=== PATIENT | female | born 1955 | race Caucasian/White ===

== ENCOUNTER 2016-09-07 09:23 | Inpatient (IN) | payer BC ==
[2016-09-07] MEDS ORDERED: SODIUM CHLORIDE 0.9% 1,000 ML IV STA (09:53)
[2016-09-07] MEDS ORDERED: NITROGLYCERIN SL TABS 0.4 MG TAB SUBLINGUAL STA (09:53)
--- NOTE | 2016-09-07 09:57 | ED ---
Chest Pain HPI - General Chief Complaint: Chest Pain Stated Complaint: CHEST PAIN, SHAKY Time Seen by Provider: 09/07/16 09:42 Source: patient, RN notes reviewed Mode of arrival: ambulatory Limitations: no limitations - History of Present Illness Initial Comments: This is a 61-year-old female with a history of ASD repair 1996 also borderline asthma who is a nonsmoker who states she's not feeling well she states she had the onset 4 days ago some chest tightness that was 10/10 in severity radiated to her left arm. She States She's Feeling Shaky. Can't Think Straight. She States She Also Has a Headache. She States for Now Her Chest Tightness Is 1-2/ 10 in Severity She Did Take 2 Full Strength Aspirin Last Night at Work without Much Resolution. She States She Just Recently Started Doctor Was Noted Have a Markedly Elevated Blood Pressure Today. She Denies Any Fevers Chills Sweats or Other Symptoms. She Has No Prior History of Heart or Lung Disease Other Than the ASD Repair. MD Complaint: chest pain, other - Related Data Home Medications Medication Instructions Recorded Confirmed Albuterol Inhaler [Ventolin 2 puff INHALATION RT-Q4H PRN 02/27/14 09/07/16 Inhaler] Mometasone/Formoterol [Dulera 100 1 puff INHALATION RT-DAILY PRN 02/27/14 Mcg/5 Mcg Inhaler] Omeprazole [PriLOSEC] 40 mg PO DAILY@22902/27/14 09/07/16 Venlafaxine HCl ER [Effexor Xr] 150 mg PO DAILY@22902/27/14 09/07/16 clonazePAM [KlonoPIN] 1 mg PO DAILY@22902/27/14 09/07/16 Fluticasone Propionate [Flonase 1 spray EA NOSTRIL DAILY@22910/19/14 09/07/16 Allergy Relief] Ergocalciferol (Vitamin D2) 50,000 unit PO SA 09/07/16 09/07/16 [Vitamin D2] Levothyroxine Sodium [Synthroid] 50 mcg PO DAILY@22909/07/16 09/07/16 Naproxen Sodium [Aleve] 440 mg PO DAILY PRN 09/07/16 09/07/16 Robeline-3 Acid Ethyl Esters [Lovaza] 2 gm PO BID 09/07/16 09/07/16 metFORMIN HCL ER [Glucophage Xr] 1,000 mg PO BID 09/07/16 09/07/16 sitaGLIPtin [Januvia] 100 mg PO DAILY@0230 09/07/16 09/07/16 Allergies Allergy/AdvReac Type Severity Reaction Status Date / Time Sulfa (Sulfonamide Allergy Itching Verified 09/07/16 10:48 Antibiotics) Review of Systems ROS Statement: Those systems with pertinent positive or pertinent negative responses have been documented in the HPI. ROS Other: All systems not noted in ROS Statement are negative. EKG Findings - EKG Results: EKG: interpreted by ERMD, sinus rhythm (Sinus rhythm rate of 90 VA interval 150 to QRS duration 80 QT/QTC of 396/[address]-T wave configuration. Prolonged QT.) Past Medical History Past Medical History: Asthma, COPD, GERD/Reflux, Osteoarthritis (OA) History of Any Multi-Drug Resistant Organisms: None Reported Past Surgical History: Hysterectomy, Orthopedic Surgery, Tubal Ligation Additional Past Surgical History / Comment(s): ASD repair, foot surg., rotator cuff surg, trigeminal neuralgia Additional Past Anesthesia/Blood Transfusion Reaction / Comment(s): had a problem w/nerve block w/rotator cuff surg. Past Psychological History: Depression, Panic Disorder Smoking Status: Former smoker Past Alcohol Use History: None Reported Past Drug Use History: None Reported General Exam - General Exam Comments Initial Comments: This is a well-developed well-nourished awake alert oriented 3 female Limitations: no limitations General appearance: alert, in no apparent distress Head exam: Present: atraumatic, normocephalic, normal inspection Eye exam: Present: normal appearance, PERRL, EOMI. Absent: scleral icterus, conjunctival injection, periorbital swelling ENT exam: Present: normal exam, mucous membranes moist Neck exam: Present: normal inspection. Absent: tenderness, meningismus, lymphadenopathy Respiratory exam: Present: normal lung sounds bilaterally. Absent: respiratory distress, wheezes, rales, rhonchi, stridor Cardiovascular Exam: Present: regular rate, normal rhythm, normal heart sounds. Absent: systolic murmur, diastolic murmur, rubs, gallop, clicks GI/Abdominal exam: Present: soft, normal bowel sounds, other (Obese abdomen). Absent: distended, tenderness, guarding, rebound, rigid Extremities exam: Present: normal inspection, full ROM, normal capillary refill. Absent: tenderness, pedal edema, joint swelling, calf tenderness Back exam: Present: normal inspection Neurological exam: Present: alert, oriented X3, CN II-XII intact Psychiatric exam: Present: normal affect, normal mood Skin exam: Present: warm, dry, intact, normal color. Absent: rash Course Vital Signs 09/07/16 09/07/16 09/07/16 09:28 09:54 10:13 Temperature 97.9 F Pulse Rate 96 96 Pulse Rate [ 90 Metal Riveter ] Respiratory 20 Rate Blood Pressure 206/112 174/97 O2 Sat by Pulse 97 97 Oximetry 09/07/16 10:39 Temperature Pulse Rate 98 Pulse Rate [ Metal Riveter ] Respiratory 20 Rate Blood Pressure 152/91 O2 Sat by Pulse 98 Oximetry - Reevaluation(s) Reevaluation #1: 09/07/16 11:33 Patient did get some improvement in her symptoms with the treatment that was rendered. Chest Pain MDM - MDM I did review the medical imaging and report no acute findings. Patient did get relief from her chest discomfort. I did a long discussion with her regarding the findings patient does have an elevated troponin. Patient will be admitted with evaluation for her chest pain. Cardiology will be consulted. I did discuss the case with Dr. Babcock Critical Care Time Critical Care Time: Yes Critical Care Time: 31 minutes of critical care time which includes initial presentation with history physical and initial lab and x-ray orders evaluation the above. Evaluation of patient response to therapy. Discussion with the admitting physician. Admission orders and documentation of the above. Disposition Clinical Impression: Unstable angina pectoris, Chest pain Disposition: ADMITTED IP TO THIS HOSP Condition: Stable
[2016-09-07 10:11] LABS: Basophils # (A) 0.1 k/uL (0-0.2); Basophils % (A) 1 %; CH 28.9; Eosinophils # (A) 0.3 k/uL (0-0.7); Eosinophils % (A) 4 %; HCT 43.6 % (34.0-46.0); HDW 2.64; HGB 14.2 gm/dL (11.4-16.0); Luc # (Auto) 0.26; Luc % (Auto) 3; Lymphocytes # (A) 1.8 k/uL (1.0-4.8); Lymphocytes % (A) 23 %; MCH 28.6 pg (25.0-35.0); MCHC 32.6 g/dL (31.0-37.0); MCV 87.9 fL (80.0-100.0); Mean Platelet Volume 7.3; Monocytes # (A) 0.4 k/uL (0-1.0); Monocytes % (A) 6 %; Neutrophils # (A) 4.9 k/uL (1.3-7.7); Neutrophils % (A) 63 %; RBC 4.97 m/uL (3.80-5.40); RDW 14.6 % (11.5-15.5); WBC 7.8 k/uL (3.8-10.6); WBC (Perox) 7.99
[2016-09-07 10:16] LABS: ALT 62 U/L (9-52); AST 35 U/L (14-36); Alkaline Phosphatase 108 U/L (38-126); Amylase 38 U/L (30-110); Anion Gap 13 mmol/L; Blood Urea Nitrogen 12 mg/dL (7-17); Calcium 10.4 mg/dL (8.4-10.2); Carbon Dioxide 24 mmol/L (22-30); Chloride 106 mmol/L (98-107); Glucose 168 mg/dL (74-99); Magnesium 1.8 mg/dL (1.6-2.3); Non-African American GFR(MDRD) >60 (>60 ml/min/1.73 sqM); Potassium 4.7 mmol/L (3.5-5.1); Sodium 143 mmol/L (137-145); Total Bilirubin 0.6 mg/dL (0.2-1.3); Total Protein 7.3 g/dL (6.3-8.2)
--- NOTE | 2016-09-07 10:30 | XR ---
EXAMINATION TYPE: XR chest 2V DATE OF EXAM: 09/07/2016 10:24 AM COMPARISON: Prior chest x-ray February 2015 HISTORY: Chest pain TECHNIQUE: Frontal and lateral views of the chest are obtained. FINDINGS: There are overlying cardiac leads, patient is post median sternotomy. Cardiomediastinal si lhouette, pulmonary vascularity and belgica are stable. No pneumonia, pneumothorax, or pleural effusion is evident. Prominent lung volume compatible with underlying COPD. IMPRESSION: No acute cardiopulmonary process. Stable exam.
[2016-09-07] MEDS ORDERED: NITROGLYCERIN OINT 1 INCH/GM PACKET TOPICAL STA (10:32)
[2016-09-07 10:47] LABS: Creatine Kinase MB 1.7 ng/mL (0.0-2.4)
[2016-09-07 10:51] LABS: Troponin I 0.041 ng/mL (0.000-0.034)
[2016-09-07 11:17] LABS: INR 1.1 (<1.1); Partial Thromboplastin Time 22.1 sec (22.0-30.0); Prothrombin Time 10.6 sec (9.0-12.0)
[2016-09-07] MEDS ORDERED: NITROGLYCERIN SL TABS 0.4 MG TAB SUBLINGUAL PRN (11:35)
[2016-09-07] MEDS ORDERED: HEPARIN SODIUM,PORCINE 5,000 UNIT/ML 1 ML VIAL IV ONE (11:35)
[2016-09-07] MEDS ORDERED: ALBUTEROL NEBULIZED 2.5 MG/3 ML INHALATION PRN (11:38)
[2016-09-07] MEDS ORDERED: HEPARIN SODIUM,PORCINE/D5W PMX 25,000 UNIT in DEXTROSE/WATER 1 500ML.BAG IV SCH (11:45)
[2016-09-07 13:46] LABS: Glucose,Whole Blood 137 mg/dL (75-99)
[2016-09-07] MEDS: INSULIN LISPRO (humaLOG) 300 UNIT/3 ML VIAL SQ SCH ×3 (13:48→21:20)
[2016-09-07] MEDS: NITROGLYCERIN OINT 1 INCH/GM PACKET TOPICAL SCH ×2 (13:52→18:25)
[2016-09-07] MEDS: SODIUM CHLORIDE 0.9% 1,000 ML IV SCH (13:52)
[2016-09-07] MEDS ORDERED: amLODIPine 5 MG TAB PO SCH (15:30)
[2016-09-07] MEDS: ACETAMINOPHEN TAB 325 MG TAB PO PRN (15:53)
[2016-09-07] MEDS ORDERED: amLODIPine 10 MG TAB PO STA (16:00)
[2016-09-07 16:50] LABS: Glucose,Whole Blood 111 mg/dL (75-99)
[2016-09-07] MEDS: metFORMIN 500 MG TAB PO SCH (17:00)
[2016-09-07 17:01] LABS: Creatine Kinase MB 1.4 ng/mL (0.0-2.4); Troponin I 0.023 ng/mL (0.000-0.034)
[2016-09-07] MEDS ORDERED: RX INFO: IV CONTRAST WAS GIVEN 1 EACH MISC MISCELLANE PRN (18:06)
--- NOTE | 2016-09-07 19:44 | CONS ---
DATE OF CONSULTATION: REASON FOR CONSULTATION: History of ( ) with no chest pain and elevated blood pressure. Becky Mcleod is a known patient with history of asthma, non-smoker, and history of ASD repair done in 1995. Patient claims her blood pressure was normal in Dr. Jones's office yesterday. Patient has been having chest pains on the left side with radiation to the back; on a scale of 1 to 10, 10/10 yesterday; lasted for 20 to 30 minutes. Patient is also complaining of some tightness now in the chest, very minimal at the present time. Still complains of some headache. Patient's blood pressure in the emergency room noted to be 206/112. It has come down. It is now about 159/95. Patient is not on any blood pressure medication. Patient is a nonsmoker, but patient has morbid obesity. Patient reports to be under a lot of stress. Medications prior to admission include: 1. Albuterol inhaler. 2. Advair Diskus. 3. Omeprazole 40 mg p.o. daily. 4. Effexor 150 mg p.o. daily. 5. Klonopin 1 mg p.o. daily. 6. Fluticasone propionate 1 spray in each nostril. 7. Vitamin D2 50,000 units weekly. 8. Levothyroxine 50 mcg p.o. daily. 9. Naprosyn 440 mg daily. 10. Euclid-3 Ethyl Esters (Lovaza) 2 grams p.o. b.i.d. 11. Metformin 1000 mg p.o. b.i.d. 12. Januvia 100 mg p.o. daily. ALLERGIES: SULFA DRUGS. Patient's review of systems is essentially unremarkable other than what is stated in the presenting illness; headache and history of ASD repair, recent hypertension and chest pains. EKGs do not show any acute ischemic changes. PAST HISTORY: 1. Asthma. 2. COPD. 3. Gastroesophageal reflux. 4. Osteoarthritis. 5. ASD repair. SURGICAL HISTORY: 1. Hysterectomy. 2. Orthopedic surgery. 3. Tubal ligation. 4. ASD repair. Patient is a former smoker. Physical examination revealed a well-developed, well-nourished, moderately obese female not in acute distress at the time of examination with a pulse rate of 96 beats per minute and regular, blood pressure of 159/85 mmHg, respirations of 20. Head normocephalic. HEENT unremarkable. Neck is supple. No JVD. CARDIAC EXAMINATION: Regular rate and rhythm. S1 and S2. Lungs are clinically to auscultation and percussion other than scattered rhonchi. ABDOMEN: Soft, obese. No organomegaly. Active bowel sounds. EXTREMITIES: Peripheral pulses. No pedal edema. ICE SKATER examination is grossly within normal limits. ASSESSMENT: 1. Chest pain suggestive of atypical angina with troponin x1 negative. EKG suggests normal sinus rhythm. Two more troponins to be collected. Patient is on heparin drip. 2. Hypertension, uncontrolled. 3. Headache, possibly related to her elevated blood pressure on admission. Patient's headache has subsided now. RECOMMENDATIONS: Will get a 2-D echocardiogram to assess LV function, Lexiscan Cardiolite study to assess inducible ischemia if the blood pressures are well controlled. I will discontinue the heparin if 2 more troponins are normal. Patient will be started on amlodipine 10 mg p.o. daily along with propranolol LA 120 mg p.o. daily. If necessary, will increase it. Will add other medications as needed.
[2016-09-07] MEDS: SYMBICORT 80-4.5 MCG INHALER INHALATION PRN (20:17)
[2016-09-07 20:55] LABS: Glucose,Whole Blood 116 mg/dL (75-99)
--- NOTE | 2016-09-07 20:59 | CT ---
EXAMINATION TYPE: CT angio chest DATE OF EXAM: 09/07/2016 8:46 PM COMPARISON: NONE HISTORY: Chest pain radiating to back and left shoulder. CT DLP: 1200.20 mGycm Automated exposure control for dose reduction was used. CONTRAST: CTA scan of the thorax is performed with IV Contrast, patient injected with 100 mL of Omnipaque 350, pulmonary embolism protocol. . FINDINGS: There are 3-D post processed images. There is mild subsegmental atelectasis at the lung bases. There is no pleural effusion. There is no e vidence of a pulmonary mass. Heart is enlarged. There is no pericardial effusion. There is fatty infiltration of liver. There is no evidence of thoracic aortic aneurysm or dissection. I see no filling defects in the pulmo nary arteries. There are no hilar masses. Bony thorax appears intact. There is spurring in the thorac ic spine. IMPRESSION: MILD ATELECTASIS AT THE POSTERIOR LUNG BASES. NO EVIDENCE OF PULMONARY EMBOLISM. FATTY INFILTRATION O F THE LIVER.
[2016-09-07] MEDS ORDERED: NON-FORMULARY DRUG (Omega-3 Acid Ethyl Esters [Lovaza] 2 GM) PO SCH (21:00)
[2016-09-07 22:20] LABS: Creatine Kinase MB 1.2 ng/mL (0.0-2.4); Troponin I 0.016 ng/mL (0.000-0.034)
[2016-09-08] MEDS: PANTOPRAZOLE 40 MG TABLET PO SCH ×2 (00:09→20:23)
[2016-09-08] MEDS: LINAGLIPTIN 5 MG TABLET PO SCH ×2 (00:09→20:23)
[2016-09-08] MEDS: LEVOTHYROXINE 50 MCG TAB PO SCH ×2 (00:09→20:23)
[2016-09-08] MEDS: FLUTICASONE 50MCG/SPRAY NASAL 16GM EA NOSTRIL SCH ×2 (00:10→20:24)
[2016-09-08] MEDS: VENLAFAXINE HCL ER 150 MG CAP PO SCH ×2 (00:11→20:23)
[2016-09-08] MEDS: NITROGLYCERIN OINT 1 INCH/GM PACKET TOPICAL SCH ×2 (00:18→05:49)
[2016-09-08] MEDS: clonazePAM 1 MG TAB PO SCH ×2 (00:27→20:22)
[2016-09-08] MEDS ORDERED: clonazePAM 1 MG TAB PO SCH (02:30)
[2016-09-08 04:43] LABS: Cholesterol 245 mg/dL (<200); HDL Cholesterol 44 mg/dL (40-60)
[2016-09-08 04:53] LABS: Triglycerides 575 mg/dL (<150)
[2016-09-08] MEDS ORDERED: REGADENOSON 0.4 MG/5 ML SYRINGE IV ONE (05:00)
[2016-09-08 06:00] LABS: Glucose,Whole Blood 150 mg/dL (75-99)
[2016-09-08] MEDS: INSULIN LISPRO (humaLOG) 300 UNIT/3 ML VIAL SQ SCH ×4 (06:40→21:13)
--- NOTE | 2016-09-08 07:47 | HP ---
DATE OF ADMISSION: 09/07/2016 PRESENTING COMPLAINT: Chest pain. HISTORY OF PRESENTING COMPLAINT: This is a very pleasant 61-year-old patient of Dr. Jones. Chronic stable medical conditions include asthma, diabetes, GERD, osteoarthritis, diverticulosis, hiatal hernia. The patient has a history of ASD repair in the remote past. The patient 4 days ago started with chest pain in the middle of the chest, lasted for 20. It was severe, going to the back. Patient had a headache since then and has not been feeling well; feels a bit shaky sometimes. Some shortness of breath. Denies any fever went to work. Just not feeling right and had to come in. The pain did radiate to the back of the shoulder. No dizziness. No swelling of the legs. REVIEW OF SYSTEMS: CONSTITUTIONAL: Tired. HEENT: None. RESPIRATORY: As above. CARDIOVASCULAR: As above. GASTROINTESTINAL: Feels abdominal bloating. GENITOURINARY: None. MUSCULOSKELETAL: Pain in the joints. DERMATOLOGICAL: None. HEMATOLOGIC: None. LYMPHATICS: None. PSYCHIATRY: None. NEUROLOGICAL: None. Past history of asthma, diabetes mellitus type 2, GERD, osteoarthritis, ASD repair, trigeminal neuralgia now corrected, hiatal hernia, diverticulosis, depression. PAST SURGICAL HISTORY: Cardiac catheterization, hysterectomy, orthopedic surgery, tubal ligation, ASD repair in 96 at [facility], left and right foot surgical spurs, right grade II joint replacement, rotator cuff surgery, fatty tumors removed x3 from leg. Psych history of depression, panic disorder. 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 Does not smoke. No alcohol rarely. . FAMILY HISTORY: Father had throat and lung cancer. HOME MEDICATIONS: 1. Januvia 100 mg p.o. daily. 2. Glucophage XR 1000 mg p.o. b.i.d. 3. Klonopin 1 mg p.o. daily. 4. Effexor-XR 150 mg p.o. daily. 5. Prilosec 40 mg p.o. daily. 6. Lovaza 2 gram p.o. b.i.d. 7. Aleve 440 mg p.o. daily p.r.n. 8. Dulera 1 puff daily p.r.n. 9. Synthroid 50 mcg p.o. daily. 10. Flonase one spray each nostril daily. 11. Vitamin D2 50,000 units on Sunday. 12. Ventolin 2 puffs q.4 p.r.n. ALLERGIES TO SULFA. On examination, temperature 98, pulse 91, respiratory rate 16, blood pressure 165/96, pulse ox 95% on 2-L. GENERAL APPEARANCE: Obese; BMI 38.2, lying in bed, tired -appearing. EYES: Pupils equal. Conjunctivae normal. HEENT: Oral cavity normal. NECK: JVD not raised. Mass not palpable. RESPIRATORY: Effort normal. Lungs are clear. CARDIOVASCULAR: First and second normal edema. ABDOMEN: Soft, nontender. Liver and spleen not palpable. LYMPHATIC: No lymph node palpable in neck or axillae. PSYCHIATRY: Alert and oriented x3. Mood is normal. NEUROLOGICAL: Pupils equal. Cranial nerves grossly intact. Power and sensation grossly intact. MUSCULOSKELETAL: Osteoarthritis. INVESTIGATIONS: White count 7.8, hemoglobin 10.2. Potassium 4.7. BUN and creatinine are normal. Troponin 0.041, 0.023. EKG nonspecific changes including T wave changes. Chest x-ray shows straightening of the left top but some prominence of the right pulmonary artery. Nil acute. ASSESSMENT: 1. Anterior chest pain with radiation to the left shoulder and the back present for 4 days. The patient is still feeling unwell. Troponin leak with a prior history of ASD repair. Will rule out a pulmonary embolism. Cardiac ischemia still in the differential. 2. Moderate persistent asthma. 3. Diabetes mellitus, type 2, on oral hypoglycemic. 4. Gastroesophageal reflux disease. 5. Primary osteoarthritis of multiple joints. 6. Obesity, body mass index of 38.3. 7. History of ASD repair. 8. Colonic diverticulosis. 9. Hiatal hernia. 10. Depression, not otherwise specified. 11. Hypothyroidism. PLAN: Cardiology was consulted. Serial cardiac enzymes in place. Will order CT angio for chest. Care was discussed with the patient. Home medications are resumed.
[2016-09-08] MEDS ORDERED: AMINOPHYLLINE 500 MG/20 ML VIAL IV PRN (09:00)
[2016-09-08] MEDS: PROPRANOLOL LA 60 MG CAP.SA.24H PO SCH (11:56)
[2016-09-08] MEDS: amLODIPine 10 MG TAB PO SCH (11:57)
[2016-09-08] MEDS: ASPIRIN 325 MG TAB PO SCH (11:57)
[2016-09-08] MEDS: SODIUM CHLORIDE 0.9% 1,000 ML IV SCH (11:58)
[2016-09-08 12:03] LABS: Glucose,Whole Blood 143 mg/dL (75-99)
--- NOTE | 2016-09-08 12:06 | P.PN ---
Subjective Principal diagnosis: Chest pain This is a 61-year-old female with history of asthma, hypothyroidism, prior ASD repair, obesity, who presented to the hospital with symptoms of chest tightness and associated headache. Her initial blood pressure on arrival here was noted to be 206/112. She was seen in consultation yesterday by Dr. Pelletier, was advised to undergo a Lexiscan stress test today. A CT of the chest was performed which was negative for pulmonary embolism. Hemoglobin A1c 7.0, cholesterol 245 with a triglyceride level of 575 and HDL of 44. Blood pressure this morning 136/86 with a heart rate in the 80s to 90s We will start the patient on a statin today. Await results of Lexiscan. Objective - Vital Signs Vital signs: Vital Signs Temp 97.3 F L 09/08/16 08:00 Pulse 96 09/08/16 08:00 Resp 18 09/08/16 08:00 BP 137/86 09/08/16 08:00 Pulse Ox 95 09/08/16 08:00 Intake & Output 09/07/16 09/08/16 09/08/16 18:59 06:59 18:59 Intake Total 180 1066.310 Balance 180 1066.310 Weight 104.4 kg Intake: IV 208 Heparin Sodium,Porcine/ 208 D5w Pmx 25,000 unit In Dextrose/Water 1 500ml. bag @ 9.586 UNITS/KG/HR 20 mls/hr IV .Q24H ANN Rx #:[id number] Intake, IV Titration 858.310 Amount Heparin Sodium,Porcine/ 475.310 D5w Pmx 25,000 unit In Dextrose/Water 1 500ml. bag @ 9.586 UNITS/KG/HR 20 mls/hr IV .Q24H ANN Rx #:[id number] Sodium Chloride 0.9% 1, 383 000 ml @ 20 mls/hr IV . Q24H ANN Rx#:[id number] Oral 180 Other: # Voids 1 0 - Exam PHYSICAL EXAMINATION: HEENT: Head is atraumatic, normocephalic. Pupils equal, round. Neck is supple. There is no elevated jugular venous pressure. HEART EXAMINATION: Heart S1, S2 normal. No murmur or gallop heard. CHEST EXAMINATION: Lungs are clear to auscultation and precussion. No chest wall tenderness is noted on palpation or with deep breathing. ABDOMEN: Soft, obese, nontender. Bowel sounds are heard. No organomegaly noted. EXTREMITIES: 2+ peripheral pulses with no evidence of peripheral edema and no calf tenderness noted. NEUROLOGIC patient is awake, alert and oriented -3. . - Labs CBC & Chem 7: 09/07/16 09:45 09/07/16 09:45 Labs: Abnormal Lab Results - Last 24 Hours (Table) 09/07/16 09/07/16 09/07/16 Range/Units 13:44 15:45 16:38 POC Glucose (mg/dL) 137 H 111 H (75-99) mg/dL Hemoglobin A1c 7.0 H (4.2-6.1) % Triglycerides (<150) mg/dL Cholesterol (<200) mg/dL 09/07/16 09/08/16 09/08/16 Range/Units 20:54 03:31 05:59 POC Glucose (mg/dL) 116 H 150 H (75-99) mg/dL Hemoglobin A1c (4.2-6.1) % Triglycerides 575 H (<150) mg/dL Cholesterol 245 H (<200) mg/dL Assessment and Plan (1) Chest pain Status: Acute (2) Hypertension, uncontrolled Status: Acute (3) Asthma Status: Acute (4) Hyperlipemia Status: Acute (5) Hypothyroid Status: Acute (6) Obese Status: Acute Plan: From cardiology's perspective, we will add a statin to her medication regime. Await results of Lexiscan. If the Melissa scan is negative she may be able to be discharged from cardiology's perspective to follow-up in the office post discharge. DNP note has been reviewed, I agree with a documented findings and plan of care. Patient was seen and examined.
--- NOTE | 2016-09-08 12:16 | NM ---
EXAMINATION TYPE: NM stress lexiscan cardiolite DATE OF EXAM: 09/08/2016 11:44 AM COMPARISON: NONE HISTORY: Chest pain TECHNIQUE: After the intravenous administration of 10.71 mCi Tc 99m Sestamibi - Cardiolite resting S PECT images acquired 75 minutes post injection. The patient received 0.4mg Lexiscan, 25.5 mCi Tc 99m Sestamibi - Stress images obtained [address] injection FINDINGS: Review of stress and rest SPECT images demonstrates no distinct perfusion abnormality. Gated analysi s shows normal wall motion with an estimated left ventricular ejection fraction of 23 % stress images , 51% on rest images. IMPRESSION: No scintigraphic evidence for reversible ischemia. Consider echocardiography correlation for ejection fraction
--- NOTE | 2016-09-08 13:09 | EST ---
DATE OF SERVICE: 09/08/2016 AGE: 61Y SEX: F HT: 65" WT: 230 lbs. Protocol Sundeep: Other: Stage: Dur. of Exercise: *Heart Rate Blood Pressure *Rest: 88 Rest: 123/88 * *Max. Achieved: 99 Maximum BP: 133/83 85% PMHR: 136 100% PMHR: 160 *METS: INDICATIONS: Chest pain. MEDICATIONS: 1. Ventolin. 2. Klonopin. 3. Effexor. 4. Prilosec. 5. Dulera. 6. Flonase, 7. Januvia. 8. Lovaza. 9. Aleve. 10. Glucophage. 11. Synthroid. 12. Vitamin D2. Baseline rhythm is sinus mechanism, rate of 88, normal axis and intervals, minor nonspecific ST-T wave changes. Baseline blood pressure 123/88 mmHg. Patient received an injection of Lexiscan. Electrocardiograph monitoring revealed occasional PVCs. There was no evidence of diagnostic ischemic ST deviation. Cardiolite was injected per protocol. CONCLUSION: 1. Nondiagnostic electrocardiograph stress testing. 2. Nuclear images will be reported separately.
[2016-09-08] MEDS: ACETAMINOPHEN TAB 325 MG TAB PO PRN (14:08)
[2016-09-08 17:49] LABS: Glucose,Whole Blood 142 mg/dL (75-99)
[2016-09-08] MEDS: LISINOPRIL 2.5 MG TAB PO SCH (20:22)
[2016-09-08] MEDS: ATORVASTATIN 40 MG TAB PO SCH (20:22)
[2016-09-08 20:48] LABS: Glucose,Whole Blood 150 mg/dL (75-99)
--- NOTE | 2016-09-08 22:16 | PN ---
DATE OF SERVICE: 09/08/2016 PRESENTING COMPLAINT: Chest pain. INTERVAL HISTORY: This is a patient with prior history of ASD repair who presented with 4 days of chest pain and a troponin leak. Patient did have a stress test done today that came back showing no reversibility, but the EF was reported on Lexiscan as 23%. Patient's is at the bedside. They are really concerned about the surety of this not being cardiac disease, especially in view of the troponin leak and rather low ejection fraction. Review of systems done for constitutional, cardiovascular, GI, pulmonary; relevant findings as above. Current medications are reviewed. On examination, temperature 96.8, pulse 95, respiration 16, blood pressure 138/85, pulse ox 93% on room air. GENERAL APPEARANCE: Lying in bed, tired-appearing. EYES: Pupils equal. Conjunctivae normal. NECK: JVD not raised. Mass not palpable. RESPIRATORY: Effort normal. Lungs are clear. CARDIOVASCULAR: First and second sounds normal. No edema. ABDOMEN: Soft, nontender. Liver and spleen not palpable. PSYCHIATRY: Alert and oriented x3. Mood and affect normal. INVESTIGATIONS: Triglycerides of 575. ASSESSMENT: 1. Anterior chest wall pain in a patient with prior history of ASD repair with Lexiscan nuclear stress test that has come back negative but showing ejection fraction of 23%. 2. Low ejection fraction on Lexiscan. Needs to be further worked up. 3. Moderate persistent asthma. 4. Diabetes mellitus, type 2, on oral hypoglycemic. 5. Gastroesophageal reflux disease. 6. Primary osteoarthritis in multiple joints. 7. Obesity; body mass index of 38.3. 8. History of ASD repair. 9. Colonic diverticulosis. 10. Hiatal hernia. 11. Depression not otherwise specified. 12. Hypothyroidism. PLAN: Extensive discussion was held with the patient and her . I did tell them that the Lexiscan oftentimes could be false-negative, and the only way to make sure, of course, would be cardiac catheterization if they are really concerned about the same. Now the low ejection fraction of 23% will need to be further clarified on a 2-D echocardiogram. They did want to talk to the front end architect again about the same; hence will go ahead and order a 2-D echocardiogram. I did talk to Adilene from Cardiology to have the rounding front end architect talk to the patient and her , as they have several questions about the same. In the meantime, will change the patient's Inderal LA to Lopressor and will also add an CHANTALE inhibitor and a small dose of Aldactone, given the low EF. Two-D echocardiogram has been ordered.
[2016-09-09] MEDS: INSULIN LISPRO (humaLOG) 300 UNIT/3 ML VIAL SQ SCH ×4 (06:24→21:42)
[2016-09-09 06:25] LABS: Glucose,Whole Blood 130 mg/dL (75-99)
--- NOTE | 2016-09-09 08:04 | ECHOF ---
Referral Reason:lv function MEASUREMENTS -------- HEIGHT: 165.1 cm WEIGHT: 104.3 kg BP: 165/96 RVIDd: 3.2 cm (< 3.3) IVSd: 1.3 cm (0.6 - 1.1) LVIDd: 4.3 cm (3.9 - 5.3) LVPWd: 1.3 cm (0.6 - 1.1) IVSs: 1.9 cm LVIDs: 2.9 cm LVPWs: 1.5 cm LA Diam: 2.9 cm (2.7 - 3.8) LAESV Index (A-L): 23.45 ml/m Ao Diam: 3.5 cm (2.0 - 3.7) AV Cusp: 2.3 cm (1.5 - 2.6) MV EXCURSION: 17.701 mm (> 18.000) MV EF SLOPE: 89 mm/s (70 - 150) EPSS: 0.5 cm MV E Caesar: 0.53 m/s MV DecT: 295 ms MV A Caesar: 0.99 m/s MV E/A Ratio: 0.53 RAP: 5.00 mmHg RVSP: 30.25 mmHg FINDINGS -------- Sinus rhythm. This was a technically good study. The left ventricular size is normal. There is mild concentric left ventricular hypertrophy. Overall left ventricular systolic function is normal with, an EF between 55 - 60 %. The right ventricle is normal in size. Normal LA size by volume 22+/-6 ml/m2. The right atrium is normal in size. The aortic valve is trileaflet and appears structurally normal. The mitral valve leaflets are mildly thickened. Mild mitral regurgitation is present. Trace tricuspid regurgitation present. Right ventricular systolic pressure is normal at < 35 mmHg. Trace/mild (physiologic) pulmonic regurgitation. The aortic root size is normal. IVC Not well visulized. There is no pericardial effusion. CONCLUSIONS -------- 1. Sinus rhythm. 2. Trace/mild (physiologic) pulmonic regurgitation. 3. The aortic root size is normal. 4. IVC Not well visulized. 5. There is no pericardial effusion. 6. This was a technically good study. 7. There is mild concentric left ventricular hypertrophy. 8. Overall left ventricular systolic function is normal with, an EF between 55 - 60 %. 9. Normal LA size by volume 22+/-6 ml/m2. 10. The aortic valve is trileaflet and appears structurally normal. 11. Mild mitral regurgitation is present. 12. Trace tricuspid regurgitation present. 13. Right ventricular systolic pressure is normal at < 35 mmHg. WARRANT SERVER: Kenyatta Norton RDCS
[2016-09-09] MEDS: amLODIPine 10 MG TAB PO SCH (08:35)
[2016-09-09] MEDS: PROPRANOLOL LA 60 MG CAP.SA.24H PO SCH (08:35)
[2016-09-09] MEDS: ASPIRIN 325 MG TAB PO SCH (08:36)
[2016-09-09] MEDS ORDERED: ERGOCALCIFEROL 50,000 UNIT CAP PO SCH (09:00)
[2016-09-09 11:36] LABS: Glucose,Whole Blood 145 mg/dL (75-99)
[2016-09-09] MEDS: SODIUM CHLORIDE 0.9% 1,000 ML IV SCH (12:09)
[2016-09-09 16:31] LABS: Glucose,Whole Blood 124 mg/dL (75-99)
--- NOTE | 2016-09-09 16:47 | PN ---
This patient was admitted with chest pain, had a borderline elevation in the troponin and underwent a Lexiscan Cardiolite study which did not show any evidence of stress-induced ischemia, however, the ejection fraction was reported too low during the stress. Patient continues to have intermittent chest pain and clinically appears to be atypical. Discussed with the patient and the family members. They would like to proceed with definite diagnosis with cardiac catheterization. The procedure and risks were fully explained to the patient. We will do the catheterization on Sunday. Blood pressure is 103/55 mmHg. HEART: S1 and S2 normal, second heart sound is split. Lungs are clear to auscultation and percussion.
[2016-09-09] MEDS: metFORMIN 500 MG TAB PO SCH (17:47)
[2016-09-09 20:56] LABS: Glucose,Whole Blood 166 mg/dL (75-99)
[2016-09-09] MEDS: MELATONIN 3 MG TABLET PO SCH (21:40)
[2016-09-09] MEDS: ATORVASTATIN 40 MG TAB PO SCH (21:40)
[2016-09-09] MEDS: LISINOPRIL 2.5 MG TAB PO SCH (21:41)
[2016-09-09] MEDS: LEVOTHYROXINE 50 MCG TAB PO SCH (21:41)
[2016-09-09] MEDS: FLUTICASONE 50MCG/SPRAY NASAL 16GM EA NOSTRIL SCH (21:41)
[2016-09-09] MEDS: VENLAFAXINE HCL ER 150 MG CAP PO SCH (21:42)
[2016-09-09] MEDS: PANTOPRAZOLE 40 MG TABLET PO SCH (21:42)
[2016-09-09] MEDS: LINAGLIPTIN 5 MG TABLET PO SCH (21:42)
[2016-09-09] MEDS: clonazePAM 1 MG TAB PO SCH (21:45)
--- NOTE | 2016-09-09 22:10 | PN ---
DATE OF SERVICE: 09/09/2016 PRESENTING COMPLAINT: Chest pain. INTERVAL HISTORY: This is a patient with history of ASD repair previously. Did have a negative stress test, ( ) kind of presentation. Patient and her family concerned to rule out cardiac cause for sure. The patient did have a Troponin leak. 2-D echocardiogram showed a preserved LV function. The patient did have some more recurrence of pain. Review of systems done for constitutional, cardiovascular, GI, pulmonary; relevant findings as above. Current medications are reviewed. On examination, temperature 97.3, pulse 96, respirations 18, blood pressure 137/86, pulse ox 95% on room air. GENERAL APPEARANCE: Lying in bed, tired. EYES: Pupils equal. Conjunctivae normal. NECK: JVD not raised. Mass not palpable. RESPIRATORY: Effort normal. Lungs are clear. CARDIOVASCULAR: First and second sounds normal. No edema. ABDOMEN: Soft, nontender. Liver and spleen not palpable. PSYCHIATRY: Alert and oriented x3. Mood and affect normal. INVESTIGATIONS: Accu-Cheks are noted. Triglycerides 575. ASSESSMENT: 1. Anterior chest wall pain in a patient with ASD repair. Nuclear stress being negative. After discussion with Dr. Kvng Ruiz, patient is going to have a cardiac catheterization to rule out coronary artery disease. 2. Ejection fraction normal per 2-D echocardiogram. 3. Moderate persistent asthma. 4. Diabetes mellitus, type II, on oral hypoglycemic. 5. Gastroesophageal reflux disease. 6. Primary osteoarthritis of multiple joints. 7. Obesity, body mass index 38.3. 8. History of ASD repair. 9. Colonic diverticulosis. 10. Hiatal hernia. 11. Depression not otherwise specified. 12. Hypothyroidism. PLAN: Continue current medication and treatment plan. Cardiac catheterization being scheduled. Family at the bedside. Given the history of diabetes, if cardiac cath is negative we will switch patient to Norvasc and increase the dose of CHANTALE inhibitor in view of patient being a diabetic and good preserved ejection fraction hold off on patient Aldactone too.
[2016-09-10] MEDS: INSULIN LISPRO (humaLOG) 300 UNIT/3 ML VIAL SQ SCH ×4 (06:20→21:31)
[2016-09-10 06:23] LABS: Glucose,Whole Blood 118 mg/dL (75-99)
[2016-09-10] MEDS: metFORMIN 500 MG TAB PO SCH ×2 (06:37→19:00)
[2016-09-10] MEDS: ASPIRIN 325 MG TAB PO SCH (08:38)
[2016-09-10] MEDS: amLODIPine 10 MG TAB PO SCH (08:38)
[2016-09-10] MEDS: PROPRANOLOL LA 60 MG CAP.SA.24H PO SCH (08:40)
[2016-09-10] MEDS: SYMBICORT 80-4.5 MCG INHALER INHALATION PRN (09:31)
[2016-09-10 11:43] LABS: Glucose,Whole Blood 127 mg/dL (75-99)
[2016-09-10] MEDS ORDERED: ASPIRIN 325 MG TAB PO STA (13:35)
[2016-09-10] MEDS ORDERED: ALPRAZolam 0.5 MG TAB PO PRN (13:35)
[2016-09-10] MEDS ORDERED: ATORVASTATIN 80 MG TAB PO STA (13:35)
[2016-09-10] MEDS ORDERED: NITROGLYCERIN SL TABS 0.4 MG TAB SUBLINGUAL PRN (13:35)
[2016-09-10] MEDS ORDERED: SODIUM CHLORIDE 0.9% 1,000 ML in EMPTY BAG 1 BAG IV ONE (13:35)
[2016-09-10] MEDS ORDERED: ALPRAZolam 0.25 MG TAB PO PRN (13:35)
--- NOTE | 2016-09-10 15:23 | PN ---
This patient is admitted with intermittent chest pain. Patient's EKGs and cardiac enzymes are normal. Patient continues to have a mild chest discomfort. Her vital signs are stable. First and second heart sounds are normal. Lungs are clear to auscultation and percussion. Patient is scheduled for cardiac catheterization tomorrow to be done by Dr. Johann Pelletier.
[2016-09-10 16:32] LABS: Glucose,Whole Blood 123 mg/dL (75-99)
[2016-09-10] MEDS: SODIUM CHLORIDE 0.9% 1,000 ML IV SCH (16:34)
[2016-09-10 21:05] LABS: Glucose,Whole Blood 128 mg/dL (75-99)
[2016-09-10 21:34] VITALS: RESP 16
[2016-09-10] MEDS: LISINOPRIL 2.5 MG TAB PO SCH (22:17)
[2016-09-10] MEDS: ATORVASTATIN 40 MG TAB PO SCH (22:17)
[2016-09-10] MEDS: MELATONIN 3 MG TABLET PO SCH (22:18)
[2016-09-10] MEDS: ACETAMINOPHEN TAB 325 MG TAB PO PRN (22:24)
[2016-09-10] MEDS: clonazePAM 1 MG TAB PO SCH (22:25)
[2016-09-11] MEDS: FLUTICASONE 50MCG/SPRAY NASAL 16GM EA NOSTRIL SCH (05:06)
[2016-09-11] MEDS: LINAGLIPTIN 5 MG TABLET PO SCH (06:26)
[2016-09-11] MEDS: metFORMIN 500 MG TAB PO SCH (06:26)
[2016-09-11] MEDS: LEVOTHYROXINE 50 MCG TAB PO SCH (06:27)
[2016-09-11] MEDS: PROPRANOLOL LA 60 MG CAP.SA.24H PO SCH (06:27)
[2016-09-11] MEDS: amLODIPine 10 MG TAB PO SCH (06:27)
[2016-09-11] MEDS: PANTOPRAZOLE 40 MG TABLET PO SCH (06:28)
[2016-09-11] MEDS: VENLAFAXINE HCL ER 150 MG CAP PO SCH (06:28)
[2016-09-11] MEDS: ASPIRIN 325 MG TAB PO SCH (06:28)
[2016-09-11 06:53] LABS: Glucose,Whole Blood 135 mg/dL (75-99)
[2016-09-11] MEDS: INSULIN LISPRO (humaLOG) 300 UNIT/3 ML VIAL SQ SCH ×2 (07:04→12:20)
[2016-09-11 07:15] LABS: Anion Gap 13 mmol/L; Blood Urea Nitrogen 18 mg/dL (7-17); Calcium 9.8 mg/dL (8.4-10.2); Carbon Dioxide 21 mmol/L (22-30); Chloride 109 mmol/L (98-107); Glucose 138 mg/dL (74-99); Non-African American GFR(MDRD) >60 (>60 ml/min/1.73 sqM); Potassium 4.8 mmol/L (3.5-5.1); Sodium 143 mmol/L (137-145)
--- NOTE | 2016-09-11 08:50 | PN ---
DATE OF SERVICE: 09/10/2016 PRESENTING COMPLAINT: Chest pain. INTERVAL HISTORY: Patient with history of ASD repair who had a negative stress test, still having some more chest pain, hence scheduled for cardiac catheterization tomorrow. Lying in bed. Review of systems done for cardiovascular, GI, pulmonary; relevant findings as above. Current medications are reviewed. On examination, temperature 97.1, pulse 56, respiration 18, blood pressure 108/57, pulse ox 98% on room air. GENERAL APPEARANCE: Lying in bed tired-appearing. EYES: Pupils equal. Conjunctivae normal. NECK: JVD not raised. Mass not palpable. RESPIRATORY: Effort normal. Lungs are clear. CARDIOVASCULAR: First and second sounds normal. No edema. ABDOMEN: Soft, nontender. Liver and spleen not palpable. PSYCHIATRY: Alert and oriented x3. Mood and affect is normal. INVESTIGATIONS: LABS: No labs were from today. ASSESSMENT: 1. Anterior chest wall pain in a patient with ASD repair. Nuclear stress test was negative. Awaiting cardiac cath. 2. Moderate persistent asthma. 3. Diabetes mellitus, type II, on oral hypoglycemic. 4. Gastroesophageal reflux disease. 5. Primary osteoarthritis of multiple joints. 6. Obesity, body mass index of 38.3. 7. History of ASD repair. 8. Chronic diverticulosis. 9. Hiatal hernia. 10. Depression, not otherwise specified. 11. Hypothyroidism. PLAN: Continue current medication and treatment plan. Will follow.
[2016-09-11] MEDS: SYMBICORT 80-4.5 MCG INHALER INHALATION PRN (09:13)
[2016-09-11] MEDS ORDERED: LIDOCAINE 2% INJ 20 MG/ML (20 ML MDV) ONE (09:28)
[2016-09-11 09:38] VITALS: PULSE 52; TEMP 97
[2016-09-11] MEDS ORDERED: IV FLUID CONTINUATION 1,000 ML IV ONE (09:40)
[2016-09-11] MEDS ORDERED: fentaNYL (PF) 50 MCG/ML 2 ML AMP ONE (09:51)
[2016-09-11] MEDS ORDERED: diphenhydrAMINE 50 MG/ML 1 ML VIAL ONE (09:51)
[2016-09-11] MEDS ORDERED: diphenhydrAMINE 50 MG/ML 1 ML VIAL IVP ONE (09:58)
[2016-09-11] MEDS ORDERED: fentaNYL (PF) 50 MCG/ML 2 ML AMP IV ONE (09:59)
[2016-09-11] MEDS ORDERED: LIDOCAINE 2% INJ 20 MG/ML SQ ONE (10:05)
[2016-09-11] MEDS ORDERED: IOHEXOL 350 MG/ML 100 ML BOTTLE INJ ONE (10:21)
[2016-09-11] MEDS ORDERED: RX INFO: IV CONTRAST WAS GIVEN 1 EACH MISC MISCELLANE PRN (10:33)
[2016-09-11 12:20] LABS: Glucose,Whole Blood 129 mg/dL (75-99)
[2016-09-11 13:16] VITALS: BP 101/52
--- NOTE | 2016-09-11 22:07 | CC ---
DATE OF SERVICE: Patient was seen in consultation with atypical chest pain, status post ASD repair, diabetic hypertensive, hypercholesterolemic, morbid exogenous obesity. Patient was seen and followed by my associate ( ) in spite of having a negative Cardiolite scan, my associate suspected possibility of triple-vessel disease, advised cardiac catheterization for definitive diagnosis because of her continued symptoms. Patient was admitted to the hospital with atypical symptoms and uncontrolled hypertension. PROCEDURE: Left heart catheterization with selective coronary arteriography, left ventriculography done by Julia technique. Right femoral artery was cannulated under local anesthesia. With aseptic precautions a 6 [place] sheath was placed into right femoral artery. Proceeded with right and left coronary angiograms followed by left ventriculogram, aortogram with aortic followup. Patient tolerated the procedure very well. Patient had an Angio-Seal applied following the procedure. Patient was under conscious sedation about 30 minutes. HEMODYNAMIC DATA: Aortic pressure noted to be 111/73 with a mean pressure of 86. Left ventricular end-diastolic pressure prior to angiography was 18; post angiography it remained the same. There was no gradient across the aortic valve. LEFT VENTRICULOGRAPHY: Left ventriculography done in 30-degree OCONNOR projection revealed normal cardiac silhouette with well-preserved left ventricular systolic function with ( ) 65%. Ascending and descending aorta appeared normal. SELECTIVE CORONARY ARTERIOGRAM: Left main coronary artery is of normal caliber, free of any atherosclerotic occlusive disease. Left anterior descending is a good-caliber blood vessel, wraps around the apex, free of any atherosclerotic occlusive disease throughout its course. Left circumflex is a non-dominant, moderate-caliber blood vessel, free of any atherosclerotic occlusive disease throughout its course. Right coronary artery is a dominant, good-caliber blood vessel, free of any atherosclerotic occlusive disease throughout its course. ASSESSMENT: Normal coronaries, normal left ventricular function with mildly elevated end-diastolic pressure in ascending and descending aortogram. RECOMMENDATIONS: Continued medical therapy and risk factor modifications are recommended.
--- NOTE | 2016-09-13 07:10 | DS ---
DATE OF ADMISSION: 09/11/2016 DATE OF DISCHARGE: 09/11/2016 FINAL DIAGNOSES: 1. Left anterior chest wall pain, possibly musculoskeletal. 2. Moderate persistent asthma. 3. Diabetes mellitus type 2 on oral hyperglycemics. 4. Gastroesophageal reflux disease. 5. Primary osteoarthritis in multiple joints. 6. Obesity, body mass index of 38.3. 7. History of ASD repair. 8. Chronic diverticulosis. 9. Hiatal hernia. 10. Depression, not otherwise specified. 11. Hypothyroidism. CONSULTATION: 1. Dr. Kvng Ruiz from Cardiology. 2. Dr. Johann Pelletier. HOSPITAL COURSE: This patient with history of ASD repair many years ago, presented with chest pain. Nuclear stress test was negative. There is a small troponin leak. Because of more chest pain, had a cardiac catheterization by Dr. Johann Pelletier that showed normal coronaries. On examination, lungs are clear. CARDIOVASCULAR: First and second sounds normal. A 2-D echo showed preserved LV function. DISCHARGE MEDICATIONS: 1. Ventolin HFA 2 puffs q.4 p.r.n. 2. Dulera 100/5 one puff daily. 3. Prevacid 40 mg p.o. daily. 4. Effexor XR 150 mg p.o. daily. 5. Klonopin 1 mg p.o. daily. 6. Flonase 1 spray each nostril daily. 7. Vitamin D2 fifty thousand units p.o., Sunday. 8. Synthroid 50 mcg p.o. daily. 9. Aleve 440 mg p.o. daily p.r.n. 10. Lovaza 2 gm p.o. b.i.d. 11. Glucophage XR 1000 mg p.o. b.i.d. 12. Januvia 100 mg p.o. daily. 13. Aspirin 81 mg p.o. daily. 14. Lipitor 40 mg p.o. q.h.s. 15. Zestoretic 03/29.5 one tablet p.o. b.i.d. 16. Inderal LA 120 mg p.o. daily. Follow with Dr. Jones 09/13/2016. Return to work after 5 days.
== END 2016-09-11 17:20 | disposition home or self-care (01) | DRG 287 ==
LOC: EC 09:23 → 6SEL 11:39 → OBSVTOIN 09-11 09:06
PROVIDERS: ADMIT Hospitalist; ATTEND Hospitalist
PROC: B2111ZZ Fluoroscopy of Multiple Coronary Arteries using Low Osmolar Contrast (ICD-10-PCS; principal; 2016-09-11 09:40)
PROC: 4A023N7 Measurement of Cardiac Sampling and Pressure, Left Heart, Percutaneous Approach (ICD-10-PCS; principal; 2016-09-11 09:40)
PROC: B2151ZZ Fluoroscopy of Left Heart using Low Osmolar Contrast (ICD-10-PCS; principal; 2016-09-11 09:40)
DX: R07.89 Other chest pain (principal); E66.01 Morbid (severe) obesity due to excess calories; I10 Essential (primary) hypertension; E03.9 Hypothyroidism, unspecified; E11.9 Type 2 diabetes mellitus without complications; E78.5 Hyperlipidemia, unspecified; F32.9 Major depressive disorder, single episode, unspecified; F41.0 Panic disorder [episodic paroxysmal anxiety]; J44.9 Chronic obstructive pulmonary disease, unspecified; J45.40 Moderate persistent asthma, uncomplicated; K21.9 Gastro-esophageal reflux disease without esophagitis; K44.9 Diaphragmatic hernia without obstruction or gangrene; K57.30 Diverticulosis of large intestine without perforation or abscess without bleeding; M15.9 Polyosteoarthritis, unspecified; Z68.38 Body mass index [BMI] 38.0-38.9, adult; Z79.84 Long term (current) use of oral hypoglycemic drugs; Z87.891 Personal history of nicotine dependence; Z88.2 Allergy status to sulfonamides; Z79.899 Other long term (current) drug therapy
CPT/HCPCS: 36415; 71020; 71275; 78452; 80048; 80053; 80061; 82150; 82550; 82553; 83036; 83690; 83735; 84484; 85025; 85379; 85610; 85730; 87502; 93005; 93017; 93306; 93458; 93567; 94640; 96361; 96365; 96366; 96376; 99285

== ENCOUNTER → 2016-09-27 | Outpatient (CLI) | payer BC ==
--- NOTE | 2016-09-27 14:54 | NM ---
EXAMINATION TYPE: NM hepatobiliary w EF DATE OF EXAM: 09/27/2016 2:47 PM COMPARISON: Ultrasound 09/21/2016 HISTORY: Right upper quadrant TECHNIQUE: After the intravenous administration of 5.5 mCi Tc 99m Mebrofenin hepatobiliary scintigrap hy is performed. Immediate images post injection. FINDINGS: There is satisfactory initial accumulation of tracer by the liver. The gallbladder is visualized wit hin 15 minutes. The small bowel activity is noted within 20 minutes. At one hour 8 ounces of oral e nsure plus is given to mimic CCK and gallbladder ejection fraction is calculated at 92 %, in the norm al range. Therefore there is no scintigraphic evidence of cystic or common bile duct obstruction to suggest acute cholecystitis or gallbladder dyskinesia. IMPRESSION: 1. Ejection fraction of 92% can occasionally be seen with hyperdynamic gallbladder. Correlate clinica lly.
== END | disposition home or self-care (01) ==
LOC: RADNMMAIN 12:29
PROVIDERS: ATTEND Internal Medicine
DX: R10.9 Unspecified abdominal pain (principal)
CPT/HCPCS: 78226; A9537

== ENCOUNTER 2016-09-29 08:13 | Day surgery (SDC) | payer BC ==
[2016-09-26 14:20] VITALS: BMI 38.2
[~2016-09-29 08:13] MED LIST: LACTATED RINGERS 1,000 ML IV SCH
[2016-09-29 08:36] VITALS: TEMP 98.4
[2016-09-29] MEDS ORDERED: LIDOCAINE 1% 20 ML VIAL (10MG/ML) FOR IV START INTRADERMA ONE (08:47)
[2016-09-29 08:52] LABS: Glucose,Whole Blood 166 mg/dL (75-99)
[2016-09-29] MEDS ORDERED: PROPOFOL 10 MG/ML 20 ML VIAL IV ONE (09:03)
[2016-09-29] MEDS ORDERED: OXYBUTYNIN XL 5 MG TAB.ER.24 PO ONE (09:03)
[2016-09-29] MEDS ORDERED: GLYCOPYRROLATE 0.2 MG/ML 2 ML VIAL ONE (09:03)
[2016-09-29] MEDS ORDERED: LIDOCAINE 1% INJ 10MG/ML (20 ML MDV) ONE (09:03)
--- NOTE | 2016-09-29 09:15 | P.PCN ---
Date of Procedure: 09/29/16 Procedure(s) Performed: BRIEF HISTORY: Patient is a 61-year-old, pleasant, white female, scheduled for an upper endoscopy as a part of evaluation of atypical chest pain for the last several months duration. She does have history of gastroesophageal reflux symptoms and has been on omeprazole 20 mg daily for several years. Recently her medication was changed to Protonix 40 mg twice daily with some improvement in his symptoms. PROCEDURE PERFORMED: Esophagogastroduodenoscopy with biopsy PREOPERATIVE DIAGNOSIS: GERD/atypical chest pain. IV sedation per anesthesia. PROCEDURE: After informed consent was obtained, the patient was brought into the endoscopy unit. IV sedation was administered by Anesthesia under continuous monitoring. Initially the Olympus GIF-140 video endoscope was inserted into the mouth. Esophagus intubated without any difficulty. It was gradually advanced into the stomach and duodenum and carefully examined. The bulb and the second part of the duodenum appeared normal. The scope at this time was withdrawn to the stomach, adequately insufflated with air, and upon careful examination, mucosa of the antrum had mild gastritis and biopsies were done from this area. The body, cardia and the fundus appeared normal. The scope was then withdrawn into the esophagus. The GE junction was located at 41 cm from the incisors. it appeared irregular but no evidence of esophagitis seen. The rest of theesophagus appeared normal. There were no erosions or ulcerations seen and the patient tolerated the procedure well. IMPRESSION: 1. Mild antral gastritis. 2. Small hiatal hernia and slightly irregular GE junction but no evidence of esophagitis. RECOMMENDATIONS: The findings of this examination were discussed with the patient as well as her family. She was advised to follow with the biopsy results. Since she is doing well on Protonix 40 mg twice daily she was advised to continue the same and follow antireflux measures.
[2016-09-29 09:56] VITALS: BP 144/78; PULSE 88; RESP 16
== END 2016-09-29 09:58 | disposition home or self-care (01) ==
LOC: ORWHC2ENDO 08:13
PROVIDERS: ATTEND Internal Medicine Gastroenterology
DX: K21.0 Gastro-esophageal reflux disease with esophagitis (principal); K29.50 Unspecified chronic gastritis without bleeding; E78.5 Hyperlipidemia, unspecified; R07.89 Other chest pain; J44.9 Chronic obstructive pulmonary disease, unspecified; E11.9 Type 2 diabetes mellitus without complications; E07.9 Disorder of thyroid, unspecified; Z79.899 Other long term (current) drug therapy; Z79.84 Long term (current) use of oral hypoglycemic drugs; Z79.1 Long term (current) use of non-steroidal anti-inflammatories (NSAID); Z79.51 Long term (current) use of inhaled steroids; Z88.2 Allergy status to sulfonamides
CPT/HCPCS: 88305; 88342; 43239; J2001; J2704

== ENCOUNTER 2016-10-18 10:08 | Day surgery (SDC) | payer BC ==
[2016-10-16 14:23] VITALS: BMI 38.2
[~2016-10-18 10:08] MED LIST changes: +DEXAMETHASONE SOD PHOSPHATE 10 MG/ML 1 ML VIAL IV ONE; +FAMOTIDINE 20 MG/2 ML VIAL IV PRN; +HEPARIN SODIUM,PORCINE 5,000 UNIT/ML 1 ML VIAL SQ ONE; +LIDOCAINE 1% 20 ML VIAL (10MG/ML) FOR IV START INTRADERMA PRN; +MIDAZOLAM 2 MG/2 ML VIAL IV PRN; +SCOPOLAMINE 1.5MG/72HR PATCH TRANSDERM ONE; +ceFAZolin 2 GM in SODIUM CHLORIDE 0.9% 100 ML IVPB ONE
[2016-10-18 12:38] VITALS: TEMP 97.6
[2016-10-18] MEDS ORDERED: ONDANSETRON 4 MG/2 ML VIAL IVP ONE (13:06)
[2016-10-18 13:08] LABS: Glucose,Whole Blood 126 mg/dL (75-99)
--- NOTE | 2016-10-18 13:13 | P.GSHP ---
History of Present Illness H&P Date: 10/18/16 Chief Complaint: Symptomatic cholelithiasis 61 years old female with morbid obesity presented with right upper quadrant pain. Workup included ultrasound which showed sludge and small gallstones. CCK HIDA scan showed hypercontractility of gallbladder with ejection fraction more than 90%. - Review of Systems Comment: All negative except stated in history of present illness Past Medical History Past Medical History: COPD, Diabetes Mellitus, Eye Disorder, GERD/Reflux, Hyperlipidemia, Hypertension, Osteoarthritis (OA), Pneumonia Additional Past Medical History / Comment(s): ASD with repair, T wave inversion since ASD repair, bilateral glaucoma with sx, trigeminal neuralgia-corrected with surgery, diverticulitis, hiatal hernia, chronic low back pain, anemia when young, bilateral varicosities, sinus problems. History of Any Multi-Drug Resistant Organisms: None Reported Past Surgical History: Heart Catheterization, Hysterectomy, Orthopedic Surgery, Tubal Ligation Additional Past Surgical History / Comment(s): 1995 ASD repair at [facility], L/R foot surg-spurs and R great toe joint replaced, R rotator cuff surg, trigeminal neuralgia surgery at [facility] in [place], back injections, fatty tumors removed x3 from legs, bilateral laser sx twice for glaucoma Additional Past Anesthesia/Blood Transfusion Reaction / Comment(s): Had BANG w/ nerve block w/rotator cuff surg. Pt received blood with ASD repair without reaction. Past Psychological History: Depression, Panic Disorder Additional Psychological History / Comment(s): . Smoking Status: Former smoker Past Alcohol Use History: Rare Additional Past Alcohol Use History / Comment(s): Pt smoked from [id number]. Past Drug Use History: None Reported - Past Family History Father Family Medical History: Cancer Additional Family Medical History / Comment(s): Father of throat/lung cancer. Mother Family Medical History: Diabetes Mellitus Additional Family Medical History / Comment(s): Mother had heart problems. She at age 73yrs Brother(s) Family Medical History: Cancer Medications and Allergies Home Medications Medication Instructions Recorded Confirmed Type Mometasone/Formoterol [Dulera 100 1 puff INHALATION RT-DAILY PRN 02/27/14 History Mcg/5 Mcg Inhaler] Venlafaxine HCl ER [Effexor XR] 150 mg PO DAILY@0230 02/27/14 10/16/16 History clonazePAM [KlonoPIN] 1 mg PO DAILY@02302/27/14 10/16/16 History Fluticasone Propionate [Flonase 1 spray EA NOSTRIL DAILY@22910/19/14 10/16/16 History Allergy Relief] Ergocalciferol (Vitamin D2) 50,000 unit PO SA 09/07/16 10/16/16 History [Vitamin D2] Levothyroxine Sodium [Synthroid] 50 mcg PO DAILY@22909/07/16 10/16/16 History Naproxen Sodium [Aleve] 440 mg PO DAILY PRN 09/07/16 10/16/16 History [place]-3 Acid Ethyl Esters [Lovaza] 2 gm PO BID 09/07/16 10/16/16 History sitaGLIPtin [Januvia] 100 mg PO DAILY@22909/07/16 10/16/16 History Pantoprazole [Protonix] 40 mg PO DAILY 09/26/16 10/16/16 History Allergies Allergy/AdvReac Type Severity Reaction Status Date / Time Sulfa (Sulfonamide Allergy Itching Verified 10/18/16 12:29 Antibiotics) Surgical - Exam Vital Signs Temp Pulse Resp BP Pulse Ox 97.6 F 79 16 155/90 97 10/18/16 12:36 10/18/16 12:36 10/18/16 12:36 10/18/16 12:36 10/18/16 12:36 General: Patient is alert and oriented to time, place and person and cooperative with exam. HEENT: No pallor, no icteru Chest: Bilateral equal breath sounds present. Cardiovascular: Regular rate and rhythm. Abdomen: Soft, nontender, nondistended. Integumentary:No active ulcers or discharge. Neurologic: Cranial nerves II-XII intact. Strength upper and lower extremities 5/5. No focal neurologic deficits. Gait is normal. Psychiatric: No anxiety or psychosis. No suicidal thoughts. Results - Labs Abnormal Lab Results - Last 24 Hours (Table) 10/18/16 Range/Units 12:53 POC Glucose (mg/dL) 126 H (75-99) mg/dL Assessment and Plan (1) Hypertension Status: Acute (2) Obesity, Class II, BMI 35-39.9 Status: Acute (3) Gallstone Status: Acute Plan: 1. Symptomatic cholelithiasis 2. Informed consent obtained from the patient after explaining the risks, benefits and potential complications including bleeding, infection, inadvertent bile duct injury and possibility of converting into open. Patient elected to undergo lap cholecystectomy possible open
[2016-10-18] MEDS ORDERED: SUCCINYLCHOLINE CHLORIDE 100 MG/5 ML SYR IV ONE (13:22)
[2016-10-18] MEDS ORDERED: ROCURONIUM BROMIDE 10 MG/ML 10 ML VIAL IV ONE (13:22)
[2016-10-18] MEDS ORDERED: LIDOCAINE 1% INJ 10MG/ML (20 ML MDV) ONE ×2 (13:22)
[2016-10-18] MEDS ORDERED: PROPOFOL 10 MG/ML 20 ML VIAL IV ONE (13:22)
[2016-10-18] MEDS ORDERED: fentaNYL (PF) 50 MCG/ML 2 ML AMP ONE (13:22)
[2016-10-18] MEDS ORDERED: NEOSTIGMINE 1 MG/ML 10 ML VIAL ONE (13:22)
[2016-10-18] MEDS ORDERED: PHENYLEPHRINE-0.9% NACL SYG 1 MG/10 ML SYRINGE ONE (13:22)
[2016-10-18] MEDS ORDERED: GLYCOPYRROLATE 0.2 MG/ML 2 ML VIAL ONE (13:22)
[2016-10-18] MEDS ORDERED: BUPIVACAIN-EPI 0.25%-1:200,000 30 ML VIAL SQ ONE (13:48)
--- NOTE | 2016-10-18 14:18 | P.OP ---
Date of Procedure: 10/18/16 Preoperative Diagnosis: Morbid obesity BMI 38.3 Symptomatic cholelithiasis Postoperative Diagnosis: Acute cholecystitis Fatty liver disease and hepatomegaly Less than 1 cm umbilical hernia Procedure(s) Performed: Laparoscopic cholecystectomy Anesthesia: ILAN Surgeon: Bridgette Carlin Estimated Blood Loss (ml): 5 Pathology: none sent Condition: other (ASA 3) Disposition: PACU Indications for Procedure: 61 years old female presented with right upper quadrant pain. Ultrasound showed gallstones. Informed consent obtained the patient elected to undergo laparoscopic cholecystectomy possible open. The risks, benefits and potential complications explained and patient elected to undergo the procedure Operative Findings: The patient was brought to the operating room and placed in supine position with both arms out. General anesthesia with endotracheal intubation was performed as per anesthesia team. Chlorhexidine was used to prep the abdomen followed by application of sterile drapes. A timeout was performed to verify correct patient and correct procedure. Patient was confirmed to receive perioperative IV antibiotics , heparin 5000 units subcutaneous injection and bilateral SCDs were placed. A 5 mm skin incision was made below the left costal margin at the anterior axillary line. A Veress needle was inserted and pneumoperitoneum was established to a pressure of 15 mmHg. A 5 mm Optiview trocar was loaded on a 5 mm 30 laparoscope and the peritoneal cavity was entered under direct vision using the Optiview technique. Additional 5 mm trocar was placed in the supraumbilical location and two 5 mm trocars along the right subcostal margin. The left 5 mm trocar was upsized to 10mm. The patient was placed in reverse Trendelenburg with right side up. The fundus of the gallbladder was grasped with an atraumatic grasper and was retracted over the dome of the liver. The infundibulum was grasped with an atraumatic grasper and retracted towards the pelvis to expose the Calot's triangle. Lateral and medial peritoneal attachment of the gallbladder bladder was dissected. Circumferential dissection was carried out around the cystic artery and the cystic duct to obtain adequate length for clip application. All the surrounding fibrofatty tissue were removed. Critical view was obtained with cystic duct and cystic artery as the only two structures entering the gallbladder. Two clips were applied on the patient's side and one on the specimen side on the cystic duct first followed by the cystic artery. Endoshears were used to divide the cystic duct and the cystic artery. The gallbladder was taken off the liver bed using a L-hook. It was placed in an endocatch specimen bag and removed through the 10mm port. The gallbladder was passed off as a specimen. The abdominal cavity was inspected. The clips on the cystic duct and cystic artery stump were intact and no bleeding noted from the liver bed. All the trocar sites were examined and no evidence of bleeding. The 10mm port site was closed with two transfascial sutures of 0 Vicryl using a Jordan Michelle device. The pneumoperitoneum was evacuated and all the trocars were removed. Local anesthetic was infiltrated along the trocar sites and incisions were closed using 4-0 Monocryl followed by application of Dermabond skin glue. The sponge, instrument and needle count were correct x2. Patient was extubated and taken to post anesthesia care unit in stable condition.
[2016-10-18 14:36] LABS: Glucose,Whole Blood 167 mg/dL (75-99)
[2016-10-18] MEDS: HYDROmorphone 1 MG/ML 1 ML SYRINGE IVP PRN ×2 (14:42→14:50)
[2016-10-18] MEDS ORDERED: LACTATED RINGERS 1,000 ML IV ONE (15:15)
[2016-10-18 15:40] VITALS: RESP 16
[2016-10-18] MEDS ORDERED: HYDROcodone/APAP 5-325MG 1 EACH TAB PO ONE (16:03)
[2016-10-18 16:42] VITALS: BP 130/71; PULSE 78
== END 2016-10-18 17:28 | disposition home or self-care (01) ==
LOC: OR 10:08
PROVIDERS: ATTEND Surgery
DX: K80.12 Calculus of gallbladder with acute and chronic cholecystitis without obstruction (principal); K76.0 Fatty (change of) liver, not elsewhere classified; R16.0 Hepatomegaly, not elsewhere classified; K42.9 Umbilical hernia without obstruction or gangrene; I10 Essential (primary) hypertension; E66.01 Morbid (severe) obesity due to excess calories; Z68.38 Body mass index [BMI] 38.0-38.9, adult; J44.9 Chronic obstructive pulmonary disease, unspecified; E11.9 Type 2 diabetes mellitus without complications; K21.9 Gastro-esophageal reflux disease without esophagitis; E78.5 Hyperlipidemia, unspecified; M54.5 Low back pain; G89.29 Other chronic pain; F32.9 Major depressive disorder, single episode, unspecified; F41.0 Panic disorder [episodic paroxysmal anxiety]; E07.9 Disorder of thyroid, unspecified; F41.9 Anxiety disorder, unspecified; Z79.1 Long term (current) use of non-steroidal anti-inflammatories (NSAID); Z79.51 Long term (current) use of inhaled steroids; Z79.899 Other long term (current) drug therapy; Z79.84 Long term (current) use of oral hypoglycemic drugs; Z88.2 Allergy status to sulfonamides; Z87.891 Personal history of nicotine dependence
CPT/HCPCS: 88304; 47562; J2250; J1644; J1100; J2710; J0690; J2405; J3010; J1170; J2370; J0330; J2704

== ENCOUNTER 2016-11-06 21:48 | Observation (INO) | payer BC ==
[2016-11-06] MEDS ORDERED: ASPIRIN 81 MG CHEW PO STA (22:01)
[2016-11-06] MEDS ORDERED: NITROGLYCERIN SL TABS 0.4 MG TAB SUBLINGUAL STA ×3 (22:01)
--- NOTE | 2016-11-06 22:05 | ED ---
General Adult HPI - General Chief complaint: Chest Pain Stated complaint: chest pain Time Seen by Provider: 11/06/16 21:55 Source: patient, RN notes reviewed Mode of arrival: ambulatory Limitations: no limitations - History of Present Illness Initial comments: Patient is a pleasant 61-year-old female presenting to the emergency department complaining of chest discomfort. Onset was just around 15 minutes ago. Discomfort remained severe. Discomfort feels like tightness. No radiation. No shortness of breath or nausea. Patient does feel sweaty. No history of similar symptoms previously. - Related Data Home Medications Medication Instructions Recorded Confirmed Mometasone/Formoterol [Dulera 100 1 puff INHALATION RT-DAILY PRN 02/27/14 Mcg/5 Mcg Inhaler] Venlafaxine HCl ER [Effexor XR] 150 mg PO DAILY@22902/27/14 11/06/16 clonazePAM [KlonoPIN] 1 mg PO DAILY@22902/27/14 11/06/16 Fluticasone Propionate [Flonase 1 spray EA NOSTRIL DAILY@22910/19/14 11/06/16 Allergy Relief] Ergocalciferol (Vitamin D2) 50,000 unit PO SA 09/07/16 11/06/16 [Vitamin D2] Levothyroxine Sodium [Synthroid] 50 mcg PO DAILY@22909/07/16 11/06/16 Naproxen Sodium [Aleve] 440 mg PO DAILY PRN 09/07/16 11/06/16 [place]-3 Acid Ethyl Esters [Lovaza] 2 gm PO BID 09/07/16 11/06/16 sitaGLIPtin [Januvia] 100 mg PO DAILY@22909/07/16 11/06/16 Pantoprazole [Protonix] 40 mg PO DAILY 09/26/16 11/06/16 Hydrocodone/Acetaminophen [[place] 1 tab PO Q6HR PRN 11/06/16 11/06/16 5-325] Previous Rx's Medication Instructions Recorded Aspirin 81 mg PO DAILY #1 chewable 09/11/16 Atorvastatin [Lipitor] 40 mg PO HS #30 tab 09/11/16 Lisinopril-Hctz 10-12.5 mg 1 tab PO BID #60 tab 09/11/16 [Zestoretic 10-12.5] Docusate [Colace] 100 mg PO BID #30 capsule 10/18/16 Allergies Allergy/AdvReac Type Severity Reaction Status Date / Time Sulfa (Sulfonamide Allergy Itching Verified 11/06/16 22:16 Antibiotics) Review of Systems ROS Statement: Those systems with pertinent positive or pertinent negative responses have been documented in the HPI. ROS Other: All systems not noted in ROS Statement are negative. Constitutional: Denies: fever Eyes: Denies: eye pain ENT: Denies: ear pain Respiratory: Denies: cough, dyspnea Cardiovascular: Reports: chest pain Endocrine: Denies: fatigue Gastrointestinal: Denies: abdominal pain Genitourinary: Denies: dysuria Musculoskeletal: Denies: back pain Skin: Denies: rash Neurological: Denies: weakness Past Medical History Past Medical History: COPD, Diabetes Mellitus, Eye Disorder, GERD/Reflux, Hyperlipidemia, Hypertension, Osteoarthritis (OA), Pneumonia Additional Past Medical History / Comment(s): ASD with repair, T wave inversion since ASD repair, bilateral glaucoma with sx, trigeminal neuralgia-corrected with surgery, diverticulitis, hiatal hernia, chronic low back pain, anemia when young, bilateral varicosities, sinus problems. History of Any Multi-Drug Resistant Organisms: None Reported Past Surgical History: Heart Catheterization, Hysterectomy, Orthopedic Surgery, Tubal Ligation Additional Past Surgical History / Comment(s): 1995 ASD repair at of , L/R foot surg-spurs and R great toe joint replaced, R rotator cuff surg, trigeminal neuralgia surgery at [facility] in [place], back injections, fatty tumors removed x3 from legs, bilateral laser sx twice for glaucoma Additional Past Anesthesia/Blood Transfusion Reaction / Comment(s): Had BANG w/ nerve block w/rotator cuff surg. Pt received blood with ASD repair without reaction. Past Psychological History: Depression, Panic Disorder Additional Psychological History / Comment(s): . Smoking Status: Former smoker Past Alcohol Use History: Rare Additional Past Alcohol Use History / Comment(s): Pt smoked from [id number]. Past Drug Use History: None Reported - Past Family History Father Family Medical History: Cancer Additional Family Medical History / Comment(s): Father of throat/lung cancer. Mother Family Medical History: Diabetes Mellitus Additional Family Medical History / Comment(s): Mother had heart problems. She at age 73yrs Brother(s) Family Medical History: Cancer General Exam Limitations: no limitations General appearance: alert, other (Appears uncomfortable) Head exam: Present: atraumatic, normocephalic Eye exam: Present: normal appearance, PERRL ENT exam: Present: normal oropharynx Neck exam: Present: normal inspection Respiratory exam: Present: normal lung sounds bilaterally. Absent: chest wall tenderness Cardiovascular Exam: Present: regular rate, normal rhythm Expanded Peripheral pulses: 2+: Radial (R), Radial (L), Posterior Tibialis (R), Posterior Tibialis (L) GI/Abdominal exam: Present: soft. Absent: distended, tenderness Extremities exam: Present: normal inspection. Absent: pedal edema, calf tenderness Neurological exam: Present: alert Psychiatric exam: Present: normal affect, normal mood Skin exam: Present: normal color Course Vital Signs 11/06/16 11/06/16 11/06/16 21:50 21:56 22:05 Temperature 98.2 F Pulse Rate 83 86 Pulse Rate [ 86 Communication Lecturer ] Respiratory 20 18 Rate Blood Pressure 153/66 127/59 O2 Sat by Pulse 99 95 Oximetry 11/06/16 22:13 Temperature Pulse Rate 88 Pulse Rate [ Communication Lecturer ] Respiratory 20 Rate Blood Pressure 121/59 O2 Sat by Pulse 95 Oximetry EKG Findings - EKG Comments: EKG Findings:: Normal sinus rhythm 84. RI 1:30. QRS 78. QT 378. QTC 446. Normal axis. Normal QRS. Nonspecific ST-T. Medical Decision Making - Medical Decision Making Patient reevaluated and significantly improved patient resting comfortably in bed. Discomfort has improved to 1/10. Patient and family updated on results and plan. Case discussed with Dr. lujan, who will admit for Dr. Wen. Admission orders written. IV heparin will be started. Cardiology will be consulted. - Lab Data Result diagrams: 11/06/16 22:00 11/06/16 22:00 Lab Results 11/06/16 11/06/16 11/06/16 Range/Units 22:00 22:00 22:00 WBC 10.3 (3.8-10.6) k/uL RBC 4.43 (3.80-5.40) m/uL Hgb 12.5 (11.4-16.0) gm/dL Hct 38.5 (34.0-46.0) % MCV 86.8 (80.0-100.0) fL MCH 28.3 (25.0-35.0) pg MCHC 32.6 (31.0-37.0) g/dL RDW 13.6 (11.5-15.5) % Plt Count 423 (150-450) k/uL Neutrophils % 62 % Lymphocytes % 28 % Monocytes % 4 % Eosinophils % 3 % Basophils % 1 % Neutrophils # 6.4 (1.3-7.7) k/uL Lymphocytes # 2.9 (1.0-4.8) k/uL Monocytes # 0.5 (0-1.0) k/uL Eosinophils # 0.3 (0-0.7) k/uL Basophils # 0.1 (0-0.2) k/uL PT (9.0-12.0) sec INR (<1.1) APTT (22.0-30.0) sec D-Dimer (<0.60) mg/L FEU Sodium 140 (137-145) mmol/L Potassium 4.6 (3.5-5.1) mmol/L Chloride 100 (98-107) mmol/L Carbon Dioxide 26 (22-30) mmol/L Anion Gap 14 mmol/L BUN 23 H (7-17) mg/dL Creatinine 0.84 (0.52-1.04) mg/dL Est GFR (MDRD) Af Amer >60 (>60 ml/min/1.73 sqM) Est GFR (MDRD) Non-Af >60 (>60 ml/min/1.73 sqM) Glucose 151 H (74-99) mg/dL Calcium 10.1 (8.4-10.2) mg/dL Magnesium 1.9 (1.6-2.3) mg/dL Total Bilirubin 0.7 (0.2-1.3) mg/dL AST 75 H (14-36) U/L ALT 69 H (9-52) U/L Alkaline Phosphatase 106 (38-126) U/L Total Creatine Kinase 62 (30-135) U/L CK-MB (CK-2) 0.4 (0.0-2.4) ng/mL CK-MB (CK-2) Rel Index 0.6 Troponin I <0.012 (0.000-0.034) ng/mL Total Protein 7.4 (6.3-8.2) g/dL Albumin 4.3 (3.5-5.0) g/dL 11/06/16 Range/Units 22:00 WBC (3.8-10.6) k/uL RBC (3.80-5.40) m/uL Hgb (11.4-16.0) gm/dL Hct (34.0-46.0) % MCV (80.0-100.0) fL MCH (25.0-35.0) pg MCHC (31.0-37.0) g/dL RDW (11.5-15.5) % Plt Count (150-450) k/uL Neutrophils % % Lymphocytes % % Monocytes % % Eosinophils % % Basophils % % Neutrophils # (1.3-7.7) k/uL Lymphocytes # (1.0-4.8) k/uL Monocytes # (0-1.0) k/uL Eosinophils # (0-0.7) k/uL Basophils # (0-0.2) k/uL PT 10.5 (9.0-12.0) sec INR 1.0 (<1.1) APTT 22.0 (22.0-30.0) sec D-Dimer 0.86 H (<0.60) mg/L FEU Sodium (137-145) mmol/L Potassium (3.5-5.1) mmol/L Chloride (98-107) mmol/L Carbon Dioxide (22-30) mmol/L Anion Gap mmol/L BUN (7-17) mg/dL Creatinine (0.52-1.04) mg/dL Est GFR (MDRD) Af Amer (>60 ml/min/1.73 sqM) Est GFR (MDRD) Non-Af (>60 ml/min/1.73 sqM) Glucose (74-99) mg/dL Calcium (8.4-10.2) mg/dL Magnesium (1.6-2.3) mg/dL Total Bilirubin (0.2-1.3) mg/dL AST (14-36) U/L ALT (9-52) U/L Alkaline Phosphatase (38-126) U/L Total Creatine Kinase (30-135) U/L CK-MB (CK-2) (0.0-2.4) ng/mL CK-MB (CK-2) Rel Index Troponin I (0.000-0.034) ng/mL Total Protein (6.3-8.2) g/dL Albumin (3.5-5.0) g/dL - Radiology Data Radiology results: report reviewed (Computed tomography scan of the chest shows no acute findings, no pulmonary embolism), image reviewed (Chest x-ray shows no acute process) Critical Care Time Critical Care Time: Yes Total Critical Care Time: 31 Disposition Clinical Impression: Unstable angina pectoris Disposition: ADMITTED IP TO THIS HOSP Referrals: Benoit Jones MD [Primary Care Provider] - 1-2 days Decision Time: 23:49
[2016-11-06] MEDS ORDERED: NITROGLYCERIN OINT 1 INCH/GM PACKET TOPICAL STA (22:12)
[2016-11-06 22:21] LABS: Basophils # (A) 0.1 k/uL (0-0.2); Basophils % (A) 1 %; CH 28.6; Eosinophils # (A) 0.3 k/uL (0-0.7); Eosinophils % (A) 3 %; HCT 38.5 % (34.0-46.0); HDW 2.78; HGB 12.5 gm/dL (11.4-16.0); Luc # (Auto) 0.21; Luc % (Auto) 2; Lymphocytes # (A) 2.9 k/uL (1.0-4.8); Lymphocytes % (A) 28 %; MCH 28.3 pg (25.0-35.0); MCHC 32.6 g/dL (31.0-37.0); MCV 86.8 fL (80.0-100.0); Mean Platelet Volume 6.8; Monocytes # (A) 0.5 k/uL (0-1.0); Monocytes % (A) 4 %; Neutrophils # (A) 6.4 k/uL (1.3-7.7); Neutrophils % (A) 62 %; RBC 4.43 m/uL (3.80-5.40); RDW 13.6 % (11.5-15.5); WBC 10.3 k/uL (3.8-10.6); WBC (Perox) 10.33
[2016-11-06 22:38] LABS: Prothrombin Time 10.5 sec (9.0-12.0)
[2016-11-06 22:40] LABS: ALT 69 U/L (9-52); AST 75 U/L (14-36); Alkaline Phosphatase 106 U/L (38-126); Anion Gap 14 mmol/L; Blood Urea Nitrogen 23 mg/dL (7-17); Calcium 10.1 mg/dL (8.4-10.2); Carbon Dioxide 26 mmol/L (22-30); Chloride 100 mmol/L (98-107); Glucose 151 mg/dL (74-99); Magnesium 1.9 mg/dL (1.6-2.3); Non-African American GFR(MDRD) >60 (>60 ml/min/1.73 sqM); Potassium 4.6 mmol/L (3.5-5.1); Sodium 140 mmol/L (137-145); Total Bilirubin 0.7 mg/dL (0.2-1.3); Total Protein 7.4 g/dL (6.3-8.2)
[2016-11-06 22:44] LABS: Creatine Kinase 62 U/L (30-135)
--- NOTE | 2016-11-06 22:45 | XR ---
EXAM: XR Chest, 1 View. CLINICAL HISTORY: Reason: chest pain TECHNIQUE: Frontal view of the chest. COMPARISON: 09/07/16 FINDINGS: Lungs: Unremarkable. No consolidation. Pleural spaces: Unremarkable. No pneumothorax. Heart: Unremarkable. No cardiomegaly. Mediastinum: Unremarkable. Bones: Previous median sternotomy. No acute fracture. IMPRESSION: No acute findings.
[2016-11-06] MEDS ORDERED: RX INFO: IV CONTRAST WAS GIVEN 1 EACH MISC MISCELLANE PRN (22:46)
[2016-11-06 22:57] LABS: Creatine Kinase MB 0.4 ng/mL (0.0-2.4); Troponin I <0.012 ng/mL (0.000-0.034)
--- NOTE | 2016-11-06 23:41 | CT ---
EXAM: CT Chest With Intravenous Contrast. CLINICAL HISTORY: Reason: pe protocol TECHNIQUE: Axial computed tomography images of the chest with intravenous contrast during the arterial phase of enhancement. CTDI is 115.1 mGy and DLP is 23 mGy-cm. This CT exam was performed using one or more of the following dose reduction techniques: automated exposure control, adjustment of the mA and/or kV according to patient size, and/or use of iterative reconstruction technique. COMPARISON: 09/07/16 FINDINGS: Pulmonary arteries: Unremarkable. No pulmonary embolism. Aorta: No acute findings. No thoracic aortic aneurysm. Lungs: The lungs demonstrates mild dependent atelectasis, but are otherwise clear. No mass. Pleural spaces: Unremarkable. No significant effusion. No pneumothorax. Heart: Unremarkable. No cardiomegaly. No significant pericardial effusion. No evidence of RV dysfunction. Bones: Postsurgical changes of previous median sternotomy. No acute fracture. Lymph nodes: Unremarkable. No enlarged lymph nodes. Upper abdomen: Diffuse fatty infiltration of the liver is noted. IMPRESSION: No acute findings in the chest. Specifically, no evidence of pulmonary embolus.
[2016-11-06] MEDS ORDERED: NITROGLYCERIN SL TABS 0.4 MG TAB SUBLINGUAL PRN (23:49)
[2016-11-07] MEDS ORDERED: HEPARIN SODIUM,PORCINE 5,000 UNIT/ML 1 ML VIAL IV ONE (00:08)
[2016-11-07] MEDS ORDERED: HEPARIN SODIUM,PORCINE 5,000 UNIT/ML 1 ML VIAL IV PRN (00:08)
[2016-11-07] MEDS ORDERED: HEPARIN SODIUM,PORCINE/D5W PMX 25,000 UNIT in DEXTROSE/WATER 1 500ML.BAG IV SCH (00:15)
[2016-11-07] MEDS: NITROGLYCERIN OINT 1 INCH/GM PACKET TOPICAL SCH ×3 (01:28→12:42)
[2016-11-07 06:58] LABS: Glucose,Whole Blood 168 mg/dL (75-99)
[2016-11-07 07:08] LABS: Cholesterol 131 mg/dL (<200); HDL Cholesterol 35 mg/dL (40-60); Triglycerides 381 mg/dL (<150)
[2016-11-07 07:11] LABS: Creatine Kinase 39 U/L (30-135)
[2016-11-07 07:26] LABS: Creatine Kinase MB 0.3 ng/mL (0.0-2.4); Troponin I <0.012 ng/mL (0.000-0.034)
[2016-11-07] MEDS ORDERED: FLUTICASONE 50MCG/SPRAY NASAL 16GM EA NOSTRIL PRN (08:41)
[2016-11-07] MEDS ORDERED: ASPIRIN 325 MG TAB PO SCH (09:00)
[2016-11-07] MEDS ORDERED: DOCUSATE 100 MG CAP PO SCH (09:00)
[2016-11-07] MEDS ORDERED: PANTOPRAZOLE 40 MG TABLET PO SCH (09:00)
[2016-11-07] MEDS ORDERED: LISINOPRIL-HCTZ 10-12.5 MG 1 EACH TAB PO SCH (09:00)
[2016-11-07 11:39] LABS: Creatine Kinase 38 U/L (30-135)
[2016-11-07 11:45] VITALS: BP 122/68; PULSE 81; RESP 14; TEMP 98
[2016-11-07 11:50] LABS: Creatine Kinase MB 0.4 ng/mL (0.0-2.4); Troponin I <0.012 ng/mL (0.000-0.034)
--- NOTE | 2016-11-07 11:54 | CONS ---
DATE OF CONSULTATION: Becky presented with chest discomfort lasting for over an hour. Her first EKG in the hospital shows sinus rhythm without definite ST segment abnormality. She underwent a CT of the chest, did not show evidence for pulmonary embolism. This pain is not radiating, it is in the lower mid chest and lasted for over an hour. Several nitroglycerin and aspirins did not relieve it completely. She has had 2 cardiac enzymes that are normal. LDL 20, triglycerides 381. Past history of diabetes. Past history of ASD repair. REVIEW OF SYSTEMS: No fever, chills, or rigors. No cough or expectoration. No nausea, vomiting or diarrhea. No hematuria or dysuria. No strokes or seizure. No skin lesions or musculoskeletal complaints. On examination, her vitals are stable. Her blood pressure is 110/62 mmHg, heart rate is in the 80s. Head and neck examination is normal. Heart sounds are normal. Lungs are clear to auscultation. Extremities are warm. No edema. Afebrile. IMPRESSION: 1. Atypical chest discomfort lasting for over an hour, normal cardiac enzymes and normal ST segments and a 2-D echo that showed preserved left ventricular systolic function within the last 1 to 2 months. Normal Lexiscan stress test, normal coronary arteries by cardiac catheterization. 2. Diabetes, not controlled. 3. Hypertriglyceridemia, not controlled. SUGGEST: Medical management of diabetes and look for a noncoronary causes of chest discomfort. This patient has had a normal coronary artery, normal stress test within the last 8 weeks. Thank you very much for the consultation.
[2016-11-07] MEDS ORDERED: CHOLECALCIFEROL 1,000 UNIT TAB PO SCH (12:00)
[2016-11-07 12:12] LABS: Glucose,Whole Blood 195 mg/dL (75-99)
--- NOTE | 2016-11-07 15:18 | HP ---
DATE OF ADMISSION: 11/06/2016 PRESENTING COMPLAINT: Epigastric pain. HISTORY OF PRESENTING COMPLAINT: This is a very pleasant 61-year-old patient with extensive medical history. She follows with Dr. Jones, chronic stable medical conditions include asthma, diabetes, GERD, osteoarthritis, diverticulosis, hiatal hernia, history of AST repair in the remote past. Patient was here in August this year, presented with severe chest pain. By the time she did have her cardiac catheterization that turned out to be negative. PE also was ruled out. Patient again presents with pain in the epigastric area, significant. She did feel better with nitro. She does get quite a bit of GERD, epigastric and lower chest pain. Does not radiate. No short of breath. No dizziness and no fever. REVIEW OF SYSTEMS: CONSTITUTIONAL: Tired. HEENT: None. RESPIRATORY: As above. CARDIOVASCULAR: No precordial pain. GASTROINTESTINAL: As above. GENITOURINARY: None. MUSCULOSKELETAL: Pain in the joints. DERMATOLOGICAL: None. HEMATOLOGIC: None. LYMPHATIC: None. PSYCHIATRY: None. NEUROLOGICAL: None. Past history of asthma, diabetes mellitus type 2, GERD, osteoarthritis. AST repair, transient neuralgia, hiatal hernia, diverticulosis, depression. PAST SURGICAL HISTORY: Negative cardiac catheterization, hysterectomy, orthopedic surgery, tubal ligation, ASD repair in 1995 at [facility], left and right foot surgical spurs, right great toe joint replacement, rotator cuff surgery, fatty tumor removed from the legs. PSYCH: History of depression, panic disorder. 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 Does not smoke. No alcohol rarely. . FAMILY HISTORY: Father had throat and lung cancer. HOME MEDICATIONS: 1. Januvia 100 mg p.o. daily. 2. Klonopin 1 mg p.o. daily. 3. Effexor XR 150 mg p.o. daily. 4. Protonix 40 mg p.o. daily. 5. Lovaza 2 gm p.o. b.i.d. 6. Aleve 440 mg p.o. daily p.r.n. 7. Dulera 1 puff daily p.r.n. 8. Zestoretic 03/29.5 one tablet p.o. b.i.d. 9. Synthroid 50 mcg p.o. daily. 10. Flonase 1 spray each nostril daily p.r.n. 11. Colace 100 mg p.o. b.i.d. 12. Vitamin D3 two thousand units p.o. daily. 13. Lipitor 40 mg p.o. q.h.s. 14. Aspirin 81 mg p.o. daily. Allergies to SULFA. On examination, temperature 98.2, pulse 86, respiration 16, blood pressure 109/62, pulse ox 100% on room air. GENERAL APPEARANCE: Well built, BMI 37.9, sitting up, not in distress. EYES: Pupils equal. Conjunctivae normal. HEENT: Oral cavity normal. NECK: JVD not raised. Mass not palpable. RESPIRATORY: Effort normal. LUNGS: Fair air entry. CARDIOVASCULAR: First and second sounds normal. No edema. ABDOMEN: Soft, nontender, mild epigastric tenderness, liver and spleen not palpable. LYMPHATIC: No lymph node palpable in neck or axillae. PSYCHIATRY: Alert and oriented x3. Mood and affect normal. NEUROLOGICAL: Pupils equal, cranial nerves grossly intact. Power and sensation grossly intact. INVESTIGATIONS: White count 10.3, hemoglobin 12.5, potassium 4.6. BUN 23, creatinine 0.84. Troponin x3 negative. Also patient did have an EGD by Dr. Donna Hamilton on 09/29/2016 that showed bilateral gastritis and small hiatal hernia, slightly irregular GE junction. No major esophagitis and she would put on Protonix at that time and antireflux measures. ASSESSMENT: 1. Acute epigastric pain in a patient who has a hiatal hernia, probably likely this is an esophageal spasm given that the patient responds to nitrates and had a recent cardiac catheter that was negative. 2. Moderate persistent asthma. 3. Diabetes mellitus type 2 on oral hypoglycemic. 4. Gastroesophageal reflux disease. 5. Primary osteoarthritis of multiple joints. 6. Obesity, body mass index of 38.3. 7. History of ASD repair. 8. Chronic diverticulosis. 9. Hiatal hernia. 10. Depression, not otherwise specified. 11. Hypothyroidism. PLAN: Care was discussed with the patient. Home medications are resumed. Patient ( ) at this point is not cardiac though Cardiology was consulted. Patient may benefit from Imdur if esophageal spasm is helping and not for a cardiac reason. Care will be discussed with the patient.
[2016-11-07] MEDS ORDERED: ATORVASTATIN 40 MG TAB PO SCH (21:00)
[2016-11-08] MEDS ORDERED: VENLAFAXINE HCL ER 150 MG CAP PO SCH (02:30)
[2016-11-08] MEDS ORDERED: clonazePAM 1 MG TAB PO SCH (02:30)
[2016-11-08] MEDS ORDERED: LEVOTHYROXINE 50 MCG TAB PO SCH (02:30)
--- NOTE | 2016-11-08 08:52 | DS ---
DATE OF ADMISSION: 11/06/2016 DATE OF DISCHARGE: 11/07/2016 FINAL DIAGNOSES: 1. Acute epigastric pain, likely from esophageal spasm. 2. Moderate persistent asthma. 3. Type 2 diabetes mellitus on oral hyperglycemics. 4. Gastroesophageal reflux disease. 5. Primary osteoarthritis of multiple joints. 6. Obesity; BMI 38.3. 7. History of ( ). 8. Chronic diverticulosis. 9. Hiatal hernia. 10. Depression, not otherwise specified. 11. Hypothyroidism. 12. Chronic esophagitis per biopsy. HOSPITAL COURSE: This patient presented with epigastric pain and some nausea. The patient recently had a cardiac catheterization that was negative. Patient also recently on 09/29/[address] Donna Hamilton that was essentially unremarkable, gastritis. Patient's H-pylori was negative. Esophageal biopsy did show some chronic esophagitis. Also patient on 10/18/2016 did undergo laparoscopic cholecystectomy. ( ) the patient was felt to be noncardiac. The patient did have some response to nitro and hence she was given a nitro pills and could be esophageal spasm given chronic esophagitis. On exam, lungs are clear. CARDIOVASCULAR: First and second sounds normal. CONSULTATION: Dr. Blandon from cardiology. DISCHARGE MEDICATIONS: 1. Dulera 100/5 1 puffs daily p.r.n. 2. Effexor XR 150 mg p.o. daily. 3. Klonopin 1 mg p.o. daily. 4. Flonase one spray each nostril daily. 5. Synthroid 50 mcg p.o. daily. 6. Lovaza 2 grams p.o. b.i.d. 7. Januvia 100 mg p.o. daily. 8. Aspirin 81 mg p.o. daily. 9. Lipitor 40 mg q.h.s. 10. Zestoretic 03/29.5 1 tablet p.o. b.i.d. 11. Protonix 40 mg p.o. daily. 12. Vitamin D3, 2000 p.o. daily. 13. Nitrostat 0.4 sublingual q.5 p.r.n. 14. Naproxen discontinued. Follow up with Dr. Benoit Jones in one week.
== END 2016-11-07 14:35 | disposition home or self-care (01) ==
LOC: EC 21:48 → 3OBS 23:49
PROVIDERS: ADMIT Hospitalist; ATTEND Hospitalist
DX: R07.89 Other chest pain (principal); J44.9 Chronic obstructive pulmonary disease, unspecified; E11.9 Type 2 diabetes mellitus without complications; E78.5 Hyperlipidemia, unspecified; I10 Essential (primary) hypertension; H40.9 Unspecified glaucoma; K44.9 Diaphragmatic hernia without obstruction or gangrene; G89.29 Other chronic pain; M54.5 Low back pain; F32.9 Major depressive disorder, single episode, unspecified; F41.0 Panic disorder [episodic paroxysmal anxiety]; E78.1 Pure hyperglyceridemia; M15.8 Other polyosteoarthritis; E66.9 Obesity, unspecified; E03.9 Hypothyroidism, unspecified; K57.90 Diverticulosis of intestine, part unspecified, without perforation or abscess without bleeding; J45.40 Moderate persistent asthma, uncomplicated; K21.0 Gastro-esophageal reflux disease with esophagitis; Z79.899 Other long term (current) drug therapy; Z79.82 Long term (current) use of aspirin; Z88.2 Allergy status to sulfonamides; Z82.49 Family history of ischemic heart disease and other diseases of the circulatory system; Z87.891 Personal history of nicotine dependence; Z79.51 Long term (current) use of inhaled steroids; Z79.84 Long term (current) use of oral hypoglycemic drugs; Z68.38 Body mass index [BMI] 38.0-38.9, adult
CPT/HCPCS: 96365; 96366; 96376 ×2; 99285; 36415; 93005; 85379; 80061; 80053; 82550 ×2; 82553 ×2; 83735; 84484 ×2; 85025; 85610; 85730 ×2; 71010; 71275; G0378 ×2; J1644 ×2; Q9967

== ENCOUNTER → 2017-08-10 | Outpatient (CLI) | payer BC ==
--- NOTE | 2017-08-10 11:21 | MR ---
EXAMINATION TYPE: MR lumbar spine wo con DATE OF EXAM: 08/10/2017 COMPARISON: NONE HISTORY: Low back pain TECHNIQUE: T1 and T2 axial and sagittal images of the lumbar spine are submitted. FINDINGS: There is no abnormal signal seen within the visualized spinal cord or paraspinal soft tissu es. Simple right-sided renal cysts noted. At T12-L1 there is right paracentral disc bulging and mild effacement of thecal sac. There is facet a rthropathy. No foraminal encroachment. At L1-2 there is facet arthropathy. Vertebral body hemangioma of L1. No Canal stenosis. No foraminal encroachment. At L2-3 there is severe degenerative disc disease and facet arthropathy. Diffuse disc bulging noted w ith mild bilateral foraminal encroachment greater on the right. No Canal stenosis. At L3-4 there is degenerative disc disease with diffuse disc bulging and marked facet arthropathy wit h ligamentum flavum hypertrophy. There is mild to moderate bilateral foraminal encroachment. There is mild to moderate canal stenosis. At L4-5 there is diffuse disc bulging with severe facet arthropathy and ligamentum flavum hypertrophy resulting in severe canal stenosis and moderate to severe bilateral foraminal encroachment greater o n the left. At L5-S1 there is severe degenerative disc disease with vacuum disc. Severe facet arthropathy. There is a grade 1 anterolisthesis resulting in mild bilateral foraminal encroachment greater on the left. Central disc bulging noted with no canal stenosis. IMPRESSION: 1. Multilevel degenerative disc disease with most marked findings at L5-S1. Grade 1 anterolisthesis L 5 on S1 appears degenerative related to severe facet arthropathy. 2. Significant canal stenosis L3-4 and particularly at L4-5 with bilateral foraminal encroachment. Fi nding secondary to diffuse disc bulging with hypertrophic changes as discussed above.
== END ==
LOC: RADMRIMAIN 10:24
PROVIDERS: ATTEND Physical Medicine & Rehabilitation
DX: M48.061 Spinal stenosis, lumbar region without neurogenic claudication (principal); M51.27 Other intervertebral disc displacement, lumbosacral region; M43.17 Spondylolisthesis, lumbosacral region; M51.37 Other intervertebral disc degeneration, lumbosacral region; D18.09 Hemangioma of other sites; M46.87 Other specified inflammatory spondylopathies, lumbosacral region
CPT/HCPCS: 72148

== ENCOUNTER 2018-08-29 15:14 | Inpatient (IN) | payer BC ==
[2018-08-29 17:04] VITALS: BMI 36.6
[2018-08-29] MEDS ORDERED: NITROGLYCERIN SL TABS 0.4 MG TAB SUBLINGUAL PRN (17:29)
[2018-08-29 17:47] LABS: Glucose,Whole Blood 112 mg/dL (75-99)
[2018-08-29 20:39] LABS: Glucose,Whole Blood 137 mg/dL (75-99)
[2018-08-29] MEDS ORDERED: LINAGLIPTIN 5 MG TABLET PO SCH (21:00)
[2018-08-29] MEDS ORDERED: ASPIRIN 81 MG PO SCH (21:00)
[2018-08-29] MEDS ORDERED: ATORVASTATIN 40 MG TAB PO SCH (21:00)
[2018-08-29] MEDS ORDERED: CHOLECALCIFEROL 1,000 UNIT TAB PO SCH (21:00)
[2018-08-29] MEDS ORDERED: SERTRALINE 50 MG TAB PO SCH (21:00)
[2018-08-29] MEDS ORDERED: LEVOTHYROXINE 50 MCG TAB PO SCH (21:00)
[2018-08-29] MEDS ORDERED: PANTOPRAZOLE 40 MG TABLET PO SCH (21:00)
[2018-08-29] MEDS: INSULIN ASPART (NovoLOG) 100 UNIT/ML VIAL SQ SCH (21:25)
[2018-08-29] MEDS: clonazePAM 1 MG TAB PO SCH (21:27)
[2018-08-29] MEDS: LISINOPRIL-HCTZ 10-12.5 MG 1 EACH TAB PO SCH (21:27)
[2018-08-30] MEDS ORDERED: FLUTICASONE 50MCG/SPRAY NASAL 16GM EA NOSTRIL SCH (02:30)
[2018-08-30 07:04] LABS: Glucose,Whole Blood 125 mg/dL (75-99)
[2018-08-30] MEDS: INSULIN ASPART (NovoLOG) 100 UNIT/ML VIAL SQ SCH ×2 (07:48→12:25)
[2018-08-30] MEDS ORDERED: SYMBICORT 80-4.5 MCG INHALER INHALATION SCH (08:00)
[2018-08-30 08:07] VITALS: RESP 16
--- NOTE | 2018-08-30 09:15 | P.CNPUL ---
History of Present Illness Consult date: 08/30/18 Reason for consult: dyspnea, cough, chest pain, obstructive sleep apnea Chief complaint: Foreign body inhalation History of present illness: 63-year-old female who was seen eval reexamined on fourth floor, this patient h as been transfer from [facility] after bronchoscopy, this patient was at home eating still can call on and choked on the fluid and felt that inhales something into the lungs patient was brought into emergency department and from there patient was evaluated subsequently admitted, initial chest x-ray was within normal limit however patient continued to have symptoms of cough congestion and feeling of the rattling in the chest, patient underwent computed tomography scan of the chest which revealed airway inflammation and developing atelectasis in the right lower lobe subsegmental area patient underwent bronchoscopy during which: Seat was noted to be impacted in the right lower lobe posterior basal segment which was removed successfully out of the airway and lungs out of the vocal cords but did large into posterior nasopharyngeal area, I have discussed with Dr. Jordan as well as the ENT Dr. Vega and has no ENT services were available at [facility] patient was transferred over here so that posterior rhinoscopy can be performed and foreign body if there can be removed however patient today feels much better and does not feel any sensation of foreign body impacted patient in the posterior nasopharyngeal area also does not feel similar rattling as she was feeling before in the lungs able to breathe but been much better she is bringing up brownish yellowish phlegm though respiratory status has significantly improved compared to prior exam I have ordered a chest x-ray for today, patient is currently being kept nothing by mouth, I've discussed different possibilities for the: Seat, most likely have swallowed into the stomach less likely to be impacted into posterior nasopharynx and very very remote likelihood of inhaled again into the lungs, a waiting ENT evaluation to do the posterior rhinoscopy and benefits seen remove it if it's not seen will monitor observe on oral antibiotics and follow-up in outpatient setting given that clinically patient feels much better word cancel repeat bronchoscopy and observe an outpatient setting, patient can be discharged from pulmonary standpoint once cleared by ENT services, chest x-ray has been obtained Review of Systems All systems: negative (Unremarkable and noncontributory except as dictated above) Past Medical History Past Medical History: COPD, Diabetes Mellitus, Eye Disorder, GERD/Reflux, Hyperlipidemia, Hypertension, Osteoarthritis (OA), Pneumonia Additional Past Medical History / Comment(s): ASD with repair, T wave inversion since ASD repair, bilateral glaucoma with sx, trigeminal neuralgia-corrected with surgery, diverticulitis, hiatal hernia, chronic low back pain, anemia when young, bilateral varicosities, sinus problems. History of Any Multi-Drug Resistant Organisms: None Reported Past Surgical History: Heart Catheterization, Hysterectomy, Orthopedic Surgery, Tubal Ligation Additional Past Surgical History / Comment(s): 1995 ASD repair at [facility], L/R foot surg-spurs and R great toe joint replaced, R rotator cuff surg, trigeminal neuralgia surgery at [facility] in [place], back injections, fatty tumors removed x3 from legs, bilateral laser sx twice for glaucoma Additional Past Anesthesia/Blood Transfusion Reaction / Comment(s): Had BANG w/nerve block w/rotator cuff surg. Pt received blood with ASD repair without reaction. Past Psychological History: Depression, Panic Disorder Additional Psychological History / Comment(s): . Smoking Status: Former smoker Past Alcohol Use History: Rare Additional Past Alcohol Use History / Comment(s): Pt smoked from 1304-7576. Past Drug Use History: None Reported - Past Family History Father Family Medical History: Cancer Additional Family Medical History / Comment(s): Father of throat/lung cancer. Mother Family Medical History: Diabetes Mellitus Additional Family Medical History / Comment(s): Mother had heart problems. She at age 73yrs Brother(s) Family Medical History: Cancer Medications and Allergies Home Medications Medication Instructions Recorded Confirmed Type Mometasone/Formoterol [Dulera 100 1 puff INHALATION RT-DAILY PRN 02/27/14 08/29/18 History Mcg/5 Mcg Inhaler] clonazePAM [KlonoPIN] 1 mg PO HS 02/27/14 08/29/18 History Fluticasone Propionate [Flonase 2 spray EA NOSTRIL BID 10/19/14 08/29/18 History Allergy Relief] sitaGLIPtin [Januvia] 100 mg PO HS 09/07/16 08/29/18 History Atorvastatin [Lipitor] 40 mg PO HS #30 tab 09/11/16 08/29/18 Rx Cholecalciferol (Vitamin D3) 2,000 unit PO HS 11/07/16 08/29/18 History [Vitamin D3] Nitroglycerin Sl Tabs [Nitrostat] 0.4 mg SUBLINGUAL Q5M PRN #25 tab 11/07/16 08/29/18 Rx Albuterol Inhaler [Ventolin Hfa 1 - 2 puff INHALATION RT-Q6H PRN 08/29/18 08/29/18 History Inhaler] Aspirin EC [Ecotrin Low Dose] 81 mg PO HS 08/29/18 08/29/18 History Levothyroxine Sodium [Synthroid] 75 mcg PO DAILY 08/29/18 08/29/18 History Lisinopril [Zestril] 10 mg PO HS 08/29/18 08/29/18 History Omeprazole 40 mg PO HS 08/29/18 08/29/18 History Sertraline [Zoloft] 50 mg PO HS 08/29/18 08/29/18 History clonazePAM [KlonoPIN] 1 mg PO DAILY PRN 08/29/18 08/29/18 History metFORMIN HCL [Glucophage] 1,000 mg PO HS 08/29/18 08/29/18 History Allergies Allergy/AdvReac Type Severity Reaction Status Date / Time nortriptyline [From Pamelor] AdvReac LIGHT Verified 08/29/18 18:40 HEADED Sulfa (Sulfonamide AdvReac Itching Verified 08/29/18 18:40 Antibiotics) Physical Exam Vitals: Vital Signs Temp Pulse Resp BP Pulse Ox 08/30/18 08:00 72 16 08/30/18 07:00 97.9 F 72 16 106/67 95 08/30/18 00:45 98.8 F 86 20 99/62 94 L 08/29/18 20:24 98.5 F 86 18 151/82 94 L 08/29/18 18:19 85 16 08/29/18 16:58 98.1 F 85 16 127/80 94 L Intake and Output 08/29/18 08/30/18 08/30/18 22:59 06:59 14:59 Intake Total 100 Balance 100 Intake: Oral 100 Other: Voiding Method Toilet Toilet # Voids 1 Weight 99.79 kg - Constitutional General appearance: cooperative, disheveled, morbidly obese - EENT Eyes: EOMI, PERRLA, poor dentition, normal appearance Ears: bilateral: normal - Neck Neck: normal ROM Carotids: bilateral: upstroke normal Thyroid: bilateral: normal size - Respiratory Respiratory: bilateral: CTA - Cardiovascular Rhythm: regular Heart sounds: normal: S1, S2 - Gastrointestinal General gastrointestinal: distended, soft - Integumentary Integumentary: normal turgor - Neurologic Neurologic: CNII-XII intact - Musculoskeletal Musculoskeletal: gait normal, generalized weakness, strength equal bilaterally - Psychiatric Psychiatric: A&O x's 3, appropriate affect, intact judgment & insight Results - Laboratory Findings Abnormal lab findings: Abnormal Labs 08/29/18 08/29/18 08/30/18 17:36 20:37 07:03 POC Glucose (mg/dL) 112 H 137 H 125 H Assessment and Plan Assessment: Inhalation of foreign body, and seed into the right lower lobe posterior basal segment status post removal with a bronchoscopy Right lower lobe pneumonia postobstructive Foreign body may be large into posterior nasopharyngeal area Morbid obesity Likely sleep disorder breathing and sleep apnea Plan: Continue antibiotics Pulmonary toilet Awaiting ENT evaluation Deep breathing exercises incentive spirometry Further recommendations pending plan of care as per clinical response of the patient Time with Patient: Greater than 30
[2018-08-30] MEDS: clonazePAM 1 MG TAB PO SCH (09:34)
[2018-08-30] MEDS ORDERED: clonazePAM 1 MG TAB PO PRN (09:36)
--- NOTE | 2018-08-30 10:36 | XR ---
EXAMINATION TYPE: XR chest 2V DATE OF EXAM: 08/30/2018 COMPARISON: 5.270 TECHNIQUE: PA and lateral views submitted. HISTORY: Aspiration FINDINGS: The lungs are clear and there is no pneumothorax, pleural effusion, or focal pneumonia. Subsegmental changes at the left lung base. Surgical changes. Mild cardiomegaly. Hypertrophic and degenerative ch trae of the vertebral column. IMPRESSION: 1. Subsegmental changes adjacent cardiac border most likely the basis of atelectasis rather than infi ltrate. Correlate clinically.
[2018-08-30 12:01] LABS: Glucose,Whole Blood 146 mg/dL (75-99)
[2018-08-30] MEDS: LISINOPRIL-HCTZ 10-12.5 MG 1 EACH TAB PO SCH (12:26)
[2018-08-30] MEDS ORDERED: clonazePAM 0.5 MG TAB PO STA (13:28)
--- NOTE | 2018-08-30 13:28 | P.HPIM ---
History of Present Illness This is a pleasant 63 years old female with past medical history of COPD, diabetes mellitus, GERD, hyperlipidemia, hypertension . Patient originally presented to [facility] with respiratory symptoms of coughing and chest regurgitation mainly on the right side. She underwent CAT scan of the chest which shows atelectasis followed by bronchoscopy where a seat foreign body was found impacted in the right lower lobe posterior basal segment. The foreign body was taking successfully output through the bronchoscope however got impacted in the posterior nasopharyngeal area. So patient was transferred to the current hospital to be evaluated by ENT and possible posterior rhinoscopy. Currently patient have no chest pain or dyspnea. She has some cough with yellow phlegm now and then. But does not feel nasal congestion or sneezing. On exam it looks patent airways. No cervical lymphadenopathy is felt. No abdominal pain or nausea vomiting. Review of Systems CONSTITUTIONAL: No fever, no malaise, no fatigue. HEENT: No recent visual problems or hearing problems. Denied any sore throat. CARDIOVASCULAR: No orthopnea, PND, no palpitations, no syncope. PULMONARY: No shortness of breath, no cough, no hemoptysis. GASTROINTESTINAL: No diarrhea, no nausea, no vomiting, no abdominal pain. Normoactive bowel sounds. NEUROLOGICAL: No headaches, no weakness, no numbness. HEMATOLOGICAL: Denies any bleeding or petechiae. GENITOURINARY: Denies any burning micturition, frequency, or urgency. MUSCULOSKELETAL/RHEUMATOLOGICAL: Denies any joint pain, swelling, or any muscle pain. ENDOCRINE: Denies any polyuria or polydipsia. Past Medical History Past Medical History: COPD, Diabetes Mellitus, Eye Disorder, GERD/Reflux, Hyperlipidemia, Hypertension, Osteoarthritis (OA), Pneumonia Additional Past Medical History / Comment(s): ASD with repair, T wave inversion since ASD repair, bilateral glaucoma with sx, trigeminal neuralgia-corrected with surgery, diverticulitis, hiatal hernia, chronic low back pain, anemia when young, bilateral varicosities, sinus problems. History of Any Multi-Drug Resistant Organisms: None Reported Past Surgical History: Heart Catheterization, Hysterectomy, Orthopedic Surgery, Tubal Ligation Additional Past Surgical History / Comment(s): 1995 ASD repair at [facility], L/R foot surg-spurs and R great toe joint replaced, R rotator cuff surg, trigeminal neuralgia surgery at [facility] in [place], back injections, fatty tumors removed x3 from legs, bilateral laser sx twice for glaucoma Additional Past Anesthesia/Blood Transfusion Reaction / Comment(s): Had BANG w/nerve block w/rotator cuff surg. Pt received blood with ASD repair without reaction. Past Psychological History: Depression, Panic Disorder Additional Psychological History / Comment(s): . Smoking Status: Former smoker Past Alcohol Use History: Rare Additional Past Alcohol Use History / Comment(s): Pt smoked from 5061-2279. Past Drug Use History: None Reported - Past Family History Father Family Medical History: Cancer Additional Family Medical History / Comment(s): Father of throat/lung cancer. Mother Family Medical History: Diabetes Mellitus Additional Family Medical History / Comment(s): Mother had heart problems. She at age 73yrs Brother(s) Family Medical History: Cancer Medications and Allergies Home Medications Medication Instructions Recorded Confirmed Type Mometasone/Formoterol [Dulera 100 1 puff INHALATION RT-DAILY PRN 02/27/14 08/29/18 History Mcg/5 Mcg Inhaler] clonazePAM [KlonoPIN] 1 mg PO HS 02/27/14 08/29/18 History Fluticasone Propionate [Flonase 2 spray EA NOSTRIL BID 10/19/14 08/29/18 History Allergy Relief] sitaGLIPtin [Januvia] 100 mg PO HS 09/07/16 08/29/18 History Atorvastatin [Lipitor] 40 mg PO HS #30 tab 09/11/16 08/29/18 Rx Cholecalciferol (Vitamin D3) 2,000 unit PO HS 11/07/16 08/29/18 History [Vitamin D3] Nitroglycerin Sl Tabs [Nitrostat] 0.4 mg SUBLINGUAL Q5M PRN #25 tab 11/07/16 08/29/18 Rx Albuterol Inhaler [Ventolin Hfa 1 - 2 puff INHALATION RT-Q6H PRN 08/29/18 08/29/18 History Inhaler] Aspirin EC [Ecotrin Low Dose] 81 mg PO HS 08/29/18 08/29/18 History Levothyroxine Sodium [Synthroid] 75 mcg PO DAILY 08/29/18 08/29/18 History Lisinopril [Zestril] 10 mg PO HS 08/29/18 08/29/18 History Omeprazole 40 mg PO HS 08/29/18 08/29/18 History Sertraline [Zoloft] 50 mg PO HS 08/29/18 08/29/18 History clonazePAM [KlonoPIN] 1 mg PO DAILY PRN 08/29/18 08/29/18 History metFORMIN HCL [Glucophage] 1,000 mg PO HS 08/29/18 08/29/18 History Allergies Allergy/AdvReac Type Severity Reaction Status Date / Time nortriptyline [From Pamelor] AdvReac LIGHT Verified 08/29/18 18:40 HEADED Sulfa (Sulfonamide AdvReac Itching Verified 08/29/18 18:40 Antibiotics) Physical Exam Vitals: Vital Signs Temp Pulse Resp BP Pulse Ox 08/30/18 08:00 72 16 08/30/18 07:00 97.9 F 72 16 106/67 95 08/30/18 00:45 98.8 F 86 20 99/62 94 L 08/29/18 20:24 98.5 F 86 18 151/82 94 L 08/29/18 18:19 85 16 08/29/18 16:58 98.1 F 85 16 127/80 94 L Intake and Output 08/29/18 08/30/18 08/30/18 22:59 06:59 14:59 Intake Total 100 Balance 100 Intake: Oral 100 Other: Voiding Method Toilet Toilet # Voids 1 Weight 99.79 kg GENERAL: The patient is alert and oriented x3, not in any acute distress. Well developed, well nourished. HEENT: Pupils are round and equally reacting to light. EOMI. No scleral icterus. No conjunctival pallor. Normocephalic, atraumatic. No pharyngeal erythema. No thyromegaly. CARDIOVASCULAR: S1 and S2 present. No murmurs, rubs, or gallops. PULMONARY: Chest is clear to auscultation, no wheezing or crackles. ABDOMEN: Soft, nontender, nondistended, normoactive bowel sounds. No palpable organomegaly. MUSCULOSKELETAL: No joint swelling or deformity. EXTREMITIES: No cyanosis, clubbing, or pedal edema. NEUROLOGICAL: Gross neurological examination did not reveal any focal deficits. SKIN: No rashes. Results Labs: Abnormal Lab Results - Last 24 Hours (Table) 08/29/18 08/29/18 08/30/18 Range/Units 17:36 20:37 07:03 POC Glucose (mg/dL) 112 H 137 H 125 H (75-99) mg/dL 08/30/18 Range/Units 11:49 POC Glucose (mg/dL) 146 H (75-99) mg/dL Thrombosis Risk Factor Assmnt - Choose All That Apply Any of the Below Risk Factors Present?: Yes Each Factor Represents 1 point: Obesity (BMI >25) Each Risk Factor Represents 2 Points: Age 61-74 years Thrombosis Risk Factor Assessment Total Risk Factor Score: 3 Thrombosis Risk Factor Assessment Level: Moderate Risk Assessment and Plan Assessment: Foreign body ingestion, seeds or corn, impacted and posterior nasopharynx. History of COPD History of diabetes mellitus History of GERD Hyperlipidemia Essential hypertension Plan: This is a pleasant 63 years old female who was transferred for ENT evaluation for her foreign body Impacted in the posterior nasopharynx. We'll keep patient nothing by mouth with IV fluids. Continue with ceftriaxone daily. Appreciate pulmonary evaluation. Patient is mobile and she is loaded risk for DVT. Continue with DVT and GI prophylaxis. No need for anticoagulation for DVT prophylaxis. Further recommendations based on the clinical course of the patient.
[2018-08-30] MEDS ORDERED: clonazePAM 0.5 MG TAB PO PRN (14:26)
[2018-08-30 14:42] VITALS: BP 132/74; PULSE 74; TEMP 98
[2018-08-30] MEDS ORDERED: HYDROcodone/APAP 5-325MG 1 EACH TAB PO PRN (14:53)
[2018-08-30] MEDS ORDERED: OXYMETAZOLINE 0.05% NASL SPRAY 1 SPRAY BOTTLE EA NOSTRIL SCH (15:00)
--- NOTE | 2018-08-30 15:27 | P.OP ---
Date of Procedure: 08/30/18 Preoperative Diagnosis: Foreign body nose Postoperative Diagnosis: Nasal foreign body no longer present Procedure(s) Performed: Nasal endoscopy Anesthesia: none Surgeon: Jordan Iyer Pathology: none sent Condition: stable Disposition: no change Indications for Procedure: Patient underwent a bronchoscopy with removal of core and from the lungs which became stuck in the nose after extraction as he was unable to be pulled through the nose. I've been asked to consult regarding this potential foreign body in the nose. Operative Findings: Patient had no foreign body in either nares after thorough examination and there was some intranasal crusting noted on the right. Description of Procedure: On the NF type GP nasopharyngoscope was inserted into the patient's nose and the nose was evaluated bilaterally. We did 3 passes examination along the inferior turbinate middle turbinate and superior turbinate there was some intranasal crusting on the right side noted. No foreign body was noted. Mild rhinitis was seen. The foreign body must of passed in the evening.
--- NOTE | 2018-08-30 15:31 | P.GSCN ---
History of Present Illness Consult date: 08/30/18 Reason for Consult: Foreign body nose Requesting physician: Hi Leon History of present illness: This patient presented to the [facility], with a foreign body in her lung. This was removed by Dr. Leon successfully but his the foreign body was extracted through the nose and became lodged in the nose. I've been asked to consult regarding this foreign body in the nose. She has no symptoms of this foreign body she has no nasal obstruction she has no epistaxis. She is anxious to have this removed. Review of Systems - Constitutional Denies chronic headaches - EENT Ears, nose, mouth and throat: Denies ant. neck pain - Cardiovascular Denies claudication - Respiratory Denies congestion - Gastrointestinal Denies belching - Genitourinary Genitourinary: Denies nocturia - Musculoskeletal Denies atrophy - Integumentary Denies boils - Neurological Denies ataxia - Psychiatric Denies anxiety - Endocrine Denies deepening of the voice - Hematologic/Lymphatic Denies easy bleeding - Allergic/Immunologic Denies allergic rhinitis Past Medical History Past Medical History: COPD, Diabetes Mellitus, Eye Disorder, GERD/Reflux, Hyperlipidemia, Hypertension, Osteoarthritis (OA), Pneumonia Additional Past Medical History / Comment(s): ASD with repair, T wave inversion since ASD repair, bilateral glaucoma with sx, trigeminal neuralgia-corrected with surgery, diverticulitis, hiatal hernia, chronic low back pain, anemia when young, bilateral varicosities, sinus problems. History of Any Multi-Drug Resistant Organisms: None Reported Past Surgical History: Heart Catheterization, Hysterectomy, Orthopedic Surgery, Tubal Ligation Additional Past Surgical History / Comment(s): 1995 ASD repair at of , L/R foot surg-spurs and R great toe joint replaced, R rotator cuff surg, trigeminal neuralgia surgery at [facility] in [place], back injections, fatty tumors removed x3 from legs, bilateral laser sx twice for glaucoma Additional Past Anesthesia/Blood Transfusion Reaction / Comm: Had BANG w/nerve block w/rotator cuff surg. Pt received blood with ASD repair without reaction. Past Psychological History: Depression, Panic Disorder Additional Psychological History / Comment(s): . Smoking Status: Former smoker Past Alcohol Use History: Rare Additional Past Alcohol Use History / Comment(s): Pt smoked from 8464-1855. Past Drug Use History: None Reported - Past Family History Father Family Medical History: Cancer Additional Family Medical History / Comment(s): Father of throat/lung cancer. Mother Family Medical History: Diabetes Mellitus Additional Family Medical History / Comment(s): Mother had heart problems. She at age 73yrs Brother(s) Family Medical History: Cancer Medications and Allergies Home Medications Medication Instructions Recorded Confirmed Type Mometasone/Formoterol [Dulera 100 1 puff INHALATION RT-DAILY PRN 02/27/14 08/29/18 History Mcg/5 Mcg Inhaler] clonazePAM [KlonoPIN] 1 mg PO HS 02/27/14 08/29/18 History Fluticasone Propionate [Flonase 2 spray EA NOSTRIL BID 10/19/14 08/29/18 History Allergy Relief] sitaGLIPtin [Januvia] 100 mg PO HS 09/07/16 08/29/18 History Atorvastatin [Lipitor] 40 mg PO HS #30 tab 09/11/16 08/29/18 Rx Cholecalciferol (Vitamin D3) 2,000 unit PO HS 11/07/16 08/29/18 History [Vitamin D3] Nitroglycerin Sl Tabs [Nitrostat] 0.4 mg SUBLINGUAL Q5M PRN #25 tab 11/07/16 08/29/18 Rx Albuterol Inhaler [Ventolin Hfa 1 - 2 puff INHALATION RT-Q6H PRN 08/29/18 08/29/18 History Inhaler] Aspirin EC [Ecotrin Low Dose] 81 mg PO HS 08/29/18 08/29/18 History Levothyroxine Sodium [Synthroid] 75 mcg PO DAILY 08/29/18 08/29/18 History Lisinopril [Zestril] 10 mg PO HS 08/29/18 08/29/18 History Omeprazole 40 mg PO HS 08/29/18 08/29/18 History Sertraline [Zoloft] 50 mg PO HS 08/29/18 08/29/18 History clonazePAM [KlonoPIN] 1 mg PO DAILY PRN 08/29/18 08/29/18 History metFORMIN HCL [Glucophage] 1,000 mg PO HS 08/29/18 08/29/18 History Allergies Allergy/AdvReac Type Severity Reaction Status Date / Time nortriptyline [From Pamelor] AdvReac LIGHT Verified 08/29/18 18:40 HEADED Sulfa (Sulfonamide AdvReac Itching Verified 08/29/18 18:40 Antibiotics) Surgical - Exam Osteopathic Statement: *. No significant issues noted on an osteopathic structural exam other than those noted in the History and Physical/Consult. Vital Signs Temp Pulse Resp BP Pulse Ox 98.1 F 85 16 127/80 94 L 08/29/18 16:58 08/29/18 16:58 08/29/18 16:58 08/29/18 16:58 08/29/18 16:58 - General well developed, well nourished, no distress - Eyes PERRL, normal ocular movement - ENT normal pinna, normal nares, normal mucosa, no hearing loss, no congestion - Neck no masses, no bruits, trachea midline, no lymphadectomy, no venous distension - Respiratory normal expansion, normal respiratory effort - Integumentary no rash, no growths - Neurologic normal coordination, normal sensation - Musculoskeletal normal gait - Psychiatric oriented to time, oriented to person, oriented to place, speech is normal, memory intact Results - Labs Abnormal Lab Results - Last 24 Hours (Table) 08/29/18 08/29/18 08/30/18 Range/Units 17:36 20:37 07:03 POC Glucose (mg/dL) 112 H 137 H 125 H (75-99) mg/dL 08/30/18 Range/Units 11:49 POC Glucose (mg/dL) 146 H (75-99) mg/dL Assessment and Plan (1) Foreign body in nose Current Visit: Yes Status: Acute Code(s): T17.1XXA - FOREIGN BODY IN NOSTRIL, INITIAL ENCOUNTER SNOMED Code(s): 47280216 Plan: A thorough nasal examination did not reveal any foreign body in either nasal cavity. This foreign body most of passed spontaneously. Since there is no foreign body noted, this patient is able to be discharged from an otolaryngologic perspective. She is to follow up with me as needed. Again, there is no foreign body in the nasal cavity. Time with Patient: Greater than 30
== END 2018-08-30 18:07 | disposition home or self-care (01) | DRG 154 ==
LOC: 4SSUR 16:53
PROVIDERS: ADMIT Hospitalist; ATTEND Hospitalist
PROC: 09JK8ZZ Inspection of Nasal Mucosa and Soft Tissue, Via Natural or Artificial Opening Endoscopic (ICD-10-PCS; principal; 2018-08-30)
DX: T17.1XXA Foreign body in nostril, initial encounter (principal); J18.9 Pneumonia, unspecified organism; J44.0 Chronic obstructive pulmonary disease with (acute) lower respiratory infection; E66.01 Morbid (severe) obesity due to excess calories; Z68.36 Body mass index [BMI] 36.0-36.9, adult; E11.9 Type 2 diabetes mellitus without complications; E78.5 Hyperlipidemia, unspecified; F32.9 Major depressive disorder, single episode, unspecified; F41.0 Panic disorder [episodic paroxysmal anxiety]; G47.33 Obstructive sleep apnea (adult) (pediatric); I10 Essential (primary) hypertension; J31.0 Chronic rhinitis; K21.9 Gastro-esophageal reflux disease without esophagitis; M54.5 Low back pain; G89.29 Other chronic pain; K44.9 Diaphragmatic hernia without obstruction or gangrene; Z96.698 Presence of other orthopedic joint implants; Z79.51 Long term (current) use of inhaled steroids; Z79.84 Long term (current) use of oral hypoglycemic drugs; Z79.890 Hormone replacement therapy; Z79.82 Long term (current) use of aspirin; Z79.899 Other long term (current) drug therapy; Z87.891 Personal history of nicotine dependence; Z90.710 Acquired absence of both cervix and uterus; Z98.51 Tubal ligation status; Z88.2 Allergy status to sulfonamides; Z91.018 Allergy to other foods; Z98.890 Other specified postprocedural states; Z80.1 Family history of malignant neoplasm of trachea, bronchus and lung; Z83.3 Family history of diabetes mellitus
CPT/HCPCS: 71046; 94640

== ENCOUNTER → 2019-03-18 | Outpatient (CLI) | payer BC ==
--- NOTE | 2019-03-18 14:58 | MR ---
EXAMINATION TYPE: MR lumbar spine wo con DATE OF EXAM: 03/18/2019 COMPARISON: Prior MRI lumbar spine August 10, 2017. HISTORY: Intervertebral disc degeneration per order. Pain for years into bilateral buttocks and back of thigh probation. TECHNIQUE: Multiplanar, multisequence imaging of the lumbar spine is performed without IV contrast. FINDINGS: There is persistent levoconvex scoliosis centered in the upper lumbar spine. There is persi stent grade 1 anterolisthesis L5 on S1. Sagittal images of the lumbar spine show vertebral body heigh ts to remain satisfactory. Multilevel disc desiccation is redemonstrated with mild multilevel disc sp carmelo narrowing and more moderate disc space narrowing and vacuum disc phenomenon at lumbosacral juncti on. Prominent hemangioma posterior L1 vertebra is again seen. The conus medullaris is normal in posi tion and signal ending inferior L1 levels. Mild to moderate multilevel anterior spurring is redemonst rated. Axial images at T12-L1 level shows mild to moderate broad disc bulge with right paracentral disc prot rusion component effacing the anterior thecal sac. Bilateral neural foramina are patent. No significa nt change from prior. Axial images at L1-L2 level remain within normal limits. Axial images at L2-L3 level demonstrate [id number] broad disc bulge with right lateral disc pro trusion component effacing the anterior thecal sac. Bilateral neural foramina are patent. Mild facet degenerative changes bilaterally are redemonstrated. Axial images at L3-L4 level demonstrate moderate facet degenerative changes and ligamentum flavum hyp ertrophy with moderate broad disc bulge effacing the anterior thecal sac. There is [id number] b ilateral neural foraminal narrowing. No significant change from prior. Axial images at L4-L5 level show moderate to advanced facet degenerative changes and ligamenta flava hypertrophy effacing posterior lateral thecal sac. There is moderate to severe broad-based posterior disc protrusion effacing the anterior thecal sac. There is moderate to severe left-sided neural betito inal narrowing most prominent sagittal image 6, there is mild right-sided neural foraminal narrowing. Encroachment left L4 nerve but present. No significant change from prior. Axial images at the L5-S1 level show advanced facet degenerative changes bilaterally. There is spondy lolisthesis and broad disc bulge with left paracentral disc protrusion minimally effacing anterolater al thecal sac, there is mild to moderate left-sided inferior neural foraminal narrowing. Right-sided neural foramina is patent. There is simple appearing thin-walled cyst measuring 3.5 cm AP diameter axial image 21 lower pole of the right kidney partially imaged similar in appearance to prior study. Additional smaller T2 hyperin tense round lesions throughout the right kidney are present. IMPRESSION: Multilevel degenerative changes lumbar spine most prominent lower lumbar levels as detail ed above. No significant change or progression from prior MRI.
== END | disposition home or self-care (01) ==
LOC: RADMRIMAIN 07:03
PROVIDERS: ATTEND Internal Medicine
DX: M48.061 Spinal stenosis, lumbar region without neurogenic claudication (principal); M51.25 Other intervertebral disc displacement, thoracolumbar region; M51.87 Other intervertebral disc disorders, lumbosacral region; M43.17 Spondylolisthesis, lumbosacral region; M43.06 Spondylolysis, lumbar region; M43.07 Spondylolysis, lumbosacral region
CPT/HCPCS: 72148

== ENCOUNTER → 2019-11-27 | Outpatient (CLI) | payer BC ==
--- NOTE | 2019-11-27 09:27 | CT ---
EXAMINATION TYPE: CT sinus wo con DATE OF EXAM: 11/27/2019 COMPARISON: None HISTORY: 64-year-old female chronic sinusitis, Facial pain and congestion CT DLP: 577.3 mGycm Automated exposure control for dose reduction was used. TECHNIQUE: Noncontrast axial views of the paranasal sinuses were obtained. Coronal reconstructions pe rformed. FINDINGS: PARANASAL SINUSES: There is trace mucosal thickening inferior right maxillary sinus. Left maxillary sinus, sphenoid sinuses, ethmoid sinuses, and frontal sinuses well pneumatized. There is no air-fluid level. Reactive caprice- osteogenesis is not seen. There is no destruction of the osseous rhodes of the paranasal sinuses. THE NASAL CAVITY: The osteomeatal complexes are patent. Undulating nasal septum. The imaged brain, sella, skull base and orbits are normal in appearance. Mastoid air cells and middle ear cavities are well pneumatized. Reformatted images confirm above findings. IMPRESSION: Only trace mucosal thickening within the right maxillary sinus. Undulating nasal septum.
== END | disposition home or self-care (01) ==
LOC: RADCTMAIN 08:19
PROVIDERS: ATTEND Otolaryngology
DX: J34.89 Other specified disorders of nose and nasal sinuses (principal)
CPT/HCPCS: 70486

== ENCOUNTER 2020-01-29 07:39 | Day surgery (SDC) | payer BC ==
[2020-01-22 14:09] VITALS: BMI 36.8
[~2020-01-29 07:39] MED LIST changes: -DEXAMETHASONE SOD PHOSPHATE 10 MG/ML 1 ML VIAL IV ONE; +DEXAMETHASONE SOD PHOSPHATE 4 MG/ML 1 ML VIAL IV ONE; +FAMOTIDINE 20 MG/2 ML VIAL IV ONE; -FAMOTIDINE 20 MG/2 ML VIAL IV PRN; -HEPARIN SODIUM,PORCINE 5,000 UNIT/ML 1 ML VIAL SQ ONE; -LACTATED RINGERS 1,000 ML IV SCH; -LIDOCAINE 1% 20 ML VIAL (10MG/ML) FOR IV START INTRADERMA PRN; +MELOXICAM 7.5 MG TAB PO ONE; -MIDAZOLAM 2 MG/2 ML VIAL IV PRN; +ONDANSETRON 4 MG/2 ML VIAL IVP ONE; +ONDANSETRON 4 MG/2 ML VIAL IVP PRN; -SCOPOLAMINE 1.5MG/72HR PATCH TRANSDERM ONE; -ceFAZolin 2 GM in SODIUM CHLORIDE 0.9% 100 ML IVPB ONE
[2020-01-29] MEDS ORDERED: OXYMETAZOLINE 0.05% NASL SPRAY 1 SPRAY BOTTLE ONE (07:50)
[2020-01-29] MEDS: OXYMETAZOLINE 0.05% NASL SPRAY 1 SPRAY BOTTLE NASAL ONE ×5 (07:58→08:19)
[2020-01-29] MEDS: LACTATED RINGERS 1,000 ML IV SCH ×2 (08:11→13:40)
[2020-01-29] MEDS ORDERED: LIDOCAINE 1% (10MG/ML) FOR IV START INTRADERMA ONE (08:11)
[2020-01-29] MEDS ORDERED: ONDANSETRON 4 MG/2 ML VIAL ONE (08:12)
[2020-01-29] MEDS ORDERED: DEXAMETHASONE SOD PHOSPHATE 10 MG/ML 1 ML VIAL IV ONE (08:17)
[2020-01-29 08:20] LABS: Glucose,Whole Blood 157 mg/dL (75-99)
[2020-01-29] MEDS ORDERED: PHENYLEPHRINE-0.9% NACL SYG 1 MG/10 ML SYRINGE ONE (09:02)
[2020-01-29] MEDS ORDERED: MIDAZOLAM 2 MG/2 ML VIAL ONE (09:02)
[2020-01-29] MEDS ORDERED: fentaNYL (PF) 50 MCG/ML 2 ML AMP ONE (09:02)
[2020-01-29] MEDS ORDERED: PROPOFOL 10 MG/ML 20 ML VIAL IV ONE (09:02)
[2020-01-29] MEDS ORDERED: SUCCINYLCHOLINE CHLORIDE VIAL 200 MG/10 ML VIAL IV ONE (09:02)
[2020-01-29] MEDS ORDERED: DEXAMETHASONE SOD PHOSPHATE 10 MG/ML 1 ML VIAL ONE (09:02)
[2020-01-29] MEDS ORDERED: LIDOCAINE 1% INJ 10MG/ML (20 ML MDV) ONE (09:02)
[2020-01-29] MEDS ORDERED: LIDOCAINE 1%-EPI 1:100,000 20 ML VIAL SQ ONE (09:43)
[2020-01-29 10:39] VITALS: TEMP 98.7
--- NOTE | 2020-01-29 10:43 | P.OP ---
Date of Procedure: 01/29/20 Preoperative Diagnosis: Deviated nasal septum, nasal septal perforation, Chronic Maxillary sinusitis, hypertrophy of inferior nasal turbinates Postoperative Diagnosis: same Procedure(s) Performed: Surgical closure of nasal septal perforation Septoplasty Functional endoscopic sinus surgery maxillary sinus Bilateral submucosal resection of the inferior nasal turbinates with outfracture compression. Anesthesia: GETA Surgeon: Jordan Iyer Estimated Blood Loss (ml): 5 Pathology: other (sinonasal) Condition: stable Disposition: PACU Indications for Procedure: This patient presented with persistent nasal obstruction chronic maxillary sinusitis and a large septal perforation. She has nasal obstruction she gets intranasal crusting and scabbing chronic infection and has failed medical therapy. The patient's been on antibiotics, antibiotic nasal ointments, etc. etc. with no improvement. Since she's failed medical therapy and surgical intervention and correction was recommended. Operative Findings: Large septal perforation and evidence of chronic maxillary sinusitis, large obstructive inferior turbinates. Deviated nasal septum was also noted. Description of Procedure: This patient was taken to the operative room and placed in the supine position. A general inhalation anesthetic was administered the patient by mask and subsequently intubated with a cuffed endotracheal tube by the department of anesthesia with a functioning IV line in place. The patient was monitored throughout the entire case by the department of anesthesia. The septum lateral nasal wall inferior turbinates was injected with lidocaine 1% with epinephrine 1 100,010 minutes were allowed wait for full vasoconstrictive effects to take place. A caudal incision was made over the caudal portion of the left septum down to the mucoperichondrium a mucoperichondrial flap was developed to the margin of the septal perforation we then elevated the mucoperichondrial level off the septum to the extent of visualization and a crossover incision was made with for the mucoperichondrial flap development to the extent of visualization on the contralateral side. We harvested posterior septal cartilage and removed it forward. We then developed superior and inferiorly based mucosal flaps. We straighten the septum with crosshatching incisions and this corrected the septal deviation. We then rotated these mucosal flaps into position and close the perforation. We then sutured the flaps for closure with a 4 rapid Vicryl in a quilting stitch was used to reapproximate the septal flaps. After the perforation was closed and the septum was straightened we closed the incision with a 4 rapid Vicryl. We continued our surgery with use of a 0 endoscope and we then took down the uncinate process bilaterally with the microdebrider we then opened up the maxillary sinuses we then entered the maxillary sinuses and we remove diseased tissue from the maxillary sinuses bilaterally patient tolerated this well week. Xerogel underneath the middle turbinates and she was taken to postanesthesia recovery in excellent condition. Leos splints were placed.
[2020-01-29 10:44] LABS: Glucose,Whole Blood 256 mg/dL (75-99)
[2020-01-29] MEDS: HYDROmorphone 0.5 MG/0.5 ML SYRINGE IVP PRN ×2 (10:47→11:00)
[2020-01-29] MEDS: METOPROLOL TARTRATE 5 MG/5 ML VIAL IVP ONE ×2 (12:26→12:33)
[2020-01-29] MEDS ORDERED: INSULIN ASPART (NovoLOG) 100 UNIT/ML VIAL SQ ONE ×2 (12:27→13:21)
[2020-01-29 12:35] VITALS: RESP 18
[2020-01-29 13:14] LABS: Glucose,Whole Blood 280 mg/dL (75-99)
[2020-01-29] MEDS ORDERED: HYDROcodone/APAP 5-325MG 1 EACH TAB ONE (13:35)
[2020-01-29] MEDS ORDERED: HYDROcodone/APAP 5-325MG 1 EACH TAB PO ONE (13:38)
[2020-01-29 13:59] VITALS: BP 148/84; PULSE 83
--- NOTE | 2020-04-23 17:43 | OP ---
OPERATIVE REPORT OPERATIVE NOTE ADDENDUM: DATE OF SERVICE: 01/29/2020 This patient underwent a submucosal resection of the inferior nasal turbinates with outfracture and compression. We entered the inferior nasal turbinates anteriorly with a microdebrider utilizing a 2 mm microdebrider. We removed bone and submucosal elements with the use of a microdebrider bilaterally, and after bone and submucosal elements were removed from the inferior turbinates anteriorly with the microdebrider utilizing a 2 mm blade, we then utilized a Boies nasal elevator to do an outfracture and compression of both inferior nasal turbinates. The patient tolerated this procedure well with minimal bleeding. MMODL / IJN: [id number] /
== END 2020-01-29 14:06 | disposition home or self-care (01) ==
LOC: OR 07:39
PROVIDERS: ATTEND Otolaryngology
DX: J32.0 Chronic maxillary sinusitis (principal); J34.2 Deviated nasal septum; J34.89 Other specified disorders of nose and nasal sinuses; J34.3 Hypertrophy of nasal turbinates; E78.5 Hyperlipidemia, unspecified; G47.33 Obstructive sleep apnea (adult) (pediatric); E11.9 Type 2 diabetes mellitus without complications; E07.9 Disorder of thyroid, unspecified; K21.9 Gastro-esophageal reflux disease without esophagitis; F32.9 Major depressive disorder, single episode, unspecified; G43.909 Migraine, unspecified, not intractable, without status migrainosus; G50.0 Trigeminal neuralgia; H40.9 Unspecified glaucoma; E66.01 Morbid (severe) obesity due to excess calories; Z88.2 Allergy status to sulfonamides; Z79.84 Long term (current) use of oral hypoglycemic drugs; Z79.890 Hormone replacement therapy; Z79.899 Other long term (current) drug therapy; Z98.890 Other specified postprocedural states; Z88.6 Allergy status to analgesic agent; Z88.8 Allergy status to other drugs, medicaments and biological substances; Z90.710 Acquired absence of both cervix and uterus; Z95.5 Presence of coronary angioplasty implant and graft; Z98.49 Cataract extraction status, unspecified eye; Z90.49 Acquired absence of other specified parts of digestive tract; Z87.891 Personal history of nicotine dependence; Z82.5 Family history of asthma and other chronic lower respiratory diseases; Z82.61 Family history of arthritis; Z80.1 Family history of malignant neoplasm of trachea, bronchus and lung; Z80.0 Family history of malignant neoplasm of digestive organs; Z83.79 Family history of other diseases of the digestive system; Z81.1 Family history of alcohol abuse and dependence; Z82.0 Family history of epilepsy and other diseases of the nervous system; Z68.36 Body mass index [BMI] 36.0-36.9, adult
CPT/HCPCS: 30520; 31267; 30630; 88305; J2250; J0330; J1100; J2405; J0690; J2001; J3010; J2370; J2704; J1170

== ENCOUNTER 2021-03-17 06:40 | Day surgery (SDC) | payer MEDICARE, OTHER ==
[2021-03-14 15:27] VITALS: BMI 38.2
[~2021-03-17 06:40] MED LIST changes: -DEXAMETHASONE SOD PHOSPHATE 4 MG/ML 1 ML VIAL IV ONE; -FAMOTIDINE 20 MG/2 ML VIAL IV ONE; +LACTATED RINGERS 1,000 ML IV SCH; +LIDOCAINE 1% (10MG/ML) FOR IV START INTRADERMA PRN; -MELOXICAM 7.5 MG TAB PO ONE; -ONDANSETRON 4 MG/2 ML VIAL IVP ONE; -ONDANSETRON 4 MG/2 ML VIAL IVP PRN
[2021-03-17] MEDS ORDERED: LACTATED RINGERS 1,000 ML IV ONE (06:54)
[2021-03-17 07:06] LABS: Glucose,Whole Blood 150 mg/dL (75-99)
[2021-03-17 07:10] VITALS: TEMP 97.8
[2021-03-17] MEDS ORDERED: PROPOFOL 10 MG/ML 20 ML VIAL IV ONE (07:37)
[2021-03-17 08:18] VITALS: BP 124/75; PULSE 72; RESP 20
--- NOTE | 2021-03-17 08:29 | P.PCN ---
Date of Procedure: 03/17/21 Description of Procedure: PREOPERATIVE DIAGNOSIS: Hematochezia Change in bowel habits POSTOPERATIVE DIAGNOSIS: Diverticulosis, scattered. OPERATION: Colonoscopy to the cecum, ileocecal valve and appendiceal orifice. SURGEON: Dasia Sen MD. ANESTHESIA: MAC. INDICATIONS: The patient is a 66-year-old female who presents with change in bowel habits and rectal bleeding. Benefits and risks were described and informed consent was obtained. DESCRIPTION OF PROCEDURE: The patient had undergone Sutab prep. The patient had been brought into the operating room and laid in the left lateral decubitus position. After adequate intravenous sedation, the rectum was examined with 2% lidocaine jelly. External hemorrhoids were encountered. The rectal tone was within normal limits. No lesions were palpated in the rectal vault. An Olympus colonoscope was advanced until the cecum, ileocecal valve and appendiceal orifice were clearly viewed. The prep was excellent. Severe sigmoid diverticulosis was encountered. Abdominal wall pressure was required to advance the scope. No colonic polyps were found. No evidence of focal colitis was found. Retroflexion of the scope demonstrated grade 2 internal hemorrhoids without active bleeding or inflammation. The colon was desufflated. The patient had tolerated the procedure well. Withdrawal time was over 6 minutes. FINDINGS: Aronchick preparation quality scale 1 (1-5) Internal hemorrhoids, grade 2 External prolapsed hemorrhoids, grade 2 No arteriovenous malformations. Moderate to severe diverticulosis sigmoid colon No adenomatous polyps. No focal colitis. RECOMMENDATIONS: Lower endoscopy in 5 years 2025 Plan - Discharge Summary Discharge Rx Participant: No New Discharge Prescriptions: Continue clonazePAM [KlonoPIN] 1 mg PO HS Atorvastatin [Lipitor] 40 mg PO HS #30 tab Cholecalciferol (Vitamin D3) [Vitamin D3] 2,000 unit PO HS Sertraline [Zoloft] 50 mg PO HS Omeprazole 40 mg PO HS Lisinopril [Zestril] 10 mg PO HS Albuterol Inhaler (Mhu) [Ventolin Hfa Inhaler (Mhu)] 1 - 2 puff INHALATION RT-Q6H PRN PRN Reason: Shortness Of Breath metFORMIN HCL [Glucophage] 1,000 mg PO HS clonazePAM [KlonoPIN] 1 mg PO DAILY PRN PRN Reason: Anxiety Levothyroxine Sodium [Synthroid] 75 mcg PO DAILY Aspirin EC [Ecotrin Low Dose] 81 mg PO HS Multivit-Min/Iron/Folic/Lutein [Centrum Silver Women Tablet] 1 each PO DAILY Triamcinolone Acetonide [Nasacort] 1 spray EA NOSTRIL BID Montelukast [Singulair] 10 mg PO HS Pioglitazone [Actos] 30 mg PO DAILY Discharge Medication List clonazePAM [KlonoPIN] 1 mg PO HS 02/27/14 [History] Atorvastatin [Lipitor] 40 mg PO HS #30 tab 09/11/16 [Rx] Cholecalciferol (Vitamin D3) [Vitamin D3] 2,000 unit PO HS 11/07/16 [History] Albuterol Inhaler (Mhu) [Ventolin Hfa Inhaler (Mhu)] 1 - 2 puff INHALATION RT- Q6H PRN 08/29/18 [History] Aspirin EC [Ecotrin Low Dose] 81 mg PO HS 08/29/18 [History] Levothyroxine Sodium [Synthroid] 75 mcg PO DAILY 08/29/18 [History] Lisinopril [Zestril] 10 mg PO HS 08/29/18 [History] Omeprazole 40 mg PO HS 08/29/18 [History] Sertraline [Zoloft] 50 mg PO HS 08/29/18 [History] clonazePAM [KlonoPIN] 1 mg PO DAILY PRN 08/29/18 [History] metFORMIN HCL [Glucophage] 1,000 mg PO HS 08/29/18 [History] Montelukast [Singulair] 10 mg PO HS 01/22/20 [History] Multivit-Min/Iron/Folic/Lutein [Centrum Silver Women Tablet] 1 each PO DAILY 01/22/20 [History] Triamcinolone Acetonide [Nasacort] 1 spray EA NOSTRIL BID 01/22/20 [History] Pioglitazone [Actos] 30 mg PO DAILY 03/14/21 [History] Follow up Appointment(s)/Referral(s): Dasia Sen MD [STAFF PHYSICIAN] - 03/29/21 10:15 am Patient Instructions/Handouts: *Surgery [facility] - (Anesthesia) Endoscopy Discharge Instructions, Diverticulosis (DC), Diverticulitis Diet (GEN), Diverticulosis Diet (GEN), Colonoscopy (DC) Activity/Diet/Wound Care/Special Instructions: Repeat colonoscopy in 5 years, 2025 Discharge Disposition: HOME SELF-CARE
--- NOTE | 2021-03-17 08:30 | P.GSHP ---
History of Present Illness H&P Date: 03/17/21 CHIEF COMPLAINT: Colon screen HISTORY OF PRESENT ILLNESS: The patient is a 66-year-old female who presents with change in bowel habits and rectal bleeding. Lower endoscopy was offered for further evaluation and management. PAST MEDICAL HISTORY: Please see list. PAST SURGICAL HISTORY: Please see list. MEDICATIONS: Please see list. ALLERGIES: Please see list. SOCIAL HISTORY: No illicit drug use FAMILY HISTORY: No reports of Crohn disease or ulcerative colitis. REVIEW OF ORGAN SYSTEMS: CONSTITUTIONAL: No reports of fevers or chills. PHYSICAL EXAM: VITAL SIGNS: Stable GENERAL: Well-developed pleasant in no acute distress. HEENT: No scleral icterus. Extraocular movements grossly intact. Moist buccal mucosa. NECK: Supple without lymphadenopathy. CHEST: Unlabored respirations. Equal bilateral excursions. CARDIOVASCULAR: Regular rate and rhythm. Distal 2+ pulses. ABDOMEN: Soft, nontender, nondistended. MUSCULOSKELETAL: No clubbing, cyanosis, or edema. ASSESSMENT: 1. Change in bowel habits 2. Rectal bleeding. PLAN: 1. Recommend proceeding with a lower endoscopy Past Medical History Past Medical History: COPD, Diabetes Mellitus, Eye Disorder, GERD/Reflux, Hyperlipidemia, Hypertension, Osteoarthritis (OA), Pneumonia Additional Past Medical History / Comment(s): ASD with repair, T wave inversion since ASD repair, bilateral glaucoma with sx, trigeminal neuralgia-corrected with surgery, diverticulitis, hiatal hernia, chronic low back pain, anemia when young, bilateral varicosities, sinus problems. History of Any Multi-Drug Resistant Organisms: None Reported Past Surgical History: Heart Catheterization, Hysterectomy, Orthopedic Surgery, Tubal Ligation Additional Past Surgical History / Comment(s): 1995 ASD repair at [facility], L/R foot surg-spurs and R great toe joint replaced, R rotator cuff surg, trigeminal neuralgia surgery at [facility] in [place], back injections, fatty tumors removed x3 from legs, bilateral laser sx twice for glaucoma, SINUS SX, COLONOSCOPY Additional Past Anesthesia/Blood Transfusion Reaction / Comment(s): Had BANG w/nerve block w/rotator cuff surg. Pt received blood with ASD repair without reaction. Smoking Status: Former smoker - Past Family History Father Family Medical History: Cancer Additional Family Medical History / Comment(s): Father of throat/lung cancer. Mother Family Medical History: Diabetes Mellitus Additional Family Medical History / Comment(s): Mother had heart problems. She at age 73yrs Brother(s) Family Medical History: Cancer Medications and Allergies Home Medications Medication Instructions Recorded Confirmed Type clonazePAM [KlonoPIN] 1 mg PO HS 02/27/14 03/14/21 History Atorvastatin [Lipitor] 40 mg PO HS #30 tab 09/11/16 03/14/21 Rx Cholecalciferol (Vitamin D3) 2,000 unit PO HS 11/07/16 03/14/21 History [Vitamin D3] Albuterol Inhaler (Mhu) [Ventolin 1 - 2 puff INHALATION RT-Q6H PRN 08/29/18 03/14/21 History Hfa Inhaler (Mhu)] Aspirin EC [Ecotrin Low Dose] 81 mg PO HS 08/29/18 03/14/21 History Levothyroxine Sodium [Synthroid] 75 mcg PO DAILY 08/29/18 03/14/21 History Lisinopril [Zestril] 10 mg PO HS 08/29/18 03/14/21 History Omeprazole 40 mg PO HS 08/29/18 03/14/21 History Sertraline [Zoloft] 50 mg PO HS 08/29/18 03/14/21 History clonazePAM [KlonoPIN] 1 mg PO DAILY PRN 08/29/18 03/14/21 History metFORMIN HCL [Glucophage] 1,000 mg PO HS 08/29/18 03/14/21 History Montelukast [Singulair] 10 mg PO HS 01/22/20 03/14/21 History Multivit-Min/Iron/Folic/Lutein 1 each PO DAILY 01/22/20 03/14/21 History [Centrum Silver Women Tablet] Triamcinolone Acetonide [Nasacort] 1 spray EA NOSTRIL BID 01/22/20 03/14/21 History Pioglitazone [Actos] 30 mg PO DAILY 03/14/21 03/14/21 History Allergies Allergy/AdvReac Type Severity Reaction Status Date / Time Sulfa (Sulfonamide Allergy Itching Verified 03/14/21 15:16 Antibiotics) nortriptyline [From Pamelor] AdvReac LIGHT Verified 03/14/21 15:16 HEADED Surgical - Exam Vital Signs Temp Pulse Resp BP Pulse Ox 97.8 F 88 18 187/77 98 03/17/21 07:08 03/17/21 07:08 03/17/21 07:08 03/17/21 07:08 03/17/21 07:08 Results - Labs Abnormal Lab Results - Last 24 Hours (Table) 03/17/21 Range/Units 07:05 POC Glucose (mg/dL) 150 H (75-99) mg/dL
== END 2021-03-17 08:37 | disposition home or self-care (01) ==
LOC: ORWHC2ENDO 06:40
PROVIDERS: ATTEND Surgery Plastic and Reconstructive Surgery
DX: K57.30 Diverticulosis of large intestine without perforation or abscess without bleeding (principal); K64.4 Residual hemorrhoidal skin tags; J44.9 Chronic obstructive pulmonary disease, unspecified; E11.9 Type 2 diabetes mellitus without complications; K21.9 Gastro-esophageal reflux disease without esophagitis; E78.5 Hyperlipidemia, unspecified; I10 Essential (primary) hypertension; M19.90 Unspecified osteoarthritis, unspecified site; Z87.01 Personal history of pneumonia (recurrent); Z98.890 Other specified postprocedural states; G89.29 Other chronic pain; M54.5 Low back pain; I83.90 Asymptomatic varicose veins of unspecified lower extremity; Z90.710 Acquired absence of both cervix and uterus; Z98.51 Tubal ligation status; Z87.891 Personal history of nicotine dependence; Z87.19 Personal history of other diseases of the digestive system; Z80.1 Family history of malignant neoplasm of trachea, bronchus and lung; Z80.0 Family history of malignant neoplasm of digestive organs; Z83.3 Family history of diabetes mellitus; Z82.49 Family history of ischemic heart disease and other diseases of the circulatory system; Z80.9 Family history of malignant neoplasm, unspecified; Z79.84 Long term (current) use of oral hypoglycemic drugs; Z79.82 Long term (current) use of aspirin; Z79.890 Hormone replacement therapy; Z79.899 Other long term (current) drug therapy; Z88.2 Allergy status to sulfonamides; Z88.8 Allergy status to other drugs, medicaments and biological substances
CPT/HCPCS: 45378; J2704

== ENCOUNTER → 2021-07-19 | Outpatient (CLI) | payer MEDICARE, OTHER ==
--- NOTE | 2021-07-19 11:57 | MR ---
EXAMINATION TYPE: MR lumbar spine wo con DATE OF EXAM: 07/19/2021 COMPARISON: MRI lumbar spine 03/18/2019 HISTORY: Low back pain that radiates down right leg for 4 years. TECHNIQUE: Multiplanar, multisequence images of the lumbar spine were acquired without IV contrast. L1-L2: Normal disc appearance without desiccation. No herniation, protrusion or disc bulging. No ca nal stenosis is present. Foramina are patent bilaterally. There is facet arthropathy. L2-L3: Posterior disc bulge causes minimal anterior mass effect thecal sac. There is facet arthropath y change causing posterior lateral mass effect on the thecal sac greater on the right. Circumferentia l extension endplate disc complex is present causing some mild encroachment on the inferior aspect of the foramen greater on the right. No significant spinal stenosis. L3-L4: Posterior broad-based disc bulge causes mild anterior mass effect thecal sac. There is facet a rthropathy with hypertrophy ligamentum flavum causing some posterior lateral mass effect on the theca l sac, some encroachment on the left lateral recess. There is some encroachment on the left neural fo ramen due to circumferential extension endplate disc complex greater than right, no significant spina l stenosis. L4-L5: Posterior disc bulge causes anterior mass effect on the thecal sac. Facet arthropathy with hyp ertrophy ligamentum flavum causes posterior lateral mass effect on the thecal sac and results in a tr efoil appearance, there is some encroachment on the lateral recess on the left, circumferential exten karuna endplate disc complex encroaches upon the foramina left greater than right. Mild spinal stenosis is present. L5-S1: Hypertrophic changes are present at the facets similar to prior, there is some posterior later al mass effect thecal sac. No significant spinal stenosis. Circumferential extension of endplate disc complex combined with the listhesis contributes to cause some mild foraminal encroachment on the lef t. No evident disc herniation. Lumbar segments are intact. No paraspinal masses are identified. Conus medullaris has a normal appe arance. Levoscoliosis is again seen. Lumbar vertebral bodies show anterolisthesis grade 1 L5-S1 simil ar to prior exam and also at L4-5. There is multilevel spondylosis with endplate discogenic marrow si gnal change. Loss of disc height signal is present intervertebral levels, vacuum disc phenomenon is p resent at the intervertebral levels the exception of L1 to. Large hemangioma is present within the L1 vertebral body as on prior, L3 and L4 also show hemangiomas prior. Cystic foci present within the right kidney partially visualized and were seen on prior exam. IMPRESSION: Degenerative disc disease, facet arthropathy, multilevel foraminal encroachment, spinal stenosis as d escribed L4-5, findings similar to prior exam. Scoliosis. Additional findings above.
== END | disposition home or self-care (01) ==
LOC: RADMRIMAIN 09:41
PROVIDERS: ATTEND Orthopaedic Surgery
DX: M47.896 Other spondylosis, lumbar region (principal); M51.36 Other intervertebral disc degeneration, lumbar region; M48.061 Spinal stenosis, lumbar region without neurogenic claudication
CPT/HCPCS: 72148

== ENCOUNTER 2021-10-18 06:03 | Day surgery (SDC) | payer MEDICARE, OTHER ==
[2021-10-17 10:50] VITALS: BMI 37.4
[2021-10-18 06:39] VITALS: TEMP 97.1
[2021-10-18] MEDS ORDERED: LACTATED RINGERS 1,000 ML IV ONE (06:50)
[2021-10-18 06:54] LABS: Glucose,Whole Blood 127 mg/dL (75-99)
[2021-10-18] MEDS ORDERED: LACTATED RINGERS 1,000 ML IV SCH (07:00)
[2021-10-18] MEDS ORDERED: MIDAZOLAM 2 MG/2 ML VIAL ONE (07:19)
[2021-10-18] MEDS ORDERED: IOPAMIDOL M200 10 ML VIAL ONE (07:19)
[2021-10-18] MEDS ORDERED: fentaNYL (PF) 50 MCG/ML 2 ML AMP ONE (07:19)
[2021-10-18] MEDS ORDERED: methylPREDNISolone ACETATE 40 MG/ML 1 ML VIAL ONE (07:19)
--- NOTE | 2021-10-18 07:33 | P.PCN ---
Date of Procedure: 10/18/21 Description of Procedure: Procedure: 1. L4-L5 Epidural steroid injection under fluoroscopic guidance # 1 , 2. Lumbar epidurogram PREOPERATIVE DIAGNOSIS: Lumbar degenerative disc disease, and Lumbar radiculopathy. POSTOPERATIVE DIAGNOSIS: Lumbar degenerative disc disease, and Lumbar radiculopathy. SURGEON: Kiley Archuleta ANESTHESIA: Local with 1% lidocaine, and IV sedation as per anesthesia record EBL: None. Specimen removed: None Fluoroscopic image: saved to electronic medical records PROCEDURE INDICATION: The patient had history of Lumbar degenerative disc disease and Lumbar radiculopathy. Failed to conservative therapy. Presented for epidural steroid injection. PROCEDURE DESCRIPTION: The patient was seen and identified in the preoperative area. Risks, benefits, complications, and alternatives were discussed with the patient. The patient agreed to proceed with the procedure and signed the consent. IV was started, and vital signs were stable. Patient was taken to the procedure area, and time out was completed. The patient was placed in the prone position on procedure table and a pillow was placed under the abdomen to reduce lumbar lordosis. The lumbosacral area was prepped and draped in the usual sterile fashion. Critical pause was taken. Vital signs were closely monitored during the procedure. Using anterior-posterior fluoroscopy, the L4-L5 interlaminar space was identified, and skin and deeper tissues were localized with 1% lidocaine. Using anterior-posterior fluoroscopy, lateral fluoroscopy, and [id number] technique, a 18 gauge 3.5 Tuohy epidural needle entered the epidural space. After negative aspiration of CSF and blood with no paresthesias, 1 ml of [id number] contrast dye was injected and an excellent epidurogram was seen. Again after negative aspiration of CSF and blood with no paresthesias, 8 mL of block solution was injected into the epidural space. Block solution contained 40 mg of Depo-Medrol, and 7 mL of preservative-free normal saline. Needle was withdrawn intact, skin was cleansed, and bandages were applied. COMPLICATIONS: None. DISPOSITION / PLANS: The patient was placed in a supine position and transferred to the recovery area in a stable condition for observation. Patient was discharged from the recovery room after meeting discharge criteria. Home discharge instructions given to the patient by the staff. The patient was reexamined prior to discharge. The patient will schedule a follow up in the clinic in 4 weeks.
[2021-10-18] MEDS ORDERED: IV FLUID CONTINUATION 1,000 ML IV ONE (07:37)
[2021-10-18 07:39] VITALS: PULSE 83; RESP 16
[2021-10-18 07:53] VITALS: BP 129/77
--- NOTE | 2021-10-18 08:19 | FL ---
Fluoroscopy HISTORY: Pain 5 seconds fluoroscopy time supplied to the referring clinician. 2 intraoperative C-arm images docume nt the procedure. See dictated report from anesthesia.
== END 2021-10-18 08:05 | disposition home or self-care (01) ==
LOC: ORPAIN 06:03
DX: M51.16 Intervertebral disc disorders with radiculopathy, lumbar region (principal)
CPT/HCPCS: 62323; J2250; J1030; J3010; Q9966; 99152

== ENCOUNTER → 2021-12-28 | Outpatient (CLI) | payer MEDICARE, OTHER ==
[2021-12-28 14:14] VITALS: BP 116/75; PULSE 81; TEMP 97.6
--- NOTE | 2021-12-28 14:36 | P.HPBAR ---
Bariatric H&P - History & Physicial H&P Date: 12/28/21 History & Physicial: Visit/CC: new patient Patient initial contact: Initial weight: Initial weight in pounds: Height: 5 ft 3.5 in Initial BMI: Last weight: Current weight: 112.582 kg Current weight in pounds: 248.20 Current BMI: 43.2 [place] body weight (based on NIH guidelines): 53.297 kg Excess body weight loss: The patient is a 66 year-old F who presents for Bariatric Assessment. She comes in looking into 20 pounds weight loss prior to back surgery. She has gained 20 pounds since surgery. She has moderate to sever back pain. She is looking into 20 pound weight. She denies family history of weight loss. Her mother was overweight. No stomach or esophageal cancer in the family. Her father had lung cancer. Brother had prostate cancer. Brother with multiple myeloma due to agent orange. She has dysphagia with food into the lung. She has sleep apnea. She is on medications for sleep. She has heartburn and take medication. No blood clots in her. No crohns or ulcerative colitis. Has hip pain, knee pain and both leg pain more on the right. No gallbaldder. Highest weight is at present. She has trigeminal neurology. Past Medical History Past Medical History: COPD, Diabetes Mellitus, Eye Disorder, GERD/Reflux, Hyperlipidemia, Hypertension, Musculoskeletal Disorder, Osteoarthritis (OA), Pneumonia, Sleep Apnea/CPAP/BIPAP Additional Past Medical History / Comment(s): ASD with repair, T wave inversion since ASD repair, bilat glaucoma w/ sx, trigeminal neuralgia-corrected, diverticulitis, hiatal hernia, chronic low back pain, hx anemia when young, bi lateral varicosities, sinus problems, sl sleep apnea - no tx History of Any Multi-Drug Resistant Organisms: None Reported Past Surgical History: Heart Catheterization, Hysterectomy, Orthopedic Surgery, Tubal Ligation Additional Past Surgical History / Comment(s): 1995 ASD repair at [facility], L/R foot surg-spurs and R great toe joint replaced, R rotator cuff surg, trigeminal neuralgia surgery HFH, back injections, fatty tumors removed x3 from legs, bilateral laser sx twice for glaucoma, Sinus/deviated septum surg, bilat ca taracts, Colonoscopy Past Anesthesia/Blood Transfusion Reactions: Previous Problems w/ Anesthesia Additional Past Anesthesia/Blood Transfusion Reaction / Comm: Had BANG w/nerve block w/rotator cuff surg. Pt received blood with ASD repair without reaction. Past Psychological History: Depression, Panic Disorder Additional Psychological History / Comment(s): . Smoking Status: Former smoker Past Alcohol Use History: Rare Additional Past Alcohol Use History / Comment(s): Pt smoked from [id number]. Past Drug Use History: None Reported Additional Drug Use History / Comment(s): CBD gummies for back pain - Past Family History Father Family Medical History: Cancer Additional Family Medical History / Comment(s): Father of throat/lung cancer. Mother Family Medical History: Diabetes Mellitus Additional Family Medical History / Comment(s): Mother had heart problems. She at age 73yrs Brother(s) Family Medical History: Cancer Surgical - Exam Vital Signs Temp Pulse BP 97.6 F 81 116/75 12/28/21 14:02 12/28/21 14:02 12/28/21 14:02 Bariatric Checklist Checklist: Plan: Checklist: EGD: 1. Hiatal hernia: 2. H. Pylori: HgbA1c: Vitamin D: Smoking: Former smoker Primary care physician referral: [place] [facility] Psychiatry clearance: Cardiology clearance: Sleep study: Diet journal: VTE risk score: VTE risk level: Rehab needs at discharge:
[2021-12-28 15:33] VITALS: BMI 43.9
[2021-12-28 17:29] LABS: Partial Thromboplastin Time 23.4 sec (22.0-30.0); Prothrombin Time 10.5 sec (9.0-12.0)
[2021-12-28 22:41] LABS: HCT 36.6 % (37.2-46.3); HGB 11.1 g/dL (12.0-15.0); MCH 26.6 pg (27.0-32.0); MCHC 30.3 g/dL (32.0-37.0); MCV 87.8 fL (80.0-97.0); Mean Platelet Volume 9.7 fL (9.5-12.2); NRBC Per 100 WBC 0 /100 WBCS (0.0-0.0); Platelet Count 305 X 10*3/uL (140-440); RBC 4.17 X 10*6/uL (4.10-5.20); RDW 15.1 % (11.5-14.5); WBC 6.19 X 10*3/uL (4.50-10.00)
[2021-12-28 23:35] LABS: Chol/HDL Ratio 7.36 Ratio; Prealbumin 19.1 mg/dL (18.0-42.0)
[2021-12-29 02:07] LABS: % Iron Saturation 8.99 (12.00-45.00); ALT 29 U/L (8-44); AST 17 U/L (13-35); African American GFR (CKD) 65.3 (60.0-200.0); Albumin 4.1 g/dL (3.8-4.9); Albumin/Globulin Ratio 1.84 (1.60-3.17); Alkaline Phosphatase 86 U/L (41-126); BUN/Creat Ratio 20.48 Ratio (12.00-20.00); Blood Urea Nitrogen 21.3 mg/dL (9.0-27.0); Calcium 9.9 mg/dL (8.7-10.3); Carbon Dioxide 25.7 mmol/L (20.0-27.5); Chloride 103 mmol/L (96-109); Ferritin 32.9 ng/mL (10.0-291.0); Globulin 2.2 g/dL (1.6-3.3); Glucose 152 mg/dL (70-110); Iron 40 ug/dL (50-170); Magnesium 1.9 mg/dL (1.5-2.4); Non-African American GFR(CKD) 56.3 (60.0-200.0); Phosphorus 3.7 mg/dL (2.4-5.1); Potassium 4.6 mmol/L (3.5-5.5); Sodium 141 mmol/L (135-145); Total Bilirubin <0.15 mg/dL (0.30-1.20); Total Iron Binding Capacity 444 ug/dL (228-460); Total Protein 6.3 g/dL (6.2-8.2)
[2021-12-29 12:10] LABS: Zinc, Serum 67 ug/dL (60-130)
[2021-12-30 09:16] LABS: Vit B1(Thiamine) 54 ug/L (38-122)
[2021-12-30 09:56] LABS: Vitamin A 62 ug/dL (38-106)
[2021-12-31 10:22] LABS: Anabasine Urine <2.0 ng/mL (<2.0)
[2022-01-02 17:41] LABS: Selenium 124 mcg/L (63-160)
== END | disposition home or self-care (01) ==
LOC: BARWHC3 13:51
PROVIDERS: ATTEND Surgery Plastic and Reconstructive Surgery
DX: E66.01 Morbid (severe) obesity due to excess calories (principal); D50.8 Other iron deficiency anemias; D50.9 Iron deficiency anemia, unspecified; K91.2 Postsurgical malabsorption, not elsewhere classified; E44.0 Moderate protein-calorie malnutrition; E44.1 Mild protein-calorie malnutrition; E54 Ascorbic acid deficiency; E55.9 Vitamin D deficiency, unspecified; K74.1 Hepatic sclerosis; N19 Unspecified kidney failure
CPT/HCPCS: 84255; 84134; 84425; 80061; 80053; 82607; 82728; 82525; 82746; 83540; 83550; 83735; 84100; 84443; 84590; 84630; 85027; 85610; 85730; 82306; 83970; 83036; 80307; 93005; G0480; G0463; 80323; 99212

== ENCOUNTER 2021-12-29 11:11 | Observation (INO) | payer MEDICARE, OTHER ==
--- NOTE | 2021-12-29 12:19 | XR ---
EXAMINATION TYPE: XR chest 2V DATE OF EXAM: 12/29/2021 COMPARISON: 08/30/2018 TECHNIQUE: PA and lateral views submitted. HISTORY: Shortness of breath FINDINGS: Persistent subsegmental basilar changes with more pronounced interstitial pattern in today's exam. He art enlarged and there is postsurgical changes. Biapical pleural thickening with no pneumothorax. Cur vature of spine with hypertrophic and degenerative changes. IMPRESSION: 1. Stable bibasilar atelectasis versus infiltrate. However, interstitium is somewhat more coarsened o n today's exam correlate for interstitial pneumonitis or less likely venous congestion.
--- NOTE | 2021-12-29 13:02 | ED ---
General Adult HPI - General Chief complaint: Chest Pain Stated complaint: Abnormal EKG 12/28 Time Seen by Provider: 12/29/21 12:44 Source: patient, RN notes reviewed Mode of arrival: wheelchair Limitations: no limitations - History of Present Illness Initial comments: Patient is a pleasant 66-year-old female presenting to the emergency department with concern with EKG from yesterday. Patient seen in the waiting room secondary to no beds available. Patient states she has chronic discomfort in her chest secondary to reflux. Patient states he might be slightly worse over the past week. Patient does admit she's had some mild discomfort of her left arm over the past week. No dyspnea, nausea, or diaphoresis. No leg pain or leg swelling. Patient did have an EKG done yesterday. Patient was called today with concerns regarding this EKG and she was advised to come to emergency department - Related Data Home Medications Medication Instructions Recorded Confirmed clonazePAM [KlonoPIN] 1 mg PO HS 02/27/14 12/28/21 Albuterol Inhaler [Ventolin Hfa 1 - 2 puff INHALATION RT-Q6H PRN 08/29/18 12/28/21 Inhaler] Levothyroxine Sodium [Synthroid] 75 mcg PO HS 08/29/18 12/28/21 Omeprazole 40 mg PO HS 08/29/18 12/28/21 Sertraline [Zoloft] 50 mg PO HS 08/29/18 12/28/21 clonazePAM [KlonoPIN] 1 mg PO DAILY PRN 08/29/18 12/28/21 lisinopriL [Zestril] 10 mg PO HS 08/29/18 12/28/21 metFORMIN HCL [Glucophage] 500 mg PO HS 08/29/18 12/28/21 Montelukast [Singulair] 10 mg PO HS 01/22/20 12/28/21 Triamcinolone Acetonide [Nasacort] 1 spray EA NOSTRIL BID 01/22/20 12/28/21 Pioglitazone [Actos] 30 mg PO HS 03/14/21 12/28/21 Gabapentin [Neurontin] 300 mg PO TID 10/17/21 12/28/21 Naproxen Sodium [Aleve] 660 mg PO BID PRN 10/17/21 12/28/21 tiZANidine [Zanaflex] 2 mg PO TID PRN 10/17/21 12/28/21 Inulin/Chromium Picolinate [Fiber 2 tab PO HS 12/28/21 12/28/21 Gummies Chew] Multivitamins, Thera [Multivitamin 1 tab PO DAILY 12/28/21 12/28/21 (formulary)] Previous Rx's Medication Instructions Recorded Atorvastatin [Lipitor] 40 mg PO HS #30 tab 09/11/16 Allergies Allergy/AdvReac Type Severity Reaction Status Date / Time Sulfa (Sulfonamide Allergy Itching Verified 12/29/21 11:22 Antibiotics) nortriptyline [From Pamelor] AdvReac LIGHT Verified 12/29/21 11:22 HEADED Review of Systems ROS Statement: Those systems with pertinent positive or pertinent negative responses have been documented in the HPI. ROS Other: All systems not noted in ROS Statement are negative. Constitutional: Denies: fever Eyes: Denies: as per HPI ENT: Denies: ear pain Respiratory: Denies: cough Cardiovascular: Reports: as per HPI Endocrine: Denies: fatigue Gastrointestinal: Denies: abdominal pain, nausea, vomiting Genitourinary: Denies: urgency Musculoskeletal: Denies: back pain Skin: Denies: rash Neurological: Denies: weakness Past Medical History Past Medical History: COPD, Diabetes Mellitus, Eye Disorder, GERD/Reflux, Hyperlipidemia, Hypertension, Musculoskeletal Disorder, Osteoarthritis (OA), Pneumonia, Sleep Apnea/CPAP/BIPAP Additional Past Medical History / Comment(s): ASD with repair, T wave inversion since ASD repair, bilat glaucoma w/ sx, trigeminal neuralgia-corrected, diverticulitis, hiatal hernia, chronic low back pain, hx anemia when young, bilateral varicosities, sinus problems, sl sleep apnea - no tx History of Any Multi-Drug Resistant Organisms: None Reported Past Surgical History: Heart Catheterization, Hysterectomy, Orthopedic Surgery, Tubal Ligation Additional Past Surgical History / Comment(s): 1995 ASD repair at [facility], L/R foot surg-spurs and R great toe joint replaced, R rotator cuff surg, trigeminal neuralgia surgery HFH, back injections, fatty tumors removed x3 from legs, bilateral laser sx twice for glaucoma, Sinus/deviated septum surg, bilat cataracts, Colonoscopy Past Anesthesia/Blood Transfusion Reactions: Previous Problems w/ Anesthesia Additional Past Anesthesia/Blood Transfusion Reaction / Comment(s): Had BANG w/nerve block w/rotator cuff surg. Pt received blood with ASD repair without reaction. Past Psychological History: Depression, Panic Disorder Smoking Status: Former smoker Past Alcohol Use History: Rare Past Drug Use History: None Reported - Past Family History Father Family Medical History: Cancer Additional Family Medical History / Comment(s): Father of throat/lung cancer. Mother Family Medical History: Diabetes Mellitus Additional Family Medical History / Comment(s): Mother had heart problems. She at age 73yrs Brother(s) Family Medical History: Cancer General Exam Limitations: no limitations General appearance: alert, in no apparent distress Head exam: Present: normocephalic Eye exam: Present: normal appearance Neck exam: Present: normal inspection Respiratory exam: Present: normal lung sounds bilaterally. Absent: chest wall tenderness Cardiovascular Exam: Present: regular rate, normal rhythm Expanded Peripheral pulses: 2+: Radial (R), Radial (L), Posterior Tibialis (R), Posterior Tibialis (L) GI/Abdominal exam: Present: soft. Absent: tenderness Extremities exam: Present: normal inspection. Absent: pedal edema, calf tenderness Neurological exam: Present: alert Psychiatric exam: Present: normal affect, normal mood Skin exam: Present: normal color Course Vital Signs 12/29/21 11:19 Temperature 98 F Pulse Rate 73 Respiratory 16 Rate Blood Pressure 164/86 O2 Sat by Pulse 98 Oximetry - Reevaluation(s) Reevaluation #1: 12/29/21 13:02 EKG from yesterday reviewed. EKG Findings - EKG Comments: EKG Findings:: Sinus rhythm rate 72. DC 180. QRS 92. QT 397. QTC 421. Normal axis. T-wave inversion V1 through V5. No acute ST change. Medical Decision Making - Medical Decision Making Patient reevaluated and updated. Case discussed with Dr. shields who will admit covering hospital observation call. - Lab Data Result diagrams: 12/29/21 13:11 12/29/21 13:11 Lab Results 12/29/21 12/29/21 12/29/21 Range/Units 13:11 13:11 13:11 WBC 6.0 (3.8-10.6) k/uL RBC 4.40 (3.80-5.40) m/uL Hgb 11.9 (11.4-16.0) gm/dL Hct 38.5 (34.0-46.0) % MCV 87.4 (80.0-100.0) fL MCH 27.0 (25.0-35.0) pg MCHC 30.9 L (31.0-37.0) g/dL RDW 14.7 (11.5-15.5) % Plt Count 314 (150-450) k/uL MPV 6.9 Neutrophils % 56 % Lymphocytes % 30 % Monocytes % 6 % Eosinophils % 6 % Basophils % 0 % Neutrophils # 3.4 (1.3-7.7) k/uL Lymphocytes # 1.8 (1.0-4.8) k/uL Monocytes # 0.4 (0-1.0) k/uL Eosinophils # 0.3 (0-0.7) k/uL Basophils # 0.0 (0-0.2) k/uL Hypochromasia Slight PT 10.4 (9.0-12.0) sec INR 0.9 (<1.2) APTT 23.8 (22.0-30.0) sec Sodium 141 (137-145) mmol/L Potassium 4.7 (3.5-5.1) mmol/L Chloride 107 (98-107) mmol/L Carbon Dioxide 27 (22-30) mmol/L Anion Gap 7 mmol/L BUN 19 H (7-17) mg/dL Creatinine 0.89 (0.52-1.04) mg/dL Est GFR (CKD-EPI)AfAm 79 (>60 ml/min/1.73 sqM) Est GFR (CKD-EPI)NonAf 68 (>60 ml/min/1.73 sqM) Glucose 141 H (74-99) mg/dL Calcium 9.5 (8.4-10.2) mg/dL Magnesium 1.9 (1.6-2.3) mg/dL Total Bilirubin 0.2 (0.2-1.3) mg/dL AST 22 (14-36) U/L ALT 29 (4-34) U/L Alkaline Phosphatase 102 (38-126) U/L Troponin I (0.000-0.034) ng/mL NT-Pro-B Natriuret Pep pg/mL Total Protein 7.0 (6.3-8.2) g/dL Albumin 4.2 (3.5-5.0) g/dL Coronavirus (PCR) (Not Detectd) 12/29/21 12/29/21 12/29/21 Range/Units 13:11 13:11 13:11 WBC (3.8-10.6) k/uL RBC (3.80-5.40) m/uL Hgb (11.4-16.0) gm/dL Hct (34.0-46.0) % MCV (80.0-100.0) fL MCH (25.0-35.0) pg MCHC (31.0-37.0) g/dL RDW (11.5-15.5) % Plt Count (150-450) k/uL MPV Neutrophils % % Lymphocytes % % Monocytes % % Eosinophils % % Basophils % % Neutrophils # (1.3-7.7) k/uL Lymphocytes # (1.0-4.8) k/uL Monocytes # (0-1.0) k/uL Eosinophils # (0-0.7) k/uL Basophils # (0-0.2) k/uL Hypochromasia PT (9.0-12.0) sec INR (<1.2) APTT (22.0-30.0) sec Sodium (137-145) mmol/L Potassium (3.5-5.1) mmol/L Chloride (98-107) mmol/L Carbon Dioxide (22-30) mmol/L Anion Gap mmol/L BUN (7-17) mg/dL Creatinine (0.52-1.04) mg/dL Est GFR (CKD-EPI)AfAm (>60 ml/min/1.73 sqM) Est GFR (CKD-EPI)NonAf (>60 ml/min/1.73 sqM) Glucose (74-99) mg/dL Calcium (8.4-10.2) mg/dL Magnesium (1.6-2.3) mg/dL Total Bilirubin (0.2-1.3) mg/dL AST (14-36) U/L ALT (4-34) U/L Alkaline Phosphatase (38-126) U/L Troponin I <0.012 (0.000-0.034) ng/mL NT-Pro-B Natriuret Pep 145 pg/mL Total Protein (6.3-8.2) g/dL Albumin (3.5-5.0) g/dL Coronavirus (PCR) Not Detected (Not Detectd) - Radiology Data Radiology results: image reviewed (Chest x-ray reveals basilar atelectasis versus infiltrate. Interstitium is prominent) Disposition Clinical Impression: Chest pain Disposition: ADMITTED IP TO THIS HOSP Is patient prescribed a controlled substance at d/c from ED?: No Referrals: None,Stated [Primary Care Provider] - 1-2 days Time of Disposition: 15:15
[2021-12-29 13:37] LABS: Basophils % (A) 0 %; Eosinophils # (A) 0.3 k/uL (0-0.7); Eosinophils % (A) 6 %; HCT 38.5 % (34.0-46.0); HGB 11.9 gm/dL (11.4-16.0); Hypochromasia Slight; Lymphocytes # (A) 1.8 k/uL (1.0-4.8); Lymphocytes % (A) 30 %; MCHC 30.9 g/dL (31.0-37.0); MCV 87.4 fL (80.0-100.0); Mean Platelet Volume 6.9; Monocytes # (A) 0.4 k/uL (0-1.0); Monocytes % (A) 6 %; Neutrophils # (A) 3.4 k/uL (1.3-7.7); Neutrophils % (A) 56 %; Platelet Count 314 k/uL (150-450); RDW 14.7 % (11.5-15.5)
[2021-12-29 13:41] LABS: Albumin 4.2 g/dL (3.5-5.0); Calcium 9.5 mg/dL (8.4-10.2); Magnesium 1.9 mg/dL (1.6-2.3); Potassium 4.7 mmol/L (3.5-5.1); Total Bilirubin 0.2 mg/dL (0.2-1.3)
[2021-12-29 13:45] LABS: INR 0.9 (<1.2); Partial Thromboplastin Time 23.8 sec (22.0-30.0); Prothrombin Time 10.4 sec (9.0-12.0)
[2021-12-29] MEDS ORDERED: NITROGLYCERIN SL TABS 0.4 MG TAB SUBLINGUAL PRN (15:15)
[2021-12-29] MEDS ORDERED: ASPIRIN 81 MG PO STA (15:15)
[2021-12-29] MEDS ORDERED: tiZANidine 4 MG TAB PO PRN (18:31)
[2021-12-29] MEDS ORDERED: clonazePAM 1 MG TAB PO PRN (18:31)
--- NOTE | 2021-12-29 19:03 | P.HPIM ---
History of Present Illness H&P Date: 12/29/21 Chief Complaint: abnormal EKG Patient is a 66-year-old female with PMH of COPD, diabetes mellitus, severe GERD, dyslipidemia, hypertension, sleep apnea presents the ED for abnormal EKG. Patient reports going to her bariatric appointment under Dr. Sen and undergoing EKG and routine blood work. Her EKG was abnormal and she was called his morning to come to the ED. Patient reports burning like chest pain which she relates to her GERD. She denies any other symptoms. She denies any headache, lower extremity edema, nausea or vomiting, fever or chills, cough, shortness of breath, palpitations, changes in urination or bowel habits pain no changes in appetite or weight. She denies dizziness, numbness/weakness/tingling of the 70s. In the ED, her vital signs are stable. CBC was unremarkable. D- dimer is elevated at 0.96. CMP showed BUN of 19 and glucose 141. Coagulation panel was negative. Troponin was less than 0.[address] deviation, moderate T-wave abnormality. Patient is admitted for abnormal EKG with cardiology on consult. Review of systems was performed and is negative except above. General: [non toxic], [no distress], [appears at stated age] Derm: [warm], [dry] Head: [atraumatic], [normocephalic], [symmetric] Eyes: [EOMI], [no lid lag], [anicteric sclera] Mouth: [no lip lesion], [mucus membranes moist] Cardiovascular: [S1S2 reg], [no murmur], [positive posterior tibial pulse bilateral], Lungs: [CTA bilateral], [no rhonchi, no rales] , [no accessory muscle use] Abdominal: [soft], [ nontender to palpation], [no guarding], [no appreciable organomegaly] Ext: [no gross muscle atrophy], [no edema], [no contractures] Neuro: [ CN II-XI grossly intact], [no focal neuro deficits] Psych: [Alert], [oriented], [appropriate affect] Assessment and plan Abnormal EKG Elevated d-dimer Diabetes mellitus with hyperglycemia History of COPD GERD Dyslipidemia Hypertension Sleep apnea EKG showing ST deviation with moderate T-wave abnormalities. Troponin has been negative 2 and ACS has been ruled out. Echocardiogram has been ordered. Cardiology be consulted for further management of this patient. Patient reports abnormal EKG and T-wave inversions in the past. CTA chest be ordered to rule out PE with regard to her elevated d-dimer. Low-dose insulin sliding scale along with Accu-Cheks 4 times a day and hypoglycemic precautions will be ordered. Her COPD appears stable. Restart omeprazole for history of GERD. Restart Lipitor for history of dyslipidemia. Restart Synthroid for history of hypothyroidism. Restart lisinopril for history of hypertension. Monitor vitals, adjust medication if necessary. Patient is encouraged to bring in her CPAP for history of sleep apnea. DVT prophylaxis: [Heparin] Discussed with: [Patient] Anticipated discharge: [1-2 days] Anticipated discharge place: [Home] A total of [35] minutes was spent on the care of this complex patient more than 50% of the time was spent in counseling and care coordination. Patient names her decision maker if she can't make decisions for herself. Patient would like to be full code. Past Medical History Past Medical History: COPD, Diabetes Mellitus, Eye Disorder, GERD/Reflux, Hyperlipidemia, Hypertension, Musculoskeletal Disorder, Osteoarthritis (OA), Pneumonia, Sleep Apnea/CPAP/BIPAP Additional Past Medical History / Comment(s): ASD with repair, T wave inversion since ASD repair, bilat glaucoma w/ sx, trigeminal neuralgia-corrected, diverticulitis, hiatal hernia, chronic low back pain, hx anemia when young, bilateral varicosities, sinus problems, sl sleep apnea - no tx History of Any Multi-Drug Resistant Organisms: None Reported Past Surgical History: Heart Catheterization, Hysterectomy, Orthopedic Surgery, Tubal Ligation Additional Past Surgical History / Comment(s): 1995 ASD repair at [facility], L/R foot surg-spurs and R great toe joint replaced, R rotator cuff surg, trigeminal neuralgia surgery HFH, back injections, fatty tumors removed x3 from legs, bilateral laser sx twice for glaucoma, Sinus/deviated septum surg, bilat cataracts, Colonoscopy Past Anesthesia/Blood Transfusion Reactions: Previous Problems w/ Anesthesia Additional Past Anesthesia/Blood Transfusion Reaction / Comment(s): Had BANG w/nerve block w/rotator cuff surg. Pt received blood with ASD repair without reaction. Past Psychological History: Depression, Panic Disorder Smoking Status: Former smoker Past Alcohol Use History: Rare Past Drug Use History: None Reported - Past Family History Father Family Medical History: Cancer Additional Family Medical History / Comment(s): Father of throat/lung cancer. Mother Family Medical History: Diabetes Mellitus Additional Family Medical History / Comment(s): Mother had heart problems. She at age 73yrs Brother(s) Family Medical History: Cancer Medications and Allergies Home Medications Medication Instructions Recorded Confirmed Type clonazePAM [KlonoPIN] 1 mg PO HS 02/27/14 12/29/21 History Atorvastatin [Lipitor] 40 mg PO HS #30 tab 09/11/16 12/29/21 Rx Albuterol Inhaler [Ventolin Hfa 1 - 2 puff INHALATION RT-Q6H PRN 08/29/18 12/29/21 History Inhaler] Levothyroxine Sodium [Synthroid] 75 mcg PO HS 08/29/18 12/29/21 History Omeprazole 40 mg PO HS 08/29/18 12/29/21 History clonazePAM [KlonoPIN] 1 mg PO DAILY PRN 08/29/18 12/29/21 History lisinopriL [Zestril] 10 mg PO HS 08/29/18 12/29/21 History Montelukast [Singulair] 10 mg PO HS 01/22/20 12/29/21 History Gabapentin [Neurontin] 300 mg PO HS 10/17/21 12/29/21 History tiZANidine [Zanaflex] 2 mg PO TID PRN 10/17/21 12/29/21 History Inulin/Chromium Picolinate [Fiber 2 tab PO HS 12/28/21 12/29/21 History Gummies Chew] Multivitamins, Thera [Multivitamin 1 tab PO HS 12/28/21 12/29/21 History (formulary)] Fluticasone Nasal [place] [Flonase 1 spr EA NOSTRIL DAILY 12/29/21 12/29/21 History Nasal [place]] Gabapentin [Neurontin] 300 mg PO BID@0900,1400 PRN 12/29/21 12/29/21 History Meloxicam [Mobic] 15 mg PO HS 12/29/21 12/29/21 History Naproxen Sod/Diphenhydramine 2 tab PO HS 12/29/21 12/29/21 History [Aleve Pm Caplet] Pioglitazone [Actos] 45 mg PO HS 12/29/21 12/29/21 History Sertraline [Zoloft] 100 mg PO HS 12/29/21 12/29/21 History metFORMIN HCL ER [Glucophage XR] 1,000 mg PO BID 12/29/21 12/29/21 History Allergies Allergy/AdvReac Type Severity Reaction Status Date / Time Sulfa (Sulfonamide Allergy Itching Verified 12/29/21 16:19 Antibiotics) nortriptyline [From Pamelor] AdvReac LIGHT Verified 12/29/21 16:19 HEADED Physical Exam Vitals: Vital Signs Temp Pulse Resp BP Pulse Ox 12/29/21 11:19 98 F 73 16 164/86 98 Intake and Output 12/29/21 12/29/21 12/29/21 06:59 14:59 22:59 Other: Weight 112.491 kg Results CBC & Chem 7: 12/29/21 13:11 12/29/21 13:11 Labs: Abnormal Lab Results - Last 24 Hours (Table) 12/29/21 12/29/21 12/29/21 Range/Units 13:11 13:11 15:39 MCHC 30.9 L (31.0-37.0) g/dL D-Dimer 0.96 H (<0.60) mg/L FEU BUN 19 H (7-17) mg/dL Glucose 141 H (74-99) mg/dL
[2021-12-29] MEDS ORDERED: ATORVASTATIN 40 MG TAB PO SCH (21:00)
[2021-12-29] MEDS ORDERED: GABAPENTIN 300 MG CAP PO SCH (21:00)
[2021-12-29] MEDS ORDERED: MONTELUKAST 10 MG TAB PO SCH (21:00)
[2021-12-29] MEDS ORDERED: clonazePAM 1 MG TAB PO SCH (21:00)
[2021-12-29] MEDS ORDERED: SERTRALINE 100 MG TAB PO SCH (21:00)
[2021-12-29] MEDS ORDERED: lisinopriL 10 MG TAB PO SCH (21:00)
[2021-12-29] MEDS ORDERED: LEVOTHYROXINE 75 MCG TAB PO SCH (21:00)
[2021-12-29] MEDS ORDERED: PANTOPRAZOLE 40 MG TABLET PO SCH (21:00)
[2021-12-29 21:05] LABS: Glucose,Whole Blood 118 mg/dL (70-110)
[2021-12-29] MEDS: NITROGLYCERIN OINT 1 INCH/GM PACKET TOPICAL SCH (21:35)
--- NOTE | 2021-12-29 21:53 | CT ---
EXAMINATION TYPE: CT chest angio for PE CT DLP: 948.9 mGycm, Automated exposure control for dose reduction was used. DATE OF EXAM: 12/29/2021 7:03 PM COMPARISON: CT angiogram 09/06/2016 CLINICAL INDICATION:Female, 66 years old with history of chest pain, elevated ddimer; CHEST PAIN AND ELEVATED D-DIMER TECHNIQUE/CONTRAST: CTA scan of the thorax is performed with IV Contrast, patient injected with 100 mL of Isovue 370, pul monary embolism protocol. MIP images are created and reviewed. FINDINGS: Pulmonary Artery: There is no evidence for a filling defect within the pulmonary vasculature to sugge st acute pulmonary embolism. The pulmonary artery is enlarged for size measuring 3.7 cm. Lungs/Pleura: No evidence of focal consolidation, pleural effusion or pneumothorax. Streaky atelectas is changes within the lung bases most pronounced on the left. Mild intralobular septal thickening. Airway: Large airways are patent. Heart: The heart is enlarged for size. Vasculature: No evidence of aortic aneurysm. Mediastinum: No gross evidence of adenopathy. Musculoskeletal: No acute osseous abnormalities Soft Tissues: Unremarkable. Lower neck: No significant findings. Upper Abdomen: Diffuse low-attenuation to the liver parenchyma. The gallbladder surgically absent. IMPRESSION: 1. No evidence of pulmonary embolism. 2. Findings suggestive of pulmonary hypertension. 3. Cardiomegaly with mild pulmonary vascular congestion, correlate with serum BNP. 4. Hepatic steatosis.
[2021-12-29] MEDS: HEPARIN SODIUM,PORCINE/PF 5,000 UNIT/0.5 ML SYRINGE SQ SCH (22:06)
[2021-12-30] MEDS: NITROGLYCERIN OINT 1 INCH/GM PACKET TOPICAL SCH ×2 (01:03→05:38)
[2021-12-30] MEDS ORDERED: INSULIN ASPART (NovoLOG) 100 UNIT/ML VIAL SQ SCH (07:30)
[2021-12-30 07:34] LABS: Glucose,Whole Blood 141 mg/dL (70-110)
[2021-12-30 07:50] VITALS: BP 126/78; PULSE 72; RESP 18; TEMP 97.8
[2021-12-30] MEDS: HEPARIN SODIUM,PORCINE/PF 5,000 UNIT/0.5 ML SYRINGE SQ SCH (08:24)
[2021-12-30] MEDS ORDERED: ASPIRIN 325 MG TAB PO SCH (09:00)
[2021-12-30] MEDS ORDERED: GABAPENTIN 300 MG CAP PO PRN (09:00)
[2021-12-30] MEDS ORDERED: ASPIRIN 81 MG PO SCH (09:00)
[2021-12-30 09:05] LABS: African American GFR (CKD) 72 (>60 ml/min/1.73 sqM); Anion Gap 7 mmol/L; Blood Urea Nitrogen 17 mg/dL (7-17); Calcium 9.7 mg/dL (8.4-10.2); Carbon Dioxide 25 mmol/L (22-30); Chloride 107 mmol/L (98-107); Glucose 145 mg/dL (74-99); Non-African American GFR(CKD) 62 (>60 ml/min/1.73 sqM); Potassium 4.2 mmol/L (3.5-5.1); Sodium 139 mmol/L (137-145)
[2021-12-30 09:07] LABS: Chol/HDL Ratio 7.31 Ratio; LDL Cholesterol,Calculated 205.7 mg/dL (0.0-131.0)
--- NOTE | 2021-12-30 09:56 | P.DS ---
Providers Date of admission: 12/29/21 15:17 Expected date of discharge: 12/30/21 Attending physician: Carolyn Bennett MD Consults: 12/29/21 15:17 Consult Physician Urgent Consulting Provider: Jenni Michaud Consult Reason/Comments: chest pain Do you want consulting provider notified?: Yes Primary care physician: Stated None Hospital Course: Patient is a 66-year-old female with PMH of COPD, diabetes mellitus, severe GERD, dyslipidemia, hypertension, sleep apnea presents the ED for abnormal EKG. Patient reports going to her bariatric appointment under Dr. Sen and undergoing EKG and routine blood work. Her EKG was abnormal and she was called his morning to come to the ED. Patient reports burning like chest pain which she relates to her GERD. She denies any other symptoms. She denies any headache, lower extremity edema, nausea or vomiting, fever or chills, cough, shortness of breath, palpitations, changes in urination or bowel habits pain no changes in appetite or weight. She denies dizziness, numbness/weakness/tingling of the 70s. In the ED, her vital signs are stable. CBC was unremarkable. D- dimer is elevated at 0.96. CMP showed BUN of 19 and glucose 141. Coagulation panel was negative. Troponin was less than 0.[address] deviation, moderate T-wave abnormality. Patient is admitted for abnormal EKG with cardiology on consult. Troponins were trended and ACS was ruled out. CTA chest was obtained due to her elevated d-dimer which was negative for PE. Pulmonary hypertension was noted on CTA chest and patient was advised to follow-up with her PCP for formal sleep apnea study. Cardiology was consulted and recommended echocardiogram. Echocardiogram was pending at the time of this note. Patient was seen and examined on 12/30/2021. Patient reported no chest pain, shortness of breath, palpitations or lightheadedness. The case was discussed with nursing staff who reported by cardiology cleared the patient for discharge. General: [non toxic], [no distress], [appears at stated age] Derm: [warm], [dry] Head: [atraumatic], [normocephalic], [symmetric] Eyes: [EOMI], [no lid lag], [anicteric sclera] Mouth: [no lip lesion], [mucus membranes moist] Cardiovascular: [S1S2 reg], [no murmur], [positive posterior tibial pulse bilateral], Lungs: [CTA bilateral], [no rhonchi, no rales] , [no accessory muscle use] Abdominal: [soft], [ nontender to palpation], [no guarding], [no appreciable organomegaly] Ext: [no gross muscle atrophy], [no edema], [no contractures] Neuro: [no focal neuro deficits] Psych: [Alert], [oriented], [appropriate affect] Assessment and plan Abnormal EKG Elevated d-dimer Diabetes mellitus with hyperglycemia History of COPD GERD Dyslipidemia Hypertension Sleep apnea This complex discharge took about 35 minutes to complete. Pertinent Studies: Chest x-ray, EKG, CTA chest Patient Condition at Discharge: Stable Plan - Discharge Summary Discharge Rx Participant: No New Discharge Prescriptions: No Action clonazePAM [KlonoPIN] 1 mg PO HS Atorvastatin [Lipitor] 40 mg PO HS #30 tab Omeprazole 40 mg PO HS lisinopriL [Zestril] 10 mg PO HS Albuterol Inhaler [Ventolin Hfa Inhaler] 1 - 2 puff INHALATION RT-Q6H PRN PRN Reason: Shortness Of Breath clonazePAM [KlonoPIN] 1 mg PO DAILY PRN PRN Reason: Anxiety Levothyroxine Sodium [Synthroid] 75 mcg PO HS Montelukast [Singulair] 10 mg PO HS tiZANidine [Zanaflex] 2 mg PO TID PRN PRN Reason: Pain Pioglitazone [Actos] 45 mg PO HS Meloxicam [Mobic] 15 mg PO HS Naproxen Sod/Diphenhydramine [Aleve Pm Caplet] 2 tab PO HS Gabapentin [Neurontin] 300 mg PO BID@0900,1400 PRN PRN Reason: Pain Gabapentin [Neurontin] 300 mg PO HS Multivitamins, Thera [Multivitamin (formulary)] 1 tab PO HS Inulin/Chromium Picolinate [Fiber Gummies Chew] 2 tab PO HS Fluticasone Nasal [place] [Flonase Nasal [place]] 1 spr EA NOSTRIL DAILY Sertraline [Zoloft] 100 mg PO HS metFORMIN HCL ER [Glucophage XR] 1,000 mg PO BID Discharge Medication List clonazePAM [KlonoPIN] 1 mg PO HS 02/27/14 [History] Atorvastatin [Lipitor] 40 mg PO HS #30 tab 09/11/16 [Rx] Albuterol Inhaler [Ventolin Hfa Inhaler] 1 - 2 puff INHALATION RT-Q6H PRN 08/29/18 [History] Levothyroxine Sodium [Synthroid] 75 mcg PO HS 08/29/18 [History] Omeprazole 40 mg PO HS 08/29/18 [History] clonazePAM [KlonoPIN] 1 mg PO DAILY PRN 08/29/18 [History] lisinopriL [Zestril] 10 mg PO HS 08/29/18 [History] Montelukast [Singulair] 10 mg PO HS 01/22/20 [History] Gabapentin [Neurontin] 300 mg PO HS 10/17/21 [History] tiZANidine [Zanaflex] 2 mg PO TID PRN 10/17/21 [History] Inulin/Chromium Picolinate [Fiber Gummies Chew] 2 tab PO HS 12/28/21 [History] Multivitamins, Thera [Multivitamin (formulary)] 1 tab PO HS 12/28/21 [History] Fluticasone Nasal [place] [Flonase Nasal [place]] 1 spr EA NOSTRIL DAILY 12/29/21 [History] Gabapentin [Neurontin] 300 mg PO BID@0900,1400 PRN 12/29/21 [History] Meloxicam [Mobic] 15 mg PO HS 12/29/21 [History] Naproxen Sod/Diphenhydramine [Aleve Pm Caplet] 2 tab PO HS 12/29/21 [History] Pioglitazone [Actos] 45 mg PO HS 12/29/21 [History] Sertraline [Zoloft] 100 mg PO HS 12/29/21 [History] metFORMIN HCL ER [Glucophage XR] 1,000 mg PO BID 12/29/21 [History] Follow up Appointment(s)/Referral(s): None,Stated [Primary Care Provider] - 1-2 days
--- NOTE | 2021-12-30 10:13 | P.CRDCN ---
History of Present Illness History of present illness: HISTORY OF PRESENTING ILLNESS This is a pleasant 66-year-old female past medical history significant for GERD, ASD repair in 1995, COPD, type 2 diabetes, hyperlipidemia, hypertension, obstruc tive sleep apnea, former nicotine dependence. She currently does not follow with a supervisor looping. We have been asked to see in consultation for chest pain. Patient presents to the ER after being told her EKG was abnormal and was told to present to the ER. Patient states that she is currently being evaluated for bariatric gastric bypass surgery. She states she was at the office yesterday and underwent an EKG. She was then called at home and was told to go to the emergency department due to the abnormality. EKG yesterday and today and prior EKGs reviewed, patient does not have any EKG changes to suggest acute ischemia. Prior EKGs similar. She denies any shortness of breath, lightheadedness, dizziness, palpitations, symptoms of orthopnea or PND, abdominal pain, nausea, vomiting. Denies fever, cough, chills. She does endorse occasional burning upper chest discomfort with certain foods related to her GERD. No worsening or new symptoms. She denies any chest pain currently. DIAGNOSTICS EKG reveals sinus rhythm, heart rate 72, STT wave abnormalities in anteior leads that are nonspecific and similar from prior EKGs. Cardiac catheterization in 2017 performed due to an abnormal Lexiscan stress test which revealed normal coronary arteries Echocardiogram in 2017 revealed an EF 5560 % mild concentric LVH, mild mitral regurgitation, mild tricuspid regurgitation Telemetry tracings indicate sinus mechanism Chest xray no acute cardiopulmonary process CT chest revealed no evidence of pulmonary embolism, pulmonary hypertension reported. Hepatic steatosis. Cardiomegaly with mild pulmonary vascular congestion Laboratory reviewed, troponin negative 3, sodium 139, potassium 4.2, BUN 17, serum creatinine 0.9, CBC unremarkable Current home medications include lisinopril 10 mg nightly, aspirin 81 mg daily, atorvastatin 40 mg nightly REVIEW OF SYSTEMS At the time of my exam: CONSTITUTIONAL: Denies fever or chills. CARDIOVASCULAR: Denies chest pain, shortness of breath, orthopnea, PND or palpitations. RESPIRATORY: Denies cough. GASTROINTESTINAL: Denies abdominal pain, diarrhea, constipation, nausea or vomiting. MUSCULOSKELETAL: Denies myalgias. NEUROLOGIC: Denies numbness, tingling, headache or weakness. ENDOCRINE: Denies fatigue, weight change, polydipsia or polyurina. GENITOURINARY: Denies burning, hematuria or urgency with micturation. HEMATOLOGIC: Denies history of anemia or bleeding. PHYSICAL EXAMINATION Blood pressure 126/78, heart rate 72, afebrile, saturations 97% room air CONSTITUTIONAL: No apparent distress. HEENT: Head is normocephalic. Pupils are equal, round. Sclerae anicteric. Mucous membranes of the mouth are moist. No JVD. No carotid bruit. CHEST EXAMINATION: Lungs are clear to auscultation. No chest wall tenderness is noted on palpation or with deep breathing. HEART EXAMINATION: Regular rate and rhythm. S1, S2 heard. Splitting of S2 not ed. Systolic murmur noted. ABDOMEN: Soft, nontender. Positive bowel sounds. EXTREMITIES: 2+ peripheral pulses, no lower extremity edema and no calf tenderness. SKIN: Warm, dry NEUROLOGIC EXAMINATION: Patient is awake, alert and oriented x3. ASSESSMENT GERD ASD repair in 1995 COPD Type 2 diabetes Hyperlipidemia Hypertension Obstructive sleep apnea Former nicotine dependence PLAN An acute coronary event has been ruled out with no EKG evidence of ischemia and negative cardiac enzymes. Patient denies chest pain. EKG yesterday and today and prior EKGs reviewed, patient does not have any EKG changes to suggest acute ischemia. Prior EKGs similar. No further workup inpatient from cardiology pe rspective. Recommend follow up outpatient. Echocardiogram was ordered, we will review. Thank you kindly for this consultation. Nurse practitioner note has been reviewed by physician. Signing provider agrees with the documented findings, assessment, and plan of care. Past Medical History Past Medical History: COPD, Diabetes Mellitus, Eye Disorder, GERD/Reflux, Hyperlipidemia, Hypertension, Musculoskeletal Disorder, Osteoarthritis (OA), Pneumonia, Sleep Apnea/CPAP/BIPAP Additional Past Medical History / Comment(s): ASD with repair, T wave inversion since ASD repair, bilat glaucoma w/ sx, trigeminal neuralgia-corrected, dive rticulitis, hiatal hernia, chronic low back pain, hx anemia when young, bilateral varicosities, sinus problems, sl sleep apnea - no tx History of Any Multi-Drug Resistant Organisms: None Reported Past Surgical History: Heart Catheterization, Hysterectomy, Orthopedic Surgery, Tubal Ligation Additional Past Surgical History / Comment(s): 1995 ASD repair at [facility], L/R foot surg-spurs and R great toe joint replaced, R rotator cuff surg, trigeminal neuralgia surgery HFH, back injections, fatty tumors removed x3 from legs, b ilateral laser sx twice for glaucoma, Sinus/deviated septum surg, bilat cataracts, Colonoscopy Past Anesthesia/Blood Transfusion Reactions: Previous Problems w/ Anesthesia Additional Past Anesthesia/Blood Transfusion Reaction / Comment(s): Had BANG w/ nerve block w/rotator cuff surg. Pt received blood with ASD repair without reaction. Past Psychological History: Depression, Panic Disorder Smoking Status: Former smoker Past Alcohol Use History: Rare Past Drug Use History: None Reported - Past Family History Father Family Medical History: Cancer Additional Family Medical History / Comment(s): Father of throat/lung cancer. Mother Family Medical History: Diabetes Mellitus Additional Family Medical History / Comment(s): Mother had heart problems. She at age 73yrs Brother(s) Family Medical History: Cancer Medications and Allergies Home Medications Medication Instructions Recorded Confirmed Type clonazePAM [KlonoPIN] 1 mg PO HS 02/27/14 12/29/21 History Atorvastatin [Lipitor] 40 mg PO HS #30 tab 09/11/16 12/29/21 Rx Albuterol Inhaler [Ventolin Hfa 1 - 2 puff INHALATION RT-Q6H PRN 08/29/18 12/29/21 History Inhaler] Levothyroxine Sodium [Synthroid] 75 mcg PO HS 08/29/18 12/29/21 History Omeprazole 40 mg PO HS 08/29/18 12/29/21 History clonazePAM [KlonoPIN] 1 mg PO DAILY PRN 08/29/18 12/29/21 History lisinopriL [Zestril] 10 mg PO HS 08/29/18 12/29/21 History Montelukast [Singulair] 10 mg PO HS 01/22/20 12/29/21 History Gabapentin [Neurontin] 300 mg PO HS 10/17/21 12/29/21 History tiZANidine [Zanaflex] 2 mg PO TID PRN 10/17/21 12/29/21 History Inulin/Chromium Picolinate [Fiber 2 tab PO HS 12/28/21 12/29/21 History Gummies Chew] Multivitamins, Thera [Multivitamin 1 tab PO HS 12/28/21 12/29/21 History (formulary)] Fluticasone Nasal [place] [Flonase 1 spr EA NOSTRIL DAILY 12/29/21 12/29/21 History Nasal [place]] Gabapentin [Neurontin] 300 mg PO BID@0900,1400 PRN 12/29/21 12/29/21 History Meloxicam [Mobic] 15 mg PO HS 12/29/21 12/29/21 History Naproxen Sod/Diphenhydramine 2 tab PO HS 12/29/21 12/29/21 History [Aleve Pm Caplet] Pioglitazone [Actos] 45 mg PO HS 12/29/21 12/29/21 History Sertraline [Zoloft] 100 mg PO HS 12/29/21 12/29/21 History metFORMIN HCL ER [Glucophage XR] 1,000 mg PO BID 12/29/21 12/29/21 History Aspirin 81 mg PO DAILY #30 tab 12/30/21 Rx Allergies Allergy/AdvReac Type Severity Reaction Status Date / Time Sulfa (Sulfonamide Allergy Itching Verified 12/29/21 16:19 Antibiotics) nortriptyline [From Pamelor] AdvReac LIGHT Verified 12/29/21 16:19 HEADED Physical Exam Vitals: Vital Signs Temp Pulse Pulse Resp BP BP Pulse Ox 12/30/21 02:00 98.1 F 51 L 17 102/58 94 L 12/29/21 20:40 98.6 F 80 17 160/82 95 12/29/21 11:19 98 F 73 16 164/86 98 Intake and Output 12/29/21 12/30/21 12/30/21 22:59 06:59 14:59 Other: # Voids 1 1 Weight 112.491 kg Results 12/29/21 13:11 12/30/21 08:27 Cardiac Enzymes 12/29/21 12/29/21 12/29/21 Range/Units 13:11 13:11 16:01 AST 22 (14-36) U/L Troponin I <0.012 <0.012 (0.000-0.034) ng/mL 12/29/21 Range/Units 19:00 AST (14-36) U/L Troponin I <0.012 (0.000-0.034) ng/mL Coagulation 12/29/21 Range/Units 13:11 PT 10.4 (9.0-12.0) sec APTT 23.8 (22.0-30.0) sec CBC 12/29/21 Range/Units 13:11 WBC 6.0 (3.8-10.6) k/uL RBC 4.40 (3.80-5.40) m/uL Hgb 11.9 (11.4-16.0) gm/dL Hct 38.5 (34.0-46.0) % Plt Count 314 (150-450) k/uL Comprehensive Metabolic Panel 12/29/21 Range/Units 13:11 Sodium 141 (137-145) mmol/L Potassium 4.7 (3.5-5.1) mmol/L Chloride 107 (98-107) mmol/L Carbon Dioxide 27 (22-30) mmol/L BUN 19 H (7-17) mg/dL Creatinine 0.89 (0.52-1.04) mg/dL Glucose 141 H (74-99) mg/dL Calcium 9.5 (8.4-10.2) mg/dL AST 22 (14-36) U/L ALT 29 (4-34) U/L Alkaline Phosphatase 102 (38-126) U/L Total Protein 7.0 (6.3-8.2) g/dL Albumin 4.2 (3.5-5.0) g/dL Current Medications Generic Name Dose Route Start Last Admin Trade Name Freq PRN Reason Stop Dose Admin Aspirin 325 mg 12/30/21 09:00 Aspirin 325 Mg Tab PO DAILY ANN Atorvastatin Calcium 40 mg 12/29/21 21:00 12/29/21 21:36 Atorvastatin 40 Mg Tab PO 40 mg HS ANN Administration Clonazepam 1 mg 12/29/21 18:31 Clonazepam 1 Mg Tab PO DAILY PRN Anxiety Clonazepam 1 mg 12/29/21 21:00 12/29/21 21:37 Clonazepam 1 Mg Tab PO 1 mg HS ANN Administration Gabapentin 300 mg 12/30/21 09:00 Gabapentin 300 Mg Cap PO BID@0900,1400 PRN Pain Gabapentin 300 mg 12/29/21 21:00 12/29/21 21:37 Gabapentin 300 Mg Cap PO 300 mg HS ANN Administration Heparin Sodium (Porcine) 5,000 unit 12/30/21 00:00 12/29/21 22:06 Heparin Sodium,Porcine/Pf 5,000 Unit/0.5 Ml Syringe SQ 5,000 unit Q8HR ANN Administration Insulin Aspart 0 unit 12/30/21 07:30 Insulin Aspart (Novolog) 100 Unit/Ml Vial SQ AC-TID [facility] Protocol Levothyroxine Sodium 75 mcg 12/29/21 21:00 12/29/21 21:37 Levothyroxine 75 Mcg Tab PO 75 mcg HS ANN Administration Lisinopril 10 mg 12/29/21 21:00 12/29/21 21:37 Lisinopril 10 Mg Tab PO 10 mg HS ANN Administration Montelukast Sodium 10 mg 12/29/21 21:00 12/29/21 21:37 Montelukast 10 Mg Tab PO 10 mg HS ANN Administration Nitroglycerin 0.4 mg 12/29/21 15:15 Nitroglycerin Sl Tabs 0.4 Mg Tab SUBLINGUAL Q5M PRN Chest Pain Nitroglycerin 1 inch 12/29/21 18:00 12/30/21 05:38 Nitroglycerin Oint 1 Inch/Gm Packet TOPICAL Not Given Q6HR [facility] Pantoprazole Sodium 40 mg 12/29/21 21:00 12/29/21 21:36 Pantoprazole 40 Mg Tablet PO 40 mg HS ANN Administration Sertraline HCl 100 mg 12/29/21 21:00 12/29/21 22:06 Sertraline 100 Mg Tab PO 100 mg HS ANN Administration Tizanidine HCl 2 mg 12/29/21 18:31 12/29/21 22:06 Tizanidine 4 Mg Tab PO 2 mg TID PRN Administration Pain Intake and Output 12/29/21 12/30/21 12/30/21 22:59 06:59 14:59 Other: # Voids 1 1 Weight 112.491 kg 12/29/21 13:11 12/29/21 13:11
--- NOTE | 2021-12-30 12:28 | CA ---
Transthoracic Echo Report Name: Becky Mcleod Age: 66 Gender: F : 1955 Exam Date: 12/30/2021 07:49 Exam Location: [place] [facility] Ht (in): 63 Wt (lb): 248 Ordering Physician: Rodriguez Zaays MD Attending/Referring Phys: [employer] Consultant Kenyatta Norton RDCS Procedure CPT: Indications: Chest Pain Cardiac Hx: Technical Quality: Good Contrast 1: Total Dose (mL): Contrast 2: Total Dose (mL): MEASUREMENTS (Male / Female) Normal Values 2D ECHO LV Diastolic Diameter PLAX 4.4 cm 4.2 - 5.9 / 3.9 - 5.3 cm LV Systolic Diameter PLAX 2.7 cm IVS Diastolic Thickness 1.6 cm 0.6 - 1.0 / 0.6 - 0.9 cm LVPW Diastolic Thickness 1.3 cm 0.6 - 1.0 / 0.6 - 0.9 cm LV Relative Wall Thickness 0.7 RV Internal Dim ED PLAX 4.4 cm LA Systolic Diameter LX 4.1 cm 3.0 - 4.0 / 2.7 - 3.8 cm LA Volume 68.1 cm??? 18 - 58 / 22 - 52 cm??? M-MODE Aortic Root Diameter MM 3.5 cm MV E Point Septal Separation 0.6 cm AV Cusp Separation MM 2.6 cm DOPPLER AV Peak Velocity 136.2 cm/s AV Peak Gradient 7.4 mmHg MV Area PHT 2.7 cm??? Mitral E Point Velocity 73.9 cm/s Mitral A Point Velocity 92.8 cm/s Mitral E to A Ratio 0.8 MV Deceleration Time 284.4 ms MV E' Velocity 4.7 cm/s Mitral E to MV E' Ratio 15.8 TR Peak Velocity 286.1 cm/s TR Peak Gradient 32.7 mmHg Right Ventricular Systolic Press 37.1 mmHg FINDINGS Left Ventricle Left ventricular ejection fraction is estimated at 55-60 %. Normal left ventricular wall motion. Moderately left ventricle hypertrophy. Right Ventricle Severe right ventricular dilatation. Mild pulmonary hypertension. Right Atrium Normal right atrial size. Left Atrium Mildly increased left atrial diameter. Moderately increased left atrial volume. Mildly increased left atrial area. No evidence for an atrial septal defect. Mitral Valve Structurally normal mitral valve. No mitral stenosis, or prolapse. Mild mitral regurgitation Aortic Valve Trileaflet aortic valve. No aortic valve stenosis or regurgitation. Tricuspid Valve Mild tricuspid regurgitation.structurally normal tricuspid valve. Pulmonic Valve Trace pulmonic regurgitation. Pericardium Normal pericardium. No pericardial effusion. Aorta Normal size aortic root and proximal ascending aorta. CONCLUSIONS 1. Normal size and systolic function 2. Dilated right ventricle 3. Mild mitral and tricuspid regurgitation Previewed by: Dr. Jenni Michaud MD (Electronically Signed) Final Date: 30 December 2021 12:28
== END 2021-12-30 11:04 | disposition home or self-care (01) ==
LOC: EC 11:11 → 6NMEDSUR 15:17
PROVIDERS: ADMIT Internal Medicine; ATTEND Internal Medicine
DX: R94.31 Abnormal electrocardiogram [ECG] [EKG] (principal); R79.89 Other specified abnormal findings of blood chemistry; E11.65 Type 2 diabetes mellitus with hyperglycemia; K21.9 Gastro-esophageal reflux disease without esophagitis; I11.9 Hypertensive heart disease without heart failure; I27.20 Pulmonary hypertension, unspecified; I08.1 Rheumatic disorders of both mitral and tricuspid valves; G47.33 Obstructive sleep apnea (adult) (pediatric); J44.9 Chronic obstructive pulmonary disease, unspecified; E78.5 Hyperlipidemia, unspecified; M19.90 Unspecified osteoarthritis, unspecified site; E03.9 Hypothyroidism, unspecified; D64.9 Anemia, unspecified; K76.0 Fatty (change of) liver, not elsewhere classified; H40.9 Unspecified glaucoma; K44.9 Diaphragmatic hernia without obstruction or gangrene; G89.29 Other chronic pain; M54.50 Low back pain, unspecified; K57.90 Diverticulosis of intestine, part unspecified, without perforation or abscess without bleeding; I83.93 Asymptomatic varicose veins of bilateral lower extremities; F32.A Depression, unspecified; F41.0 Panic disorder [episodic paroxysmal anxiety]; Z20.822 Contact with and (suspected) exposure to COVID-19; Z79.890 Hormone replacement therapy; Z79.84 Long term (current) use of oral hypoglycemic drugs; Z79.899 Other long term (current) drug therapy; Z88.2 Allergy status to sulfonamides; Z88.8 Allergy status to other drugs, medicaments and biological substances; Z87.01 Personal history of pneumonia (recurrent); Z87.74 Personal history of (corrected) congenital malformations of heart and circulatory system; Z90.710 Acquired absence of both cervix and uterus; Z96.698 Presence of other orthopedic joint implants; Z98.42 Cataract extraction status, left eye; Z98.41 Cataract extraction status, right eye; Z87.891 Personal history of nicotine dependence; Z98.890 Other specified postprocedural states; Z80.1 Family history of malignant neoplasm of trachea, bronchus and lung; Z83.3 Family history of diabetes mellitus; Z80.0 Family history of malignant neoplasm of digestive organs; Z82.49 Family history of ischemic heart disease and other diseases of the circulatory system
CPT/HCPCS: 96372; 99285; 36415; 93005; 93306; 85379; 83880; 80061; 80053; 80048; 83735; 84484; 85025; 85610; 85730; 87635; 71046; 71275; G0378 ×2; Q9967; J1644

== ENCOUNTER → 2022-03-01 | Outpatient (CLI) | payer MEDICARE, OTHER ==
[2022-03-01 14:23] LABS: African American GFR (CKD) >90 (>60 ml/min/1.73 sqM); Blood Urea Nitrogen 14 mg/dL (7-17); Non-African American GFR(CKD) 83 (>60 ml/min/1.73 sqM)
--- NOTE | 2022-03-01 16:05 | CT ---
EXAMINATION TYPE: CT angio thor/abd pel aorta DATE OF EXAM: 03/01/2022 INDICATION: THORACIC AORTIC ANEURYSM, WITHOUT RUPTURE COMPARISON: 12/29/[address] DLP: 1079.3 mGycm CONTRAST: Performed without Oral Contrast and with IV Contrast, patient injected with 100ML mL of Isovue 370. TECHNIQUE: Axial images at 5 mm thick sections. Reconstructed images in the coronal plane. Delayed images through the kidneys. 3-D reconstructed images performed on a separate computer by the technol ogist rotated on the computer for review. FINDINGS: Aorta: There is a three-vessel arch. Aorta at the aortic root is 2.7 cm. Aorta at the aort ic bifurcation is 3.0 cm. The main pulmonary artery of the bifurcation is 3.0 cm. Transverse dimens ion of the aortic arch is 2.4 cm. Descending thoracic aorta at the level of the diaphragm is 2.4 cm. The celiac axis and superior mesenteric artery are normal. Renal arteries appear normal. Aortic bifur cation is unremarkable. No aneurysmal dilatation or dissection is evident. Common iliac arteries are patent. Internal and external iliac arteries are patent. Common femoral arteries are unremarkable. Pr oximal superior femoral arteries and profunda femoris vessels are normal. CT CHEST: Portion of the thyroid visualized is normal. No suspicious lung nodules or focal infiltrates are present. There is a 1.0 cm lymph node in the pretracheal space. A few scattered small mediastinal lymph nodes are present. No suspicious hilar adenopathy is evident. CT ABDOMEN: Liver: Normal Spleen: Normal Pancreas: Normal Adrenal glands: The adrenal glands are normal. Gallbladder: Normal Kidneys: No masses are evident. No hydronephrosis is present. There is a 4.4 cm cyst on the posteri or lateral upper pole right kidney. Delayed images were obtained through the kidneys, which remain u nremarkable. Aorta: Vascular calcification is within the aorta. See also above. Inferior vena cava: Normal. CT PELVIS: Loops of bowel within the abdomen and pelvis are normal. Studies without oral contrast limiting b owel evaluation. A few diverticular changes to the sigmoid colon. Appendix: Normal as visualized. Urinary bladder: Normal. Genitourinary structures: Uterus and ovaries are not identified. Osseous structures: There may be a lytic area within the region of L4 on the right vertebral body. Th is could be a hemangioma. Some lucency may be within the L3 left vertebral level. Consider MRI lumbar spine for additional evaluation. There are changes suggestive for hemangioma within the mid thoracic spine. Degenerative disc changes and facet changes are within the lower lumbar spine IMPRESSIONS: 1. No aortic aneurysmal dilatation or aortic dissection evident. 2. There may be some lucency within the mid and lower lumbar spine which is nonspecific. Metastasis i s not entirely excluded. Consider MRI with contrast for additional evaluation.
== END | disposition home or self-care (01) ==
LOC: RADCTMAIN 13:18
PROVIDERS: ATTEND Family Medicine
DX: I71.2 Thoracic aortic aneurysm, without rupture (principal)
CPT/HCPCS: 82565; 84520; 71275; 36415; 74174; Q9967

== ENCOUNTER → 2022-03-22 | Outpatient (CLI) | payer MEDICARE, OTHER ==
--- NOTE | 2022-03-23 10:00 | MM ---
Reason for Exam: Screening (asymptomatic). Last mammogram was performed 8 year(s) and 2 month(s) ago. Patient History: Menarche at age 12. First Full-Term at age 16. Left ovary removed at age 51. Right ovary removed at age 51. Hysterectomy at age 51. Postmenopausal. Maternal aunt had breast cancer. Risk Values: Paula 5 year model risk: 1.3%. NCI Lifetime model risk: 4.8%. Prior Study Comparison: 09/03/2009 Bilateral Screening Mammogram, [facility]. 02/03/2014 Bilateral Diagnostic Mammogram, [facility]. Tissue Density: There are scattered fibroglandular densities. Findings: Analyzed By CAD. There is no suspicious group of microcalcifications or new suspicious mass in either breast. Benign-appearing calcifications within both breasts. Overall Assessment: Benign, BI-RAD 2 Management: Screening Mammogram of both breasts in 1 year. A clinical breast exam by your physician is recommended on an annual basis and results should be correlated with mammographic findings. Electronically signed and approved by: Billy Vaz D.O.
== END | disposition home or self-care (01) ==
LOC: RADMAMWWP 13:29
PROVIDERS: ATTEND Family Medicine
DX: Z12.31 Encounter for screening mammogram for malignant neoplasm of breast (principal)
CPT/HCPCS: 77063; 77067

== ENCOUNTER → 2022-03-31 | Outpatient (CLI) | payer MEDICARE, OTHER ==
--- NOTE | 2022-03-31 19:04 | CA ---
Transthoracic Echo Report Name: Becky Mcleod Age: 67 Gender: F : 1955 Exam Date: 03/31/2022 13:22 Exam Location: [facility] Ht (in): 63 Wt (lb): 245 Ordering Physician: Tex Clement MD Attending/Referring Phys: Halie Parra PAC Composing Room Supervisor Kenyatta Norton RDCS Procedure CPT: Indications: I51.7 Cardiomegaly Cardiac Hx: Technical Quality: Good Contrast 1: Total Dose (mL): Contrast 2: Total Dose (mL): MEASUREMENTS (Male / Female) Normal Values 2D ECHO LV Diastolic Diameter PLAX 4.0 cm 4.2 - 5.9 / 3.9 - 5.3 cm LV Systolic Diameter PLAX 2.8 cm IVS Diastolic Thickness 1.3 cm 0.6 - 1.0 / 0.6 - 0.9 cm LVPW Diastolic Thickness 1.3 cm 0.6 - 1.0 / 0.6 - 0.9 cm LV Relative Wall Thickness 0.6 RV Internal Dim ED PLAX 3.7 cm LA Systolic Diameter LX 3.9 cm 3.0 - 4.0 / 2.7 - 3.8 cm LA Volume 50.4 cm??? 18 - 58 / 22 - 52 cm??? M-MODE Aortic Root Diameter MM 3.1 cm MV E Point Septal Separation 0.6 cm AV Cusp Separation MM 2.2 cm DOPPLER AV Peak Velocity 157.7 cm/s AV Peak Gradient 10.0 mmHg MV Area PHT 2.6 cm??? Mitral E Point Velocity 57.8 cm/s Mitral A Point Velocity 84.7 cm/s Mitral E to A Ratio 0.7 MV Deceleration Time 293.9 ms MV E' Velocity 6.7 cm/s Mitral E to MV E' Ratio 8.6 TR Peak Velocity 299.7 cm/s TR Peak Gradient 35.9 mmHg Right Ventricular Systolic Press 40.3 mmHg FINDINGS Left Ventricle Left ventricular ejection fraction is estimated at 60-65 %. Left ventricular cavity size normal. Mild concentric left ventricular hypertrophy. Right Ventricle Mild right ventricular dilatation. Mild pulmonary hypertension. Right Atrium Normal right atrial size. Left Atrium Normal left atrial size. No evidence for an atrial septal defect. Mitral Valve Structurally normal mitral valve. Mitral annular calcification. Aortic Valve Trileaflet aortic valve. No aortic valve stenosis or regurgitation. Tricuspid Valve Mild tricuspid regurgitation. Pulmonic Valve Mild pulmonic regurgitation. Pericardium Normal pericardium. No pericardial effusion. Aorta Normal size aortic root and proximal ascending aorta. CONCLUSIONS Left ventricular ejection fraction 60-65% Mild concentric LVH RVSP 40 Mild mitral annular calcification Mild tricuspid regurgitation No pericardial effusion Previewed by: Dr. Alexander Cooper DO (Electronically Signed) Final Date: 31 March 2022 19:03
== END | disposition home or self-care (01) ==
LOC: RADECHMAIN 13:14
PROVIDERS: ATTEND Family Medicine
DX: I51.7 Cardiomegaly (principal)
CPT/HCPCS: 93306

== ENCOUNTER → 2022-04-13 | Outpatient (CLI) | payer MEDICARE, OTHER ==
--- NOTE | 2022-04-13 11:46 | CT ---
EXAMINATION TYPE: CT lumbar spine wo con CT DLP: 853 mGycm, Automated exposure control for dose reduction was used. DATE OF EXAM: 04/13/2022 11:06 AM COMPARISON: 03/01/2022. CLINICAL INDICATION:Female, 67 years old with history of M43.16 lumbar spondylolisthesis; TECHNIQUE: Multiple axial images were obtained from the midportion of T11 through the sacroiliac ta nts. Soft tissue and bone windows in coronal and sagittal planes were obtained and reviewed. 3-D ref ormats of the bones were created on a separate workstation and submitted for review. FINDINGS: Alignment: There are 5 lumbar type vertebral bodies. There is grade 1 anterolisthesis of L4 and L5 an d L5-S1. No evidence of spondylolysis. Mild levoscoliosis apex L1. Bone: Multilevel disc degeneration changes are seen throughout the spine with facet joint arthropathy , thickness phenomenon, endplate spurring and disc space narrowing. There is transitional S1 vertebra e with rudimentary disc between S1 and S2. Diffuse mottled appearance consistent with demineralizatio n throughout the spine. Discs: T12-L1: No spinal canal or neural foraminal stenosis is identified. L1-L2: No spinal canal or neural foraminal stenosis is identified. L2-L3: Disc bulge with facet joint arthropathy with moderate spinal canal stenosis and moderate bilat eral neural foraminal stenosis. L3-L4: Disc bulge with facet joint arthropathy with moderate to severe spinal canal stenosis and mode rate bilateral neural foraminal stenosis. L4-L5: Disc uncovering with disc bulging and facet joint arthropathy with moderate to severe spinal canal stenosis. Mild bilateral neural foraminal stenosis. L5-S1: Disc uncovering with mild disc bulging and facet joint arthropathy with mild spinal canal sten osis. There is mild bilateral neural foraminal stenosis. Other: Right renal cyst. Mild scattered atherosclerosis. Mild fatty atrophy changes of the erector sp inae muscles bilaterally. IMPRESSION: 1. No evidence of fracture of the lumbar spine. 2. Grade 1 anterolisthesis of L4 and L5 with moderate to severe spinal canal stenosis and L5 on S1 wi th no spinal canal stenosis. No spondylolysis. 3. L3-L4 moderate to severe spinal canal stenosis. 4. Facet joint arthropathy with moderate neural foraminal stenosis bilaterally at L2-L3 and L3-L4. 5. Osseous demineralization.
== END | disposition home or self-care (01) ==
LOC: RADCTMAIN 10:43
PROVIDERS: ATTEND Orthopaedic Surgery
DX: M43.16 Spondylolisthesis, lumbar region (principal)
CPT/HCPCS: 72131

== ENCOUNTER → 2022-04-13 | Outpatient (CLI) | payer MEDICARE, OTHER | END | disposition home or self-care (01) | LOC: LABPAT 11:02 | PROVIDERS: ATTEND Orthopaedic Surgery | DX: Z01.812 Encounter for preprocedural laboratory examination (principal); Z22.322 Carrier or suspected carrier of Methicillin resistant Staphylococcus aureus; M47.816 Spondylosis without myelopathy or radiculopathy, lumbar region | CPT/HCPCS: 87070 ==

== ENCOUNTER 2022-04-18 05:36 | Observation (INO) | payer MEDICARE, OTHER ==
[2022-04-13 12:23] VITALS: BMI 41.6
[~2022-04-18 05:36] MED LIST changes: +ACETAMINOPHEN TAB 500 MG TAB PO PRN; +GABAPENTIN 300 MG CAP PO PRN; -LACTATED RINGERS 1,000 ML IV SCH; -LIDOCAINE 1% (10MG/ML) FOR IV START INTRADERMA PRN; +ONDANSETRON 4 MG/2 ML VIAL IVP PRN; +TRANEXAMIC ACID IN NACL,ISO-OS 1,000 MG in SALINE 1 100ML.BAG IVPB PRN
[2022-04-18] MEDS ORDERED: DEXAMETHASONE SOD PHOSPHATE 4 MG/ML 1 ML VIAL IV ONE (06:02)
[2022-04-18] MEDS ORDERED: ONDANSETRON 4 MG/2 ML VIAL IVP ONE (06:02)
[2022-04-18] MEDS: LACTATED RINGERS 1,000 ML IV SCH (06:25)
--- NOTE | 2022-04-18 06:30 | P.HPOR ---
History of Present Illness H&P Date: 04/14/22 .D:Date: 04/12/22 : 09:51am .T:Title: [facility] Date of :[birth year] R14Age: 66 year Height: 5'5" Weight: 225 lbs BMI: 37.44 kg/m2 Occupation: Retired VAS: 6 CHIEF COMPLAINT: Lumbar pain HISTORY: Xrays No new xrays taken in office Trauma or injury No Work-Related No Pain description aching, sharp. Location diffuse Activity Modification yes , unable to stand or weightbear for extended periods of time. Hand Dominance right DOI: Chronic DOS: None. TREATMENTS COMPLETED: 6 weeks of PT completed? Date of last completed: 08/2021 Yes How many visits: 12 Did it help? No Physician directed home exercise completed? Yes, daily with no improvements. Medications yes List: [place], Aleve, Tizanidine, ASA 81mg all with no relief. Motrin 800mg, Flexeril 10mg without relief. Mobic 15mg without relief. Gabapentin 300mg with mild improvements. Alternative interventions Chiropractic: yes . with no relief. Massage therapy: No Brace: No Injections Yes (lumbar KONRAD's through Dr. Singleton, last in 2019) Did they help? yes , mild/temporary relief of symptoms. Saw that the eff ectiveness waned over time. RFA: No SUBJECTIVE: Ms. Mcleod returns to the office for a pre-operative recheck of their planned L4-S1 minimally invasive lumbar decompression and fusion. Since the time of the last appointment the patient reports no improvements to her symptoms, noting increased lumbar pain and radicular symptoms. Overall the patient has seen a progressive increase in symptoms since their onset. Ms. Mcleod symptoms are exacerbated with prolonged standing and ambulation, due to this they notes that it is increasingly difficult for Ms. Mcleod to complete many of their daily tasks. Patient is having severe sleep disturbances as well due to their ongoing pain and associated symptoms. Regarding treatments, the patient has previously trialed all abovementioned treatment modalities without relief of her symptoms. Patient denies trialing any other modalities at this time. Otherwise the patient denies any f/c/sob/cp, no incision concerns, no bladder or bowel retention/incontinence, no perineal numbness/tingling, and ambulates independently. HPI: Patient last returned to the office on 11/16/2021 for a recheck of her low back. Since the time of her last appointment the patient reports that she did complete one injection in the form of a L4-L5 KONRAD through the [facility]R clinic, with which she found no relief of her symptoms. Aside from this she notes that she has found no improvements with all other conservative modalities trialed thus far. Patient continues to complain of pain radiating across the low back and into the bilateral lower extremities, right worse than left. With this she does continue to complain of numbness and tingling extending into the bilateral feet as well. These symptoms are exacerbated with most any activity which is making the completion of her daily tasks challenging. Otherwise she continues to deny any f/c/sob/cp, no bladder or bowel retention/incontinence, no perineal numbness/tingling, and ambulates independently. Patient last presented to the office on 09/19/2021 for a recheck of her lumbar spine. Since the time of the last appointment the patient reports that her symptoms have continued to persist. She reports that her symptoms are continuing to give her significant issues and she reports that she is unable to complete most of her daily functions due to the severity of her symptoms. She has trialed the Mobic 15mg previously prescribed and notes that this has not helped her symptoms in any fashion. She does report some mild improvements to her r adiculopathic symptoms with the Gabapentin 300mg. Otherwise she reports no significant improvements with all other conservative modalities trialed thus far. She continues to deny any bladder or bowel retention/incontinence, no perineal numbness/tingling, and ambulates independently. Patient last presented to the office on 08/08/2021 for a recheck of her lumbar spine and to review the results of her MRI obtained after the time of the last appointment. Since the time of the last appointment the patient reports that her symptoms have not improved. She has been trialing the physician directed home exercise plan as well as taking the Motrin 800mg, Flexeril 10mg, and Gabapentin 300mg as directed. She has seen some mild improvements to her radiculopathic pain with the use of the Gabapentin but no relief with any other modality trialed. Overall she denies any significant improvements to her symptoms with the conservative modalities trialed thus far. She reports continued disability and cannot complete most of her functions due to pain. Otherwise she continues to deny any bladder or bowel retention/incontinence, no perineal numbness/tingling, and ambulates independently. Ms. Mcleod last presented to the office on 07/04/2021 for an evaluation of her lumbar spine. She reports lumbar pain ongoing for several years with no known injury or trauma to indicate an exact onset of her symptoms. Additionally she does report that her symptoms have worsened over time as well, again with no injury or trauma. Regarding her symptoms she reports diffuse lumbar pain that radiates into the right lower extremity. With this right lower extremity radiculopathic pain she does also note numbness and tingling about the L4-L5 dermatomal distribution. She notes that her symptoms are quite severe and impacting her daily functionality moderately. Her symptoms are exacerbated with any standing, ambulation, and sitting. Due to this she reports having frequent sleep disturbances as well. As for treatments, she reports that she has trialed PT, chiropractics, [place], Aleve, Tizanidine, and ASA 81mg with no improvements. Additionally she has had lumbar KONRAD's through Dr. Singleton which did provide m ild, temporary relief of her symptoms. Otherwise she denies any bladder or bowel issues, no perineal numbness/tinging, and ambulates without the use of any aides. The patients' past social, medical, family, surgical history, as well as review of systems, have been reviewed. Please refer to the Neurosurgery History and Physical form that has been scanned in to our electronic medical record system. 14 points review of systems completed and as stated in HPI, all other systems reviewed are negative. Social History: Reviewed, see appropriate section of the chart for details. M1Gwdxdma: none P3 Alcohol: none P3 Family History: Reviewed, see appropriate section of the chart for details. P2 Past Medical History: Reviewed, see appropriate section of the chart for details. Current Medications: P1Rx: albuterol sulfate Ref: 0 Rx: atorvastatin 40 mg tablet Ref: 0 Rx: clonazePAM 1 mg disintegrating tablet Ref: 0 Rx: HYDROcodone 5 mg-acetaminophen 325 mg tablet Ref: 0 Rx: levothyroxine Ref: 0 Rx: lisinopriL 10 mg tablet Ref: 0 Rx: metFORMIN 500 mg tablet Ref: 0 Rx: montelukast 10 mg tablet Ref: 0 Rx: omeprazole 40 mg capsule,delayed release Ref: 0 Rx: pioglitazone 45 mg tablet Ref: 0 Rx: sertraline 100 mg tablet Ref: 0 Rx: tiZANidine 2 mg capsule Ref: 0 Rx: cyclobenzaprine 10 mg tablet Ref: 0 Rx: gabapentin 300 mg capsule Ref: 0 Rx: IBU 800 mg tablet Ref: 0 PHYSICAL EXAMINATION: General: Awake, alert, appropriate for age, in no acute distress. HEENT: No unusual neck masses around region of lateral neck triangle, thyroid, supraclavicular groove Heart: Regular rate and rhythm, normal S1, S2 and no murmur/gallop. Lungs: Clear to auscultation bilaterally with no use of accessory muscles. Extremities: Skin warm and dry without acute lesions, coloration, temperature, skin intact, no tenderness or erythema Integument: Hairy patches: Absent Dorsal skin dimples: Absent Cafe au lait spots: Absent Surgical incisions: No Palpation: Please see Pain drawing on Intake sheet for further detail. Midline spinal tenderness: No E6 Paralumbar tenderness: No E6 Parathoracic tenderness: No E6 Buttocks tenderness: No E6 Special findings: Stepoff between L2-L3 POSTURAL and MUSCULO-SKELETAL EVALUATION: Coronal Balance: NEUTRAL Recumbent testing: Patient is able to lay flat on back Sagittal Balance: NEUTRAL Shoulder Profile: LEVEL Pelvic Girdle: LEVEL Neck ROM: UNRESTRICTED Lumbar ROM: RESTRICTED WITH PAIN Shoulder ROM: Symmetrical Hip ROM: Symmetrical Knee ROM: Symmetrical Hands: Normal appearance, symmetrical Feet: Normal appearance, Symmetrical VASCULAR STATUS : L EFT RIGHT Wrist Pulses INTACT INTACT Pedal Pulses (Dors. pedis & post.tibialis) INTACT INTACT Color NORMAL NORMAL Edema Absent Absent NEUROLOGIC EXAMINATION: Mental Status:Awake and alert, fully oriented, with normal attention, concentration and memory, and fluent, appropriate speech. Cranial Nerves: I: Olfactory not tested. II: Visual acuity normal, no visual field deficit noted with confrontation. III,IV: Normal pupillary reflexes & intact extraocular movements without nystagmus. V,: Intact symmetrical facial sensation. VII: Intact symmetrical facial motor movement VIII: Hearing intact. IX,X: Intact gag, swallow, & normal voice. XI: Sternocleidomastoid, trapezius function intact. XII: Tongue midline with normal movements. L'hermitte's Sign: Negative / absent Spurling'Sign: Absent bilaterally. Cubital percussion test: Absent bilaterally. Parks-Tinel sign - Carpal region: Absent bilaterally. Straight Leg Raising: Absent bilaterally. Crossed straight leg raise: negative O8 MOTOR EXAM (0-5/5, N/T) STRENGTH RIGHT LEFT Shoulder Abd (not part of the DEANGELO score) 5 5 Elbow Flexors 5 5 Elbow Extensor 5 5 Wrist Dorsiflexors 5 5 Finger Abductor 5 5 Car Repairer Helper 5 5 Hip Flexor (Not part of DEANGELO Motor score) 4+ 4+ Knee Flexor 4+ 4+ Knee Extensor 4+ 4+ Ankle dorsiflexor 4+ 4+ Ankle plantarflexion 4 4 Extensor hallucis 5 5 REFLEXES(0-4/2, NT) RIGHT LEFT Upper Extremities 2 2 Lower Extremities 2 2 Pathological Reflexes RIGHT LEFT Parks's Absent Absent Clonus Absent Absent Babinski Absent Absent # Indicates mechanical impairment Muscle appearance: Symmetrical, without signs of atrophy or dystrophy. Sensory system (0-4, N/T) Test type RU LEO RL LL Joint-Position 2 2 2 2 Vibration 2 2 2 2 Pain & LT sense 2 2 2 2 Dermatomal Deficit: None None L4-L5 L4-S1 Gait and Functional Evaluation: Ambulatory aids: Independent Romberg's test: Intact bilaterally Toe heel walk / heel-toe walk intact while maintaining satisfactory balance? No Squatting/straightening w/o assistance to a min of 60 degree knee flexion? No Single leg stance: Not intact bilaterally Trendelenburg sign negative bilaterally Hand and finger dexterity intact bilaterally? yes Disdiadochokinesis examination negative bilaterally? yes RADIOGRAPHIC STUDIES: XRay taken on 07/04/21 of Lumbar Spine: This is reviewed and shows extensive spondylotic changes through the low back. There is Grade I spondylolisthesis of L4-5 noted with motion on F/E films. There is PI LL mismatch with flat LL. There are no fractures. There is facet arthropathy noted as well as disc height loss. AP pelvis shows congruent pelvis w/o fracture. MRI from 07/19/2021 of the lumbar spine demonstrates: this is reviewed and demonstrates a grade 1 degenerative spondylolisthesis at L4 5 and L5-S1. There is motion at these segments and they do reduce on the supine film. There is severe facet overgrowth with bogginess at L4 5 and L5-S1. There is ligamental hypertrophy. There is severe stenosis L4-L5 centrally as well as foraminally bilaterally. There is moderate to severe central stenosis at L5-S1 as well. It is no lesion noted there is disc desiccation and height loss. There is no other fracture or dislocation noted at this time. IMPRESSION AND PLAN: It was my pleasure to have seen and examined Becky. I reviewed the patient's clinical syndrome, physical findings, and imaging studies during the appointment today. It is my impression that the patient has a diagnosis of. 1. L4-L5 spondylolisthesis Grade 1 2. L5-S1 grade 1 spondylolisthesis 3. L4 to S1 Central stenosis 4.Neurogenic claudication 5. Bilateral lower extremity weakness 6. Bilateral lower extremity radiculopathy .DX:Diagnosis: Lumbar spondylolisthesis : ICD10 = M43.16 / SNOMED = 610439328311960 .DX:Diagnosis: Neurogenic claudication : ICD10 = G95.19 / ICD9 = 729.2 / SNOMED = 928073650 .DX:Diagnosis: Muscle weakness of lower extremity : ICD10 = G83.10 / ICD9 = 728.87 / SNOMED = 670623558 I outlined the natural course history without intervention and various interventional options. Based on my findings I suggest the following course of action: 1. I discussed treatment options with the patient, including operative and non-operative options, and they have elected to proceed with the following surgical procedure: L4-S1 minimally invasive lumbar decompression and fusion ([id number], [id number], [id number], [id number]) The indications, risks, benefits, and alternatives to surgery were discussed with the patient at length. Specifically (but not limited to) the risks of infection, stiffness, recurrence of symptoms, need for revision surgery, local numbness, neurovascular injury, and blood clots were discussed. The patient's questions were answered.The patient would like to consider surgical options and would like to proceed with scheduling the procedure. Additionally, we discussed that she will need pre-operative clearance from her PCP and a nursing information systems coordinator due to her hx of heart surgery. 2. Continue with supplements, health maintenance, and home exercise programs. 3. Ordered a CT scan without contrast of the lumbar spine for pre-operative planning. Spine Surgery Risk Review Ms. Mcleod is presenting for evaluation of low back pain. It was my pleasure to have seen and examined Ms. Mcleod. In our visit today we have had a chance to go over subjective complaints, physical examination findings and treatments including the natural course history without intervention and various interventional options. The patients imaging demonstrates: XRay taken on 07/04/21 of Lumbar Spine: This is reviewed and shows extensive spondylotic changes through the low back. There is Grade I spondylolisthesis of L4-5 noted with motion on F/E films. There is PI LL mismatch with flat LL. There are no fractures. There is facet arthropathy noted as well as disc height loss. AP pelvis shows congruent pelvis w/o fracture. MRI from 07/19/2021 of the lumbar spine demonstrates: this is reviewed and demonstrates a grade 1 degenerative spondylolisthesis at L4 5 and L5-S1. There is motion at these segments and they do reduce on the supine film. There is severe facet overgrowth with bogginess at L4 5 and L5-S1. There is ligamental hypertrophy. There is severe stenosis L4-L5 centrally as well as foraminally bilaterally. There is moderate to severe central stenosis at L5-S1 as well. It is no lesion noted there is disc desiccation and height loss. There is no other fracture or dislocation noted at this time. On physical exam, Ms. Mcleod demonstrates palpable stepoff between L2-L3 with severely restricted lumbar ROM. Patient also demonstrates bilateral lower extremity weakness evident of her stenosis and nerve compression along with left lower extremity L4-S1 dermatomal deficit. I have explained to the patient that as their condition progresses it will cause further neurological deficits and eventual paralysis. Based on the patients imaging, physical exam, and the rapid progression and disabling nature of their symptoms, at this time I recommend surgery in the form or a: L4-S1 minimally invasive lumbar decompression and fusion. I discussed the risk and benefits of this procedure at length with Ms. Mcleod. The patient agreed to considered pursuing the procedure abovementioned. Prior to surgery, she should follow up with her PCP (Cardio, ID, IM etc) for clearance. Questions were invited and answered, and the patient wishes to proceed as outlined below. Currently, I am recommendin.L4-S1 minimally invasive lumbar decompression and fusion 2.Follow up with PCP for surgical clearance 3.Review of surgical risks and benefits as well as an educational packet on the proposed surgical procedure. Risks: All surgical procedures come with inherent risks, including those related to positioning, anesthesia, intraoperative findings, and postoperative complications. It is important to understand that surgery does not come with any guarantee of a successful outcome as complications and adverse events are always possible. The patient was given a handout in office today discussing the surgical procedu re and risks associated with the intervention, both of which were discussed with the patient. These risks include but are not limited to the following: * Experiencing same, different or even worse symptoms in back, neck, arms, or legs compared to before surgery. Requiring further surgery or other forms of treatment presently or at some time in the future at same or other levels of the intended spine surgery. On an extreme but fortunately relatively rare basis severe complication such as blindness, stroke, heart attack, temporary and/or permanent nerve injury, paralysis, coma, or may occur, sometimes without known explanation. Surgical complications may include but are not limited to risk of infection, fluid accumulation in the surgical dissection site, including a seroma or hematoma, that requires additional surgery, wound drainage, bleeding, new numbness or weakness, vision changes/loss, spinal fluid leakage, non-healing and/or infected incision, headaches, difficulty or inability to swallow, hoarseness, hemopneumothorax, pneumothorax, impotence, retrograde ejaculation, vaginal dryness; injury to nerves, spinal cord, blood vessels, lymphatics or other vital organs (i.e., bowel injury, injury to the great vessels); heterotopic bone formation; complications related to the hardware such as screws, rods, cages including misplaced hardware, device failure, instrumentation at the wrong spine level, hardware fracture/breakage, or hardware loosening; vertebral failure of the spinal column above or below the newly placed hardware; retained surgical instrumentations or devices and the need for further surgery. * Medical risks of the planned spine surgery include but are not limited to generalized Infections to the whole body or local areas outside of the surgical site (sepsis), heart attack, bleeding, anaphylaxis, meningitis, seizure, epilepsy, hearing loss, burn mahoney, laceration of the head or other areas of the body, bruising, hypersensitivity of the skin, bladder over distension; allergic reaction; shoulder injury related to positioning; fat, blood and air clots to other areas of the body like heart, lungs, brain; failure of internal organs such as lungs, kidneys, liver and excessive bleeding. If blood transfusions are necessary, note that transfusions may cause intolerance reactions such as anaphylaxis or other complex reactions. Despite best efforts, the results of spine surgery might not heal in terms of bone, soft tissues such as skin, fascia, ligaments, and joints. Additionally, in order to achieve best possible results, spine surgery may be carried out beyond the initially planned levels and involve decompression, fusion including insertion of hardware at levels other than the original intended area of surgical interest change some portions of the procedure in order to ensure the best possible outcomes. With spine surgery and spinal fusion, there are different off label uses of instrumentation (devices, implants and hardware) as well as biological substances (bone morphogenic proteins, demineralized bone matrix) as well as using extra bone from allograft sources (i.e. cadaver bone) or autograft (iliac crest bone, ribs, or the spine itself). The patient has been given information about these practices and their inherent risks and benefits. [facility] is an educational center that serves as a training facility for neurosurgical and orthopedic LITHOGR[employer]ESS FEEDER and Nursing students. Physician assistants are medically trained surgical providers who function in the outpatient, inpatient, and operating room setting under the direct supervision of the attending surgeon. [facility] has multiple operating rooms with single and overlapping rooms running daily. They currently function under the required guidelines as produced by the [facility] Finance Committee with regards to the overlapping rooms and will continue to comply with changes to this policy as they occur. The requirements include and are complied with as follows: (1) the critical portions of the overlapping rooms will not occur at the same time, (2) the attending physician will be physically present during the critical portions of the procedure and immediately available during the entire case, and (3) a back-up attending is designated should the primary attending not be immediately available. The patient has had a chance to review all the listed information, has been given print outs detailing this information, and has had all his/her questions answered to their satisfaction. It was my pleasure to have seen and examined Ms. Mcleod. In our visit today we have had a chance to go over my understanding of our patient's current condition, the natural course history without intervention and various interventional options. Questions were invited and answered, and the patient wishes to proceed as outlined above. I have seen and examined the patient for 25 minutes and we have spent more than 50% of the time in repeat and detailed counseling about the patient's condition, its natural course history with out and as much as can be predicted with surgery and re-review of various surgical treatment options. In conclusion, Ms. Mcleod requested we proceed with the above suggested surgery and are willing to accept risks and limitations of the suggested surgery as nature of the disease process and our best attempts at treatment for the condition. Thank you again for allowing us to be part of your patient's care. Please don't hesitate to contact me if you have any further questions. Signed and authenticated by: Follow-up: 2 weeks post-op Patient Education (Informational booklet, instructions, etc) given at today's appointment: Yes .ED:Patient Education: Y Plan at next visit: Review progress Medications Reviewed: yes In our visit today Ms. Mcleod and I have had a chance to go over my understanding of the patient's current condition, the natural course history without intervention and various interventional options. Questions were invited and answered, and the patient wishes to proceed as outlined above. I will be sure to keep you updated afterMs. Mcleod returns here for further follow-up. Thank you again for your referral. Please do not hesitate to contact me if you have any further questions. Signed and authenticated by: Lance Arevalo [facility] [address] [place] [address] This message is confidential, intended only for the named recipient(s) and may contain information that is privileged or exempt from disclosure under applicable law. If you are not the intended recipient(s), you are notified that the dissemination, distribution or copying of this information is strictly prohibited. If you received this message in error, please notify the sender then delete this message. Patient verbalizes understanding of the information discussed. The above note was initiated by Lance Gomes, physician recording health care legal assistant for Dr. Lance Edmond. This note has been reviewed by Dr. Edmond, who has made his personal changes and impressions for this document. CC: Dr. Benson #Orders: CT Scan # SIGNED BY Lance Edmond (GOO)04/13/2022 07:32A Past Medical History Past Medical History: Asthma, COPD, Diabetes Mellitus, Eye Disorder, GERD/Reflux, Hyperlipidemia, Hypertension, Musculoskeletal Disorder, Osteoarthritis (OA), Pneumonia, Sleep Apnea/CPAP/BIPAP Additional Past Medical History / Comment(s): ASD with repair, T wave inversion since ASD repair, glaucoma w/ sx, trigeminal neuralgia., diverticulitis, hiatal hernia, chronic low back pain., varicose veins., sinus problems, sleep apnea - no machine, constipation., Pt states rash on back and legs-states Dr Edmond aware. History of Any Multi-Drug Resistant Organisms: None Reported Past Surgical History: Heart Catheterization, Hysterectomy, Orthopedic Surgery, Tubal Ligation Additional Past Surgical History / Comment(s): 1995 ASD repair at [facility], L/R foot surg-spurs and R great toe joint replaced, R rotator cuff surg, trigeminal neuralgia surgery HFH, back injections, fatty tumors removed x3 from legs, bilateral laser sx twice for glaucoma, Sinus/deviated septum surg, bilat cataracts, Colonoscopy Past Anesthesia/Blood Transfusion Reactions: Previous Problems w/ Anesthesia Additional Past Anesthesia/Blood Transfusion Reaction / Comment(s): Had difficulty breathing w/nerve block w/rotator cuff surg. ., Pt received blood with ASD repair without reaction. Past Psychological History: Depression, Panic Disorder Additional Psychological History / Comment(s): . Smoking Status: Former smoker Past Alcohol Use History: None Reported Additional Past Alcohol Use History / Comment(s): Pt smoked from [id number]., HX of 1 PPD. Past Drug Use History: None Reported Additional Drug Use History / Comment(s): CBD OIL. - Past Family History Father Family Medical History: Cancer Additional Family Medical History / Comment(s): Father of throat/lung cancer. Mother Family Medical History: Diabetes Mellitus Additional Family Medical History / Comment(s): Mother had heart problems. She at age 73yrs Brother(s) Family Medical History: Cancer Additional Family Medical History / Comment(s): 3 BROTHERS OF CANCER Medications and Allergies Home Medications Medication Instructions Recorded Confirmed Type Atorvastatin [Lipitor] 40 mg PO HS #30 tab 09/11/16 04/18/22 Rx Albuterol Inhaler [Ventolin Hfa 1 - 2 puff INHALATION RT-Q6H PRN 08/29/18 04/18/22 History Inhaler] Levothyroxine Sodium [Synthroid] 75 mcg PO HS 08/29/18 04/18/22 History Omeprazole 40 mg PO HS 08/29/18 04/18/22 History clonazePAM [KlonoPIN] 1 mg PO BID 08/29/18 04/18/22 History lisinopriL [Zestril] 10 mg PO HS 08/29/18 04/18/22 History Fluticasone Nasal [place] [Flonase 1 spr EA NOSTRIL DAILY 12/29/21 04/18/22 History Nasal [place]] Gabapentin [Neurontin] 300 mg PO BID 12/29/21 04/18/22 History Pioglitazone [Actos] 45 mg PO HS 12/29/21 04/18/22 History Sertraline [Zoloft] 100 mg PO HS 12/29/21 04/18/22 History metFORMIN HCL ER [Glucophage XR] 1,000 mg PO BID 12/29/21 04/18/22 History Naproxen Sodium [Aleve] 440 mg PO BID PRN 04/13/22 04/18/22 History Semaglutide [Ozempic] 0.5 mg SQ TH 04/13/22 04/18/22 History carBAMazepine [carBAMazepine ER] 100 mg PO BID 04/13/22 04/18/22 History diphenhydrAMINE [Benadryl] 25 mg PO DIRECTED PRN 04/13/22 04/18/22 History Allergies Allergy/AdvReac Type Severity Reaction Status Date / Time Sulfa (Sulfonamide Allergy Itching Verified 04/18/22 06:19 Antibiotics) nortriptyline [From Pamelor] AdvReac LIGHT Verified 04/18/22 06:19 HEADED Physical Examination Osteopathic Statement: *. No significant issues noted on an osteopathic structural exam other than those noted in the History and Physical/Consult.
[2022-04-18 06:55] LABS: Glucose,Whole Blood 103 mg/dL (70-110)
[2022-04-18] MEDS ORDERED: MIDAZOLAM 2 MG/2 ML VIAL IVP ONE (07:35)
[2022-04-18 07:38] LABS: Albumin 4.3 g/dL (3.5-5.0); Calcium 9.7 mg/dL (8.4-10.2); Potassium 4.5 mmol/L (3.5-5.1); Total Bilirubin 0.3 mg/dL (0.2-1.3); Total Protein 6.8 g/dL (6.3-8.2)
[2022-04-18] MEDS ORDERED: BUPIVACAINE (PF) 0.25% 30 ML VIAL SQ ONE (08:38)
[2022-04-18] MEDS ORDERED: THROMBIN (BOVINE) 5,000 UNIT VIAL TOPICAL ONE (08:38)
[2022-04-18] MEDS ORDERED: GELATIN SPONGE,ABSORBABLE 1 GM POWDER TOPICAL ONE (08:38)
[2022-04-18] MEDS ORDERED: LACTATED RINGERS 1,000 ML IV ONE (10:43)
--- NOTE | 2022-04-18 11:04 | P.ANPRN ---
Procedure Note - Anesthesia - Invasive Line Right Arterial Line Time Out Performed: Yes Date of Procedure: 04/18/22 Location of Patient: PreOp Preparation: Sterile Prep, Sterile Dressing Arterial Line Location: Radial Ultrasound Used: No Purpose - Visualization and Identification of Vasculature: No Image Stored and Saved: No Narrative: Central line placement per sterile protocol utilized.
[2022-04-18] MEDS ORDERED: VANCOMYCIN 1,000 MG VIAL MISCELLANE ONE (11:17)
[2022-04-18] MEDS ORDERED: bisacodyL 10 MG SUPP RECTAL PRN (11:42)
[2022-04-18] MEDS ORDERED: MAG HYDROX/AL HYDROX/SIMETH 30 ML CUP PO PRN (11:42)
[2022-04-18] MEDS ORDERED: MAGNESIUM HYDROXIDE 2,400 MG/10 ML CUP PO PRN (11:42)
[2022-04-18] MEDS ORDERED: SENNOSIDES-DOCUSATE SODIUM 1 EACH TAB PO PRN (11:42)
[2022-04-18] MEDS ORDERED: ONDANSETRON 4 MG/2 ML VIAL IVP PRN (11:42)
[2022-04-18] MEDS ORDERED: NA PHOS,M-B/NA PHOS,DI-BA 133 ML ENEMA RECTAL PRN (11:42)
--- NOTE | 2022-04-18 11:44 | FL ---
EXAMINATION TYPE: FL guidance operating room DATE OF EXAM: 04/18/2022 HISTORY: Fluoroscopy time 3 minutes and 18 seconds of fluoroscopy provided. IMPRESSION: 1. Fluoroscopy time.
--- NOTE | 2022-04-18 11:44 | XR ---
EXAM TYPE: LUMBAR SPINE X RAY SERIES COMPARISON: NONE HISTORY: Intraoperative TECHNIQUE: 4 views are submitted. FINDINGS: Multiple resolution intraoperative images are submitted. One anterolisthesis of L4-L5. Surgical instr uments seen in the L4-L5 disc space. Subsequent postsurgical changes. IMPRESSION: 1. Intraoperative.
[2022-04-18] MEDS: HYDROmorphone 0.5 MG/0.5 ML SYRINGE IVP PRN ×4 (12:06→19:04)
[2022-04-18 12:40] LABS: Glucose,Whole Blood 161 mg/dL (70-110)
[2022-04-18] MEDS ORDERED: DEXTROSE 50% SYRINGE 50 ML IVP PRN ×2 (16:09)
[2022-04-18] MEDS ORDERED: ALBUTEROL NEBULIZED 2.5 MG/3 ML INHALATION PRN (16:11)
[2022-04-18] MEDS: HYDROcodone/APAP 7.5-325MG 1 EACH TAB PO PRN ×2 (16:27→21:28)
--- NOTE | 2022-04-18 16:31 | P.CONS ---
History of Present Illness - Reason for Consult Consult date: 04/18/22 Medical Management Requesting physician: Lance Edmond - History of Present Illness History of Presenting Illness: Patient is a very pleasant 67-year-old female with a past medical history of atrial septal defect with repair, hypertension, hyperlipidemia, COPD, hpr-[id number] diabetes mellitus, hypothyroidism, GERD, sleep apnea denies home CPAP/BiPAP use, chronic lower back pain and osteoarthritis. Patient is currently admitted under orthospine surgical team status post elective L4 through S1 lumbar decompression and fusion completed by Dr. Edmond. We have been consulted for medical management throughout patient's hospitalization. Patient seen and fully evaluated at bedside. She is currently doing well with vital signs unremarkable. Patient reports mild postoperative pain/discomfort, states it's more like just not being able to get comfortable. She denies having any new onset numbness/tingling/weakness. Morales catheter is in place with good urinary output. Patient has been tolerating oral intake without any reported difficulties and denies having any postoperative nausea or vomiting. She denies having any history of DVTs or PEs. Review of systems: Pertinent positives and negatives as discussed in HPI, a complete review of systems was performed and all other systems are negative. Physical exam: Vital signs reviewed and stable. General: Nontoxic, no distress and appears stated age. Obese. Derm: Skin warm and dry, normal coloration for ethnicity. Head: Atraumatic, normocephalic and symmetric. Eyes: EOMs intact, no lid lag, and anicteric sclera Mouth: no lip lesions, mucus membranes moist Cardiovascular: regular rate and rhythm with normal S1S2, no murmur, positive posterior tibial pulses bilaterally, and cap refill < 2 seconds. Lungs: Respirations even, regular, and unlabored on room air. Lungs CTA bilaterally, no rhonchi, no rales, no wheezing, and no accessory muscle usage. Abdominal: soft, nontender to palpation, no guarding, no appreciable organomegaly Morales catheter in place. Ext Movement and sensation intact. No gross muscle atrophy, no edema, no contractures. Neuro: Speech clear, face symmetrical and CN II-XII grossly intact with no noted focal neuro deficits Psych: Alert and oriented to person, place, time, and situation. Appropriate and pleasant affect. Assessment and Plan of Care: Status post L4 through S1 lumbar decompression and fusion -Management per primary admitting orthospine surgical team including pain management, wound/drain care, DVT prophylaxis, weightbearing/activity, and PT/O T. -DVT prophylaxis currently SCDs as recommended by orthospine surgery team. -Encourage incentive spirometry use 10-15 times hourly while awake. Diabetes mellitus with hyperglycemia -Hold Glucophage, Actos and Ozmepic and start patient on glycemic protocol with NovoLog sliding scale to maintain tight glycemic control throughout hospitalization. Hypertension -Monitor vital signs and continue daily medication regimen with lisinopril. Hypothyroidism -Continue daily medication regimen with levothyroxine. Hyperlipidemia -Continue daily medication regimen with atorvastatin. -Continue a heart healthy diet. COPD -Not in acute exacerbation. Continue albuterol inhaler every 6 hours as needed for shortness of breath and/or wheezing. -Encourage use of incentive spirometry 10-15 times hourly while awake. Thank you for allowing us to participate in the care of this pleasant patient. Do not hesitate to contact us with questions. Someone can be reached from the [facility] hospitalist group all hours of the day at [phone] or via [employer].. I reviewed the documentation as provided by the RAFFI above, who is the original author of this note. I agree with the documented assessment and plan, with the following changes: none Past Medical History Past Medical History: Asthma, COPD, Diabetes Mellitus, Eye Disorder, GERD/Refl ux, Hyperlipidemia, Hypertension, Musculoskeletal Disorder, Osteoarthritis (OA), Pneumonia, Sleep Apnea/CPAP/BIPAP Additional Past Medical History / Comment(s): ASD with repair, T wave inversion since ASD repair, glaucoma w/ sx, trigeminal neuralgia., diverticulitis, hiatal hernia, chronic low back pain., varicose veins., sinus problems, sleep apnea - no machine, constipation., Pt states rash on back and legs-states Dr Edmond aware. History of Any Multi-Drug Resistant Organisms: None Reported Past Surgical History: Heart Catheterization, Hysterectomy, Orthopedic Surgery, Tubal Ligation Additional Past Surgical History / Comment(s): 1995 ASD repair at [place], L/R foot surg-spurs and R great toe joint replaced, R rotator cuff surg, trigeminal neuralgia surgery HFH, back injections, fatty tumors removed x3 from legs, bilateral laser sx twice for glaucoma, Sinus/deviated septum surg, bilat cataracts, Colonoscopy, lumbar infusion Past Anesthesia/Blood Transfusion Reactions: Previous Problems w/ Anesthesia Additional Past Anesthesia/Blood Transfusion Reaction / Comm: Had difficulty breathing w/nerve block w/rotator cuff surg. ., Pt received blood with ASD repair without reaction. Past Psychological History: Depression, Panic Disorder Additional Psychological History / Comment(s): . Smoking Status: Former smoker Past Alcohol Use History: None Reported Additional Past Alcohol Use History / Comment(s): Pt smoked from [id number]., HX of 1 PPD. Past Drug Use History: None Reported Additional Drug Use History / Comment(s): CBD OIL. - Past Family History Father Family Medical History: Cancer Additional Family Medical History / Comment(s): Father of throat/lung can cer. Mother Family Medical History: Diabetes Mellitus Additional Family Medical History / Comment(s): Mother had heart problems. She at age 73yrs Brother(s) Family Medical History: Cancer Additional Family Medical History / Comment(s): 3 BROTHERS OF CANCER Medications and Allergies Home Medications Medication Instructions Recorded Confirmed Type Atorvastatin [Lipitor] 40 mg PO HS #30 tab 09/11/16 04/18/22 Rx Albuterol Inhaler [Ventolin Hfa 1 - 2 puff INHALATION RT-Q6H PRN 08/29/18 04/18/22 History Inhaler] Levothyroxine Sodium [Synthroid] 75 mcg PO HS 08/29/18 04/18/22 History Omeprazole 40 mg PO HS 08/29/18 04/18/22 History clonazePAM [KlonoPIN] 1 mg PO BID 08/29/18 04/18/22 History lisinopriL [Zestril] 10 mg PO HS 08/29/18 04/18/22 History Fluticasone Nasal [place] [Flonase 1 spr EA NOSTRIL DAILY 12/29/21 04/18/22 History Nasal [place]] Gabapentin [Neurontin] 300 mg PO BID 12/29/21 04/18/22 History Pioglitazone [Actos] 45 mg PO HS 12/29/21 04/18/22 History Sertraline [Zoloft] 100 mg PO HS 12/29/21 04/18/22 History metFORMIN HCL ER [Glucophage XR] 1,000 mg PO BID 12/29/21 04/18/22 History Naproxen Sodium [Aleve] 440 mg PO BID PRN 04/13/22 04/18/22 History Semaglutide [Ozempic] 0.5 mg SQ TH 04/13/22 04/18/22 History carBAMazepine [carBAMazepine ER] 100 mg PO BID 04/13/22 04/18/22 History diphenhydrAMINE [Benadryl] 25 mg PO DIRECTED PRN 04/13/22 04/18/22 History Allergies Allergy/AdvReac Type Severity Reaction Status Date / Time Sulfa (Sulfonamide Allergy Itching Verified 04/18/22 06:19 Antibiotics) nortriptyline [From Pamelor] AdvReac LIGHT Verified 04/18/22 06:19 HEADED Physical Exam Osteopathic Statement: *. No significant issues noted on an osteopathic struc tural exam other than those noted in the History and Physical/Consult. Vitals: Vital Signs Temp Pulse Resp BP Pulse Ox 04/18/22 14:34 91 16 121/63 96 04/18/22 14:00 89 16 118/60 96 04/18/22 13:30 94 16 121/60 100 04/18/22 13:00 92 16 118/60 100 04/18/22 12:45 90 16 120/60 100 04/18/22 12:30 88 16 109/53 100 04/18/22 12:15 92 16 112/50 100 04/18/22 12:00 94 16 133/61 100 04/18/22 11:44 97.5 F L 95 16 133/60 100 04/18/22 06:36 98.0 F 91 18 143/63 95 Intake and Output 04/18/22 04/18/22 04/18/22 06:59 14:59 22:59 Intake Total 100 2550 Output Total 400 Balance 100 2150 Intake: IV 100 2550 Output: Urine 300 Estimated Blood Loss 100 Other: Weight 107 kg 107 kg Results CBC & Chem 7: 04/18/22 06:55 Labs: Abnormal Lab Results - Last 24 Hours (Table) 04/18/22 04/18/22 Range/Units 06:55 12:39 Carbon Dioxide 21 L (22-30) mmol/L Glucose 103 H (74-99) mg/dL POC Glucose (mg/dL) 161 H (70-110) mg/dL
[2022-04-18 16:54] LABS: Glucose,Whole Blood 101 mg/dL (70-110)
[2022-04-18] MEDS: INSULIN ASPART (NovoLOG) 100 UNIT/ML VIAL SQ SCH ×2 (17:25→21:23)
[2022-04-18] MEDS: 0.9% NACL WITH KCL 20 MEQ/L 1,000 ML IV SCH (17:49)
--- NOTE | 2022-04-18 19:18 | CT ---
EXAMINATION TYPE: CT lumbar spine wo con CT DLP: 2122.6 mGycm, Automated exposure control for dose reduction was used. DATE OF EXAM: 04/18/2022 5:31 PM COMPARISON: CT 04/13/2022. CLINICAL INDICATION:Female, 67 years old with history of s/p lumbar fusion; TECHNIQUE: Multiple axial images were obtained from the midportion of T11 through the sacroiliac ta nts. Soft tissue and bone windows in coronal and sagittal planes were obtained and reviewed. Contrast used: none. Oral contrast used: none. FINDINGS: Alignment: There are 5 lumbar type vertebral bodies within normal alignment. Bone: Surgical changes to the spine extending from L4 S1 to. Hardware appears intact. There is discec evon at L4-L5 and L5-S1. Suspected surgical changes to the left L4 and L5 facets. Discs: T12-L1: No spinal canal or neural foraminal stenosis is identified. L1-L2: No spinal canal or neural foraminal stenosis is identified. L2-L3: No spinal canal or neural foraminal stenosis is identified. L3-L4: No spinal canal or neural foraminal stenosis is identified. L4-L5: Postsurgical changes at this level with streak artifact which limits evaluation. No obvious s ignificant spinal canal or neural foraminal stenosis is identified. L5-S1: Postsurgical changes at this level with streak artifact which limits evaluation. No obvious si gnificant spinal canal or neural foraminal stenosis is identified. Other: Right renal cysts. Atherosclerosis of the arterial vasculature. The gallbladder surgically abs ent. IMPRESSION: Postsurgical changes L4-S1. Hardware appears intact. Spinal canal appears patent. No evidence of sign ificant spinal canal or neural foraminal stenosis given CT examination streak artifact.
[2022-04-18 20:44] LABS: Glucose,Whole Blood 117 mg/dL (70-110)
[2022-04-18] MEDS: ATORVASTATIN 40 MG TAB PO SCH (21:22)
[2022-04-18] MEDS: PANTOPRAZOLE 40 MG TABLET PO SCH (21:22)
[2022-04-18] MEDS: clonazePAM 1 MG TAB PO SCH (21:22)
[2022-04-18] MEDS: SERTRALINE 100 MG TAB PO SCH (21:23)
[2022-04-18] MEDS: LEVOTHYROXINE 75 MCG TAB PO SCH (21:23)
[2022-04-18] MEDS: CYCLOBENZAPRINE 5 MG TAB PO PRN (21:23)
[2022-04-18] MEDS: GABAPENTIN 300 MG CAP PO SCH (21:23)
[2022-04-18] MEDS: lisinopriL 10 MG TAB PO SCH (21:23)
[2022-04-18] MEDS: carBAMazepine 100 MG TAB.ER.12H PO SCH (21:23)
[2022-04-19] MEDS: HYDROmorphone 1 MG/ML 1 ML SYRINGE IVP PRN ×2 (00:48→05:56)
[2022-04-19] MEDS: HYDROcodone/APAP 7.5-325MG 1 EACH TAB PO PRN ×2 (03:56→11:11)
[2022-04-19] MEDS: CYCLOBENZAPRINE 5 MG TAB PO PRN ×2 (05:56→22:18)
[2022-04-19 06:36] LABS: Glucose,Whole Blood 160 mg/dL (70-110)
[2022-04-19] MEDS: LACTATED RINGERS 1,000 ML IV SCH (06:40)
[2022-04-19] MEDS: INSULIN ASPART (NovoLOG) 100 UNIT/ML VIAL SQ SCH ×4 (06:42→22:35)
--- NOTE | 2022-04-19 08:25 | P.PN ---
Subjective Progress Note Date: 04/19/22 patient seen and examined she is doing fairly well as morning although she is fairly tired. She states last nightshe did okay and did not have any significant issues. She denies any headache or blurry vision today. She has a fevers chills shortness of breath or chest pains denies any numbness or tingling Batres is in place. Objective - Vital Signs Vital signs: Vital Signs Temp 99.9 F H 04/19/22 01:38 Pulse 121 H 04/19/22 01:38 Resp 17 04/19/22 01:38 BP 103/51 04/19/22 01:38 Pulse Ox 94 L 04/19/22 02:05 FiO2 Intake & Output 04/18/22 04/19/22 04/19/22 18:59 06:59 18:59 Intake Total 2550 1080 Output Total 750 1000 Balance 1800 80 Weight 107 kg Intake: IV 2550 Intake, IV Titration 600 Amount 0.9% NaCl with KCl 20 Meq 600 /l 1,000 ml @ 50 mls/hr IV .Q20H ANN Rx#: [id number] Oral 480 Output: Urine 650 1000 Uretheral (Batres) 1000 Estimated Blood Loss 100 Other: Voiding Method Indwelling Catheter - Exam Physical Exam: -Patient is alert and oriented 3 appears well-nourished well-hydrated is in no acute distress. They do not appear septic. -There is TTP around the incision site [-Incision is CDI, no EEE, no drainage] -Upper extremities show [5] out of 5 strength in all major muscle groups. [##EXCEPT] -Lower extremities with 4+ out of 5 strength in all major muscle groups normal deconditioning -There is [FROM] that is [painless] of the b/l UE and LE in all major joints. negative straight leg raise -They are intact to light touch sensation in C5 to T1 and L2 to S1 nerve distribution. -DTR [2]/4 all upper and lower extremities -Patient has palpable distal pulses all 4 ext -Compartments are soft and compressible. -Patient shows a negative Victor Hugo's [-Neg Hoffmans b/l] [-Neg Clonus b/l] [-Neg babinski b/l] Cranial nerves II through XII are grossly intact. dressings are clean and dry - Labs CBC & Chem 7: 04/18/22 06:55 Labs: Abnormal Lab Results - Last 24 Hours (Table) 04/18/22 04/18/22 04/19/22 Range/Units 12:39 20:43 06:35 POC Glucose (mg/dL) 161 H 117 H 160 H (70-110) mg/dL Assessment and Plan Assessment: 67-year-old female postop day 1 L4 to S1 minimally invasive interbody and posterior lateral fusion Plan: -Appreciate cruise consultant and team management. -Activity: Ambulate QID, OOB all meals, up and about, limit lifting bending twisting to less than 5 lbs. Use walker or cane if needed for stability. -Daily PT/OT, increase ambulation strength and balance. -[Brace when up and about, not needed in bed or chair] -Pain control: [Adequate at this time] -Meds: [reviewed] -GI ppx: senna, Miralax -DC batres when up and about, bedside commode if needed -DVT PPX: [OK to restart Heparin tonight] -Hygiene: Shower today. Maintain dressing clean and dry. Meticulous cleaning after BMs away from incision site -lay flat for any severe headaches -Encourage IS 10x/hr -Dispo: [Pending]
[2022-04-19] MEDS: GABAPENTIN 300 MG CAP PO SCH ×2 (09:17→22:18)
[2022-04-19] MEDS: carBAMazepine 100 MG TAB.ER.12H PO SCH ×2 (09:17→22:18)
[2022-04-19] MEDS: clonazePAM 1 MG TAB PO SCH ×2 (09:17→22:18)
[2022-04-19] MEDS: FLUTICASONE 50MCG/SPRAY NASAL 16GM EA NOSTRIL SCH (10:10)
[2022-04-19 10:49] LABS: Basophils # (A) 0.02 X 10*3/uL (0.00-0.10); Basophils % (A) 0.2 %; Eosinophils # (A) 0.03 X 10*3/uL (0.04-0.35); Eosinophils % (A) 0.3 %; HGB 9.7 g/dL (12.0-15.0); Immature Grans, Automated 0.4 %; Lymphocytes # (A) 1.13 X 10*3/uL (0.90-5.00); MCH 26.4 pg (27.0-32.0); MCHC 31.3 g/dL (32.0-37.0); MCV 84.2 fL (80.0-97.0); Mean Platelet Volume 9.2 fL (9.5-12.2); Monocytes # (A) 1.05 X 10*3/uL (0.20-1.00); Monocytes % (A) 9.3 %; NRBC Per 100 WBC 0 /100 WBCS (0.0-0.0); Neutrophils # (A) 9.04 X 10*3/uL (1.80-7.70); Neutrophils % (A) 79.8 %; Platelet Count 269 X 10*3/uL (140-440); RBC 3.68 X 10*6/uL (4.10-5.20); RDW 15.4 % (11.5-14.5); WBC 11.31 X 10*3/uL (4.50-10.00)
[2022-04-19 10:53] LABS: African American GFR (CKD) 54.5 (60.0-200.0); Anion Gap 10.3 mmol/L (10.00-18.00); BUN/Creat Ratio 13.25 Ratio (12.00-20.00); Blood Urea Nitrogen 15.9 mg/dL (9.0-27.0); Calcium 8.5 mg/dL (8.7-10.3); Carbon Dioxide 21.7 mmol/L (20.0-27.5); Non-African American GFR(CKD) 47.1 (60.0-200.0); Potassium 4.7 mmol/L (3.5-5.5)
[2022-04-19 11:38] LABS: Glucose,Whole Blood 132 mg/dL (70-110)
[2022-04-19] MEDS: 0.9% NACL WITH KCL 20 MEQ/L 1,000 ML IV SCH (12:50)
--- NOTE | 2022-04-19 14:52 | P.PN ---
Subjective Progress Note Date: 04/19/22 Hospital course: Patient is a very pleasant 67-year-old female with a past medical history of atrial septal defect with repair, hypertension, hyperlipidemia, COPD, [id number] diabetes mellitus, hypothyroidism, GERD, sleep apnea denies home CPAP/BiPAP use, chronic lower back pain and osteoarthritis. Patient is currently admitted under orthospine surgical team status post elective L4 through S1 lumbar decompression and fusion completed by Dr. Edmond. We have been consulted for medical management throughout patient's hospitalization. Physical exam: Patient seen and fully evaluated at bedside this morning. She reports continued feeling of being uncomfortable, but states postoperative pain is controlled with current pain medication regimen. Patient has not yet been out of bed, orthospine specialist recommending patient to increase ambulation and encouraged to be out of bed with meals. Discussed with patient that Morales catheter will need to be removed and encouraged her to get out of bed with meals. Patient also instructed on importance of using incentive spirometry. She denies experiencing any numbness/tingling/focal weakness in extremities. Morning labs reviewed. Patient with mild leukocytosis with WBCs 11.31 and expected postoperative blood loss anemia with hemoglobin of 9.7. Vital signs reviewed and stable. General: Nontoxic, no distress and appears stated age. Obese. Derm: Skin warm and dry, normal coloration for ethnicity. Head: Atraumatic, normocephalic and symmetric. Eyes: EOMs intact, no lid lag, and anicteric sclera Mouth: no lip lesions, mucus membranes moist Cardiovascular: regular rate and rhythm with normal S1S2, no murmur, positive posterior tibial pulses bilaterally, and cap refill < 2 seconds. Lungs: Respirations even, regular, and unlabored on room air. Lungs CTA bilaterally, no rhonchi, no rales, no wheezing, and no accessory muscle usage. Abdominal: soft, nontender to palpation, no guarding, no appreciable organomegaly Morales catheter in place. Ext Movement and sensation intact. No gross muscle atrophy, no edema, no contractures. Neuro: Speech clear, face symmetrical and CN II-XII grossly intact with no noted focal neuro deficits Psych: Alert and oriented to person, place, time, and situation. Appropriate and pleasant affect. Assessment and Plan of Care: Status post L4 through S1 lumbar decompression and fusion -Management per primary admitting orthospine surgical team including trina torres wound/drain care, DVT prophylaxis, weightbearing/activity, and PT/OT. -DVT prophylaxis currently SCDs [facility]. -Encourage incentive spirometry use 10-15 times hourly while awake. Postoperative blood loss anemia, expected finding -Hemoglobin stable at 9.7. We'll continue to monitor with repeat a.m. labs, no signs of active bleeding noted. Leukocytosis - Reactive. No signs of infection. -We'll continue to monitor with repeat a.m. labs. Diabetes mellitus with hyperglycemia -Hold Glucophage, Actos and Ozmepic and start patient on glycemic protocol with NovoLog sliding scale to maintain tight glycemic control throughout hospitalization. Hypertension -Monitor vital signs and continue daily medication regimen with lisinopril. Hypothyroidism -Continue daily medication regimen with levothyroxine. Hyperlipidemia -Continue daily medication regimen with atorvastatin. -Continue a heart healthy diet. COPD -Not in acute exacerbation. Continue albuterol inhaler every 6 hours as needed for shortness of breath and/or wheezing. -Encourage use of incentive spirometry 10-15 times hourly while awake. Thank you for allowing us to participate in the care of this pleasant patient. Do not hesitate to contact us with questions. Someone can be reached from the [facility] hospitalist group all hours of the day at [phone] or via [employer].. Objective - Vital Signs Vital signs: Vital Signs Temp 98.1 F 04/19/22 08:53 Pulse 102 H 04/19/22 08:56 Resp 18 04/19/22 08:56 BP 92/54 04/19/22 08:53 Pulse Ox 98 04/19/22 08:53 FiO2 Intake & Output 04/18/22 04/19/22 04/19/22 18:59 06:59 18:59 Intake Total 2550 1080 Output Total 750 1000 Balance 1800 80 Weight 107 kg Intake: IV 2550 Intake, IV Titration 600 Amount 0.9% NaCl with KCl 20 Meq 600 /l 1,000 ml @ 50 mls/hr IV .Q20H [facility] Rx#: [id number] Oral 480 Output: Urine 650 1000 Uretheral (Morales) 1000 Estimated Blood Loss 100 Other: Voiding Method Indwelling Catheter Indwelling Catheter - Labs CBC & Chem 7: 04/19/22 07:07 04/19/22 07:07 Labs: Abnormal Lab Results - Last 24 Hours (Table) 04/18/22 04/18/22 04/19/22 Range/Units 12:39 20:43 06:35 POC Glucose (mg/dL) 161 H 117 H 160 H (70-110) mg/dL
[2022-04-19] MEDS: ACETAMINOPHEN TAB 325 MG TAB PO PRN (15:35)
[2022-04-19 16:50] LABS: Glucose,Whole Blood 135 mg/dL (70-110)
[2022-04-19] MEDS: HYDROcodone/APAP 5-325MG 1 EACH TAB PO PRN (19:06)
[2022-04-19 20:35] LABS: Glucose,Whole Blood 138 mg/dL (70-110)
[2022-04-19 21:45] LABS: Glucose,Whole Blood 150 mg/dL (70-110)
[2022-04-19] MEDS: SERTRALINE 100 MG TAB PO SCH (22:18)
[2022-04-19] MEDS: ATORVASTATIN 40 MG TAB PO SCH (22:18)
[2022-04-19] MEDS: PANTOPRAZOLE 40 MG TABLET PO SCH (22:18)
[2022-04-19] MEDS: lisinopriL 10 MG TAB PO SCH (22:18)
[2022-04-19] MEDS: LEVOTHYROXINE 75 MCG TAB PO SCH (22:18)
[2022-04-20] MEDS: HYDROcodone/APAP 7.5-325MG 1 EACH TAB PO PRN ×2 (00:57→08:16)
[2022-04-20 06:16] LABS: Glucose,Whole Blood 147 mg/dL (70-110)
[2022-04-20] MEDS: INSULIN ASPART (NovoLOG) 100 UNIT/ML VIAL SQ SCH ×4 (06:20→23:08)
[2022-04-20] MEDS: FLUTICASONE 50MCG/SPRAY NASAL 16GM EA NOSTRIL SCH (08:16)
[2022-04-20] MEDS: GABAPENTIN 300 MG CAP PO SCH ×2 (08:16→23:07)
[2022-04-20] MEDS: clonazePAM 1 MG TAB PO SCH ×2 (08:16→23:06)
[2022-04-20] MEDS: carBAMazepine 100 MG TAB.ER.12H PO SCH ×2 (10:26→23:08)
[2022-04-20 10:51] LABS: HGB 10.2 g/dL (12.0-15.0); MCH 26.6 pg (27.0-32.0); MCHC 30.9 g/dL (32.0-37.0); MCV 85.9 fL (80.0-97.0); Mean Platelet Volume 9.5 fL (9.5-12.2); NRBC Per 100 WBC 0 /100 WBCS (0.0-0.0); Platelet Count 267 X 10*3/uL (140-440); RBC 3.84 X 10*6/uL (4.10-5.20); RDW 15.6 % (11.5-14.5); WBC 16.47 X 10*3/uL (4.50-10.00)
[2022-04-20 10:55] LABS: African American GFR (CKD) 54.5 (60.0-200.0); Albumin 3.9 g/dL (3.8-4.9); Albumin/Globulin Ratio 1.77 (1.60-3.17); Anion Gap 11.1 mmol/L (10.00-18.00); BUN/Creat Ratio 14.33 Ratio (12.00-20.00); Blood Urea Nitrogen 17.2 mg/dL (9.0-27.0); Carbon Dioxide 21.9 mmol/L (20.0-27.5); Globulin 2.2 g/dL (1.6-3.3); Non-African American GFR(CKD) 47.1 (60.0-200.0); Potassium 4.3 mmol/L (3.5-5.5); Total Bilirubin 0.3 mg/dL (0.30-1.20); Total Protein 6.1 g/dL (6.2-8.2)
[2022-04-20 10:56] LABS: Magnesium 2.1 mg/dL (1.5-2.4)
[2022-04-20 11:11] LABS: Glucose,Whole Blood 148 mg/dL (70-110)
[2022-04-20] MEDS: ACETAMINOPHEN TAB 325 MG TAB PO PRN (14:17)
--- NOTE | 2022-04-20 14:48 | P.PN ---
Subjective Progress Note Date: 04/20/22 Principal diagnosis: 1. L4-L5 spondylolisthesis Grade 1 2. L5-S1 grade 1 spondylolisthesis 3. L4 to S1 Central stenosis 4.Neurogenic claudication 5. Bilateral lower extremity weakness 6. Bilateral lower extremity radiculopathy Patient was seen at bedside this afternoon sitting up in chair. Patient says she has tried to work with physical therapy however, she has been unable to ambulate very well. Patient says she would like to try and go home still but is understanding that rehab may be the best option and states option for her before going home. Patient says she has not been able to urinate on her own. Patient states the pain as 4/10 currently. Patient says most the pain is in her low back. Patient does say she does have some radiation down the leg somewhat. Patient denies chest pain, fever, shortness of breath, nausea, vomiting, change in vision, loss of bowel/bladder control. Objective - Vital Signs Vital signs: Vital Signs Temp 98.2 F 04/20/22 08:00 Pulse 116 H 04/20/22 08:00 Resp 20 04/20/22 08:00 BP 165/84 04/20/22 08:00 Pulse Ox 94 L 04/20/22 08:00 FiO2 Intake & Output 04/19/22 04/20/22 04/20/22 18:59 06:59 18:59 Intake Total 900 Output Total 1150 350 Balance 900 -1150 -350 Intake: Intake, IV Titration 900 Amount 0.9% NaCl with KCl 20 Meq 800 /l 1,000 ml @ 50 mls/hr IV .Q20H ANN Rx#: [id number] ceFAZolin 2 gm In Sodium 100 Chloride 0.9% 50 ml @ 100 mls/hr IVPB Q[facility]HR [facility] Rx# :[id number] Output: Urine 1150 350 Uretheral (Morales) 300 Other: Voiding Method Indwelling Catheter Indwelling Catheter Indwelling Catheter - Exam Surgical dressings were changed at bedside. Jannet appear to be well aligned. There is some redness to incision on the left side of the lumbar spine this time. Negative fr any drainage. New surgical dressings were placed over incision. Patient does have some tenderness of patient over incisions and diffusely throughout the lumbar spine. Nontender to palpation throughout rest exam. Patient does have sensation is equal, symmetric, bilaterally intact throughout the upper and lower extremities. Patient does have full range of mo tion bilateral upper and lower extremities on exam. 4/5 in all major motor groups in bilateral lower extremities. 4+/5 in all major motor groups in bilateral upper extremities. No rashes status is intact. Radial pulse intact, 2+ bilateral. Cap refill under 3 seconds in digits of upper extremities. Negative Homans. Negative clonus bilaterally. Negative Abiola bilaterally. - Labs CBC & Chem 7: 04/20/22 07:20 04/20/22 07:20 Labs: Abnormal Lab Results - Last 24 Hours (Table) 04/19/22 04/19/22 04/19/22 Range/Units 16:45 20:32 21:33 WBC (4.50-10.00) X 10*3/uL RBC (4.10-5.20) X 10*6/uL Hgb (12.0-15.0) g/dL Hct (37.2-46.3) % MCH (27.0-32.0) pg MCHC (32.0-37.0) g/dL RDW (11.5-14.5) % Est GFR (CKD-EPI)AfAm (60.0-200.0) Est GFR (CKD-EPI)NonAf (60.0-200.0) Glucose (70-110) mg/dL POC Glucose (mg/dL) 135 H 138 H 150 H (70-110) mg/dL AST (13-35) U/L Total Protein (6.2-8.2) g/dL 04/20/22 04/20/22 04/20/22 Range/Units 06:09 07:20 07:20 WBC 16.47 H (4.50-10.00) X 10*3/uL RBC 3.84 L (4.10-5.20) X 10*6/uL Hgb 10.2 L (12.0-15.0) g/dL Hct 33.0 L (37.2-46.3) % MCH 26.6 L (27.0-32.0) pg MCHC 30.9 L (32.0-37.0) g/dL RDW 15.6 H (11.5-14.5) % Est GFR (CKD-EPI)AfAm 54.5 L (60.0-200.0) Est GFR (CKD-EPI)NonAf 47.1 L (60.0-200.0) Glucose 140 H (70-110) mg/dL POC Glucose (mg/dL) 147 H (70-110) mg/dL AST 52 H (13-35) U/L Total Protein 6.1 L (6.2-8.2) g/dL 04/20/22 Range/Units 11:09 WBC (4.50-10.00) X 10*3/uL RBC (4.10-5.20) X 10*6/uL Hgb (12.0-15.0) g/dL Hct (37.2-46.3) % MCH (27.0-32.0) pg MCHC (32.0-37.0) g/dL RDW (11.5-14.5) % Est GFR (CKD-EPI)AfAm (60.0-200.0) Est GFR (CKD-EPI)NonAf (60.0-200.0) Glucose (70-110) mg/dL POC Glucose (mg/dL) 148 H (70-110) mg/dL AST (13-35) U/L Total Protein (6.2-8.2) g/dL Assessment and Plan Assessment: 1. L4-L5 spondylolisthesis Grade 1 2. L5-S1 grade 1 spondylolisthesis 3. L4 to S1 Central stenosis 4.Neurogenic claudication 5. Bilateral lower extremity weakness 6. Bilateral lower extremity radiculopathy - Postoperative day #2 status post L4-S1 MIS decompression fusion Plan: 1. L4-L5 spondylolisthesis Grade 1; L5-S1 grade 1 spondylolisthesis; L4 to S1 Central stenosis; Neurogenic claudication; Bilateral lower extremity weakness; Bilateral lower extremity radiculopathy - surgery performed 04/18/2022 - L4-S1 MIS decompression fusion. Patient stable at bedside this afternoon. Chris joyce has been unable to urinate on her own. Patient has not been very ambulatory with physical therapy. Case management has been consult for possible rehab placement. Dressings were changed at bedside. Oxford 7.5/325 mg will be discontinued. Discontinue Dilaudid. Patient does seem somewhat sedated. Bladder scan due to urinary retention. We'll continue to follow patient during her stay. Plan for discharge home with health services versus rehab on 04/22/2022 2. Appreciate medical management 3. Pain management - Oxford 5 mg/325 mg; Flexeril 5 mg; gabapentin 4. DVT prophylaxis - mechanical 5. GI prophylaxis - Dulcolax; Fleet; senna; Maalox 6. PT/OT - weightbearing as tolerated with walker and brace on while up and about 7. Encourage incentive spirometer use 8. Discharge planning - home with health services versus rehab on 04/22/2022 Time with Patient: Less than 30
--- NOTE | 2022-04-20 15:30 | P.PN ---
Subjective Progress Note Date: 04/20/22 Hospital course: Patient is a very pleasant 67-year-old female with a past medical history of atrial septal defect with repair, hypertension, hyperlipidemia, COPD, [id number] diabetes mellitus, hypothyroidism, GERD, sleep apnea denies home CPAP/BiPAP use, chronic lower back pain and osteoarthritis. Patient is currently admitted under orthospine surgical team status post elective L4 through S1 lumbar decompression and fusion completed by Dr. Edmond. We have been consulted for medical management throughout patient's hospitalization. Physical exam: Patient seen and fully evaluated at bedside this morning. Patient continues to rest in bed with minimal time out of bed. Overnight patient had low-grade temp and morning labs revealed leukocytosis with WBC count increasing to 16.47. Again had long discussion with patient in regards to use of incentive spirometry 10-15 times hourly while awake and importance of getting out of bed. Patient has not been using incentive spirometry as directed .Will also order chest x-ray and urinalysis to further evaluate. Vital signs reviewed and stable. General: Nontoxic, no distress and appears stated age. Obese. Derm: Skin warm and dry, normal coloration for ethnicity. Head: Atraumatic, normocephalic and symmetric. Eyes: EOMs intact, no lid lag, and anicteric sclera Mouth: no lip lesions, mucus membranes moist Cardiovascular: regular rate and rhythm with normal S1S2, no murmur, positive posterior tibial pulses bilaterally, and cap refill < 2 seconds. Lungs: Respirations even, regular, and unlabored on room air. Lungs CTA bilaterally, no rhonchi, no rales, no wheezing, and no accessory muscle usage. Abdominal: soft, nontender to palpation, no guarding, no appreciable organomegaly Morales catheter in place. Ext Movement and sensation intact. No gross muscle atrophy, no edema, no contractures. Neuro: Speech clear, face symmetrical and CN II-XII grossly intact with no noted focal neuro deficits Psych: Alert and oriented to person, place, time, and situation. Appropriate and pleasant affect. Assessment and Plan of Care: Status post L4 through S1 lumbar decompression and fusion -Management per primary admitting orthospine surgical team including pain management, wound/drain care, DVT prophylaxis, weightbearing/activity, and PT/OT. -DVT prophylaxis currently SCDs as recommended by orthospine surgery team. -Encourage incentive spirometry use 10-15 times hourly while awake. Postoperative blood loss anemia, expected finding -Hemoglobin stable. Leukocytosis -Urinalysis and chest x-ray to be completed -We will continue to monitor with repeat a.m. labs. Diabetes mellitus with hyperglycemia -Hold Glucophage, Actos and Ozmepic and start patient on glycemic protocol with NovoLog sliding scale to maintain tight glycemic control throughout hospitalization. Hypertension -Monitor vital signs and continue daily medication regimen with lisinopril. Hypothyroidism -Continue daily medication regimen with levothyroxine. Hyperlipidemia -Continue daily medication regimen with atorvastatin. -Continue a heart healthy diet. COPD -Not in acute exacerbation. Continue albuterol inhaler every 6 hours as needed for shortness of breath and/or wheezing. -Encourage use of incentive spirometry 10-15 times hourly while awake. Thank you for allowing us to participate in the care of this pleasant patient. Do not hesitate to contact us with questions. Someone can be reached from the [facility] hospitalist group all hours of the day at [phone] or via [employer]. Objective - Vital Signs Vital signs: Vital Signs Temp 98.3 F 04/20/22 02:00 Pulse 64 04/20/22 02:00 Resp 20 04/20/22 02:00 BP 130/67 04/20/22 02:00 Pulse Ox 97 04/20/22 02:00 FiO2 Intake & Output 04/19/22 04/20/22 04/20/22 18:59 06:59 18:59 Intake Total 900 Output Total 1150 Balance 900 -1150 Intake: Intake, IV Titration 900 Amount 0.9% NaCl with KCl 20 Meq 800 /l 1,000 ml @ 50 mls/hr IV .Q20H [facility] Rx#: [id number] ceFAZolin 2 gm In Sodium 100 Chloride 0.9% 50 ml @ 100 mls/hr IVPB Q8HR [facility] Rx# :[id number] Output: Urine 1150 Other: Voiding Method Indwelling Catheter Indwelling Catheter - Labs CBC & Chem 7: 04/20/22 07:20 04/20/22 07:20 Labs: Abnormal Lab Results - Last 24 Hours (Table) 04/19/22 04/19/22 04/19/22 Range/Units 07:07 07:07 11:36 WBC 11.31 H (4.50-10.00) X 10*3/uL RBC 3.68 L (4.10-5.20) X 10*6/uL Hgb 9.7 L (12.0-15.0) g/dL Hct 31.0 L (37.2-46.3) % MCH 26.4 L (27.0-32.0) pg MCHC 31.3 L (32.0-37.0) g/dL RDW 15.4 H (11.5-14.5) % MPV 9.2 L (9.5-12.2) fL Neutrophils # 9.04 H (1.80-7.70) X 10*3/uL Monocytes # 1.05 H (0.20-1.00) X 10*3/uL Eosinophils # 0.03 L (0.04-0.35) X 10*3/uL Est GFR (CKD-EPI)AfAm 54.5 L (60.0-200.0) Est GFR (CKD-EPI)NonAf 47.1 L (60.0-200.0) Glucose 155 H (70-110) mg/dL POC Glucose (mg/dL) 132 H (70-110) mg/dL Calcium 8.5 L (8.7-10.3) mg/dL 04/19/22 04/19/22 04/19/22 Range/Units 16:45 20:32 21:33 WBC (4.50-10.00) X 10*3/uL RBC (4.10-5.20) X 10*6/uL Hgb (12.0-15.0) g/dL Hct (37.2-46.3) % MCH (27.0-32.0) pg MCHC (32.0-37.0) g/dL RDW (11.5-14.5) % MPV (9.5-12.2) fL Neutrophils # (1.80-7.70) X 10*3/uL Monocytes # (0.20-1.00) X 10*3/uL Eosinophils # (0.04-0.35) X 10*3/uL Est GFR (CKD-EPI)AfAm (60.0-200.0) Est GFR (CKD-EPI)NonAf (60.0-200.0) Glucose (70-110) mg/dL POC Glucose (mg/dL) 135 H 138 H 150 H (70-110) mg/dL Calcium (8.7-10.3) mg/dL 04/20/22 Range/Units 06:09 WBC (4.50-10.00) X 10*3/uL RBC (4.10-5.20) X 10*6/uL Hgb (12.0-15.0) g/dL Hct (37.2-46.3) % MCH (27.0-32.0) pg MCHC (32.0-37.0) g/dL RDW (11.5-14.5) % MPV (9.5-12.2) fL Neutrophils # (1.80-7.70) X 10*3/uL Monocytes # (0.20-1.00) X 10*3/uL Eosinophils # (0.04-0.35) X 10*3/uL Est GFR (CKD-EPI)AfAm (60.0-200.0) Est GFR (CKD-EPI)NonAf (60.0-200.0) Glucose (70-110) mg/dL POC Glucose (mg/dL) 147 H (70-110) mg/dL Calcium (8.7-10.3) mg/dL
--- NOTE | 2022-04-20 16:08 | XR ---
EXAMINATION TYPE: XR chest 1V DATE OF EXAM: 04/20/2022 COMPARISON: 12/29/2021 HISTORY: Leukocytosis TECHNIQUE: Single frontal view of the chest is obtained. FINDINGS: Heart size prominent postoperative change. No pneumothorax. Coarsened interstitium. No con solidated pneumonia or pleural effusion. No interstitial edema. IMPRESSION: 1. Cardiomegaly correlate for chronic interstitial lung disease such as pulmonary fibrosis.
[2022-04-20 16:36] LABS: Glucose,Whole Blood 152 mg/dL (70-110)
[2022-04-20 17:42] LABS: Appearance,Urine Cloudy (Clear); Bacteria,Urine Rare /hpf; Bilirubin,Urine Negative (Negative); Blood,Urine Trace (Negative); Color,Urine Yellow; Glucose,Urine (UA) Negative (Negative); Hyaline Casts,Urine 1 /lpf (0-2); Ketones,Urine 1+ (Negative); Leukocyte Esterase,Urine Negative (Negative); Mucus,Urine Rare /hpf; Nitrite,Urine Negative (Negative); PH, Urine 5.5 (5.0-8.0); Protein,Urine 1+ (Negative); RBC,Urine 3 /hpf (0-5); Specific Gravity,Urine 1.022 (1.001-1.035); Squamous Epithelial Cell,Urine 1 /hpf (0-4); Urobilinogen,Urine <2.0 mg/dL (<2.0); WBC,Urine 2 /hpf (0-5)
[2022-04-20 20:15] LABS: Glucose,Whole Blood 151 mg/dL (70-110)
[2022-04-20] MEDS: 0.9% NACL WITH KCL 20 MEQ/L 1,000 ML IV SCH (21:19)
[2022-04-20] MEDS: SERTRALINE 100 MG TAB PO SCH (23:06)
[2022-04-20] MEDS: lisinopriL 10 MG TAB PO SCH (23:06)
[2022-04-20] MEDS: ATORVASTATIN 40 MG TAB PO SCH (23:07)
[2022-04-20] MEDS: PANTOPRAZOLE 40 MG TABLET PO SCH (23:07)
[2022-04-20] MEDS: LEVOTHYROXINE 75 MCG TAB PO SCH (23:07)
[2022-04-21] MEDS: HYDROcodone/APAP 5-325MG 1 EACH TAB PO PRN (02:50)
[2022-04-21] MEDS: 0.9% NACL WITH KCL 20 MEQ/L 1,000 ML IV SCH (04:46)
[2022-04-21 05:49] LABS: Glucose,Whole Blood 153 mg/dL (70-110)
[2022-04-21] MEDS: INSULIN ASPART (NovoLOG) 100 UNIT/ML VIAL SQ SCH ×2 (06:28→11:54)
[2022-04-21 08:37] VITALS: BP 139/86; PULSE 95; RESP 16; TEMP 97.7
[2022-04-21] MEDS: carBAMazepine 100 MG TAB.ER.12H PO SCH (08:52)
[2022-04-21] MEDS: GABAPENTIN 300 MG CAP PO SCH (08:52)
[2022-04-21] MEDS: FLUTICASONE 50MCG/SPRAY NASAL 16GM EA NOSTRIL SCH (08:52)
[2022-04-21] MEDS: clonazePAM 1 MG TAB PO SCH (08:52)
--- NOTE | 2022-04-21 10:10 | P.PN ---
Subjective Progress Note Date: 04/21/22 Principal diagnosis: 1.L4-L5 spondylolisthesis Grade 1 2. L5-S1 grade 1 spondylolisthesis 3. L4-S1 central stenosis 4.Neurogenic claudication 5. Bilateral lower extremity weakness 6. Bilateral lower extremity radiculopathy Patient seen and examined at bedside. Patient states she is unable to move herself in bed. She states she is unable to ambulate with assistance. Trial void with catheter removal performed yesterday, it was replaced due to urinary retention. During assessment patient had full range of motion of bilateral upper and lower extremities. Surgical dressing is clean dry and intact, changed 04/20/2022. Patient seems slightly confused about her situation, she states he does not remember the Batres catheter be removed and reinserted yesterday. Patient is agreeable to go to subacute rehab at discharge. Encouragement provided for patient to work with physical therapy and to get up into the chair today. Prescription sent for LSO brace to be provided, awaiting delivery. Patient denies fevers/chills, nausea/vomiting, or chest pain. Objective - Vital Signs Vital signs: Vital Signs Temp 97.7 F 04/21/22 08:34 Pulse 95 04/21/22 08:34 Resp 16 04/21/22 08:34 BP 139/86 04/21/22 08:34 Pulse Ox 96 04/21/22 08:34 FiO2 Intake & Output 04/20/22 04/21/22 04/21/22 18:59 06:59 18:59 Output Total 350 800 Balance -350 -800 Output: Urine 350 800 Uretheral (Batres) 300 Other: Voiding Method Indwelling Catheter Indwelling Catheter Indwelling Catheter # Bowel Movements 1 - Exam Physical Examination General: The patient is awake and alert, in no acute distress Skin: Skin is warm and dry with no obvious rashes or lesions. Hairy patches absent, no dorsal skin dimples, no cafe au lait spots, surgical incision to the lumbar region, dressing clean dry and intact. Eye: Pupils are equal, round and reactive to light, extra-ocular movements are intact; there is normal conjunctiva bilaterally. Neck: The neck is supple, there is no tenderness and ROM intact. Cardiovascular: There is a regular rate and rhythm. No murmur, rub or gallop is appreciated. Respiratory: Lungs are clear to auscultation, respirations are non-labored, breath sounds are equal. Gastrointestinal: Soft, non-distended, non-tender abdomen . Back: There is no tenderness to palpation in the midline, paralumbar, parathoracic or buttocks region. There is no obvious deformity . Musculoskeletal: ROM limited secondary to pain and stiffness from surgical procedure. Muscle strength 5/5 bilateral upper extremities, 4-/5 bilateral lower extremities. Neurological: CN 2-12 intact. There are no obvious motor or sensory deficits. Movement and coordination equal and intact. Sensory exam to light touch intact C5-T1 and intact from L2-S1. Reflexes 2/4 in bilateral upper and lower extremities. Negative Hoffmans, babinski, and clonus signs. Psychiatric: Cooperative, appropriate mood & affect, normal judgment. - Labs CBC & Chem 7: 04/20/22 07:20 04/20/22 07:20 Labs: Abnormal Lab Results - Last 24 Hours (Table) 04/20/22 04/20/22 04/20/22 Range/Units 07:20 07:20 11:09 WBC 16.47 H (4.50-10.00) X 10*3/uL RBC 3.84 L (4.10-5.20) X 10*6/uL Hgb 10.2 L (12.0-15.0) g/dL Hct 33.0 L (37.2-46.3) % MCH 26.6 L (27.0-32.0) pg MCHC 30.9 L (32.0-37.0) g/dL RDW 15.6 H (11.5-14.5) % Est GFR (CKD-EPI)AfAm 54.5 L (60.0-200.0) Est GFR (CKD-EPI)NonAf 47.1 L (60.0-200.0) Glucose 140 H (70-110) mg/dL POC Glucose (mg/dL) 148 H (70-110) mg/dL AST 52 H (13-35) U/L Total Protein 6.1 L (6.2-8.2) g/dL Urine Appearance (Clear) Urine Protein (Negative) Urine Ketones (Negative) Urine Blood (Negative) Urine Bacteria (None) /hpf Urine Mucus (None) /hpf 04/20/22 04/20/22 04/20/22 Range/Units 16:35 17:30 20:05 WBC (4.50-10.00) X 10*3/uL RBC (4.10-5.20) X 10*6/uL Hgb (12.0-15.0) g/dL Hct (37.2-46.3) % MCH (27.0-32.0) pg MCHC (32.0-37.0) g/dL RDW (11.5-14.5) % Est GFR (CKD-EPI)AfAm (60.0-200.0) Est GFR (CKD-EPI)NonAf (60.0-200.0) Glucose (70-110) mg/dL POC Glucose (mg/dL) 152 H 151 H (70-110) mg/dL AST (13-35) U/L Total Protein (6.2-8.2) g/dL Urine Appearance Cloudy H (Clear) Urine Protein 1+ H (Negative) Urine Ketones 1+ H (Negative) Urine Blood Trace H (Negative) Urine Bacteria Rare H (None) /hpf Urine Mucus Rare H (None) /hpf 04/21/22 Range/Units 05:36 WBC (4.50-10.00) X 10*3/uL RBC (4.10-5.20) X 10*6/uL Hgb (12.0-15.0) g/dL Hct (37.2-46.3) % MCH (27.0-32.0) pg MCHC (32.0-37.0) g/dL RDW (11.5-14.5) % Est GFR (CKD-EPI)AfAm (60.0-200.0) Est GFR (CKD-EPI)NonAf (60.0-200.0) Glucose (70-110) mg/dL POC Glucose (mg/dL) 153 H (70-110) mg/dL AST (13-35) U/L Total Protein (6.2-8.2) g/dL Urine Appearance (Clear) Urine Protein (Negative) Urine Ketones (Negative) Urine Blood (Negative) Urine Bacteria (None) /hpf Urine Mucus (None) /hpf Assessment and Plan Assessment: - Postoperative day 3 status post L4-S1 MIS decompression fusion 1.L4-L5 spondylolisthesis Grade 1 2. L5-S1 grade 1 spondylolisthesis 3. L4-S1 central stenosis 4.Neurogenic claudication 5. Bilateral lower extremity weakness 6. Bilateral lower extremity radiculopathy Plan: -Appreciate hematology oncology consultant and team management. -Activity: Ambulate QID, OOB all meals, up and about, limit lifting bending twisting to less than 5 lbs. Use walker or cane if needed for stability. -Daily PT/OT, increase ambulation strength and balance. -Brace when up and about, not needed in bed or chair -Pain control: Adequate at this time -Meds: reviewed -GI ppx: senna, Miralax -DC batres when up and about, bedside commode if needed -DVT PPX: Heparin -Hygiene: Shower today. Maintain dressing clean and dry. Meticulous cleaning after BMs away from the incision site -Encourage IS 10x/hr -Dispo: Anticipate discharge [facility]DR[facility] later today or tomorrow *I reviewed and discussed this case with my attending Dr. Edmond, whom has reviewed this chart and films and is in agreement with assessment and plan of care as outlined above. I have personally seen and examined the patient, performed the documentation and the assessment and plan as written. Number of minutes spent on the visit: 20m.
[2022-04-21 11:12] LABS: Albumin 3.4 g/dL (3.8-4.9); Albumin/Globulin Ratio 1.7 (1.60-3.17); Anion Gap 9.9 mmol/L (10.00-18.00); BUN/Creat Ratio 21.3 Ratio (12.00-20.00); Blood Urea Nitrogen 21.3 mg/dL (9.0-27.0); Calcium 8.5 mg/dL (8.7-10.3); Carbon Dioxide 19.1 mmol/L (20.0-27.5); Non-African American GFR(CKD) 58.7 (60.0-200.0); Potassium 4.2 mmol/L (3.5-5.5); Total Bilirubin 0.2 mg/dL (0.30-1.20); Total Protein 5.4 g/dL (6.2-8.2)
[2022-04-21 11:14] LABS: HCT 28.9 % (37.2-46.3); HGB 9.2 g/dL (12.0-15.0); MCH 27.1 pg (27.0-32.0); MCHC 31.8 g/dL (32.0-37.0); MCV 85.3 fL (80.0-97.0); Mean Platelet Volume 9.8 fL (9.5-12.2); NRBC Per 100 WBC 0 /100 WBCS (0.0-0.0); Platelet Count 259 X 10*3/uL (140-440); RBC 3.39 X 10*6/uL (4.10-5.20); RDW 15.7 % (11.5-14.5); WBC 14.49 X 10*3/uL (4.50-10.00)
[2022-04-21 11:24] LABS: Glucose,Whole Blood 160 mg/dL (70-110)
--- NOTE | 2022-04-21 11:35 | P.DS ---
Providers Date of admission: 04/20/22 08:12 Expected date of discharge: 04/21/22 Attending physician: Lance Edmond DO Consults: 04/18/22 11:44 Consult Physician Routine Consulting Provider: Cindy Gutierrez Consult Reason/Comments: medical management Do you want consulting provider notified?: Yes Primary care physician: Tex Clement Hospital Course: Date of admission: 04/18/2022 Date of discharge: 04/21/2022 Admission diagnosis: L4-L5 spondylolisthesis Grade 1; L5-S1 grade 1 spondylolisthesis; L4 to S1 Central stenosis; Neurogenic claudication; Bilateral lower extremity weakness; Bilateral lower extremity radiculopathy Discharge diagnosis: same Attending physician: Dr. Edmond Surgical procedures: L4-S1 MIS decompression fusion Brief history: Patient is a 67-year-old female with a history of L4 to L5 spondylolisthesis grade 1; L5-S1 grade 1 spinal listhesis; L4-S1 Central stenosis; neurogenic claudication; bilateral lower extremity weakness; bilateral lower extremity radiculopathy. At this point patient has failed conservative treatment measures and has opted to proceed with a elective L4-S1 MIS decompression fusion. Hospital course: Details of patient's surgery can be found in operative report. Patient tolerated the procedure well and was subsequently transported to orthopedic floor. Patient's orthopeidc and medical care was provided daily. Patient had daily laboratory tests performed for evaluation of overall blood counts. Patient had daily physical therapy to include strengthening range of motion as well as education with walker ambulation. Patient was noted to have a relatively uneventful postoperative course. Patient reported satisfactory pain control with oral pain medications by postoperative day 3. Patient showed satisfactory progress with physical therapy. Patient moved steadily through the program and had no difficulty meeting the goals by postoperative day 3. Given patient's otherwise satisfactory course and having met physical therapy goals, plan is to discharge patient to rehab on postoperative day 3. Discharge condition/disposition: Patient will be discharged to rehab in stable condition. Discharge medications: Instructions are given on resumption of patient's normal daily medications per primary care recommendation, in addition patient will be prescribed [place]idge; gabapentin; Flexeril; Duricef; senna. Spine Discharge and Recovery Instructions Date of Surgery: 04/18/2022 Diagnosis: L4-L5 spondylolisthesis Grade 1; L5-S1 grade 1 spondylolisthesis; L4 to S1 Central stenosis; Neurogenic claudication; Bilateral lower extremity weakness; Bilateral lower extremity radiculopathy Procedure: L4-S1 MIS decompression fusion Medications: See medication list All medication refills should be obtained through your primary care doctor or your clinic spine surgeon. Please discuss prescription refills at your follow up appointment. Do not call the hospital for medication refills. Dressing: Leave your dressing in place for a total of 5 days post operatively. Then you may remove your dressing and leave open to air. Keep the area clean and if not able to keep area clean, then cover with sterile gauze and tape. Showering: You may shower 3 days after your procedure allowing soap and water to run over incision. Do not scrub. Do not soak. Blot dry. Follow up: Please confirm a follow up appointment with your surgeon 3 weeks post operatively. Please make an appointment to follow up with your PCP in 1-2 weeks after surgery for evaluation 3 phase, 3-week plan POST OP WEEKS 1-3 1. Lifting/carrying/pushing/pulling limited to less than 5 pounds. 2. Do not sit for longer than 15 minutes at one time. Get up and walk around. Prolonged sitting is NOT advised. If you lay down, see if you can tolerate laying down on you front (belly side) 3. Walk for periods of 15 minutes = 1 mile but no longer; do it multiple times times each day. 4. Ice your low back after activity. POST OP WEEKS 3-6 1. Lifting limited to less than 20 pounds. 2. Do not sit for longer than 30 minutes at a time. Frequently change positions. Use a sit-to stand workstation or take frequent breaks from sitting if you have returned to work. 3. Walk for 30 minutes each day. If possible, do these three or more times a day POST OP WEEKS 6+ At your 6-week appointment we will give you a physical therapy referral to focus on a core stabilization and strengthening program. You should also work on leg & buttock strengthening, hamstring & quadriceps stretching, and continue a low impact aerobic activity program such as swimming, walking, or riding a stationary bicycle. During the initial 6 weeks after your surgery, you are at the highest risk of re-injuring your spine. You should generally avoid BLTs (bending, lifting and twisting combination motions) and follow the above guidelines to reduce the chance of reinjury. You can anticipate post op appointments in our office at approximately 3 weeks and 6 weeks after your surgery. INCISION CARE: If your incision is not draining you do NOT need to cover it with a dressing. Keep your incision clean, dry and intact. In most cases, we apply skin glue, mil or sutures to the incision at the time of surgery. This will be like a crust or have the appearance of a scab and will fall off in time on its own. The stitches or mil need to be removed at 3 weeks post op appointment. You may begin to shower 3 days after surgery (this allows the glue to connell well). However, please avoid scrubbing the incision site or peeling off any of the skin glue. This will ensure optimal healing of your incision. Also, during this time avoid soaking the incision area in water - this includes swimming pools, hot tubs or baths. No ointments, lotions or oils on the incision until your surgeon allows. Leave mil, sutures or glue in place. Neurological dysfunction that comes on suddenly can also be a sign of a stroke. Below some common symptoms of a stroke are listed: B - balance difficulty such as sudden onset walking or leaning to one side - NEW E - eye problem such as sudden double vision or trouble seeing on one side - NEW F - Facial weakness or numbness on one side - NEW A - Arm or leg weakness or numbness on one side - NEW S - Slurred speech or difficulty with word finding - NEW T - Time is BRAIN! Call 911 as soon as you recognize these symptoms Diet: Consume a regular diet rich in vegetables and lean protein such as chicken or fish. You should consume in a ratio of approximately 20% fats|40% carbohydrates|40%protein. Vegetables, sweet potatoes, brown rice or quinoa are examples of good carbohydrates. Chips, white bread, cookies and sweets/sugar are examples of bad carbohydrates. Limit your bad carbs, go wild with good carbs. "Life's Simple 7" Guidelines as per [place] [employer] These will help you reclaim your life after surgery and carpet or rug layer helper in your recovery, keeping in mind your restrictions. (1) Get Active. Physical activity can help people lose weight, control high blood pressure and cholesterol, feel emotionally better, and sleep better. (2) Control Cholesterol. Avoid a diet high in saturated fat, trans fat, & cholesterol. Limit whole milk & cream, ice cream, butter, egg yolks, processed meats (like sausage and hot dogs), and fatty meats. Choose healthy foods that are low in saturated fat, trans fat and cholesterol which include: Fruits and vegetables, fiber rich grain products (like whole grain pasta and brown rice), lean meat such as chicken, fish, nuts, seeds, and legumes. (3) Eat Better. Eat small portions. Shop at the grocery with a list and do not stray from it. Tips for a healthy diet include: Limit sodium intake to less than 1500mg daily, avoid prepackaged, processed, and fast foods, choose a diet rich in fruits, vegetables, and whole grain, high fiber foods, and limit saturated & cholesterol in your diet. (4) Manage Blood Pressure. If you have high blood pressure, you should have a cuff at home so that you can check your blood pressure regularly. Be sure you have a good cuff. An arm one is generally better than a wrist one. Bring the cuff to a doctor's appointment to validate that the measurements that your cuff are taking are accurate. Take your blood pressure twice daily when you are sitting down and relaxing. Record the numbers in a log and bring this log with you to your doctors' appointments. (5) Lose Weight if your BMI is above 25. A healthy BMI is between 19-25. To c alculate Your BMI, you may use a Standard BMI Calculator on the NIH BMI website: <www.nhlbi.nih.gov/guidelines/obesity/BMI/bmicalc.htm>. Weigh oneself daily. If you are overweight, set a goal to lose weight. A pound a week loss if needed is a good target. (6) Reduce Blood Sugar. Limit foods and liquids with "added sugars." (Added sugars include sucrose, fructose, glucose, maltose, dextrose, high fructose corn syrup, corn syrup, concentrated fruit juice and honey). (7) Stop Smoking. If you smoke, quitting smoking is one of the best things that you can do for your health. Smoking increases your risk of heart attack, stroke, and peripheral vascular disease, which is a build-up of plaque in your arteries. Please discard all the cigarettes and lighters in your house. Have a plan for what you will do when you have the urge to smoke. Direct and second- hand smoke shortens your life as well as the lives of your family, friends and others around you. For your health and the health of those around you, please consider quitting! Proper Bending Body Mechanics: Maintain a wide stance with one foot slightly in front of the other. Keep your back straight. Bend utilizing the strength in your hips and knees. Do not bend at the waist. Maintain the lifted object at your waist-level close to your body. Avoid lifting weight that causes immediately pain or pain anywhere in the body afterwards. Smoking/Nicotine If there was ever one thing that you could do to increase your overall health, decrease your risk of cardiovascular problems by about 39% the second you make the choice, it is to STOP SMOKING. Your body's most instant gratification is the second you stop smoking. We have all heard the studies, read the articles but it is true, smoking is extremely bad for your overall health, and moreover it is detrimental to your bone health. Nicotine, IN ANY FORM, kills bone cells, prevents your body from healing fractures, and significantly prolongs healing after surgery. In spine surgery specifically, it increases your risk of not healing your bones to create a fusion and increases your risk of having a revision surgery due to this up to 60%. I know it is hard. I know it feels impossible. But there are ways. Take control of your life. We are here to help you through it. And when you are ready, ask us and we can direct you to help if you desire. Use the START Plan to Quit Smoking (please visit the [employer].org website listed below for more information): S = Set a quit date. Choose a date within the next 2 weeks, so you have enough time to prepare without losing your motivation to quit. If you mainly smoke at work, quit on the weekend, so you have a few days to adjust to the change. T = Tell family, friends, and co-workers that you plan to quit. Let your friends and family in on your plan to quit smoking and tell them you need their support and encouragement to stop. Look for a quit lux who wants to stop smoking as well. You can help each other get through the rough times. A = Anticipate and plan for the challenges you'll face while quitting. Most people who begin smoking again do so within the first 3 months. You can help yourself make it through by preparing ahead for common challenges, such as nicotine withdrawal and cigarette cravings. R = Remove cigarettes and other tobacco products from your home, car, and work. Throw away all your cigarettes (no emergency pack!), lighters, ashtrays, and matches. Wash your clothes and freshen up anything that smells like smoke. Shampoo your car, clean your drapes and carpet, and steam your furniture. T = Talk to your doctor about getting help to quit. Your doctor can prescribe medication to help with withdrawal and suggest other alternatives. If you can't see a doctor, you can get many products over the counter at your local pharmacy or grocery store, including the nicotine patch, nicotine lozenges, and nicotine gum. Resources for Quitting Smoking: <https://www.[place].gov/documents/[facility]/Quit_Tobacco_Resources_for_patients_313 480_7.pdf> Supplementation: Take recommended dosages of Vitamin D and Calcium to help fortify your bones and help them to heal. See your health maintenance packet for dosages and recommended levels. DVT/VTE prophylaxis: You will be given compression stockings from the hospital. Wear these daily for the first two weeks after surgery. You may take them off at night. You may be prescribed a medication to help thin your blood. Take this as directed. If you are not prescribed this medication, early and frequent ambulation has been shown to be the best prophylaxis to deep vein thrombosis and sequelae related to this event. Assessment: L4-L5 spondylolisthesis Grade 1; L5-S1 grade 1 spondylolisthesis; L4 to S1 Central stenosis; Neurogenic claudication; Bilateral lower extremity weakness; Bilateral lower extremity radiculopathy Procedures: L4-S1 MIS decompression fusion Patient Condition at Discharge: Good Plan - Discharge Summary Discharge Rx Participant: Yes New Discharge Prescriptions: New Gabapentin 300 mg PO BID #21 cap cefaDROXiL [Duricef] 500 mg PO Q12HR 7 Days #14 cap Cyclobenzaprine [Flexeril] 10 mg PO HS #20 tab HYDROcodone/APAP 5-325MG [Coolidge 5-325] 1 tab PO Q6HR PRN #24 tab PRN Reason: Pain Sennosides/Docusate Sodium [Senna Plus 8.6-50 mg Tablet] 1 each PO DAILY #20 tab No Action Atorvastatin [Lipitor] 40 mg PO HS #30 tab Omeprazole 40 mg PO HS lisinopriL [Zestril] 10 mg PO HS Albuterol Inhaler [Ventolin Hfa Inhaler] 1 - 2 puff INHALATION RT-Q6H PRN PRN Reason: Shortness Of Breath clonazePAM [KlonoPIN] 1 mg PO BID Levothyroxine Sodium [Synthroid] 75 mcg PO HS Pioglitazone [Actos] 45 mg PO HS Gabapentin [Neurontin] 300 mg PO BID Semaglutide [Ozempic] 0.5 mg SQ TH Fluticasone Nasal [place] [Flonase Nasal [place]] 1 spr EA NOSTRIL DAILY Sertraline [Zoloft] 100 mg PO HS metFORMIN HCL ER [Glucophage XR] 1,000 mg PO BID diphenhydrAMINE [Benadryl] 25 mg PO DIRECTED PRN PRN Reason: Allergy Symptoms Naproxen Sodium [Aleve] 440 mg PO BID PRN PRN Reason: Pain carBAMazepine [carBAMazepine ER] 100 mg PO BID Discharge Medication List Atorvastatin [Lipitor] 40 mg PO HS #30 tab 09/11/16 [Rx] Albuterol Inhaler [Ventolin Hfa Inhaler] 1 - 2 puff INHALATION RT-Q6H PRN 08/29/18 [History] Levothyroxine Sodium [Synthroid] 75 mcg PO HS 08/29/18 [History] Omeprazole 40 mg PO HS 08/29/18 [History] clonazePAM [KlonoPIN] 1 mg PO BID 08/29/18 [History] lisinopriL [Zestril] 10 mg PO HS 08/29/18 [History] Fluticasone Nasal [place] [Flonase Nasal [place]] 1 spr EA NOSTRIL DAILY 12/29/21 [History] Gabapentin [Neurontin] 300 mg PO BID 12/29/21 [History] Pioglitazone [Actos] 45 mg PO HS 12/29/21 [History] Sertraline [Zoloft] 100 mg PO HS 12/29/21 [History] metFORMIN HCL ER [Glucophage XR] 1,000 mg PO BID 12/29/21 [History] Naproxen Sodium [Aleve] 440 mg PO BID PRN 04/13/22 [History] Semaglutide [Ozempic] 0.5 mg SQ TH 04/13/22 [History] carBAMazepine [carBAMazepine ER] 100 mg PO BID 04/13/22 [History] diphenhydrAMINE [Benadryl] 25 mg PO DIRECTED PRN 04/13/22 [History] Cyclobenzaprine [Flexeril] 10 mg PO HS #20 tab 04/21/22 [Rx] Gabapentin 300 mg PO BID #21 cap 04/21/22 [Rx] HYDROcodone/APAP 5-325MG [Coolidge 5-325] 1 tab PO Q6HR PRN #24 tab 04/21/22 [Rx] Sennosides/Docusate Sodium [Senna Plus 8.6-50 mg Tablet] 1 each PO DAILY #20 tab 04/21/22 [Rx] cefaDROXiL [Duricef] 500 mg PO Q12HR 7 Days #14 cap 04/21/22 [Rx] Follow up Appointment(s)/Referral(s): Home Health,[facility] [NON-STAFF] - As Needed Lance Edmond DO [Doctor of Osteopathic Medicine] - 2 Weeks [facility] [NON-STAFF] - As Needed (LSO back brace has been ordered through [facility] who will call and notify you once Medicare has authorized.) Activity/Diet/Wound Care/Special Instructions: Spine Discharge and Recovery Instructions Date of Surgery: 04/18/2022 Diagnosis: L4-L5 spondylolisthesis Grade 1; L5-S1 grade 1 spondylolisthesis; L4 to S1 Central stenosis; Neurogenic claudication; Bilateral lower extremity weakness; Bilateral lower extremity radiculopathy Procedure: L4-S1 MIS decompression fusion Medications: See medication list All medication refills should be obtained through your primary care doctor or your clinic spine surgeon. Please discuss prescription refills at your follow up appointment. Do not call the hospital for medication refills. Dressing: Leave your dressing in place for a total of 5 days post operatively. Then you may remove your dressing and leave open to air. Keep the area clean and if not able to keep area clean, then cover with sterile gauze and tape. Showering: You may shower 3 days after your procedure allowing soap and water to run over incision. Do not scrub. Do not soak. Blot dry. Follow up: Please confirm a follow up appointment with your surgeon 3 weeks post operatively. Please make an appointment to follow up with your PCP in 1-2 weeks after surgery for evaluation 3 phase, 3-week plan POST OP WEEKS 1-3 1. Lifting/carrying/pushing/pulling limited to less than 5 pounds. 2. Do not sit for longer than 15 minutes at one time. Get up and walk around. Prolonged sitting is NOT advised. If you lay down, see if you can tolerate laying down on you front (belly side) 3. Walk for periods of 15 minutes = 1 mile but no longer; do it multiple times times each day. 4. Ice your low back after activity. POST OP WEEKS 3-6 1. Lifting limited to less than 20 pounds. 2. Do not sit for longer than 30 minutes at a time. Frequently change positions. Use a sit-to stand workstation or take frequent breaks from sitting if you have returned to work. 3. Walk for 30 minutes each day. If possible, do these three or more times a day POST OP WEEKS 6+ At your 6-week appointment we will give you a physical therapy referral to focus on a core stabilization and strengthening program. You should also work on leg & buttock strengthening, hamstring & quadriceps stretching, and continue a low impact aerobic activity program such as swimming, walking, or riding a stationary bicycle. During the initial 6 weeks after your surgery, you are at the highest risk of re-injuring your spine. You should generally avoid BLTs (bending, lifting and twisting combination motions) and follow the above guidelines to reduce the chance of reinjury. You can anticipate post op appointments in our office at approximately 3 weeks and 6 weeks after your surgery. INCISION CARE: If your incision is not draining you do NOT need to cover it with a dressing. Keep your incision clean, dry and intact. In most cases, we apply skin glue, mil or sutures to the incision at the time of surgery. This will be like a crust or have the appearance of a scab and will fall off in time on its own. The stitches or mil need to be removed at 3 weeks post op appointment. You may begin to shower 3 days after surgery (this allows the glue to connell well). However, please avoid scrubbing the incision site or peeling off any of the skin glue. This will ensure optimal healing of your incision. Also, during this time avoid soaking the incision area in water - this includes swimming pools, hot tubs or baths. No ointments, lotions or o ils on the incision until your surgeon allows. Leave mil, sutures or glue in place. Neurological dysfunction that comes on suddenly can also be a sign of a stroke. Below some common symptoms of a stroke are listed: B - balance difficulty such as sudden onset walking or leaning to one side - NEW E - eye problem such as sudden double vision or trouble seeing on one side - NEW F - Facial weakness or numbness on one side - NEW A - Arm or leg weakness or numbness on one side - NEW S - Slurred speech or difficulty with word finding - NEW T - Time is BRAIN! Call 911 as soon as you recognize these symptoms Diet: Consume a regular diet rich in vegetables and lean protein such as chicken or fish. You should consume in a ratio of approximately 20% fats|40% carbohydrates|40%protein. Vegetables, sweet potatoes, brown rice or quinoa are examples of good carbohydrates. Chips, white bread, cookies and sweets/sugar are examples of bad carbohydrates. Limit your bad carbs, go wild with good carbs. "Life's Simple 7" Guidelines as per [place] [employer] These will help you reclaim your life after surgery and carpet or rug layer helper in your recovery, keeping in mind your restrictions. (1) Get Active. Physical activity can help people lose weight, control high blood pressure and cholesterol, feel emotionally better, and sleep better. (2) Control Cholesterol. Avoid a diet high in saturated fat, trans fat, & cholesterol. Limit whole milk & cream, ice cream, butter, egg yolks, processed meats (like sausage and hot dogs), and fatty meats. Choose healthy foods that are low in saturated fat, trans fat and cholesterol which include: Fruits and vegetables, fiber rich grain products (like whole grain pasta and brown rice), lean meat such as chicken, fish, nuts, seeds, and legumes. (3) Eat Better. Eat small portions. Shop at the grocery with a list and do not stray from it. Tips for a healthy diet include: Limit sodium intake to less than 1500mg daily, avoid prepackaged, processed, and fast foods, choose a diet rich in fruits, vegetables, and whole grain, high fiber foods, and limit saturated & cholesterol in your diet. (4) Manage Blood Pressure. If you have high blood pressure, you should have a cuff at home so that you can check your blood pressure regularly. Be sure you have a good cuff. An arm one is generally better than a wrist one. Bring the cuff to a doctor's appointment to validate that the measurements that your cuff are taking are accurate. Take your blood pressure twice daily when you are sitting down and relaxing. Record the numbers in a log and bring this log with you to your doctors' appointments. (5) Lose Weight if your BMI is above 25. A healthy BMI is between 19-25. To calculate Your BMI, you may use a Standard BMI Calculator on the NIH BMI website: <www.nhlbi.nih.gov/guidelines/obesity/BMI/bmicalc.htm>. Weigh oneself daily. If you are overweight, set a goal to lose weight. A pound a week loss if needed is a good target. (6) Reduce Blood Sugar. Limit foods and liquids with "added sugars." (Added sugars include sucrose, fructose, glucose, maltose, dextrose, high fructose corn syrup, corn syrup, concentrated fruit juice and honey). (7) Stop Smoking. If you smoke, quitting smoking is one of the best things that you can do for your health. Smoking increases your risk of heart attack, stroke, and peripheral vascular disease, which is a build-up of plaque in your arteries. Please discard all the cigarettes and lighters in your house. Have a plan for what you will do when you have the urge to smoke. Direct and second- hand smoke shortens your life as well as the lives of your family, friends and others around you. For your health and the health of those around you, please consider quitting! Proper Bending Body Mechanics: Maintain a wide stance with one foot slightly in front of the other. Keep your back straight. Bend utilizing the strength in your hips and knees. Do not bend at the waist. Maintain the lifted object at your waist-level close to your body. Avoid lifting weight that causes immediately pain or pain anywhere in the body afterwards. Smoking/Nicotine If there was ever one thing that you could do to increase your overall health, decrease your risk of cardiovascular problems by about 39% the second you make the choice, it is to STOP SMOKING. Your body's most instant gratification is the second you stop smoking. We have all heard the studies, read the articles but it is true, smoking is extremely bad for your overall health, and moreover it is detrimental to your bone health. Nicotine, IN ANY FORM, kills bone cells, prevents your body from healing fractures, and significantly prolongs healing after surgery. In spine surgery specifically, it increases your risk of not healing your bones to create a fusion and increases your risk of having a revision surgery due to this up to 60%. I know it is hard. I know it feels impossible. But there are ways. Take control of your life. We are here to help you through it. And when you are ready, ask us and we can direct you to help if you desire. Use the START Plan to Quit Smoking (please visit the [employer] website listed below for more information): S = Set a quit date. Choose a date within the next 2 weeks, so you have enough time to prepare without losing your motivation to quit. If you mainly smoke at work, quit on the weekend, so you have a few days to adjust to the change. T = Tell family, friends, and co-workers that you plan to quit. Let your friends and family in on your plan to quit smoking and tell them you need their support and encouragement to stop. Look for a quit lux who wants to stop smoking as well. You can help each other get through the rough times. A = Anticipate and plan for the challenges you'll face while quitting. Most people who begin smoking again do so within the first 3 months. You can help yourself make it through by preparing ahead for common challenges, such as nicotine withdrawal and cigarette cravings. R = Remove cigarettes and other tobacco products from your home, car, and work. Throw away all your cigarettes (no emergency pack!), lighters, ashtrays, and matches. Wash your clothes and freshen up anything that smells like smoke. Shampoo your car, clean your drapes and carpet, and steam your furniture. T = Talk to your doctor about getting help to quit. Your doctor can prescribe medication to help with withdrawal and suggest other alternatives. If you can't see a doctor, you can get many products over the counter at your local pharmacy or grocery store, including the nicotine patch, nicotine lozenges, and nicotine gum. Resources for Quitting Smoking: <https://www.[place].gov/documents/[facility]/Quit_Tobacco_Resources_for_patients_313 480_7.pdf> Supplementation: Take recommended dosages of Vitamin D and Calcium to help fortify your bones and help them to heal. See your health maintenance packet for dosages and recommended levels. DVT/VTE prophylaxis: You will be given compression stockings from the hospital. Wear these daily for the first two weeks after surgery. You may take them off at night. You may be prescribed a medication to help thin your blood. Take this as directed. If you are not prescribed this medication, early and frequent ambulation has been shown to be the best prophylaxis to deep vein thrombosis and sequelae rel Discharge Disposition: TRANSFER TO SNF/ECF
--- NOTE | 2022-04-21 13:12 | P.PN ---
Subjective Progress Note Date: 04/21/22 Hospital course: Patient is a very pleasant 67-year-old female with a past medical history of atrial septal defect with repair, hypertension, hyperlipidemia, COPD, [id number] diabetes mellitus, hypothyroidism, GERD, sleep apnea denies home CPAP/BiPAP use, chronic lower back pain and osteoarthritis. Patient is currently admitted under orthospine surgical team status post elective L4 through S1 lumbar decompression and fusion completed by Dr. Edmond. We have been consulted for medical management throughout patient's hospitalization. Physical exam: Patient seen and fully evaluated at bedside this morning. Patient is much more awake and alert this morning. Had long conversation with patient regarding concerns of development of atelectasis which could lead to pneumonia if she does not start using incentive spirometer. Patient appeared to be more receptive of this education this morning and successfully demonstrated use of incentive spirometer 3 times during assessment. Patient did have short brown in which she spiked a very low-grade fever, chest x-ray was completed negative for acute cardiopulmonary process. Urinalysis also completed negative for infection. Repeat labs this morning showing improvement of leukocytosis. Vital signs stable and patient has been afebrile for greater than 24 hours. Medically patient stable at this time. Patient has had limited time out of bed and per nursing staff when she gets up patient is very adamant about getting back into bed, again had another long discussion with patient regarding need to be out of bed and advance ambulation as this will aid in her recovery process. Vital signs reviewed and stable. General: Nontoxic, no distress and appears stated age. Obese. Derm: Skin warm and dry, normal coloration for ethnicity. Head: Atraumatic, normocephalic and symmetric. Eyes: EOMs intact, no lid lag, and anicteric sclera Mouth: no lip lesions, mucus membranes moist Cardiovascular: regular rate and rhythm with normal S1S2, no murmur, positive posterior tibial pulses bilaterally, and cap refill < 2 seconds. Lungs: Respirations even, regular, and unlabored on room air. Lungs CTA bilatera lly, no rhonchi, no rales, no wheezing, and no accessory muscle usage. Abdominal: soft, nontender to palpation, no guarding, no appreciable organomegaly Morales catheter in place. Ext Movement and sensation intact. No gross muscle atrophy, no edema, no contractures. Neuro: Speech clear, face symmetrical and CN II-XII grossly intact with no noted focal neuro deficits Psych: Alert and oriented to person, place, time, and situation. Appropriate and pleasant affect. Assessment and Plan of Care: Status post L4 through S1 lumbar decompression and fusion -Management per primary admitting orthospine surgical team including pain management, wound/drain care, DVT prophylaxis, weightbearing/activity, and PT/OT. -DVT prophylaxis currently SCDs as recommended by orthospine surgery team. -Encourage incentive spirometry use 10-15 times hourly while awake. Postoperative blood loss anemia, expected finding -Hemoglobin stable. Leukocytosis, improving. -Urinalysis negative. -Chest x-ray negative -No signs of infection. Diabetes mellitus with hyperglycemia -Hold Glucophage, Actos and Ozmepic and start patient on glycemic protocol with NovoLog sliding scale to maintain tight glycemic control throughout hospitalization. Hypertension -Monitor vital signs and continue daily medication regimen with lisinopril. Hypothyroidism -Continue daily medication regimen with levothyroxine. Hyperlipidemia -Continue daily medication regimen with atorvastatin. -Continue a heart healthy diet. COPD -Not in acute exacerbation. Continue albuterol inhaler every 6 hours as needed for shortness of breath and/or wheezing. -Encourage use of incentive spirometry 10-15 times hourly while awake. Thank you for allowing us to participate in the care of this pleasant patient. Do not hesitate to contact us with questions. Someone can be reached from the [facility] hospitalist group all hours of the day at [phone] or via [employer]. I reviewed the documentation as provided by the RAFFI above, who is the original author of this note. I agree with the documented assessment and plan, with the following changes: none Objective - Vital Signs Vital signs: Vital Signs Temp 97.7 F 04/21/22 08:34 Pulse 95 04/21/22 08:34 Resp 16 04/21/22 08:34 BP 139/86 04/21/22 08:34 Pulse Ox 96 04/21/22 08:34 FiO2 Intake & Output 04/20/22 04/21/22 04/21/22 18:59 06:59 18:59 Output Total 350 800 Balance -350 -800 Output: Urine 350 800 Uretheral (Morales) 300 Other: Voiding Method Indwelling Catheter Indwelling Catheter Indwelling Catheter # Bowel Movements 1 - Labs CBC & Chem 7: 04/21/22 06:50 04/21/22 06:50 Labs: Abnormal Lab Results - Last 24 Hours (Table) 04/20/22 04/20/22 04/20/22 Range/Units 07:20 07:20 11:09 WBC 16.47 H (4.50-10.00) X 10*3/uL RBC 3.84 L (4.10-5.20) X 10*6/uL Hgb 10.2 L (12.0-15.0) g/dL Hct 33.0 L (37.2-46.3) % MCH 26.6 L (27.0-32.0) pg MCHC 30.9 L (32.0-37.0) g/dL RDW 15.6 H (11.5-14.5) % Est GFR (CKD-EPI)AfAm 54.5 L (60.0-200.0) Est GFR (CKD-EPI)NonAf 47.1 L (60.0-200.0) Glucose 140 H (70-110) mg/dL POC Glucose (mg/dL) 148 H (70-110) mg/dL AST 52 H (13-35) U/L Total Protein 6.1 L (6.2-8.2) g/dL Urine Appearance (Clear) Urine Protein (Negative) Urine Ketones (Negative) Urine Blood (Negative) Urine Bacteria (None) /hpf Urine Mucus (None) /hpf 04/20/22 04/20/22 04/20/22 Range/Units 16:35 17:30 20:05 WBC (4.50-10.00) X 10*3/uL RBC (4.10-5.20) X 10*6/uL Hgb (12.0-15.0) g/dL Hct (37.2-46.3) % MCH (27.0-32.0) pg MCHC (32.0-37.0) g/dL RDW (11.5-14.5) % Est GFR (CKD-EPI)AfAm (60.0-200.0) Est GFR (CKD-EPI)NonAf (60.0-200.0) Glucose (70-110) mg/dL POC Glucose (mg/dL) 152 H 151 H (70-110) mg/dL AST (13-35) U/L Total Protein (6.2-8.2) g/dL Urine Appearance Cloudy H (Clear) Urine Protein 1+ H (Negative) Urine Ketones 1+ H (Negative) Urine Blood Trace H (Negative) Urine Bacteria Rare H (None) /hpf Urine Mucus Rare H (None) /hpf 04/21/22 Range/Units 05:36 WBC (4.50-10.00) X 10*3/uL RBC (4.10-5.20) X 10*6/uL Hgb (12.0-15.0) g/dL Hct (37.2-46.3) % MCH (27.0-32.0) pg MCHC (32.0-37.0) g/dL RDW (11.5-14.5) % Est GFR (CKD-EPI)AfAm (60.0-200.0) Est GFR (CKD-EPI)NonAf (60.0-200.0) Glucose (70-110) mg/dL POC Glucose (mg/dL) 153 H (70-110) mg/dL AST (13-35) U/L Total Protein (6.2-8.2) g/dL Urine Appearance (Clear) Urine Protein (Negative) Urine Ketones (Negative) Urine Blood (Negative) Urine Bacteria (None) /hpf Urine Mucus (None) /hpf
--- NOTE | 2022-04-24 07:57 | P.OP ---
Date of Procedure: 04/18/22 Preoperative Diagnosis: 1. Grade I spondylolisthesis L4-5 2. Severe spondylosis L4-S1 3. LE radiculopathy 4. Mechanical low back pain Postoperative Diagnosis: 1. Grade I spondylolisthesis L4-5 2. Severe spondylosis L4-S1 3. LE radiculopathy 4. Mechanical low back pain Procedure(s) Performed: 1. Posterior L4-5 and L5-S1 combined posteriolateral and interbody fusion (65181, [id number]) 2. Insertion of biomechanical device L4 5 and L5-S1 ([id number]) 3. Segmental instrumentation L4-S1 (90492) 4. Posterior extradural laminectomy complete facetectomy and foraminotomies for decompression of neural elements L4 to S1 (45796, [id number]) Use of intraoperative neuro monitoring Implants: -Globus CT screw and anna system -Cage x2 -MagnatOs -iFactor -Autograft -Allograft Anesthesia: RAJESHA Surgeon: Lance Edmond Supervisor [employer]: Inder Simental Estimated Blood Loss (ml): 100 IV fluids (ml): 1,000 Urine output (ml): 275 Pathology: none sent Condition: stable Disposition: PACU Indications for Procedure: Ms. Mcleod is presenting for evaluation of low back pain. It was my pleasure to have seen and examined Ms. Mcleod. In our visit today we have had a chance to go over subjective complaints, physical examination findings and treatments including the natural course history without intervention and various interventional options. The patients nallely estes demonstrates: XRay taken on 07/04/21 of Lumbar Spine: This is reviewed and shows extensive spondylotic changes through the low back. There is Grade I spondylolisthesis of L4-5 noted with motion on F/E films. There is PI LL mismatch with flat LL. There are no fractures. There is facet arthropathy noted as well as disc height loss. AP pelvis shows congruent pelvis w/o fracture. MRI from 07/19/2021 of the lumbar spine demonstrates: this is reviewed and demonstrates a grade 1 degenerative spondylolisthesis at L4 5 and L5-S1. There is motion at these segments and they do reduce on the supine film. There is severe facet overgrowth with bogginess at L4 5 and L5-S1. There is ligamental hypertrophy. There is severe stenosis L4-L5 centrally as well as foraminally bilaterally. There is moderate to severe central stenosis at L5-S1 as well. It is no lesion noted there is disc desiccation and height loss. There is no other fracture or dislocation noted at this time. On physical exam, Ms. Mcleod demonstrates palpable stepoff between L2-L3 with severely restricted lumbar ROM. Patient also demonstrates bilateral lower extremity weakness evident of her stenosis and nerve compression along with left lower extremity L4-S1 dermatomal deficit. I have explained to the patient that as their condition progresses it will cause further neurological deficits and eventual paralysis. Based on the patients imaging, physical exam, and the rapid progression and disabling nature of their symptoms, at this time I recommend surgery in the form or a: L4-S1 minimally invasive lumbar decompression and fusion. I discussed the risk and benefits of this procedure at length with Ms. Mcleod. The patient agreed to considered pursuing the procedure abovementioned. Prior to surgery, she should follow up with her PCP (Cardio, ID, IM etc) for clearance. Questions were invited and answered, and the patient wishes to proceed as outlined below. Currently, I am recommendin.L4-S1 minimally invasive lumbar decompression and fusion Description of Procedure: The patient was seen and examined in the preoperative area. All preoperative protocols were followed. Informed consent was obtained risks and benefits of the procedure were discussed at length. Risks including bleeding infection damage to the surrounding tissue and risk of reoperation were discussed with the patient. Risk of anesthesia up to and including was a discussed with the patient. These are outlined in the risk review. They were willing to accept these risks and all of the risks of surgery. The patient was given a weight- based dose of antibiotics in the form of 2 g Ancef. The patient was seen and evaluated by the anesthesia team who deemed them fit for surgery. The site was marked, the patient was willing to proceed with the procedure. The patient was transferred to the operative suite by the Department of anesthesia. They were then drifted off to sleep by the department anesthesia and GETA was performed. The patient tolerated this well. [Morales catheter was placed by nursing staff, atraumatically]. Once confirmation of lines and ventilation the patient was transferred to a [prone Daniele table very carefully]. All bony prominences including wrists, elbows, axilla, chest, hips, and thighs, and feet were padded very well. Special attention was paid to the genitalia and these were padded accordingly. SCDs were placed on bilateral lower extremities and were connected. Arms were well padded and placed [on arm boards up and out in the 90/90 position]. Once in position, again we confirmed good ventilation capabilities and that lines were running appropriately. The patient's lumbar spine was then exposed. 1010s were placed outlining the incision site. Standard alcohol was used to clean the incision site and allowed to dry. C-arm was used to biomark the patient and confirm level for incision which was marked with a skin marker. Operative briefing was performed with all teams and everyone in agreement to proceed. The patient was then prepped and draped in a normal sterile fashion. Timeout was then performed and all parties were in agreement with the procedure to be performed. using biplanar fluoroscopy the pedicles at L4-L5 and S1 were targeted with the Jamshidi bilaterally once Isabel she was within the vertebral body a wire was placed in its void. Jamshidi was then removed. Screws then placed over wires on the right-hand side using lateral fluoroscopy. Once the screws of the affected body wire was pulled. AP confirmed good position of screws. We then targeted the interspace at L5-S1 on the left-hand side with the initial dilator which was targeted and in good position with dilated up to 26 mm tube which length was then selected and placed and secured to the table. We confirmed good position on AP and lateral fluoroscopy. Limit a myomectomy was then done to identify the facet joints and the lamina of L5 and S1. The inferior articular facet of L5 was removed completely using a high-speed bur as well as osteotome followed by the superior facet of S1 revealing Kambin's triangle. We then protected the neural elements and mobilize them. Osteotome was used to enter the disc space. We then performed sequential shaving as well as down-biting curet up-biting pituitary and pituitary to remove the disc entirely. We then scraped the endplates to ensure good bleeding bone. The cages then selected and impacted into place under lateral fluoroscopy while protecting neural elements. There is expanded into position and was stable. Prior to this bone graft and placed anteriorly which was comminution of allograft autograft and I factor. We then back filled the cage with DBM. Surgery was removed K was tested and was stable. Meticulous hemostasis was performed. We then completed laminectomy using high-speed bur and Kerrison rongeurs on the side. We then removed the retractor system under direct visualization and proceeded with targeting of the L4 5 interspace. This was done in a similar fashion as previously described. Once in position limit myomectomies performed anterior inferior articular facet of L4 was removed completely using high-speed bur and osteotome followed by superior to the facet of L5. This completed the decompression pedicle to pedicle was also removed lamina of L4 high-speed bur and Kerrison rongeurs for decompressive purposes. The ligamentum was removed revealing the dura and icing nerve root were these are protected and mobilized and then passed an osteotome followed by sequential alen into the L4 5 disc space and performed complete discectomy using alen down-biting curet and Kerrison rongeurs and pituitary. Once good bleeding endplates were encountered bone graft was placed anteriorly within the disc space comminution autograft allograft and I factor. Then selected cage impacted into position and expanded it. Once expanded the cage was stable back filled cage DBM. There is noted a small neck and the dura on the anterior surface this was packed with Gelfoam. We then performed Valsalva to 40 and there was no leak. We then irrigated the wound. The meticulous hemostasis performed and the retractors removed under direct visualization. Then proceeded with placement of screws and left-hand side similar to the right screws were placed and confirmed the position on AP. All screws were tested and tested above 20 mA. We then sized and selected rods bilaterally these were then placed subfascially and reduced in the position. We first reduce them and S1 followed by L5 and L4 sequentially to allow for correction of the listhesis. then a posterior lateral to the rods and screws was decortication of the transverse processes and negative cross as well as autograft placed in the posterior lateral gutters. Locked everything in place final tightened all set screws and removed. Final fluoroscopic images confirmed good placement of screws as well as reduction and decompression. Copiously irrigated the wound normal sterile saline and the fascia was closed with a #1 Vicryl subcu closed with 0 Vicryl subcu and superficial subcu closed with 2-0 Vicryl and skin closed with skin mil. The wound edges approximated very well. The patient was transferred back to their hospital bed atraumatically. Patient was then awakened and extubated by the department of anesthesia having tolerated the procedure very well with no complications. They were transferred to the postoperative care unit in stable condition.
== END 2022-04-21 16:37 ==
LOC: OR 05:36 → EDSTATUS 07:30 → 4SSUR 11:44 → OR 04-20 08:12 → 4SSUR 04-20 08:12
PROVIDERS: ADMIT Orthopaedic Surgery; ATTEND Orthopaedic Surgery
DX: M47.27 Other spondylosis with radiculopathy, lumbosacral region (principal); M43.16 Spondylolisthesis, lumbar region; M48.07 Spinal stenosis, lumbosacral region; M48.062 Spinal stenosis, lumbar region with neurogenic claudication; I10 Essential (primary) hypertension; E78.5 Hyperlipidemia, unspecified; J44.9 Chronic obstructive pulmonary disease, unspecified; E11.65 Type 2 diabetes mellitus with hyperglycemia; E03.9 Hypothyroidism, unspecified; K21.9 Gastro-esophageal reflux disease without esophagitis; G47.30 Sleep apnea, unspecified; F32.A Depression, unspecified; F41.0 Panic disorder [episodic paroxysmal anxiety]; Z87.891 Personal history of nicotine dependence; Z79.890 Hormone replacement therapy; Z79.899 Other long term (current) drug therapy; Z83.3 Family history of diabetes mellitus; Z79.84 Long term (current) use of oral hypoglycemic drugs; Z88.2 Allergy status to sulfonamides
CPT/HCPCS: 97530 ×3; 97161; 97167; 80053 ×3; 80048; 83735; 85025; 85027 ×2; 81001; 87040; 72100; 71045; 72131; 22633; 22853 ×2; 20930; 20936; 22634; 22842; G0378 ×3; C1713; C1762 ×2; J2250; J3370; J0690 ×4; J2405; J1170 ×2; 36415; 86850; 86900; 86901

== ENCOUNTER 2022-11-05 16:53 | Inpatient (IN) | payer MEDICARE, OTHER ==
[2022-11-05] MEDS ORDERED: IBUPROFEN IV 800 MG in SODIUM CHLORIDE 0.9% 250 ML IV ONE (18:29)
[2022-11-05] MEDS ORDERED: MORPHINE SULFATE 4 MG/ML SYRINGE IVP STA ×2 (18:29→23:22)
[2022-11-05] MEDS ORDERED: SODIUM CHLORIDE 0.9% 1,000 ML IV STA ×2 (18:29)
--- NOTE | 2022-11-05 18:31 | ED ---
Fever HPI - General Chief Complaint: Fever Stated Complaint: shakey Time Seen by Provider: 11/05/22 18:29 Source: patient, RN notes reviewed, old records reviewed Mode of arrival: wheelchair Limitations: no limitations - History of Present Illness Initial Comments: This is a 57-year-old female Kimberly. Patient presents today for evaluation regards to fever back pain abdominal pain. MD Complaint: fever, other (Back pain and abdominal pain) -: hour(s) Temperature Source: subjective Associated Symptoms: chills, rigors, myalgias, abdominal pain, nausea Treatments Prior to Arrival: none - Related Data Home Medications Medication Instructions Recorded Confirmed Albuterol Inhaler [Ventolin Hfa 1 - 2 puff INHALATION RT-Q6H PRN 08/29/18 11/05/22 Inhaler] Levothyroxine Sodium [Synthroid] 75 mcg PO HS 08/29/18 11/05/22 Fluticasone Nasal [place] [Flonase 2 spr EA NOSTRIL HS 12/29/21 11/05/22 Nasal [place]] Sertraline [Zoloft] 100 mg PO HS 12/29/21 11/05/22 Budesonide/Formoterol Fumarate 1 puff INHALATION RT-BID 11/05/22 11/05/22 [Symbicort 80-4.5 Mcg Inhaler] Cyclobenzaprine [Flexeril] 10 mg PO HS 11/05/22 11/05/22 Gabapentin 300 mg PO BID 11/05/22 11/05/22 Montelukast [Singulair] 10 mg PO HS 11/05/22 11/05/22 Naproxen Sod/Diphenhydramine 2 tab PO HS 11/05/22 11/05/22 [Aleve Pm Caplet] Omeprazole [PriLOSEC] 40 mg PO HS 11/05/22 11/05/22 Semaglutide [Ozempic] 2 mg SQ GRANDA 11/05/22 11/05/22 carBAMazepine 200 mg PO HS 11/05/22 11/05/22 clonazePAM [KlonoPIN] 1 mg PO DAILY PRN 11/05/22 11/05/22 clonazePAM [KlonoPIN] 1 mg PO HS 11/05/22 11/05/22 Previous Rx's Medication Instructions Recorded Atorvastatin [Lipitor] 40 mg PO HS #30 tab 09/11/16 Allergies Allergy/AdvReac Type Severity Reaction Status Date / Time Sulfa (Sulfonamide Allergy Itching Verified 11/05/22 21:05 Antibiotics) nortriptyline [From Pamelor] AdvReac LIGHT Verified 11/05/22 21:05 HEADED Review of Systems ROS Statement: Those systems with pertinent positive or pertinent negative responses have been documented in the HPI. ROS Other: All systems not noted in ROS Statement are negative. Past Medical History Past Medical History: COPD, Diabetes Mellitus, Eye Disorder, GERD/Reflux, Hyperlipidemia, Hypertension, Musculoskeletal Disorder, Osteoarthritis (OA), Pneumonia, Sleep Apnea/CPAP/BIPAP Additional Past Medical History / Comment(s): ASD with repair, T wave inversion since ASD repair, bilat glaucoma w/ sx, trigeminal neuralgia-corrected, diverticulitis, hiatal hernia, chronic low back pain, hx anemia when young, bilateral varicosities, sinus problems, sl sleep apnea - no tx History of Any Multi-Drug Resistant Organisms: None Reported Past Surgical History: Heart Catheterization, Hysterectomy, Orthopedic Surgery, Tubal Ligation Additional Past Surgical History / Comment(s): 1995 ASD repair at [place], L/R foot surg-spurs and R great toe joint replaced, R rotator cuff surg, trigeminal neuralgia surgery HFH, back injections, fatty tumors removed x3 from legs, bila teral laser sx twice for glaucoma, Sinus/deviated septum surg, bilat cataracts, Colonoscopy, lumbar infusion Past Anesthesia/Blood Transfusion Reactions: Previous Problems w/ Anesthesia Additional Past Anesthesia/Blood Transfusion Reaction / Comment(s): Had BANG w/nerve block w/rotator cuff surg. Pt received blood with ASD repair without reaction. Past Psychological History: Depression, Panic Disorder Smoking Status: Never smoker Past Alcohol Use History: Rare Past Drug Use History: None Reported - Past Family History Father Family Medical History: Cancer Additional Family Medical History / Comment(s): Father of throat/lung cancer. Mother Family Medical History: Diabetes Mellitus Additional Family Medical History / Comment(s): Mother had heart problems. She at age 73yrs Brother(s) Family Medical History: Cancer Additional Family Medical History / Comment(s): 3 BROTHERS OF CANCER General Exam Limitations: no limitations General appearance: alert, in no apparent distress Head exam: Present: atraumatic, normocephalic, normal inspection Eye exam: Present: normal appearance, PERRL, EOMI. Absent: scleral icterus, conjunctival injection, periorbital swelling ENT exam: Present: normal exam, mucous membranes moist Neck exam: Present: normal inspection. Absent: tenderness, meningismus, lymphadenopathy Respiratory exam: Present: normal lung sounds bilaterally. Absent: respiratory distress, wheezes, rales, rhonchi, stridor Cardiovascular Exam: Present: regular rate, normal rhythm, normal heart sounds. Absent: systolic murmur, diastolic murmur, rubs, gallop, clicks GI/Abdominal exam: Present: soft, normal bowel sounds. Absent: distended, tenderness, guarding, rebound, rigid Extremities exam: Present: normal inspection, full ROM, normal capillary refill. Absent: tenderness, pedal edema, joint swelling, calf tenderness Back exam: Present: normal inspection Neurological exam: Present: alert, oriented X3, CN II-XII intact Psychiatric exam: Present: normal affect, normal mood Skin exam: Present: warm, dry, intact, normal color. Absent: rash Course Vital Signs 11/05/22 11/05/22 11/05/22 17:20 20:16 21:33 Temperature 103.3 F H 98.5 F Pulse Rate 139 H 99 99 Respiratory 20 18 18 Rate Blood Pressure 148/75 115/61 100/49 O2 Sat by Pulse 95 92 L 94 L Oximetry - Reevaluation(s) Reevaluation #1: 11/06/22 00:12 Medical records reviewed Reevaluation #2: 11/06/22 00:13 Patient symptoms are improving Reevaluation #3: 11/06/22 00:13 Patient informed results and questions are answered Reevaluation #4: 11/06/22 00:13 Was pt. sent in by a medical professional or institution? @ -no Did you speak to anyone other than the patient for history? @ -no Did you review nursing and triage notes? @ -agree Were old charts reviewed? @ -no Differential Diagnosis? @ -prior EKG interpreted by me (3pts min.)? @ -yes X-rays interpreted by me (1pt min.)? @ -yes CT interpreted by me (1pt min.)? @ -no U/S interpreted by me (1pt. min.)? @ -no What testing was considered but not performed? (CT, X-rays, U/S, labs)? Why? @ -no What meds were considered but not given? Why? @ -no Did you discuss the management of the patient with other professionals? @ -no Did you reconcile home meds? @ -no Was smoking cessation discussed for >3mins.? @ -no Was critical care preformed (if so, how long)? @ -no Were there social determinants of health that impacted care today? How? (Homelessness, low income, unemployed, alcoholism, drug addiction, transportation, low edu. Level, literacy, decrease access to med. care, usp, rehab)? @ -no Was there de-escalation of care discussed even if they declined? (Discuss DNR or withdrawal of care, Hospice)? @ -no What co-morbidities impacted this encounter? (DM, HTN, Smoking, COPD, CAD, Cancer, CVA, Hep., AIDS, mental health diagnosis, sleep apnea, morbid obesity)? @ -none Was patient admitted / discharged? @ - Undiagnosed new problem with uncertain prognosis? @ -no Drug Therapy requiring intensive monitoring for toxicity (Heparin, Nitro, Insulin, Cardizem)? @ -no Were any procedures done? @ -no Diagnosis/symptom? @ - Acute, or Chronic, or Acute on Chronic? @ -no Uncomplicated (without systemic symptoms) or Complicated (systemic symptoms)? @ -uncomplicated Side effects of treatment? @ -no Exacerbation, Progression, or Severe Exacerbation] @ -no Poses a threat to life or bodily function? @ -yes Reevaluation #5: 11/06/22 00:13 Differential Fever: Pneumonia, viral URI, endocarditis, myocarditis, pericarditis, otitis, sinusitis, peritonsillar Abscess, retropharyngeal Abscess, epiglottitis, peritonitis, appendicitis, Mala cystitis, diverticulitis, hepatitis, colitis, UTI, PID, TOA, pyelonephritis, prostatitis, epididymitis, meningitis, encephalitis, pulmonary embolism, CVA, thyroid storm, pancreatitis, adrenal crisis, cavernous sinus thrombosis, this is not meant to be an all-inclusive list. Medical Decision Making - Medical Decision Making 67 female to the emergency department for abdominal pain and fever back pain, positive polynephritis, patient will be admitted for IV antibiotics - Lab Data Result diagrams: 11/05/22 19:42 11/05/22 19:42 Lab Results 11/05/22 11/05/22 11/05/22 Range/Units 19:42 19:42 19:42 WBC 11.0 H (3.8-10.6) k/uL RBC 3.96 (3.80-5.40) m/uL Hgb 10.9 L (11.4-16.0) gm/dL Hct 33.0 L (34.0-46.0) % MCV 83.3 (80.0-100.0) fL MCH 27.6 (25.0-35.0) pg MCHC 33.1 (31.0-37.0) g/dL RDW 14.6 (11.5-15.5) % Plt Count 303 (150-450) k/uL MPV 7.0 Neutrophils % 87 % Lymphocytes % 7 % Monocytes % 5 % Eosinophils % 1 % Basophils % 0 % Neutrophils # 9.5 H (1.3-7.7) k/uL Lymphocytes # 0.7 L (1.0-4.8) k/uL Monocytes # 0.6 (0-1.0) k/uL Eosinophils # 0.1 (0-0.7) k/uL Basophils # 0.0 (0-0.2) k/uL Sodium 135 L (137-145) mmol/L Potassium 4.8 (3.5-5.1) mmol/L Chloride 105 (98-107) mmol/L Carbon Dioxide 19 L (22-30) mmol/L Anion Gap 11 mmol/L BUN 21 H (7-17) mg/dL Creatinine 1.13 H (0.52-1.04) mg/dL Est GFR (CKD-EPI)AfAm 59 (>60 ml/min/1.73 sqM) Est GFR (CKD-EPI)NonAf 51 (>60 ml/min/1.73 sqM) Glucose 157 H (74-99) mg/dL Plasma Lactic Acid Jerry (0.7-2.0) mmol/L Calcium 8.8 (8.4-10.2) mg/dL Total Bilirubin 0.5 (0.2-1.3) mg/dL AST 29 (14-36) U/L ALT 29 (4-34) U/L Alkaline Phosphatase 119 (38-126) U/L Total Protein 6.7 (6.3-8.2) g/dL Albumin 3.8 (3.5-5.0) g/dL Influenza Type A (PCR) Not Detected (Not Detectd) Influenza Type B (PCR) Not Detected (Not Detectd) RSV (PCR) Not Detected (Not Detectd) SARS-CoV-2 (PCR) Not Detected (Not Detectd) 11/05/22 Range/Units 19:42 WBC (3.8-10.6) k/uL RBC (3.80-5.40) m/uL Hgb (11.4-16.0) gm/dL Hct (34.0-46.0) % MCV (80.0-100.0) fL MCH (25.0-35.0) pg MCHC (31.0-37.0) g/dL RDW (11.5-15.5) % Plt Count (150-450) k/uL MPV Neutrophils % % Lymphocytes % % Monocytes % % Eosinophils % % Basophils % % Neutrophils # (1.3-7.7) k/uL Lymphocytes # (1.0-4.8) k/uL Monocytes # (0-1.0) k/uL Eosinophils # (0-0.7) k/uL Basophils # (0-0.2) k/uL Sodium (137-145) mmol/L Potassium (3.5-5.1) mmol/L Chloride (98-107) mmol/L Carbon Dioxide (22-30) mmol/L Anion Gap mmol/L BUN (7-17) mg/dL Creatinine (0.52-1.04) mg/dL Est GFR (CKD-EPI)AfAm (>60 ml/min/1.73 sqM) Est GFR (CKD-EPI)NonAf (>60 ml/min/1.73 sqM) Glucose (74-99) mg/dL Plasma Lactic Acid Jerry 1.4 (0.7-2.0) mmol/L Calcium (8.4-10.2) mg/dL Total Bilirubin (0.2-1.3) mg/dL AST (14-36) U/L ALT (4-34) U/L Alkaline Phosphatase (38-126) U/L Total Protein (6.3-8.2) g/dL Albumin (3.5-5.0) g/dL Influenza Type A (PCR) (Not Detectd) Influenza Type B (PCR) (Not Detectd) RSV (PCR) (Not Detectd) SARS-CoV-2 (PCR) (Not Detectd) Disposition Clinical Impression: Fever, UTI (urinary tract infection), Pyelonephritis Disposition: ADMITTED IP TO THIS HOSP Condition: Fair Is patient prescribed a controlled substance at d/c from ED?: No Referrals: None,Stated [REFERRING] - 1-2 days
--- NOTE | 2022-11-05 19:04 | XR ---
EXAMINATION TYPE: XR chest 1V portable DATE OF EXAM: 11/05/2022 6:49 PM COMPARISON: Chest radiographs from 04/20/2022 TECHNIQUE: XR chest 1V portable Frontal view of the chest. CLINICAL INDICATION:Female, 67 years old with history of pain; FINDINGS: Lungs/Pleura: There is no evidence of pleural effusion, focal consolidation, or pneumothorax. Pulmonary vascularity: Unremarkable. Heart/mediastinum: Cardiomediastinal silhouette is enlarged and stable. Musculoskeletal: No acute osseous pathology. Midline sternotomy wires are noted. IMPRESSION: 1. No acute cardiopulmonary disease/process. 2. Cardiomegaly. 3. COPD. 4.
--- NOTE | 2022-11-05 19:35 | CT ---
EXAMINATION TYPE: CT abdomen pelvis wo con CT DLP: 1128.4 mGycm, Automated exposure control for dose reduction was used. DATE OF EXAM: 11/05/2022 7:11 PM COMPARISON: CT abdomen pelvis most recent from 03/01/2022 CLINICAL INDICATION:Female, 67 years old with history of pain; abdominal pain, weakness, fever TECHNIQUE: Axial CT of the abdomen and pelvis. Sagittal and coronal reformats were created on a [employer] workstation. Contrast used: None Oral contrast used: without Oral Contrast FINDINGS: LOWER CHEST: Unremarkable ABDOMEN LIVER: Unremarkable GALLBLADDER AND BILE DUCTS: Unremarkable. PANCREAS: Unremarkable. SPLEEN: Unremarkable. ADRENAL GLANDS: Unremarkable. KIDNEYS AND URETERS: No evidence for renal calculus. Right renal cyst measuring 4.4 cm. Stable perine phric fat stranding bilaterally. No evidence of hydronephrosis or urolithiasis PELVIS BLADDER: Unremarkable REPRODUCTIVE: The uterus is not definitively visualized may be surgically absent. ABDOMEN & PELVIS STOMACH AND BOWEL: No evidence of bowel obstruction. There is moderate stool burden throughout the co vimal most pronounced on the right. Scattered colonic diverticula. Appendix is normal. PERITONEUM/RETROPERITONEUM: No evidence of pneumoperitoneum or free fluid. VASCULATURE: No evidence of aortic aneurysm. Scattered mild atherosclerosis. MUSCULOSKELETAL: No acute osseous abnormalities, multilevel degeneration changes throughout the spine fixation hardware at L4-L5 and S1. Hardware appears grossly intact. Mild levoscoliosis apex L1-L2. LYMPH NODES: No gross evidence for lymphadenopathy. SOFT TISSUE/ABDOMINAL WALL: Bilateral fat-containing inguinal hernias. Fat-containing umbilical herni a. IMPRESSION: 1. Mild perinephric fat stranding which is felt to be present on prior imaging. Correlate with urina lysis and clinical signs for ascending infection. No evidence for hydronephrosis or urolithiasis. No other evidence for acute abdominal process. 2. Bilateral fat-containing inguinal hernias. 3. Clonic diverticulosis.
[2022-11-05 20:23] LABS: Basophils % (A) 0 %; Eosinophils # (A) 0.1 k/uL (0-0.7); Eosinophils % (A) 1 %; HGB 10.9 gm/dL (11.4-16.0); Lymphocytes # (A) 0.7 k/uL (1.0-4.8); Lymphocytes % (A) 7 %; MCH 27.6 pg (25.0-35.0); MCHC 33.1 g/dL (31.0-37.0); MCV 83.3 fL (80.0-100.0); Monocytes # (A) 0.6 k/uL (0-1.0); Monocytes % (A) 5 %; Neutrophils # (A) 9.5 k/uL (1.3-7.7); Neutrophils % (A) 87 %; Platelet Count 303 k/uL (150-450); RBC 3.96 m/uL (3.80-5.40); RDW 14.6 % (11.5-15.5)
[2022-11-05 20:34] LABS: Albumin 3.8 g/dL (3.5-5.0); Calcium 8.8 mg/dL (8.4-10.2); Potassium 4.8 mmol/L (3.5-5.1); Total Bilirubin 0.5 mg/dL (0.2-1.3); Total Protein 6.7 g/dL (6.3-8.2)
[2022-11-05] MEDS ORDERED: ONDANSETRON 4 MG/2 ML VIAL IVP PRN (23:22)
[2022-11-05] MEDS ORDERED: NALOXONE 0.4 MG/ML 1 ML VIAL IV PRN (23:22)
[2022-11-05] MEDS: SODIUM CHLORIDE 0.9% 1,000 ML IV SCH (23:35)
[2022-11-06] MEDS ORDERED: clonazePAM 1 MG TAB PO PRN (02:10)
--- NOTE | 2022-11-06 02:10 | P.HPIM ---
History of Present Illness H&P Date: 11/06/22 The patient is a 67-year-old female with a PMH of diabetes, COPD, hyperlipidemia, hypertension who presented to the emergency room with complaints of fever and back pain. The patient reports that she has been experiencing gradually worsening left-sided back pain over the past 3-4 days. She reports also developing fever earlier today with generalized body aches. She denied any urinary complaints or cough or chest discomfort, nausea, vomiting, or diarrhea. At time of interview, she did that her pain was a 1 out of 10 after having received morphine IV push, although was previously a 6 out of 10 at presentation. The patient underwent an extensive evaluation in the emergency room. A CT abd omen and pelvis revealed perinephric fat stranding. Chest x-ray was consistent with COPD with cardiomegaly. Laboratory evaluation revealed leukocytosis of 11.0, hemoglobin 10.9, sodium 135, BUN 21, creatinine 1.13 (previously 0.96) with influenza and RSV, and coronavirus PCR negative. The patient was noted to be febrile upon presentation with temperature 103.3, pulse 139, BP 148/75, and SpO2 95% on room air. ED documentation reviewed and case discussed with ED provider. Review of systems: Pertinent positives and negatives as discussed in HPI, a complete review of systems was performed and all other systems are negative. Physical examination: Vital signs reviewed General: non toxic, no distress, appears at stated age, normal weight Derm: no unusual rashes/lesions, warm Head: atraumatic, normocephalic, symmetric Eyes: EOMI, no lid lag, anicteric sclera, pupils equal round reactive to light ENT: Nose and ears atraumatic Neck: No cervical lymphadenopathy, trachea midline, supple Mouth: no lip lesion, mucus membranes moist Cardiovascular: S1S2 reg, no murmur, positive dorsalis pedis pulse bilateral, no edema Lungs: CTA bilateral, no rhonchi, no rales, no accessory muscle use Abdominal: soft, nontender to palpation, no guarding, left-sided CVA tenderness noted Ext: muscle strength 5 out of 5 in all 4 extremities grossly, no gross muscle atrophy, no contractures, Neuro: CN II-XI grossly intact, no gross focal neuro deficits Psych: Alert, oriented, appropriate affect Assessment: Sepsis secondary to pyelonephritis Chronic conditions: Type II DM, COPD, hypertension, hyperlipidemia Imaging: A CT abdomen and pelvis revealed perinephric fat stranding. Chest x-ray was consistent with COPD with cardiomegaly. Data Review: Laboratory evaluation revealed leukocytosis of 11.0, hemoglobin 10.9, sodium 135, BUN 21, creatinine 1.13 (previously 0.96) with influenza and RSV, and coronavirus PCR negative. The patient was noted to be febrile upon presentation with temperature 103.3, pulse 139, BP 148/75, and SpO2 95% on room air. Plan: Continue with ceftriaxone 1 g every 24 hours IV Follow-up blood cultures Continue with home medications Insulin sliding scale and blood glucose monitoring DVT prophylaxis: heparin subcu The patient is admitted with an anticipated less than 2 midnight stay for evaluation of pyelonephritis CODE STATUS: Full Code Discussed with: Patient Anticipated discharge place: Home Past Medical History Past Medical History: COPD, Diabetes Mellitus, Eye Disorder, GERD/Reflux, Hyperlipidemia, Hypertension, Musculoskeletal Disorder, Osteoarthritis (OA), Pneumonia, Sleep Apnea/CPAP/BIPAP Additional Past Medical History / Comment(s): ASD with repair, T wave inversion since ASD repair, bilat glaucoma w/ sx, trigeminal neuralgia-corrected, diverticulitis, hiatal hernia, chronic low back pain, hx anemia when young, bilateral varicosities, sinus problems, sl sleep apnea - no tx History of Any Multi-Drug Resistant Organisms: None Reported Past Surgical History: Heart Catheterization, Hysterectomy, Orthopedic Surgery, Tubal Ligation Additional Past Surgical History / Comment(s): 1995 ASD repair at [facility], L/R foot surg-spurs and R great toe joint replaced, R rotator cuff surg, trigeminal neuralgia surgery HFH, back injections, fatty tumors removed x3 from legs, bilateral laser sx twice for glaucoma, Sinus/deviated septum surg, bilat cataracts, Colonoscopy, lumbar infusion Past Anesthesia/Blood Transfusion Reactions: Previous Problems w/ Anesthesia Additional Past Anesthesia/Blood Transfusion Reaction / Comment(s): Had BANG w/nerve block w/rotator cuff surg. Pt received blood with ASD repair without reaction. Past Psychological History: Depression, Panic Disorder Smoking Status: Never smoker Past Alcohol Use History: Rare Past Drug Use History: None Reported - Past Family History Father Family Medical History: Cancer Additional Family Medical History / Comment(s): Father of throat/lung cancer. Mother Family Medical History: Diabetes Mellitus Additional Family Medical History / Comment(s): Mother had heart problems. She at age 73yrs Brother(s) Family Medical History: Cancer Additional Family Medical History / Comment(s): 3 BROTHERS OF CANCER Medications and Allergies Home Medications Medication Instructions Recorded Confirmed Type Atorvastatin [Lipitor] 40 mg PO HS #30 tab 09/11/16 11/05/22 Rx Albuterol Inhaler [Ventolin Hfa 1 - 2 puff INHALATION RT-Q6H PRN 08/29/18 11/05/22 History Inhaler] Levothyroxine Sodium [Synthroid] 75 mcg PO HS 08/29/18 11/05/22 History Fluticasone Nasal [place] [Flonase 2 spr EA NOSTRIL HS 12/29/21 11/05/22 History Nasal [place]] Sertraline [Zoloft] 100 mg PO HS 12/29/21 11/05/22 History Budesonide/Formoterol Fumarate 1 puff INHALATION RT-BID 11/05/22 11/05/22 History [Symbicort 80-4.5 Mcg Inhaler] Cyclobenzaprine [Flexeril] 10 mg PO HS 11/05/22 11/05/22 History Gabapentin 300 mg PO BID 11/05/22 11/05/22 History Montelukast [Singulair] 10 mg PO HS 11/05/22 11/05/22 History Naproxen Sod/Diphenhydramine 2 tab PO HS 11/05/22 11/05/22 History [Aleve Pm Caplet] Omeprazole [PriLOSEC] 40 mg PO HS 11/05/22 11/05/22 History Semaglutide [Ozempic] 2 mg SQ GRANDA 11/05/22 11/05/22 History carBAMazepine 200 mg PO HS 11/05/22 11/05/22 History clonazePAM [KlonoPIN] 1 mg PO DAILY PRN 11/05/22 11/05/22 History clonazePAM [KlonoPIN] 1 mg PO HS 11/05/22 11/05/22 History Allergies Allergy/AdvReac Type Severity Reaction Status Date / Time Sulfa (Sulfonamide Allergy Itching Verified 11/05/22 21:05 Antibiotics) nortriptyline [From Pamelor] AdvReac LIGHT Verified 11/05/22 21:05 HEADED Physical Exam Vitals: Vital Signs Temp Pulse Resp BP Pulse Ox 11/05/22 21:33 98.5 F 99 18 100/49 94 L 11/05/22 20:16 99 18 115/61 92 L 11/05/22 17:20 103.3 F H 139 H 20 148/75 95 Intake and Output 11/05/22 11/05/22 11/06/22 14:59 22:59 06:59 Other: Weight 112.491 kg Results CBC & Chem 7: 11/05/22 19:42 11/05/22 19:42 Labs: Abnormal Lab Results - Last 24 Hours (Table) 11/05/22 11/05/22 Range/Units 19:42 19:42 WBC 11.0 H (3.8-10.6) k/uL Hgb 10.9 L (11.4-16.0) gm/dL Hct 33.0 L (34.0-46.0) % Neutrophils # 9.5 H (1.3-7.7) k/uL Lymphocytes # 0.7 L (1.0-4.8) k/uL Sodium 135 L (137-145) mmol/L Carbon Dioxide 19 L (22-30) mmol/L BUN 21 H (7-17) mg/dL Creatinine 1.13 H (0.52-1.04) mg/dL Glucose 157 H (74-99) mg/dL
[2022-11-06 02:27] LABS: Appearance,Urine Cloudy (Clear); Bacteria,Urine Many /hpf; Bilirubin,Urine Negative (Negative); Blood,Urine Trace (Negative); Color,Urine Yellow; Glucose,Urine (UA) Negative (Negative); Hyaline Casts,Urine 1 /lpf (0-2); Ketones,Urine Negative (Negative); Leukocyte Esterase,Urine Large (Negative); Mucus,Urine Rare /hpf; Nitrite,Urine Negative (Negative); PH, Urine 5.5 (5.0-8.0); Protein,Urine Trace (Negative); RBC,Urine 10 /hpf (0-5); Specific Gravity,Urine 1.011 (1.001-1.035); Squamous Epithelial Cell,Urine 9 /hpf (0-4); Urobilinogen,Urine <2.0 mg/dL (<2.0); WBC,Urine 118 /hpf (0-5)
[2022-11-06] MEDS: MORPHINE SULFATE 4 MG/ML SYRINGE IV PRN ×3 (02:42→17:27)
[2022-11-06 05:44] LABS: Glucose,Whole Blood 147 mg/dL (70-110)
[2022-11-06] MEDS: INSULIN ASPART (NovoLOG) 100 UNIT/ML VIAL SQ SCH ×4 (05:52→21:08)
[2022-11-06] MEDS: LEVOTHYROXINE 75 MCG TAB PO SCH (06:46)
[2022-11-06] MEDS: HEPARIN SODIUM,PORCINE/PF 5,000 UNIT/0.5 ML SYRINGE SQ SCH ×3 (07:57→23:03)
[2022-11-06] MEDS: GABAPENTIN 300 MG CAP PO SCH ×2 (07:57→21:05)
[2022-11-06] MEDS: SYMBICORT 80-4.5 MCG INHALER INHALATION SCH ×2 (08:01→20:59)
--- NOTE | 2022-11-06 09:00 | P.PN ---
Progress Note - Text Patient seen and examined at bedside. She continues to have some back pain. She is having some nausea this morning. She did have Zithromax and Augmentin in July for an upper respiratory tract infection but has not had any antibiotics since then. We'll continue with IV fluids, Rocephin, and pain control with morphine. Discussed with patient likely discharge tomorrow pending clinical course. See h and P for formal note on 11/06/22
[2022-11-06 11:54] LABS: Glucose,Whole Blood 115 mg/dL (70-110)
[2022-11-06 16:57] LABS: Glucose,Whole Blood 136 mg/dL (70-110)
[2022-11-06] MEDS: ACETAMINOPHEN TAB 325 MG TAB PO PRN (20:00)
[2022-11-06] MEDS: SODIUM CHLORIDE 0.9% 1,000 ML IV SCH ×2 (20:00→22:01)
[2022-11-06] MEDS: MONTELUKAST 10 MG TAB PO SCH (21:05)
[2022-11-06] MEDS: carBAMazepine 200 MG TAB PO SCH (21:05)
[2022-11-06] MEDS: CYCLOBENZAPRINE 10 MG TAB PO SCH (21:05)
[2022-11-06] MEDS: ATORVASTATIN 40 MG TAB PO SCH (21:05)
[2022-11-06] MEDS: SERTRALINE 100 MG TAB PO SCH (21:05)
[2022-11-06] MEDS: FLUTICASONE 50MCG/SPRAY NASAL 16GM EA NOSTRIL SCH (21:06)
[2022-11-06 21:08] LABS: Glucose,Whole Blood 141 mg/dL (70-110)
[2022-11-07 05:48] LABS: HCT 33.4 % (34.0-46.0); HGB 10.4 gm/dL (11.4-16.0); Hypochromasia Marked; MCH 27.8 pg (25.0-35.0); MCHC 31.3 g/dL (31.0-37.0); Mean Platelet Volume 7.4; Platelet Count 220 k/uL (150-450); RBC 3.76 m/uL (3.80-5.40); RDW 14.6 % (11.5-15.5); WBC 8.8 k/uL (3.8-10.6)
[2022-11-07 05:52] LABS: African American GFR (CKD) 62 (>60 ml/min/1.73 sqM); Anion Gap 12 mmol/L; Blood Urea Nitrogen 17 mg/dL (7-17); Calcium 8.3 mg/dL (8.4-10.2); Carbon Dioxide 17 mmol/L (22-30); Chloride 105 mmol/L (98-107); Glucose 159 mg/dL (74-99); Non-African American GFR(CKD) 54 (>60 ml/min/1.73 sqM); Potassium 5.4 mmol/L (3.5-5.1); Sodium 134 mmol/L (137-145)
[2022-11-07 06:08] LABS: Glucose,Whole Blood 177 mg/dL (70-110)
[2022-11-07] MEDS: LEVOTHYROXINE 75 MCG TAB PO SCH (06:12)
[2022-11-07] MEDS: INSULIN ASPART (NovoLOG) 100 UNIT/ML VIAL SQ SCH ×4 (06:14→20:57)
[2022-11-07] MEDS: MORPHINE SULFATE 4 MG/ML SYRINGE IV PRN (06:19)
[2022-11-07] MEDS: HEPARIN SODIUM,PORCINE/PF 5,000 UNIT/0.5 ML SYRINGE SQ SCH ×3 (08:13→22:59)
[2022-11-07] MEDS: GABAPENTIN 300 MG CAP PO SCH ×2 (08:13→20:59)
[2022-11-07] MEDS: SYMBICORT 80-4.5 MCG INHALER INHALATION SCH ×2 (08:36→21:50)
[2022-11-07] MEDS: SODIUM CHLORIDE 0.9% 1,000 ML IV SCH ×4 (11:03→21:02)
[2022-11-07 11:10] LABS: Glucose,Whole Blood 104 mg/dL (70-110)
[2022-11-07] MEDS: ACETAMINOPHEN TAB 325 MG TAB PO PRN (12:49)
--- NOTE | 2022-11-07 15:59 | P.PN ---
Subjective Progress Note Date: 11/07/22 Hospital course: Patient is a very pleasant 67-year-old female with a past medical history of type II utm-vchxeiq-rroiqpftk diabetes mellitus, hypertension, hyperlipidemia, COPD, and obstructive sleep apnea. She presented to the emergency department on 11/06/22 secondary to fever, generalized body aches and lower back/flank pain. Patient underwent full evaluation and was found to have concerns of sepsis with temp of 103.3F, heart rate 139, and respiratory rate 20. Labs completed and reviewed. CBC revealing leukocytosis with WBC count of 11.0 and normocytic anemia with hemoglobin of 10.9. BMP revealed slightly elevated renal function with BUN of 21, creatinine 1.13, and GFR 51. Lactate was normal findings at 1.4. Liver profile unremarkable. Influenza A, influenza B, RSV, and Covid PCR were all negative. Urinalysis was positive for blood, protein, and infection. Computed tomography scan abdomen and pelvis completed showing mild perinephric f at stranding with no evidence of hydronephrosis or urolithiasis. Patient was started on IV antibiotics with Rocephin and admitted under our services. Physical exam: Vital signs reviewed and stable. General: Nontoxic, no distress and appears stated age. Derm: Skin warm and dry, normal coloration for ethnicity. Head: Atraumatic, normocephalic and symmetric. Eyes: EOMs intact, no lid lag, and anicteric sclera Mouth: no lip lesions, mucus membranes moist Cardiovascular: regular rate and rhythm with normal S1S2, no murmur, positive posterior tibial pulses bilaterally, and cap refill < 2 seconds. Lungs: Respirations even, regular, and unlabored on room air. Lungs CTA bilaterally, no rhonchi, no rales, no wheezing, and no accessory muscle usage. Abdominal: Obese abdomen soft, nontender to palpation, no guarding, no appreciable organomegaly Ext: ROM intact. No gross muscle atrophy, no edema, no contractures Neuro: Speech clear, face symmetrical and CN II-XII grossly intact with no noted focal neuro deficits Psych: Alert and oriented to person, place, time, and situation. Appropriate and pleasant affect. Assessment and Plan of Care: Pyelonephritis E. coli bacteremia, likely secondary to UTI Sepsis secondary to above Pyrexia -Reviewed vital signs in chart over the past 24 hours. Patient continues to run elevated temps with temperature high over the past 24 hours of 102.9F orally. -Reviewed daily labs. CBC showing normocytic anemia with hemoglobin of 10.4. BMP revealing mild hyponatremia with sodium of 134, mild hyperkalemia with potassium of 5.4 reported to be hemolyzed, hypocarbia with bicarb of 17, and slightly elevated creatinine of 1.08. -Blood cultures 2 sets positive for E. coli, no urine culture was sent at time of admission. -Infectious disease consulted -Patient to continue with IV antibiotics Rocephin. -Tylenol 650 mg by mouth every 6 hours as needed for mild pain/fever. -[place] 5/325 mg tablets every 4 hours as needed for moderate pain. Morphine 4 mg IVP as needed for severe pain. CODE STATUS: Full code DVT prophylaxis: Heparin Discussed with: Patient and RN Anticipated discharge date: Clinical course to determine Anticipated discharge place: Home Patient was seen independently by Nurse Pracitioner. This document was prepared using [employer] dictation software. Please allow for errors in food and nutrition services assistant, while rare they do occur. Antonio Claix NP rendered care for this patient independently, reviewed the findings and plan as documented in the note above. I did not physically speak with or examine the patient on this date. Objective - Vital Signs Vital signs: Vital Signs Temp 98.6 F 11/07/22 07:27 Pulse 93 11/07/22 07:27 Resp 18 11/07/22 07:27 BP 104/62 11/07/22 07:27 Pulse Ox 95 11/07/22 07:27 FiO2 Intake & Output 11/06/22 11/07/22 11/07/22 18:59 06:59 18:59 Intake Total 400 1300 Balance 400 1300 Intake: Intake, IV Titration 800 Amount Sodium Chloride 0.9% 1, 800 000 ml @ 130 mls/hr IV . Q7H42M [facility] Rx#:[id number] Oral 400 500 Other: Voiding Method Toilet # Voids 3 3 # Bowel Movements 0 - Labs CBC & Chem 7: 11/08/22 06:15 11/08/22 06:15 Labs: Abnormal Lab Results - Last 24 Hours (Table) 11/06/22 11/06/22 11/06/22 Range/Units 11:49 16:56 21:07 RBC (3.80-5.40) m/uL Hgb (11.4-16.0) gm/dL Hct (34.0-46.0) % Sodium (137-145) mmol/L Potassium (3.5-5.1) mmol/L Carbon Dioxide (22-30) mmol/L Creatinine (0.52-1.04) mg/dL Glucose (74-99) mg/dL POC Glucose (mg/dL) 115 H 136 H 141 H (70-110) mg/dL Calcium (8.4-10.2) mg/dL 11/07/22 11/07/22 11/07/22 Range/Units 05:10 05:10 06:06 RBC 3.76 L (3.80-5.40) m/uL Hgb 10.4 L (11.4-16.0) gm/dL Hct 33.4 L (34.0-46.0) % Sodium 134 L (137-145) mmol/L Potassium 5.4 H (3.5-5.1) mmol/L Carbon Dioxide 17 L (22-30) mmol/L Creatinine 1.08 H (0.52-1.04) mg/dL Glucose 159 H (74-99) mg/dL POC Glucose (mg/dL) 177 H (70-110) mg/dL Calcium 8.3 L (8.4-10.2) mg/dL Microbiology - Last 24 Hours (Table) 11/05/22 20:05 Blood Culture Gram Stain - Preliminary Blood Blood Culture - Preliminary Escherichia coli
[2022-11-07 16:29] LABS: Glucose,Whole Blood 165 mg/dL (70-110)
[2022-11-07 20:53] LABS: Glucose,Whole Blood 152 mg/dL (70-110)
[2022-11-07] MEDS: ATORVASTATIN 40 MG TAB PO SCH (20:59)
[2022-11-07] MEDS: CYCLOBENZAPRINE 10 MG TAB PO SCH (20:59)
[2022-11-07] MEDS: SERTRALINE 100 MG TAB PO SCH (20:59)
[2022-11-07] MEDS: MONTELUKAST 10 MG TAB PO SCH (20:59)
[2022-11-07] MEDS: FLUTICASONE 50MCG/SPRAY NASAL 16GM EA NOSTRIL SCH (21:00)
[2022-11-07] MEDS: carBAMazepine 200 MG TAB PO SCH (21:00)
[2022-11-07] MEDS: HYDROcodone/APAP 5-325MG 1 EACH TAB PO PRN (23:07)
[2022-11-08 01:37] VITALS: TEMP 98.4
[2022-11-08 06:18] LABS: Glucose,Whole Blood 121 mg/dL (70-110)
[2022-11-08] MEDS: INSULIN ASPART (NovoLOG) 100 UNIT/ML VIAL SQ SCH ×2 (06:39→11:32)
[2022-11-08] MEDS: SODIUM CHLORIDE 0.9% 1,000 ML IV SCH (06:39)
[2022-11-08] MEDS: LEVOTHYROXINE 75 MCG TAB PO SCH (07:01)
[2022-11-08] MEDS: HYDROcodone/APAP 5-325MG 1 EACH TAB PO PRN (08:29)
[2022-11-08] MEDS: HEPARIN SODIUM,PORCINE/PF 5,000 UNIT/0.5 ML SYRINGE SQ SCH (08:29)
[2022-11-08] MEDS: GABAPENTIN 300 MG CAP PO SCH (08:29)
[2022-11-08] MEDS: SYMBICORT 80-4.5 MCG INHALER INHALATION SCH (09:12)
[2022-11-08 10:46] LABS: MCV 87.1 fL (80.0-97.0); Mean Platelet Volume 9.2 fL (9.5-12.2); NRBC Per 100 WBC 0 /100 WBCS (0.0-0.0); Platelet Count 251 X 10*3/uL (140-440); RBC 3.33 X 10*6/uL (4.10-5.20); RDW 14.6 % (11.5-14.5); WBC 5.72 X 10*3/uL (4.50-10.00)
[2022-11-08 11:05] LABS: ALT 36 U/L (8-44); AST 22 U/L (13-35); Albumin 3.2 g/dL (3.8-4.9); Albumin/Globulin Ratio 1.52 (1.60-3.17); Alkaline Phosphatase 99 U/L (41-126); Blood Urea Nitrogen 13.2 mg/dL (9.0-27.0); Calcium 8.7 mg/dL (8.7-10.3); Carbon Dioxide 20.8 mmol/L (20.0-27.5); Chloride 107 mmol/L (96-109); Globulin 2.1 g/dL (1.6-3.3); Glucose 114 mg/dL (70-110); Non-African American GFR(CKD) 58.7 (60.0-200.0); Potassium 4.3 mmol/L (3.5-5.5); Sodium 137 mmol/L (135-145); Total Bilirubin <0.15 mg/dL (0.30-1.20); Total Protein 5.3 g/dL (6.2-8.2)
[2022-11-08 11:28] LABS: Glucose,Whole Blood 131 mg/dL (70-110)
--- NOTE | 2022-11-08 13:09 | P.DS ---
Providers Date of admission: 11/07/22 08:19 Expected date of discharge: 11/08/22 Attending physician: Jim Longoria MD Consults: 11/07/22 15:55 Consult Physician Routine Consulting Provider: Alana Foy Consult Reason/Comments: bacteremia Do you want consulting provider notified?: Yes Primary care physician: Tex Clement Hospital Course: Discharge Diagnosis: E. coli bacteremia, believed to be secondary to UTI. Patient received 3 day course of IV antibiotics with Rocephin and being discharged home on an additional 10 days of Ceftin 500 mg twice daily as directed by infectious disease specialist for E. coli bacteremia resulting from UTI. Pyelonephritis. Patient received 3 day course of IV antibiotics with Rocephin and being discharged home on an additional 10 days of Ceftin 500 mg twice daily as directed by infectious disease specialist for E. coli bacteremia resulting from UTI. Sepsis secondary to above. Pyrexia, resolved. Patient has been afebrile times greater then 24 hours. Type II cdx-rhwwrsi-vhikvcnck diabetes mellitus Hypertension Hyperlipidemia COPD Obstructive sleep apnea Hospital Course Patient is a very pleasant 67-year-old female with a past medical history of type II ptd-jctkomv-nxwfrewau diabetes mellitus, hypertension, hyperlipidemia, COPD, and obstructive sleep apnea. She presented to the emergency department on 11/06/22 secondary to fever, generalized body aches and lower back/flank pain. Patient underwent full evaluation and was found to have concerns of sepsis with temp of 103.3F, heart rate 139, and respiratory rate 20. Labs completed and reviewed. CBC revealing leukocytosis with WBC count of 11.0 and normocytic anemia with hemoglobin of 10.9. BMP revealed slightly elevated renal function with BUN of 21, creatinine 1.13, and GFR 51. Lactate was normal findings at 1.4. Liver profile unremarkable. Influenza A, influenza B, RSV, and Covid PCR were all negative. Urinalysis was positive for blood, protein, and infection. Computed tomography scan abdomen and pelvis completed showing mild perinephric fat stranding with no evidence of hydronephrosis or urolithiasis. Patient was started on IV antibiotics with Rocephin and admitted under our services. Blood cultures resulting positive for E. coli bacteremia 2 sets. Order placed for consult to infectious disease. Patient received a three-day course of IV antibiotics with Rocephin and was evaluated by infectious disease physician. Clinically patient has shown improvement and has been afebrile 24 hours. Patient currently reports feeling "much better and ready to go home." Clinically, patient is stable at this time. Discussed with infectious disease physician and patient to be discharged home on an additional 10 days of antibiotic coverage with Ceftin 500 mg twice daily. 8 instructed during this time she will need to hold omeprazole secondary to drug interaction with Ceftin. Patient to follow up outpatient with PCP in 2 days and with infectious disease specialist in 2 weeks. Physical exam: Vital signs reviewed and stable. General: Nontoxic, no distress and appears stated age. Derm: Skin warm and dry, normal coloration for ethnicity. Head: Atraumatic, normocephalic and symmetric. Eyes: EOMs intact, no lid lag, and anicteric sclera Mouth: no lip lesions, mucus membranes moist Cardiovascular: regular rate and rhythm with normal S1S2, no murmur, positive posterior tibial pulses bilaterally, and cap refill < 2 seconds. Lungs: Respirations even, regular, and unlabored on room air. Lungs CTA bilaterally, no rhonchi, no rales, no wheezing, and no accessory muscle usage. Abdominal: Obese abdomen soft, nontender to palpation, no guarding, no appreciable organomegaly Ext: ROM intact. No gross muscle atrophy, no edema, no contractures Neuro: Speech clear, face symmetrical and CN II-XII grossly intact with no noted focal neuro deficits Psych: Alert and oriented to person, place, time, and situation. Appropriate and pleasant affect. A total of 35 minutes of time were spent preparing this complex discharge summary. Pt was discharged on 11/08/22 at 1:04 PM Patient was seen independently by Nurse Practitioner. This document was prepared using [employer] dictation software. Please allow for e rrors in it service continuity supervisor while rare they do occur. Patient Condition at Discharge: Stable Plan - Discharge Summary Discharge Rx Participant: Yes New Discharge Prescriptions: New cefUROXime axetiL [Ceftin] 500 mg PO BID 10 Days #20 tab Continue Atorvastatin [Lipitor] 40 mg PO HS #30 tab Albuterol Inhaler [Ventolin Hfa Inhaler] 1 - 2 puff INHALATION RT-Q6H PRN PRN Reason: Shortness Of Breath Levothyroxine Sodium [Synthroid] 75 mcg PO HS Montelukast [Singulair] 10 mg PO HS carBAMazepine 200 mg PO HS clonazePAM [KlonoPIN] 1 mg PO HS Fluticasone Nasal [place] [Flonase Nasal [place]] 2 spr EA NOSTRIL HS Sertraline [Zoloft] 100 mg PO HS Semaglutide [Ozempic] 2 mg SQ GRANDA Cyclobenzaprine [Flexeril] 10 mg PO HS Gabapentin 300 mg PO BID Budesonide/Formoterol Fumarate [Symbicort 80-4.5 Mcg Inhaler] 1 puff INHALATION RT-BID clonazePAM [KlonoPIN] 1 mg PO DAILY PRN PRN Reason: Anxiety Omeprazole [PriLOSEC] 40 mg PO HS Naproxen Sod/Diphenhydramine [Aleve Pm Caplet] 2 tab PO HS Discharge Medication List Atorvastatin [Lipitor] 40 mg PO HS #30 tab 09/11/16 [Rx] Albuterol Inhaler [Ventolin Hfa Inhaler] 1 - 2 puff INHALATION RT-Q6H PRN 08/29/18 [History] Levothyroxine Sodium [Synthroid] 75 mcg PO HS 08/29/18 [History] Fluticasone Nasal [place] [Flonase Nasal [place]] 2 spr EA NOSTRIL HS 12/29/21 [History] Sertraline [Zoloft] 100 mg PO HS 12/29/21 [History] Budesonide/Formoterol Fumarate [Symbicort 80-4.5 Mcg Inhaler] 1 puff INHALATION RT-BID 11/05/22 [History] Cyclobenzaprine [Flexeril] 10 mg PO HS 11/05/22 [History] Gabapentin 300 mg PO BID 11/05/22 [History] Montelukast [Singulair] 10 mg PO HS 11/05/22 [History] Naproxen Sod/Diphenhydramine [Aleve Pm Caplet] 2 tab PO HS 11/05/22 [History] Omeprazole [PriLOSEC] 40 mg PO HS 11/05/22 [History] Semaglutide [Ozempic] 2 mg SQ GRANDA 11/05/22 [History] carBAMazepine 200 mg PO HS 11/05/22 [History] clonazePAM [KlonoPIN] 1 mg PO DAILY PRN 11/05/22 [History] clonazePAM [KlonoPIN] 1 mg PO HS 11/05/22 [History] cefUROXime axetiL [Ceftin] 500 mg PO BID 10 Days #20 tab 11/08/22 [Rx] Follow up Appointment(s)/Referral(s): Tex Clement MD [Primary Care Provider] - 11/15/22 11:15 am Alana Foy MD [STAFF PHYSICIAN] - 11/28/22 2:15 pm Patient Instructions/Handouts: Urinary Tract Infection in Women (DC), Kidney Infection (DC), Bacteremia (DC) Activity/Diet/Wound Care/Special Instructions: Activity: As tolerated. Take breaks as needed. Diet: Heart healthy and carb consistent diet. Avoid salts, or foods with hidden salts such as canned or boxed foods and frozen dinners. Extra salt makes your heart work harder and traps the fluid in your body for longer. Special Instructions: Take all of your medications as directed and remember to keep all of your doctor's appointments and follow-up as needed. Using Omeprazole and Ceftin together can decrease the absorption of your antibiotic and therefore it is of utmost importance for you to STOP taking your omeprazole until you are completely finished with your antibiotic in ten days. Thank you for allowing us to participate in your care, it was truly a pleasure having you for our patient!!! Discharge Disposition: HOME SELF-CARE
[2022-11-08 13:42] VITALS: BP 135/71; PULSE 85; RESP 18
== END 2022-11-08 14:25 | disposition home or self-care (01) | DRG 872 ==
LOC: EC 16:53 → 4SSUR 11-06 00:21 → OBSVTOIN 11-07 08:19
PROVIDERS: ADMIT Internal Medicine; ATTEND Internal Medicine
DX: A41.51 Sepsis due to Escherichia coli [E. coli] (principal); N12 Tubulo-interstitial nephritis, not specified as acute or chronic; D64.9 Anemia, unspecified; E11.9 Type 2 diabetes mellitus without complications; K21.9 Gastro-esophageal reflux disease without esophagitis; M19.90 Unspecified osteoarthritis, unspecified site; E78.5 Hyperlipidemia, unspecified; F32.A Depression, unspecified; F41.0 Panic disorder [episodic paroxysmal anxiety]; H40.9 Unspecified glaucoma; G47.33 Obstructive sleep apnea (adult) (pediatric); I10 Essential (primary) hypertension; J44.9 Chronic obstructive pulmonary disease, unspecified; Z79.51 Long term (current) use of inhaled steroids; Z79.84 Long term (current) use of oral hypoglycemic drugs; Z79.890 Hormone replacement therapy; Z79.899 Other long term (current) drug therapy; Z83.3 Family history of diabetes mellitus; Z98.1 Arthrodesis status; Z88.2 Allergy status to sulfonamides; Z88.8 Allergy status to other drugs, medicaments and biological substances; Z96.698 Presence of other orthopedic joint implants; Z87.01 Personal history of pneumonia (recurrent); Z20.822 Contact with and (suspected) exposure to COVID-19
CPT/HCPCS: 36415; 71045; 74176; 80048; 80053; 81001; 83605; 83735; 85025; 85027; 87040; 87077; 87186; 87636; 94640

== ENCOUNTER → 2023-03-27 | Outpatient (CLI) | payer MEDICARE, OTHER ==
--- NOTE | 2023-03-27 10:34 | CT ---
EXAMINATION TYPE: CT sinus wo con DATE OF EXAM: 03/27/2023 COMPARISON: None HISTORY: sinusitis CT DLP: 594 mGycm. Automated Exposure Control for Dose Reduction was Utilized. TECHNIQUE: CT scan of the sinuses is performed without contrast, axial images are obtained, coronal r eformatted images are also reviewed. FINDINGS: The paranasal sinuses including the frontal, ethmoid, sphenoid, and maxillary sinuses bila terally are demonstrate that there is postsurgical changes involving the ostium of the maxillary sinu ses which are widely patent bilaterally. There is mild mucosal thickening involving the left maxillar y sinus and mild to moderate changes on the right. No air-fluid levels. Frontal sinus and ethmoid air cells appear to be of normal development and aeration. Sphenoid sinus clear. Visualized portion of mastoid air cells show no abnormal opacification. The globes are intact bilate rally. Hyperostosis of the calvarium. IMPRESSION: 1. [id number] chronic maxillary sinusitis with no evidence of acute sinusitis.
== END | disposition home or self-care (01) ==
LOC: RADCTMAIN 09:53
PROVIDERS: ATTEND Otolaryngology
DX: J32.0 Chronic maxillary sinusitis (principal)
CPT/HCPCS: 70486

== ENCOUNTER 2023-06-11 18:10 | Inpatient (IN) | payer MEDICARE, OTHER ==
[2023-06-11] MEDS ORDERED: HYDROmorphone 1 MG/ML 1 ML SYRINGE IVP STA ×2 (18:24→19:26)
--- NOTE | 2023-06-11 18:27 | ED ---
General Adult HPI - General Chief complaint: Fall Stated complaint: Right leg pain Time Seen by Provider: 06/11/23 18:12 Source: patient, RN notes reviewed Mode of arrival: EMS Limitations: no limitations - History of Present Illness Initial comments: Patient is a pleasant 68-year-old female presenting to the emergency department with concern for right leg pain. Patient does have chronic rate sciatic problems. Patient states it is exacerbated more the past few days. Patient did have a fall around 2:00 today after using the restroom and landed on the right side. Patient is having increased right hip pain since that time. Patient states no weakness however significant pain with movement and therefore is unwilling her leg. No other area of injury or concern. - Related Data Home Medications Medication Instructions Recorded Confirmed Albuterol Inhaler [Ventolin Hfa 1 - 2 puff INHALATION RT-Q6H PRN 08/29/18 04/02/23 Inhaler] Levothyroxine Sodium [Synthroid] 75 mcg PO HS 08/29/18 04/02/23 Fluticasone Nasal [place] [Flonase 2 spr EA NOSTRIL DIRECTED 12/29/21 04/02/23 Nasal [place]] Sertraline [Zoloft] 100 mg PO HS 12/29/21 04/02/23 Budesonide/Formoterol Fumarate 2 puff INHALATION RT-BID 11/05/22 04/02/23 [Symbicort 80-4.5 Mcg Inhaler] Gabapentin 300 mg PO HS 11/05/22 04/02/23 Montelukast [Singulair] 10 mg PO HS 11/05/22 04/02/23 Omeprazole [PriLOSEC] 40 mg PO HS 11/05/22 04/02/23 carBAMazepine 200 mg PO HS 11/05/22 04/02/23 clonazePAM [KlonoPIN] 1 mg PO DAILY PRN 11/05/22 04/02/23 clonazePAM [KlonoPIN] 1 mg PO HS 11/05/22 04/02/23 Albuterol Nebulized [Ventolin 2.5 mg INHALATION RT-Q6H PRN 04/02/23 04/02/23 Nebulized] Doxycycline [Vibramycin] 100 mg PO BID 04/02/23 04/02/23 Gabapentin 300 mg PO BID PRN 04/02/23 04/02/23 Mupirocin [Bactroban Nasal 1 applic NASAL TID 04/02/23 04/02/23 Ointment 2% (with applicator)] Semaglutide [Ozempic] 0.5 mg SQ WE 04/02/23 04/02/23 Previous Rx's Medication Instructions Recorded Atorvastatin [Lipitor] 40 mg PO HS #30 tab 09/11/16 Allergies Allergy/AdvReac Type Severity Reaction Status Date / Time Sulfa (Sulfonamide Allergy Itching Verified 04/02/23 15:03 Antibiotics) nortriptyline [From Pamelor] AdvReac LIGHT Verified 04/02/23 15:03 HEADED Review of Systems ROS Statement: Those systems with pertinent positive or pertinent negative responses have been documented in the HPI. ROS Other: All systems not noted in ROS Statement are negative. Constitutional: Denies: fever Eyes: Denies: eye pain ENT: Denies: ear pain Respiratory: Denies: cough Cardiovascular: Denies: chest pain Endocrine: Denies: fatigue Gastrointestinal: Denies: abdominal pain Musculoskeletal: Reports: as per HPI Past Medical History Past Medical History: COPD, Diabetes Mellitus, Eye Disorder, GERD/Reflux, Hyperlipidemia, Hypertension, Musculoskeletal Disorder, Osteoarthritis (OA), Pneumonia, Sleep Apnea/CPAP/BIPAP Additional Past Medical History / Comment(s): ASD with repair, T wave inversion since ASD repair, bilat glaucoma w/ sx, trigeminal neuralgia-corrected, diverticulitis, hiatal hernia, chronic low back pain, hx anemia when young, bilateral varicosities, sinus problems, sl sleep apnea - no tx History of Any Multi-Drug Resistant Organisms: None Reported Past Surgical History: Heart Catheterization, Hysterectomy, Orthopedic Surgery, Tubal Ligation Additional Past Surgical History / Comment(s): 1995 ASD repair at [place], L/R foot surg-spurs and R great toe joint replaced, R rotator cuff surg, trigeminal neuralgia surgery HFH, back injections, fatty tumors removed x3 from legs, bilateral laser sx twice for glaucoma, Sinus/deviated septum surg, bilat cataracts, Colonoscopy, lumbar infusion Past Anesthesia/Blood Transfusion Reactions: Previous Problems w/ Anesthesia Additional Past Anesthesia/Blood Transfusion Reaction / Comment(s): Had BANG w/nerve block w/rotator cuff surg. Pt received blood with ASD repair without reaction. Past Psychological History: Depression, Panic Disorder Smoking Status: Never smoker Past Alcohol Use History: Rare Past Drug Use History: None Reported - Past Family History Father Family Medical History: Cancer Additional Family Medical History / Comment(s): Father of throat/lung cancer. Mother Family Medical History: Diabetes Mellitus Additional Family Medical History / Comment(s): Mother had heart problems. She at age 73yrs Brother(s) Family Medical History: Cancer Additional Family Medical History / Comment(s): 3 BROTHERS OF CANCER General Exam Limitations: no limitations General appearance: alert, in no apparent distress Head exam: Present: normocephalic Eye exam: Present: normal appearance Neck exam: Present: normal inspection. Absent: tenderness Respiratory exam: Present: normal lung sounds bilaterally Cardiovascular Exam: Present: regular rate, normal rhythm Expanded Peripheral pulses: 2+: Dorsalis Pedis (R), Dorsalis Pedis (L) GI/Abdominal exam: Present: soft. Absent: tenderness Extremities exam: Present: tenderness (Right anterior and lateral hip, moderate), other (Distally the extremity is neurovascular intact. Pain with range of motion.) Back exam: Present: tenderness (Minimal sacral tenderness on the right side) Neurological exam: Present: alert. Absent: motor sensory deficit Psychiatric exam: Present: normal affect, normal mood Skin exam: Present: normal color Course Vital Signs 06/11/23 18:15 Temperature 98.5 F Pulse Rate 70 Respiratory 20 Rate Blood Pressure 141/69 O2 Sat by Pulse 98 Oximetry Medical Decision Making - Medical Decision Making Was pt. sent in by a medical professional or institution ([facility]ONTRE[facility] Jennings, [employer], urgent care, hospital, or intermediate...) When possible be specific @ -No Did you speak to anyone other than the patient for history (EMS, parent, family, police, friend...)? What history was obtained from this source @ -EMS pulse right history including medications given Did you review nursing and triage notes (agree or disagree)? Why? @ -I reviewed and agree with nursing and triage notes Were old charts reviewed (outside hosp., previous admission, EMS record, old EKG, old radiological studies, urgent care reports/EKG's, intermediate records)? Report findings @ -No old charts were reviewed Differential Diagnosis (chest pain, altered mental status, abdominal pain women, abdominal pain men, vaginal bleeding, weakness, fever, dyspnea, syncope, headache, dizziness, GI bleed, back pain, seizure, CVA, palpatations, mental health, musculoskeletal)? @ -Differential Musculoskeletal Muscular strain, contusion, ligament sprain, fracture, arthritis, septic arthritis, bursitis, cellulitis, muscle spasm, nerve compression, DVT, arterial occlusion, herpes zoster, electrolyte abnormality, tumor.... This is not meant to be in all inclusive list EKG interpreted by me (3pts min.). @ -As above X-rays interpreted by me (1pt min.). @ -Right hip and pelvis x-ray shows right femoral neck fracture CT interpreted by me (1pt min.). @ -None done U/S interpreted by me (1pt. min.). @ -None done What testing was considered but not performed or refused? (CT, X-rays, U/S, labs)? Why? @ -None What meds were considered but not given or refused? Why? @ -None Did you discuss the management of the patient with other professionals (professionals i.e. , PA, [employer], lab, RT, psych nurse, social work therapist, national secretary, teacher, loans officer, case management manager)? Give summary @ -Case was discussed with Dr. Casey will admit covering orthopedic call Was smoking cessation discussed for >3mins.? @ -No Was critical care preformed (if so, how long)? @ -No Were there social determinants of health that impacted care today? How? (Homelessness, low income, unemployed, alcoholism, drug addiction, transportation, low edu. Level, literacy, decrease access to med. care, fdc, rehab)? @ -No Was there de-escalation of care discussed even if they declined (Discuss DNR or withdrawal of care, Hospice)? DNR status @ -No What co-morbidities impacted this encounter? (DM, HTN, Smoking, COPD, CAD, Cancer, CVA, ARF, Chemo, Hep., AIDS, mental health diagnosis, sleep apnea, morbid obesity)? @ -None Was patient admitted / discharged? Hospital course, mention meds given and route, prescriptions, significant lab abnormalities, going to OR and other pertinent info. @ -Patient reevaluated and still has pain. Patient is updated on results and plan. Patient will be admitted. Medical consult will be placed. Admission orders written. Undiagnosed new problem with uncertain prognosis? @ -No Drug Therapy requiring intensive monitoring for toxicity (Heparin, Nitro, Insulin, Cardizem)? @ -No Were any procedures done? @ -No Diagnosis/symptom? @ -Right hip fracture Acute, or Chronic, or Acute on Chronic? @ -Acute Uncomplicated (without systemic symptoms) or Complicated (systemic symptoms)? @ -default Side effects of treatment? @ -No Exacerbation, Progression, or Severe Exacerbation? @ -No Poses a threat to life or bodily function? How? (Chest pain, [place], [place], pneumonia, PE, COPD, DKA, ARF, appy, cholecystitis, CVA, Diverticulitis, Homicidal, Suicidal, threat to staff... and all critical care pts) @ -No Disposition Clinical Impression: Fracture of femoral neck, right Disposition: ADMITTED IP TO THIS HOSP Is patient prescribed a controlled substance at d/c from ED?: No Referrals: Tex Clement MD [Primary Care Provider] - 1-2 days Time of Disposition: 19:25
--- NOTE | 2023-06-11 19:13 | XR ---
EXAMINATION TYPE: XR Hip 2 views RT and AP Pelvis DATE OF EXAM: 06/11/2023 COMPARISON: NONE HISTORY: 68-year-old female fall and pain, unable to walk FINDINGS: There is an angulated transverse fracture at the base of the femoral neck. Underlying mild degenerati ve change at the right hip. Lumbosacral posterior and interbody fusion hardware noted. Pubic symphysi s and SI joints appear intact. IMPRESSION: Angulated basicervical femoral neck fracture. Underlying mild degenerative spurring at th e right hip joint.
[2023-06-11] MEDS ORDERED: ACETAMINOPHEN TAB 325 MG TAB PO PRN (19:26)
[2023-06-11] MEDS ORDERED: NALOXONE 0.4 MG/ML 1 ML VIAL IV PRN (19:26)
--- NOTE | 2023-06-11 19:54 | XR ---
EXAMINATION TYPE: XR chest 1V portable DATE OF EXAM: 06/11/2023 Comparison: 04/02/2023 Clinical History: 68-year-old female with pain after fall Findings: Median sternotomy wires are present with post-CABG clips. Heart mildly enlarged. Mild interstitial pr ominence without consolidation or pleural effusion. Impression: Mild cardiomegaly. Post-CABG changes. Interstitial prominence appears to be in part chronic. Correlat e to exclude superimposed mild pulmonary vascular congestion, bronchitis, or atypical pneumonias.
[2023-06-11] MEDS: SODIUM CHLORIDE 0.9% 1,000 ML IV SCH (20:10)
[2023-06-11 20:30] LABS: ALT 25 U/L (4-34); AST 21 U/L (14-36); African American GFR (CKD) 83 (>60 ml/min/1.73 sqM); Alkaline Phosphatase 120 U/L (38-126); Anion Gap 14 mmol/L; Blood Urea Nitrogen 21 mg/dL (7-17); Calcium 9.5 mg/dL (8.4-10.2); Carbon Dioxide 20 mmol/L (22-30); Chloride 101 mmol/L (98-107); Glucose 169 mg/dL (74-99); INR 0.9 (<1.2); Non-African American GFR(CKD) 72 (>60 ml/min/1.73 sqM); Partial Thromboplastin Time 22.2 sec (22.0-30.0); Potassium 4.2 mmol/L (3.5-5.1); Prothrombin Time 10.2 sec (10.0-12.5); Sodium 135 mmol/L (137-145); Total Bilirubin 0.3 mg/dL (0.2-1.3); Total Protein 6.6 g/dL (6.3-8.2)
[2023-06-11 20:33] LABS: Basophils % (A) 0 %; Eosinophils # (A) 0.3 k/uL (0-0.7); Eosinophils % (A) 2 %; HGB 11.4 gm/dL (11.4-16.0); Hypochromasia Slight; Lymphocytes # (A) 1.3 k/uL (1.0-4.8); Lymphocytes % (A) 8 %; MCH 26.4 pg (25.0-35.0); MCHC 31.8 g/dL (31.0-37.0); MCV 83.1 fL (80.0-100.0); Mean Platelet Volume 7.3; Monocytes # (A) 0.6 k/uL (0-1.0); Monocytes % (A) 3 %; Neutrophils # (A) 14.8 k/uL (1.3-7.7); Neutrophils % (A) 86 %; Platelet Count 332 k/uL (150-450); RBC 4.33 m/uL (3.80-5.40); RDW 15.6 % (11.5-15.5); WBC 17.2 k/uL (3.8-10.6)
[2023-06-12] MEDS: HYDROmorphone 1 MG/ML 1 ML SYRINGE IVP PRN ×3 (00:24→13:57)
[2023-06-12] MEDS ORDERED: DEXTROSE 50% SYRINGE 50 ML IVP PRN ×2 (01:01)
--- NOTE | 2023-06-12 01:17 | P.CONS ---
History of Present Illness - Reason for Consult Consult date: 06/11/23 pre op management - Chief Complaint right leg pain - History of Present Illness 68 year old female with DM , RIVERA patient reports increasing pain in lower extremities over past few days, however, today , she experienced accidental fall while trying to go to the bathroom and had a fall, with no head injury or LOC. denies any chest pain trouble breathing, nausea , vomiting, dizziness, abd pain , changes in bowel or urinary habits. patient claims the incident was accidental , she was not using her walker, and felt weak in her legs and fell. she denies any recent history of heart attack , arrhythmia, or CHF. denies any cardiac history or stroke. EKG done in the ED showed T wave changes in the inferior leads. but denies any chest pain , or exertional dyspnea . denies tobacco smoking , illicit drugs or alcohol review of systems Pertinent positives as noted in HPI. All other systems were reviewed and are negative on exam Constitutional: No acute distress, conversant, pleasant Eyes: Anicteric sclerae, moist conjunctiva, Pupils equal round reactive to light ENMT: NC/AT Oropharynx clear, no erythema, or exudates Neck: Supple, no masses, or JVD No carotid bruits No thyromegaly Lungs: Clear to auscultation Clear to percussion Normal respiratory effort, no accessory muscle use Cardiovascular: Heart regular in rate and rhythm, No murmurs, gallops, or rubs No peripheral edema Abdominal: Soft Nontender, no guarding, rebound or rigidity Abdomen moving with respiration Normoactive bowel sounds No hepatomegaly, No splenomegaly No palpable mass No abdominal wall hernia noted Extremities: No digital cyanosis No clubbing Pedal pulses intact and symmetrical Radial pulses intact and symmetrical No calf tenderness Psychiatric: Alert and oriented to person, place and time Appropriate affect fair judgement Neuro Muscles Strength 5/5 in bilateral upper extremities , and 3/5 bilateral lower extremities with limitation over right LE due to pain Sensation to light touch grossly present throughout Cranial nerves II-XII grossly intact Lymphatics: no palpable cervical or supraclavicular lymph nodes Past Medical History Past Medical History: COPD, Diabetes Mellitus, Eye Disorder, GERD/Reflux, Hyperlipidemia, Hypertension, Musculoskeletal Disorder, Osteoarthritis (OA), Pneumonia, Sleep Apnea/CPAP/BIPAP Additional Past Medical History / Comment(s): ASD with repair, T wave inversion since ASD repair, bilat glaucoma w/ sx, trigeminal neuralgia-corrected, diverticulitis, hiatal hernia, chronic low back pain, hx anemia when young, bilateral varicosities, sinus problems, sl sleep apnea - no tx History of Any Multi-Drug Resistant Organisms: None Reported Past Surgical History: Heart Catheterization, Hysterectomy, Orthopedic Surgery, Tubal Ligation Additional Past Surgical History / Comment(s): 1995 ASD repair at [facility], L/R foot surg-spurs and R great toe joint replaced, R rotator cuff surg, trigeminal neuralgia surgery HFH, back injections, fatty tumors removed x3 from legs, bilateral laser sx twice for glaucoma, Sinus/deviated septum surg, bilat cataracts, Colonoscopy, lumbar infusion Past Anesthesia/Blood Transfusion Reactions: Previous Problems w/ Anesthesia Additional Past Anesthesia/Blood Transfusion Reaction / Comm: Had BANG w/nerve block w/rotator cuff surg. Pt received blood with ASD repair without reaction. Past Psychological History: Depression, Panic Disorder Smoking Status: Never smoker Past Alcohol Use History: Rare Past Drug Use History: None Reported - Past Family History Father Family Medical History: Cancer Additional Family Medical History / Comment(s): Father of throat/lung cancer. Mother Family Medical History: Diabetes Mellitus Additional Family Medical History / Comment(s): Mother had heart problems. She at age 73yrs Brother(s) Family Medical History: Cancer Additional Family Medical History / Comment(s): 3 BROTHERS OF CANCER Medications and Allergies Home Medications Medication Instructions Recorded Confirmed Type Atorvastatin [Lipitor] 40 mg PO HS #30 tab 09/11/16 06/11/23 Rx Albuterol Inhaler [Ventolin Hfa 1 - 2 puff INHALATION RT-Q6H PRN 08/29/1805/19 History Inhaler] Levothyroxine Sodium [Synthroid] 75 mcg PO HS 08/29/18 06/11/23 History Sertraline [Zoloft] 100 mg PO HS 12/29/21 06/11/23 History Budesonide/Formoterol Fumarate 2 puff INHALATION RT-BID 11/05/22 06/11/23 History [Symbicort 80-4.5 Mcg Inhaler] Gabapentin 300 mg PO HS 11/05/22 06/11/23 History Omeprazole [PriLOSEC] 40 mg PO HS 11/05/22 06/11/23 History carBAMazepine 200 mg PO HS 11/05/22 06/11/23 History clonazePAM [KlonoPIN] 1 mg PO DAILY PRN 11/05/22 06/11/23 History clonazePAM [KlonoPIN] 1 mg PO HS 11/05/22 06/11/23 History Albuterol Nebulized [Ventolin 2.5 mg INHALATION RT-Q6H PRN 04/02/23 06/11/23 History Nebulized] Gabapentin 300 mg PO BID PRN 04/02/23 06/11/23 History Celecoxib [CeleBREX] 200 mg PO DIRECTED 06/11/23 06/11/23 History Cyclobenzaprine [Flexeril] 10 mg PO HS 06/11/23 06/11/23 History Latanoprost [Latanoprost 0.005%] 1 drop BOTH EYES HS 06/11/23 06/11/23 History Semaglutide [Ozempic] 2 mg SQ WE 06/11/23 06/11/23 History methylPREDNISolone [Medrol Dose See Taper PO DIRECTED 06/11/23 06/11/23 His tory Pack] Allergies Allergy/AdvReac Type Severity Reaction Status Date / Time Sulfa (Sulfonamide Allergy Itching Verified 06/11/23 19:54 Antibiotics) nortriptyline [From Pamelor] AdvReac LIGHT Verified 06/11/23 19:54 HEADED Physical Exam Vitals: Vital Signs Temp Pulse Pulse Resp BP BP Pulse Ox 06/11/23 20:23 124 H 19 160/80 98 06/11/23 19:25 98.5 F 74 13 118/56 96 06/11/23 18:15 98.5 F 70 20 141/69 98 Intake and Output 06/11/23 06/11/23 06/11/23 06:59 14:59 22:59 Other: Weight 104.326 kg Results CBC & Chem 7: 06/11/23 19:53 06/11/23 19:53 Labs: Abnormal Lab Results - Last 24 Hours (Table) 06/11/23 06/11/23 Range/Units 19:53 19:53 WBC 17.2 H (3.8-10.6) k/uL RDW 15.6 H (11.5-15.5) % Neutrophils # 14.8 H (1.3-7.7) k/uL Sodium 135 L (137-145) mmol/L Carbon Dioxide 20 L (22-30) mmol/L BUN 21 H (7-17) mg/dL Glucose 169 H (74-99) mg/dL Assessment and Plan Assessment: patient is 68 year old Female, presented with right femoral neck fracture . Patient denies any recent history or symptoms of congestive heart failure, mycardial infarction, syncope, arrhythmia, palpitation, or exertional dyspnea. Patient denies any past medical history of stroke, CAD, CHF, CKD. She does have history of DM. Patient is functional at baseline at >4 METs she is able to climb one flight of stairs with no limitations, she is able to perform house chores. Patient labs reviewed, unremarkable. EKG reviewed and showed new inferior leads T wave inversion and ST depression. patient denies any chest pain or SOB. patient would require a cardiac clearance prior to surgery . initial trops negative , continue to trend consider quick transition to Bipap post extubation, to improve post operative recovery right hip femoral neck fracture pain control with opiates management per orthopedic team DM insulin sliding scale hypothyroid , resume levothyroxine full code GI PPx PPI DVT PPX heparin sc tid 5000 units blood work unremarkable Hgb 11.4 WBC 17.2 , most likely reactive, rule out infectious process, denies any cough , urinary changes , fever, or chills. renal function unremarkable BUN 21, Cr 0.8, Na 135, K 4.2 thank you for this consultation
[2023-06-12 04:41] LABS: Glucose,Whole Blood 170 mg/dL (70-110)
[2023-06-12] MEDS: HYDROmorphone 0.5 MG/0.5 ML SYRINGE IVP PRN ×2 (04:45→11:16)
[2023-06-12] MEDS: SYMBICORT 80-4.5 MCG INHALER INHALATION SCH ×2 (07:42→20:57)
[2023-06-12] MEDS: INSULIN ASPART (NovoLOG) 100 UNIT/ML VIAL SQ SCH ×4 (08:25→21:57)
[2023-06-12] MEDS: HEPARIN SODIUM,PORCINE 5,000 UNIT/ML 1 ML VIAL SQ SCH ×2 (08:53→15:38)
--- NOTE | 2023-06-12 10:34 | P.CRDCN ---
History of Present Illness History of present illness: HISTORY OF PRESENTING ILLNESS She is pleasant 68-year-old female with history of COPD, diabetes mellitus type 2, hypertension, hyperlipidemia, obesity, osteoarthritis, sciatica, sleep apnea, ASD with repair at that age of 32 who presents secondary to mechanical fall and hip fracture. Patient states she is fairly debilitated and cannot do much activity walking with a wheelchair secondary to sciatica. Unfortunately she was going to sit on the toilet and missed the toilet and then found to have right femoral neck fracture. She admits to family history of brothers and sisters having stents. She had ASD repaired secondary to shortness breath at the age of 32. She admits to chronic COPD/asthma and has been on steroids for some time and has been attempting to wean. 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 She admits she is that do much activity secondary to her sciatica and asthma and will get short of breath with fairly mild exertion secondary to her COPD/asthma. She denies any chest pain or pressure. She states she has been through a number of surgeries in the past without any difficulty. She recently had sinus surgery 2 weeks ago. She is currently complaining of some sinus drainage as she had a sleep on her back which she normally does not do. Troponin normal 2, white bl ood cell count 17.2, chest x-ray shows mild cardiomegaly, sternotomy wires, mild interstitial prominence which appears to be chronic. EKG shows sinus tachycardia, minimal ST depressions in the inferior and lateral leads. The patient did have heart catheterization in 2017 with normal coronary arteries. Last EKG did not show significant ST depressions and did have T-wave inversions however from December 30, [address] depressions, T-wave inversions. REVIEW OF SYSTEMS At the time of my exam: CONSTITUTIONAL: Denies fever or chills. CARDIOVASCULAR: Denies chest pain, +chronic shortness of breath, no orthopnea, PND or palpitations. RESPIRATORY: Denies cough. GASTROINTESTINAL: Denies abdominal pain, diarrhea, constipation, nausea or vomiting. MUSCULOSKELETAL: Denies myalgias. NEUROLOGIC: Denies numbness, tingling or weakness. ENDOCRINE: Denies fatigue, weight change, polydipsia or polyurina. GENITOURINARY: Denies burning, hematuria or urgency with micturation. HEMATOLOGIC: Denies history of anemia or bleeding. PHYSICAL EXAMINATION Vital signs reviewed. CONSTITUTIONAL: No apparent distress, obese, cushingoid features. HEENT: Head is normocephalic. Pupils are equal, round. Sclerae anicteric. Mucous membranes of the mouth are moist. No JVD. No carotid bruit. CHEST EXAMINATION: Lungs are clear to auscultation. No chest wall tenderness is noted on palpation or with deep breathing. HEART EXAMINATION: Regular rate and rhythm. S1, S2 heard. No murmurs, gallops or rub. ABDOMEN: Soft, nontender. Positive bowel sounds. EXTREMITIES: 2+ peripheral pulses, no lower extremity edema and no calf tenderness. NEUROLOGIC EXAMINATION: Patient is awake, alert and oriented x3. ASSESSMENT 1. Preoperative cardiovascular exam 2. Abnormal EKG with ST depressions 3. Status post mechanical fall with right femoral neck fracture 4. History of ASD status post surgical repair at the age of 32 5. Chronic shortness breath, appears pulmonary related 6. History of COPD/asthma 7. Normal coronary arteries by heart catheterization 2016 8. Diabetes mellitus type 2 9. Sleep apnea 10. Hypertension PLAN Patient with mechanical fall and no syncope. Patient is fairly debilitated and does have chronic dyspnea which appears related to COPD however no angina-type symptoms or heart failure type symptoms. Patient has had intermittent abnormal EKGs in the past and may be more related to LVH with prior echo showing mild LVH. Check repeat EKG and check 2-D echo, check BNP. Given normal coronary arteries 6 years ago and no other significant symptoms. Given risk of hip fracture, benefits appear to outweigh any risks and if echo and EKG are unrevealing, patient would be cleared from cardiology standpoint for surgery. Past Medical History Past Medical History: COPD, Diabetes Mellitus, Eye Disorder, GERD/Reflux, Hyperlipidemia, Hypertension, Musculoskeletal Disorder, Osteoarthritis (OA), Pneumonia, Sleep Apnea/CPAP/BIPAP Additional Past Medical History / Comment(s): ASD with repair, T wave inversion since ASD repair, bilat glaucoma w/ sx, trigeminal neuralgia-corrected, diverticulitis, hiatal hernia, chronic low back pain, hx anemia when young, bilateral varicosities, sinus problems, sl sleep apnea - no tx History of Any Multi-Drug Resistant Organisms: None Reported Past Surgical History: Heart Catheterization, Hysterectomy, Orthopedic Surgery, Tubal Ligation Additional Past Surgical History / Comment(s): 1995 ASD repair at [facility], L/R foot surg-spurs and R great toe joint replaced, R rotator cuff surg, trigeminal neuralgia surgery HFH, back injections, fatty tumors removed x3 from legs, bilateral laser sx twice for glaucoma, Sinus/deviated septum surg, bilat cataracts, Colonoscopy, lumbar infusion Past Anesthesia/Blood Transfusion Reactions: Previous Problems w/ Anesthesia Additional Past Anesthesia/Blood Transfusion Reaction / Comment(s): Had BANG w/ nerve block w/rotator cuff surg. Pt received blood with ASD repair without reaction. Past Psychological History: Depression, Panic Disorder Smoking Status: Never smoker Past Alcohol Use History: Rare Past Drug Use History: None Reported - Past Family History Father Family Medical History: Cancer Additional Family Medical History / Comment(s): Father of throat/lung cancer. Mother Family Medical History: Diabetes Mellitus Additional Family Medical History / Comment(s): Mother had heart problems. She at age 73yrs Brother(s) Family Medical History: Cancer Additional Family Medical History / Comment(s): 3 BROTHERS OF CANCER Medications and Allergies Home Medications Medication Instructions Recorded Confirmed Type Atorvastatin [Lipitor] 40 mg PO HS #30 tab 09/11/16 06/11/23 Rx Albuterol Inhaler [Ventolin Hfa 1 - 2 puff INHALATION RT-Q6H PRN 08/29/18 06/11/23 History Inhaler] Levothyroxine Sodium [Synthroid] 75 mcg PO HS 08/29/18 06/11/23 History Sertraline [Zoloft] 100 mg PO HS 12/29/21 06/11/23 History Budesonide/Formoterol Fumarate 2 puff INHALATION RT-BID 11/05/22 06/11/23 History [Symbicort 80-4.5 Mcg Inhaler] Gabapentin 300 mg PO HS 11/05/22 06/11/23 History Omeprazole [PriLOSEC] 40 mg PO HS 11/05/22 06/11/23 History carBAMazepine 200 mg PO HS 11/05/22 06/11/23 History clonazePAM [KlonoPIN] 1 mg PO DAILY PRN 11/05/22 06/11/23 History clonazePAM [KlonoPIN] 1 mg PO HS 11/05/22 06/11/23 History Albuterol Nebulized [Ventolin 2.5 mg INHALATION RT-Q6H PRN 04/02/23 06/11/23 History Nebulized] Gabapentin 300 mg PO BID PRN 04/02/23 06/11/23 History Celecoxib [CeleBREX] 200 mg PO DIRECTED 06/11/23 06/11/23 History Cyclobenzaprine [Flexeril] 10 mg PO HS 06/11/23 06/11/23 History Latanoprost [Latanoprost 0.005%] 1 drop BOTH EYES HS 06/11/23 06/11/23 History Semaglutide [Ozempic] 2 mg SQ WE 06/11/23 06/11/23 History methylPREDNISolone [Medrol Dose See Taper PO DIRECTED 06/11/23 06/11/23 History Pack] Allergies Allergy/AdvReac Type Severity Reaction Status Date / Time Sulfa (Sulfonamide Allergy Itching Verified 06/11/23 19:54 Antibiotics) nortriptyline [From Pamelor] AdvReac LIGHT Verified 06/11/23 19:54 HEADED Physical Exam Vitals: Vital Signs Temp Pulse Pulse Resp BP BP Pulse Ox 06/12/23 08:08 99.2 F 100 19 127/62 95 06/12/23 06:59 90 L 06/12/23 06:08 98.8 F 102 H 19 124/70 90 L 06/12/23 04:39 101 H 15 127/67 95 06/12/23 00:20 112 H 16 110/68 94 L 06/11/23 22:34 120 H 18 105/65 94 L 06/11/23 20:23 124 H 19 160/80 98 06/11/23 19:25 98.5 F 74 13 118/56 96 06/11/23 18:15 98.5 F 70 20 141/69 98 Intake and Output 06/11/23 06/12/23 06/12/23 22:59 06:59 14:59 Other: # Voids 1 Weight 104.326 kg Results 06/11/23 19:53 06/11/23 19:53 Cardiac Enzymes 06/11/23 06/11/23 06/12/23 Range/Units 19:53 23:47 02:43 AST 21 (14-36) U/L Troponin I <0.012 <0.012 (0.000-0.034) ng/mL Coagulation 12/25/23 Range/Units 19:53 PT 10.2 (10.0-12.5) sec APTT 22.2 (22.0-30.0) sec CBC 06/11/23 Range/Units 19:53 WBC 17.2 H (3.8-10.6) k/uL RBC 4.33 (3.80-5.40) m/uL Hgb 11.4 (11.4-16.0) gm/dL Hct 36.0 (34.0-46.0) % Plt Count 332 (150-450) k/uL Comprehensive Metabolic Panel 06/11/23 Range/Units 19:53 Sodium 135 L (137-145) mmol/L Potassium 4.2 (3.5-5.1) mmol/L Chloride 101 (98-107) mmol/L Carbon Dioxide 20 L (22-30) mmol/L BUN 21 H (7-17) mg/dL Creatinine 0.84 (0.52-1.04) mg/dL Glucose 169 H (74-99) mg/dL Calcium 9.5 (8.4-10.2) mg/dL AST 21 (14-36) U/L ALT 25 (4-34) U/L Alkaline Phosphatase 120 (38-126) U/L Total Protein 6.6 (6.3-8.2) g/dL Albumin 4.0 (3.5-5.0) g/dL Current Medications Generic Name Dose Route Start Last Admin Trade Name Freq PRN Reason Stop Dose Admin Acetaminophen 650 mg 06/11/23 19:26 Acetaminophen Tab 325 Mg Tab PO Q6HR PRN Mild Pain or Fever > 100.5 Albuterol Sulfate 2.5 mg 06/12/23 01:00 Albuterol Nebulized 2.5 Mg/3 Ml INHALATION RT-Q6H PRN Shortness Of Breath Atorvastatin Calcium 40 mg 06/12/23 21:00 Atorvastatin 40 Mg Tab PO HS ANN Budesonide/Formoterol Fumarate 2 puff 06/12/23 08:00 06/12/23 07:42 Symbicort 80-4.5 Mcg Inhaler INHALATION 2 puff RT-BID ANN Administration Carbamazepine 200 mg 06/12/23 21:00 Carbamazepine 200 Mg Tab PO HS ANN Clonazepam 1 mg 06/12/23 21:00 Clonazepam 1 Mg Tab PO HS ANN Dextrose/Water 25 ml 06/12/23 01:01 Dextrose 50% Syringe 50 Ml IVP PER PROTOCOL PRN Hypoglycemia Protocol Dextrose/Water 50 ml 06/12/23 01:01 Dextrose 50% Syringe 50 Ml IVP PER PROTOCOL PRN Hypoglycemia Protocol Gabapentin 300 mg 06/12/23 21:00 Gabapentin 300 Mg Cap PO HS ANN Heparin Sodium (Porcine) 5,000 unit 06/12/23 08:00 06/12/23 08:53 Heparin Sodium,Porcine 5,000 Unit/Ml 1 Ml Vial SQ 5,000 unit Q8HR ANN Administration Hydromorphone HCl 0.5 mg 06/11/23 19:26 06/12/23 04:45 Hydromorphone 0.5 Mg/0.5 Ml Syringe IVP 0.5 mg Q3HR PRN Administration Moderate Pain (Scale 4 to 6) Hydromorphone HCl 1 mg 06/11/23 19:26 06/12/23 07:49 Hydromorphone 1 Mg/Ml 1 Ml Syringe IVP 1 mg Q3HR PRN Administration Severe Pain (Scale 7 to 10) Sodium Chloride 1,000 mls @ 100 mls/hr 06/11/23 19:30 06/11/23 20:10 Saline 0.9% IV 75 mls/hr .Q10H ANN Administration Insulin Aspart 0 unit 06/12/23 07:30 06/12/23 08:25 Insulin Aspart (Novolog) 100 Unit/Ml Vial SQ Not Given ACHS [facility] Protocol Levothyroxine Sodium 75 mcg 06/12/23 21:00 Levothyroxine 75 Mcg Tab PO HS ANN Naloxone HCl 0.2 mg 06/11/23 19:26 Naloxone 0.4 Mg/Ml 1 Ml Vial IV Q2M PRN Opioid Reversal Pantoprazole Sodium 40 mg 06/12/23 21:00 Pantoprazole 40 Mg Tablet PO HS ANN Sertraline HCl 100 mg 06/12/23 21:00 Sertraline 100 Mg Tab PO HS ANN Intake and Output 06/11/23 06/12/23 06/12/23 22:59 06:59 14:59 Other: # Voids 1 Weight 104.326 kg 06/11/23 19:53 06/11/23 19:53
[2023-06-12 11:01] LABS: Glucose,Whole Blood 115 mg/dL (70-110)
[2023-06-12] MEDS: ALBUTEROL NEBULIZED 2.5 MG/3 ML INHALATION PRN ×2 (11:16→20:57)
--- NOTE | 2023-06-12 11:38 | P.HPOR ---
History of Present Illness H&P Date: 06/12/23 Chief Complaint: Right Hip fracture Patient is a pleasant 68-year-old female seen at bedside this am. She presented to the emergency department yesterday, 06/11/23, with concern for right leg pain. Patient states that she has had right sided chronic sciatic problems which has made it difficult to ambulate. She is S/P lumbar fusion per Dr. Edmond in 2021. Patient states her pain exacerbated more over the past few days. Patient states that she fell after using the restroom and landed on the right side yesterday. Patient is having increased right hip pain since that time. Patient states no weakness however significant pain with movement and therefore is unwilling her leg. No other area of injury or concern. No numbness, fever, chills, chest pain or other Review of Systems All systems: negative Constitutional: Denies chills, Denies fever Eyes: denies blurred vision, denies pain Ears, nose, mouth and throat: Denies headache, Denies sore throat Cardiovascular: Denies chest pain, Denies shortness of breath Respiratory: Denies cough Gastrointestinal: Denies abdominal pain, Denies diarrhea, Denies nausea, Denies vomiting Genitourinary: Denies dysuria, Denies hematuria Musculoskeletal: Denies myalgias Integumentary: Denies pruritus, Denies rash Neurological: Denies numbness, Denies weakness Psychiatric: Denies anxiety, Denies depression Endocrine: Denies fatigue, Denies weight change Past Medical History Past Medical History: COPD, Diabetes Mellitus, Eye Disorder, GERD/Reflux, Hyperlipidemia, Hypertension, Musculoskeletal Disorder, Osteoarthritis (OA), Pneumonia, Sleep Apnea/CPAP/BIPAP Additional Past Medical History / Comment(s): ASD with repair, T wave inversion since ASD repair, bilat glaucoma w/ sx, trigeminal neuralgia-corrected, diver ticulitis, hiatal hernia, chronic low back pain, hx anemia when young, bilateral varicosities, sinus problems, sl sleep apnea - no tx History of Any Multi-Drug Resistant Organisms: None Reported Past Surgical History: Heart Catheterization, Hysterectomy, Orthopedic Surgery, Tubal Ligation Additional Past Surgical History / Comment(s): 1995 ASD repair at [facility], L/R foot surg-spurs and R great toe joint replaced, R rotator cuff surg, trigeminal neuralgia surgery HFH, back injections, fatty tumors removed x3 from legs, bilateral laser sx twice for glaucoma, Sinus/deviated septum surg, bilat cataracts, Colonoscopy, lumbar infusion Past Anesthesia/Blood Transfusion Reactions: Previous Problems w/ Anesthesia Additional Past Anesthesia/Blood Transfusion Reaction / Comment(s): Had BANG w/nerve block w/rotator cuff surg. Pt received blood with ASD repair without reaction. Past Psychological History: Depression, Panic Disorder Smoking Status: Never smoker Past Alcohol Use History: Rare Past Drug Use History: None Reported - Past Family History Father Family Medical History: Cancer Additional Family Medical History / Comment(s): Father of throat/lung cancer. Mother Family Medical History: Diabetes Mellitus Additional Family Medical History / Comment(s): Mother had heart problems. She at age 73yrs Brother(s) Family Medical History: Cancer Additional Family Medical History / Comment(s): 3 BROTHERS OF CANCER Medications and Allergies Home Medications Medication Instructions Recorded Confirmed Type Atorvastatin [Lipitor] 40 mg PO HS #30 tab 09/11/16 06/11/23 Rx Albuterol Inhaler [Ventolin Hfa 1 - 2 puff INHALATION RT-Q6H PRN 08/29/18 06/11/23 History Inhaler] Levothyroxine Sodium [Synthroid] 75 mcg PO HS 08/29/18 06/11/23 History Sertraline [Zoloft] 100 mg PO HS 12/29/21 06/11/23 History Budesonide/Formoterol Fumarate 2 puff INHALATION RT-BID 11/05/22 06/11/23 History [Symbicort 80-4.5 Mcg Inhaler] Gabapentin 300 mg PO HS 11/05/22 06/11/23 History Omeprazole [PriLOSEC] 40 mg PO HS 11/05/22 06/11/23 History carBAMazepine 200 mg PO HS 11/05/22 06/11/23 History clonazePAM [KlonoPIN] 1 mg PO DAILY PRN 11/05/22 06/11/23 History clonazePAM [KlonoPIN] 1 mg PO HS 11/05/22 06/11/23 History Albuterol Nebulized [Ventolin 2.5 mg INHALATION RT-Q6H PRN 04/02/23 06/11/23 History Nebulized] Gabapentin 300 mg PO BID PRN 04/02/23 06/11/23 History Celecoxib [CeleBREX] 200 mg PO DIRECTED 06/11/23 06/11/23 History Cyclobenzaprine [Flexeril] 10 mg PO HS 06/11/23 06/11/23 History Latanoprost [Latanoprost 0.005%] 1 drop BOTH EYES HS 06/11/23 06/11/23 History Semaglutide [Ozempic] 2 mg SQ WE 06/11/23 06/11/23 History methylPREDNISolone [Medrol Dose See Taper PO DIRECTED 06/11/23 06/11/23 History Pack] Allergies Allergy/AdvReac Type Severity Reaction Status Date / Time Sulfa (Sulfonamide Allergy Itching Verified 06/11/23 19:54 Antibiotics) nortriptyline [From Pamelor] AdvReac LIGHT Verified 06/11/23 19:54 HEADED Physical Examination Osteopathic Statement: *. No significant issues noted on an osteopathic structural exam other than those noted in the History and Physical/Consult. Inspection of the lower extremities shows a shortened externally rotated right lower extremity. There are no wounds, erythema or ecchymoses. The knee is nontender without effusion. She has painless range of motion of the knee, ankle foot and toes. Range of motion of the right hip is not tested due to fracture. Neurovascular status is intact throughout the lower extremity with motor and sensation grossly intact. Calf is soft and nontender. 2+ dorsalis pedis pulse and less than 2 second cap refill is present. Results - Labs Labs: Abnormal Lab Results - Last 24 Hours (Table) 06/11/23 06/11/23 06/12/23 Range/Units 19:53 19:53 04:39 WBC 17.2 H (3.8-10.6) k/uL RDW 15.6 H (11.5-15.5) % Neutrophils # 14.8 H (1.3-7.7) k/uL Sodium 135 L (137-145) mmol/L Carbon Dioxide 20 L (22-30) mmol/L BUN 21 H (7-17) mg/dL Glucose 169 H (74-99) mg/dL POC Glucose (mg/dL) 170 H (70-110) mg/dL H & H 06/11/23 Range/Units 19:53 Hgb 11.4 (11.4-16.0) gm/dL Hct 36.0 (34.0-46.0) % Coagulation 06/11/23 Range/Units 19:53 INR 0.9 (<1.2) Result Diagrams: 06/11/23 19:53 06/11/23 19:53 - Diagnostic results Hip x-ray: report reviewed, image reviewed Assessment and Plan (1) Fracture of femoral neck, right Narrative/Plan: Plan is to proceed with surgical intervention including right hip kamini arthroplasty for her right femoral neck fracture per Dr. Mcneal. She has been NPO. She understands the possible risks, complications and benefits of the procedure. She desires to proceed. She will continue with routine post op management and may benefit from ECF placement post operatively. Current Visit: Yes Status: Acute Code(s): S72.001A - FRACTURE OF UNSP PART OF NECK OF RIGHT FEMUR, INIT SNOMED Code(s): 5028904 Plan: The patient has been seen and examined at bedside. I reviewed the images are reviewed the dictation above. Case was reviewed with our physician metal moulder's assistant. The patient has an acute displaced femoral neck fracture due to her fall. We discussed various treatment options ranging from conservative to surgical and I think that she has a best potential of recovery with surgical intervention in the form of right hip hemiarthroplasty. I discussed this at length. I discusse d the risk, patient's alternatives and benefits of surgery including but not limited to the risk of bleeding risk infection risk and need for further surgery risk of decreased loss of motion loss of function loss of independence altered gait hardware loosening as well as the fact that surgery may not alleviate her symptoms was explained. The patient elected to proceed with surgical intervention and we'll proceed with right hip hemiarthroplasty when she is cleared with medicine. I discussed at length the fact the patient has a number of issues with her lumbar spine and bilateral extremity radiculopathy. She has had treatment in the recent past with Dr. Edmond with surgical intervention and multiple pain management modalities. I expect her that this is a separate issue from that in that she has acute new right hip fracture which needs stabilization and intervention for her to begin to mobilize. She will continue her management for her lumbar spine and her right lower extremity radiculopathy with Dr. Edmond and his group. She understands this Time with Patient: Less than 30
--- NOTE | 2023-06-12 14:40 | P.PN ---
Subjective Progress Note Date: 06/12/23 Subjective: Patient seen and examined at bedside. No acute events overnight. Denies any chest pain. Does occasionally have shortness of breath, patient did have recent surgery off nasal septum 2 weeks ago. Pertinent positives and negatives as discussed above, a complete review of s ystems was performed and all other systems are negative. Vitals Signs Reviewed. General: nontoxic, no distres, appears at stated age Derm: warm, dry Head: atraumatic, normocephalic, symmetric Eyes: EOMI, no lid lag, anicteric sclera Mouth: no lip lesion, mucus membranes moist Cardiovascular: S1S2 reg, no murmur Lungs: CTA bilateral, no rhonchi, no rales , no accessory muscle use Abdominal: soft, nontender to palpation, no guarding, no appreciable organomegaly Ext: Unable to move right lower extremity due to pain Neuro: CN II-XI grossly intact, no focal neuro deficits Psych: Alert, oriented, appropriate affect Data Reviewed Today: Pertinent Labs: Troponin negative 2, proBNP 277, glucose range between 150-170 Imaging: EKG independently interpreted from this morning, does have nonspecific ST-T changes, T-wave inversions inferior leads normalized Assessment and Plan: Traumatic right hip femoral neck fracture Mechanical fall -Patient had some T-wave inversions in inferior leads, which has now normalized. -Denies any active chest pain or heart failure symptoms -Cardiology note reviewed, echocardiogram ordered -She is otherwise medically optimized for surgical intervention for traumatic right hip fracture -Pain control with oral Tylenol as needed, IV Dilaudid as needed Type 2 diabetes - sliding scale insulin, monitor for hypoglycemia Hypothyroidism - continue levothyroxine 75 Depression - continue sertraline 100 GERD - pantoprazole 40 Hyperlipidemia - atorvastatin 40 Thank you for allowing us to participate in the care of this pleasant patient. Do not hesitate to contact us with questions. Someone can be reached from the [facility] [place] hospitalist group all hours of the day at [phone] or via perfect serve. Objective - Vital Signs Vital signs: Vital Signs Temp 99.2 F 06/12/23 08:08 Pulse 105 H 06/12/23 14:22 Resp 16 06/12/23 14:25 BP 182/84 06/12/23 14:22 Pulse Ox 100 06/12/23 14:25 FiO2 Intake & Output 06/11/23 06/12/2323 18:59 06:59 18:59 Weight 104.326 kg 104.326 kg Other: # Voids 1 - Labs CBC & Chem 7: 06/11/23 19:53 06/11/23 19:53 Labs: Abnormal Lab Results - Last 24 Hours (Table) 06/11/23 06/11/23 06/12/23 Range/Units 19:53 19:53 04:39 WBC 17.2 H (3.8-10.6) k/uL RDW 15.6 H (11.5-15.5) % Neutrophils # 14.8 H (1.3-7.7) k/uL Sodium 135 L (137-145) mmol/L Carbon Dioxide 20 L (22-30) mmol/L BUN 21 H (7-17) mg/dL Glucose 169 H (74-99) mg/dL POC Glucose (mg/dL) 170 H (70-110) mg/dL 06/12/23 Range/Units 11:00 WBC (3.8-10.6) k/uL RDW (11.5-15.5) % Neutrophils # (1.3-7.7) k/uL Sodium (137-145) mmol/L Carbon Dioxide (22-30) mmol/L BUN (7-17) mg/dL Glucose (74-99) mg/dL POC Glucose (mg/dL) 115 H (70-110) mg/dL
[2023-06-12 14:44] LABS: Glucose,Whole Blood 131 mg/dL (70-110)
[2023-06-12] MEDS ORDERED: LACTATED RINGERS 1,000 ML IV ONE (14:44)
--- NOTE | 2023-06-12 15:35 | CA ---
Transthoracic Echo Report Name: Becky Mcleod Age: 68 Gender: F : 1955 Exam Date: 06/12/2023 14:23 Exam Location: [facility] Ht (in): 63 Wt (lb): 230 Ordering Physician: Alexander Cooper DO ([email or web address]) Attending/Referring Phys: Tubing Machine Operator Lala Solares RDCS Procedure CPT: Indications: re: EKG changes Cardiac Hx: Technical Quality: Technically difficult study Contrast 1: Definity Total Dose (mL): 2 Contrast 2: Total Dose (mL): MEASUREMENTS (Male / Female) Normal Values 2D ECHO LV Diastolic Diameter PLAX 4.4 cm 4.2 - 5.9 / 3.9 - 5.3 cm LV Systolic Diameter PLAX 2.9 cm IVS Diastolic Thickness 1.4 cm 0.6 - 1.0 / 0.6 - 0.9 cm LVPW Diastolic Thickness 1.4 cm 0.6 - 1.0 / 0.6 - 0.9 cm LV Relative Wall Thickness 0.6 RV Internal Dim ED PLAX 4.0 cm LA Volume 62.9 cm??? 18 - 58 / 22 - 52 cm??? LA Volume Index 28.5 cm???/m??? 16 - 28 cm???/m??? M-MODE Aortic Root Diameter MM 3.2 cm LA Systolic Diameter MM 3.5 cm LA Ao Ratio MM 1.1 AV Cusp Separation MM 2.2 cm DOPPLER AV Peak Velocity 181.1 cm/s AV Peak Gradient 13.1 mmHg AV Mean Velocity 130.0 cm/s AV Mean Gradient 7.4 mmHg AV Velocity Time Integral 30.2 cm LVOT Peak Velocity 136.1 cm/s LVOT Peak Gradient 7.4 mmHg LVOT Velocity Time Integral 26.9 cm MV Area PHT 4.4 cm??? Mitral E Point Velocity 89.1 cm/s Mitral A Point Velocity 136.2 cm/s Mitral E to A Ratio 0.7 MV Deceleration Time 171.6 ms MV E' Velocity 5.4 cm/s Mitral E to MV E' Ratio 16.5 TR Peak Velocity 360.4 cm/s TR Peak Gradient 51.9 mmHg Right Ventricular Systolic Press 55.9 mmHg FINDINGS Left Ventricle Moderately increased left ventricular wall thickness. Left ventricular cavity size normal. Normal left ventricular systolic function with no obvious regional wall motion abnormalities. Left ventricular ejection fraction is estimated at 50-55 %. Right Ventricle Moderate right ventricular dilatation. Moderate to severe pulmonary hypertension. Right ventricular systolic pressure estimated at 56 mm hg. Right Atrium Right atrium not well visualized. Left Atrium Mildly increased left atrial volume. Mildly increased left atrial area. Mitral Valve Structurally normal mitral valve. Mitral valve thickened. Mild mitral annular calcification. Trace to mild mitral regurgitation. Aortic Valve No aortic valve stenosis or regurgitation. Tricuspid Valve Structurally normal tricuspid valve. Moderate tricuspid regurgitation. Pulmonic Valve Structurally normal pulmonic valve. Trace pulmonic regurgitation. Pericardium No pericardial effusion. Aorta Normal size aortic root and proximal ascending aorta. CONCLUSIONS Moderate increased LV thickness LV EF 50-55% RVSP 56 Mild to moderately dialted RV Mild mitral regurgitation Moderate Tricuspid regurgitation Previewed by: Dr. Alexander Cooper DO (Electronically Signed) Final Date: 12 June 2023 15:34
[2023-06-12] MEDS ORDERED: ONDANSETRON 4 MG/2 ML VIAL ONE (15:57)
[2023-06-12] MEDS ORDERED: ONDANSETRON 4 MG/2 ML VIAL IVP ONE (16:00)
[2023-06-12] MEDS ORDERED: LIDOCAINE 1% INJ 10MG/ML (20 ML MDV) ONE (16:04)
[2023-06-12] MEDS ORDERED: ROCURONIUM 10 MG/ML (5 ML VIAL) IV ONE (16:04)
[2023-06-12] MEDS ORDERED: TRANEXAMIC 1,000 MG/100ML-NACL PREMIX BAG ONE (16:04)
[2023-06-12] MEDS ORDERED: PHENYLEPHRINE-0.9% NACL SYG 1,000 MCG/10 ML SYRINGE ONE (16:04)
[2023-06-12] MEDS ORDERED: GLYCOPYRROLATE 0.2 MG/ML 2 ML VIAL ONE (16:04)
[2023-06-12] MEDS ORDERED: NEOSTIGMINE 1 MG/ML 10 ML VIAL ONE (16:04)
[2023-06-12] MEDS ORDERED: MIDAZOLAM 2 MG/2 ML VIAL ONE (16:04)
[2023-06-12] MEDS ORDERED: fentaNYL (PF) 50 MCG/ML 2 ML AMP ONE (16:04)
[2023-06-12] MEDS ORDERED: PROPOFOL 10 MG/ML 20 ML VIAL IV ONE (16:04)
[2023-06-12] MEDS ORDERED: SUCCINYLCHOLINE CHLORIDE 200 MG/10 ML VIAL IV ONE (16:04)
[2023-06-12] MEDS ORDERED: TRANEXAMIC ACID 1,000 MG in SODIUM CHLORIDE 0.9% 100 ML IVPB PRN (16:24)
[2023-06-12] MEDS ORDERED: SODIUM CHLORIDE 0.9% 50 ML with ceFAZolin 2,000 MG IV ONE ×2 (16:30)
[2023-06-12] MEDS ORDERED: ceFAZolin 1,000 MG in SODIUM CHLORIDE 0.9% 1,000 ML IRRIGATION ONE (16:40)
[2023-06-12] MEDS ORDERED: BENZOCAINE/MENTHOL LOZENG 1 EACH LOZENGE MUCOUS MEM PRN (18:11)
[2023-06-12] MEDS ORDERED: HYDROmorphone 0.5 MG/0.5 ML SYRINGE IVP PRN (18:11)
[2023-06-12] MEDS ORDERED: HYDROmorphone 1 MG/ML 1 ML SYRINGE IVP PRN (18:11)
--- NOTE | 2023-06-12 18:11 | P.OP ---
Date of Procedure: 06/12/23 Preoperative Diagnosis: Right hip acute traumatic femoral neck fracture, displaced Inability to ambulate due to fracture Right hip pain due to fracture Long history of right lower extremity sciatica with recent lumbar surgery Postoperative Diagnosis: Same Anesthesia: GETA Pathology: other (Femoral head and neck to pathology) Condition: stable Disposition: PACU Description of Procedure: Preoperative diagnosis: Right hip acute traumatic femoral neck fracture, displaced Inability to ambulate due to fracture Right hip pain due to fracture Long history of right lower extremity sciatica with recent lumbar surgery Postoperative diagnosis: Same Procedure: Hip hemiarthroplasty right Surgeon: Dr. Fredis Ritter.: Ainsley Yadav who is present that the entire the case persistence during positioning dissection exposure placement of hardware and closure Anesthesia: Gen. per Dr. Akbar Estimated blood loss: Approximately 150 mL Components implanted: [employer] right hip fracture stem size 0 with a 44 head and +0 neck with cement Disposition: To recovery room in good stable condition Operative indications The patient sustained a injury and suffered a femoral neck fracture which was displaced and angulated. She was at home and was trying to sit down onto the toilet and had a fall onto her right hip and had acute new pain at her right hip. The patient apparently has been having significant problems with her ambulating in her right lower extremity with sciatica. She had been treated in the recent past with lumbar surgery and has been continuing treatment for this with a another physician. She will continue treatment for her low back and her right lower extremity radicular symptoms separate from our treatment for her right hip fracture. We were involved in the case in regard to his hip fracture. After evaluation it was determined that they would be a candidate for hip hemiarthroplasty via surgical intervention. This would give them the best chance of mobilization and ambulation. We discussed the range of treatment options from conservative to surgical. They elected proceed with surgical intervention. We answered their questions to the best of our ability healing which they can understand. They signed an informed consent. Operative summary After obtaining informed consent evaluation by anesthesia, preoperative evaluation and clearance for medical service, the patient was identified and prepped Morales area and the surgical site was marked at the right hip. There brought to the operating room where the given appropriate anesthesia by the anesthesia department in standard fashion without any complications. Once the anesthesia was established we were able to position the patient. There placed in a lateral decubitus position with the operative side up being careful to pad any bony prominences and pressure points and place a excellent roll appropriately. The airway and C-spine was monitored continuously. Once patient was well positioned lower extremity was prepped and draped in normal standard sterile fashion over her right hip. An appropriate keystone protocol and timeout was completed and were able to proceed with surgery. A curvilinear incision was established over the greater trochanter. Dissection was taken down to the tensor fascia jennie which was split in line with its fibers and extended proximally into the gluteal fibers. A Charnley retractor was established. The trochanteric bursa was inflamed and removed. I was able to then dissect down off the posterior aspect of the greater trochanter taking the piriformis tendon and the posterior capsule in one full-thickness flap and tacking it with suture. This expose the fracture at the femoral neck which was easily identified. A guide was used to establish the appropriate femoral neck cut and a bone- cutting saw was used to establish the femoral neck cut and good alignment and good position. All the bony fragments were removed. I was then able to use a corkscrew device to remove the femoral head from the acetabulum. Any loose fragments in the acetabulum were removed. The femoral head was measured for the appropriate size implant and then passed off for pathology. Appropriate retractors were placed and I established a lateral box cut chisel. I then used a starting reamer to establish the femoral canal area I then sequentially reamed with sequential reamers until we had good bony chatter distally. With this we then started to broach with sequential broaches to the appropriate sized to we had good fit and fill. There is no evidence any fracture in the possible femur. With the appropriate size broach well seated and stable I placed the trial neck and head. A gentle reduction was performed to get good reduction. The hip was taken through a good range of motion and found to be stable in the position of sleep and through a range of motion. It had a good shuck test. We were able to then dislocate the trial prosthesis. The broach was found to remain stable. It was then removed. The wound was copiously irrigated and suctioned dry with pulsatile lavage. The femoral canal was prepared for cement. It was filled and pressurized with cement over the top of a bone plug. With this prepared were then able to place the femoral stem The appropriate size femoral stem was chosen and positioned and placed in good alignment and good position with excellent fit and fill seated appropriately over the calcar. The cement was allowed to cure fully and it was checked and found to be stable. It was checked and found to be stable. The trunnion was cleaned and dried the femoral head was then positioned over the femoral neck malleted in position checked and found to be stable. The hip prosthesis was then gently reduced back into the acetabulum and found to have excellent position and excellent stability and excellent range of motion with stability. There is no evidence of dislocation or fracture. The wound was copiously irrigated and suctioned dry. We are able to proceed with closure. The piriformis and posterior capsule were reapproximated to the posterior aspect of the greater trochanter with transosseo us stitches. The wound was irrigated and suctioned dry. The fascia was closed with #2 Quill for watertight closure. Subcutaneous tissue was irrigated and suctioned dry. Subcu tissues closed with 2-0 Vicryl subcuticular tissue was closed with 30 Quill. Wound is clean and dried and dressed with Dermabond operative foam dressing Drapes were broken down, the hip was held in stable position, and an abduction pillow was placed. The patient was then transferred back to their hospital bed being careful to maintain the hip and C-spine alignment and airway. Once stable to patient was transferred back to the postanesthesia care unit to be readmitted for pain control and DVT prophylaxis medical management and monitoring and mobilization we will continue follow patient closely throughout their postoperative course.
[2023-06-12] MEDS ORDERED: NALOXONE 0.4 MG/ML 1 ML VIAL IV PRN (18:12)
[2023-06-12] MEDS ORDERED: NON FORMULARY DRUG (Albuterol Inhaler 90 MCG Puff) INHALATION PRN (18:16)
[2023-06-12] MEDS ORDERED: HYDROmorphone 0.5 MG/0.5 ML SYRINGE IVP ONE ×2 (18:25→18:39)
[2023-06-12] MEDS ORDERED: IV FLUID CONTINUATION 1,000 ML IV ONE (18:38)
[2023-06-12 18:43] LABS: Glucose,Whole Blood 161 mg/dL (70-110)
[2023-06-12] MEDS ORDERED: LABETALOL SYRINGE 5 MG/ML (4 ML SYR) IVP ONE ×2 (18:46→18:56)
--- NOTE | 2023-06-12 18:52 | XR ---
EXAMINATION TYPE: XR Hip Limited RT DATE OF EXAM: 06/12/2023 6:37 PM CLINICAL INDICATION:Female, 68 years old with history of Postop hemiarthroplasty; [facility] COMPARISON: None. TECHNIQUE: XR Hip Limited RT; hip was examined in the frontal and lateral projections and a AP pelvis . FINDINGS: Post arthroplasty changes, hardware is intact, alignment is appropriate. No evidence of fra cture. Postoperative changes of the soft tissues with subcutaneous gas. No evidence of any acute osse ous pathology or joint dislocation. IMPRESSION: Hip arthroplasty with hardware intact and in appropriate alignment. No acute fracture.
[2023-06-12 20:47] LABS: Basophils % (A) 0 %; Eosinophils # (A) 0.1 k/uL (0-0.7); Eosinophils % (A) 1 %; HCT 29.6 % (34.0-46.0); Hypochromasia Slight; Lymphocytes % (A) 9 %; MCH 26.4 pg (25.0-35.0); MCHC 31.3 g/dL (31.0-37.0); MCV 84.3 fL (80.0-100.0); Monocytes # (A) 0.5 k/uL (0-1.0); Monocytes % (A) 5 %; Neutrophils # (A) 9.1 k/uL (1.3-7.7); Neutrophils % (A) 84 %; Platelet Count 285 k/uL (150-450); RBC 3.51 m/uL (3.80-5.40); RDW 15.8 % (11.5-15.5); WBC 10.8 k/uL (3.8-10.6)
[2023-06-12 20:48] LABS: HGB 9.3 gm/dL (11.4-16.0)
[2023-06-12 21:02] LABS: Glucose,Whole Blood 171 mg/dL (70-110)
[2023-06-12] MEDS: SODIUM CHLORIDE 0.9% 1,000 ML IV SCH ×3 (21:04→21:06)
[2023-06-12] MEDS: SERTRALINE 100 MG TAB PO SCH (21:58)
[2023-06-12] MEDS: SENNOSIDES-DOCUSATE SODIUM 1 EACH TAB PO SCH (21:58)
[2023-06-12] MEDS: LEVOTHYROXINE 75 MCG TAB PO SCH (21:58)
[2023-06-12] MEDS: GABAPENTIN 300 MG CAP PO SCH (21:58)
[2023-06-12] MEDS: clonazePAM 1 MG TAB PO SCH (21:58)
[2023-06-12] MEDS: LATANOPROST 0.005% OPHTH DROPS 2.5 ML BTL BOTH EYES SCH (21:58)
[2023-06-12] MEDS: ATORVASTATIN 40 MG TAB PO SCH (21:58)
[2023-06-12] MEDS: PANTOPRAZOLE 40 MG TABLET PO SCH (21:58)
[2023-06-12] MEDS: carBAMazepine 200 MG TAB PO SCH (22:06)
[2023-06-13] MEDS: HEPARIN SODIUM,PORCINE 5,000 UNIT/ML 1 ML VIAL SQ SCH ×4 (00:24→23:39)
[2023-06-13] MEDS: HYDROmorphone 1 MG/ML 1 ML SYRINGE IVP PRN ×5 (00:24→19:40)
[2023-06-13] MEDS: SODIUM CHLORIDE 0.9% 1,000 ML IV SCH ×4 (03:20→23:09)
[2023-06-13 05:45] LABS: Glucose,Whole Blood 182 mg/dL (70-110)
[2023-06-13 06:10] LABS: Basophils % (A) 0 %; Eosinophils # (A) 0.2 k/uL (0-0.7); Eosinophils % (A) 1 %; Hypochromasia Slight; Lymphocytes # (A) 0.9 k/uL (1.0-4.8); Lymphocytes % (A) 7 %; MCH 26.9 pg (25.0-35.0); MCHC 32.3 g/dL (31.0-37.0); MCV 83.1 fL (80.0-100.0); Mean Platelet Volume 7.2; Monocytes # (A) 0.5 k/uL (0-1.0); Monocytes % (A) 4 %; Neutrophils # (A) 11.4 k/uL (1.3-7.7); Neutrophils % (A) 87 %; Platelet Count 274 k/uL (150-450); RBC 3.73 m/uL (3.80-5.40); RDW 15.8 % (11.5-15.5)
[2023-06-13 06:21] LABS: African American GFR (CKD) 88 (>60 ml/min/1.73 sqM); Anion Gap 11 mmol/L; Blood Urea Nitrogen 20 mg/dL (7-17); Calcium 8.7 mg/dL (8.4-10.2); Carbon Dioxide 21 mmol/L (22-30); Chloride 105 mmol/L (98-107); Glucose 184 mg/dL (74-99); Magnesium 1.8 mg/dL (1.6-2.3); Non-African American GFR(CKD) 76 (>60 ml/min/1.73 sqM); Potassium 4.4 mmol/L (3.5-5.1); Sodium 137 mmol/L (137-145)
[2023-06-13] MEDS: INSULIN ASPART (NovoLOG) 100 UNIT/ML VIAL SQ SCH ×4 (06:31→20:40)
[2023-06-13] MEDS ORDERED: CALCIUM CARBONATE 500 MG CHEWABLE PO PRN (07:43)
[2023-06-13] MEDS: SENNOSIDES-DOCUSATE SODIUM 1 EACH TAB PO SCH ×2 (08:12→22:13)
[2023-06-13] MEDS: SYMBICORT 80-4.5 MCG INHALER INHALATION SCH ×2 (08:41→21:13)
[2023-06-13] MEDS: ALBUTEROL NEBULIZED 2.5 MG/3 ML INHALATION PRN (08:42)
--- NOTE | 2023-06-13 10:21 | P.PN ---
Subjective Progress Note Date: 06/13/23 This is a 68-year-old female who is status post right hip hemiarthroplasty. This is postoperative day #1 and patient is seen and evaluated at bedside today. Patient states that her right hip is feeling well this morning. Patient states that she has chronic low back pain and was evaluated for a possible injection for this prior to her admission. Otherwise, patient denies any new complaints today. Objective - Vital Signs Vital signs: Vital Signs Temp 99.8 F H 06/13/23 07:19 Pulse 108 H 06/13/23 08:52 Resp 20 06/13/23 07:25 BP 152/74 06/13/23 07:19 Pulse Ox 97 06/13/23 08:42 FiO2 Intake & Output 06/12/23 06/13/23 06/13/23 18:59 06:59 18:59 Intake Total 1251 Output Total 50 900 Balance 1201 -900 Weight 104.326 kg 104.326 kg Intake: IV 1251 Output: Urine 900 Uretheral (Morales) 900 Estimated Blood Loss 50 Other: Voiding Method Bedside Commode Bedside Commode # Voids 4 - Exam Vital signs are stable. Patient is in no acute distress and is alert and oriented 3. Calf is soft and nontender to palpation. Dressing is clean, dry, and intact. Patient has full foot and ankle motion without pain or difficulty. Sensation intact. Neurovascular status and circulatory status are intact. - Labs CBC & Chem 7: 06/13/23 05:51 06/13/23 05:51 Labs: Abnormal Lab Results - Last 24 Hours (Table) 06/12/23 06/12/23 06/12/23 Range/Units 11:00 14:42 18:42 WBC (3.8-10.6) k/uL RBC (3.80-5.40) m/uL Hgb (11.4-16.0) gm/dL Hct (34.0-46.0) % RDW (11.5-15.5) % Neutrophils # (1.3-7.7) k/uL Lymphocytes # (1.0-4.8) k/uL Carbon Dioxide (22-30) mmol/L BUN (7-17) mg/dL Glucose (74-99) mg/dL POC Glucose (mg/dL) 115 H 131 H 161 H (70-110) mg/dL Hemoglobin A1c (<=6.0) % 06/12/23 06/12/23 06/12/23 Range/Units 19:55 19:55 21:00 WBC 10.8 H (3.8-10.6) k/uL RBC 3.51 L (3.80-5.40) m/uL Hgb 9.3 L D (11.4-16.0) gm/dL Hct 29.6 L (34.0-46.0) % RDW 15.8 H (11.5-15.5) % Neutrophils # 9.1 H (1.3-7.7) k/uL Lymphocytes # (1.0-4.8) k/uL Carbon Dioxide (22-30) mmol/L BUN (7-17) mg/dL Glucose (74-99) mg/dL POC Glucose (mg/dL) 171 H (70-110) mg/dL Hemoglobin A1c 6.5 H (<=6.0) % 06/13/23 06/13/23 06/13/23 Range/Units 05:43 05:51 05:51 WBC 13.0 H (3.8-10.6) k/uL RBC 3.73 L (3.80-5.40) m/uL Hgb 10.0 L (11.4-16.0) gm/dL Hct 31.0 L (34.0-46.0) % RDW 15.8 H (11.5-15.5) % Neutrophils # 11.4 H (1.3-7.7) k/uL Lymphocytes # 0.9 L (1.0-4.8) k/uL Carbon Dioxide 21 L (22-30) mmol/L BUN 20 H (7-17) mg/dL Glucose 184 H (74-99) mg/dL POC Glucose (mg/dL) 182 H (70-110) mg/dL Hemoglobin A1c (<=6.0) % Assessment and Plan (1) Fracture of femoral neck, right Current Visit: Yes Status: Acute Code(s): S72.001A - FRACTURE OF UNSP PART OF NECK OF RIGHT FEMUR, INIT SNOMED Code(s): 1080003 Plan: Continue routine postop care and pain control. Continue anticoagulation per internal medicine. Weightbearing as tolerated with a walker Leave dressing in place for 7 days. Appreciate input from internal medicine. Anticipate discharge to [facility]CF in the next 24-48 hours.
[2023-06-13 11:57] LABS: Glucose,Whole Blood 240 mg/dL (70-110)
--- NOTE | 2023-06-13 12:57 | P.PN ---
Subjective HISTORY OF PRESENTING ILLNESS She is pleasant 68-year-old female with history of COPD, diabetes mellitus type 2, hypertension, hyperlipidemia, obesity, osteoarthritis, sciatica, sleep apnea, ASD with repair at that age of 32 who presents secondary to mechanical fall and hip fracture. Patient states she is fairly debilitated and cannot do much ac tivity walking with a wheelchair secondary to sciatica. Unfortunately she was going to sit on the toilet and missed the toilet and then found to have right femoral neck fracture. She admits to family history of brothers and sisters having stents. She had ASD repaired secondary to shortness breath at the age of 32. She admits to chronic COPD/asthma and has been on steroids for some time and has been attempting to wean. 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 She admits she is that do much activity secondary to her sciatica and asthma and will get short of breath with fairly mild exertion secondary to her COPD/asthma. She denies any chest pain or pressure. She states she has been through a number of surgeries in the past without any difficulty. She recently had sinus surgery 2 weeks ago. She is currently complaining of some sinus drainage as she had a sleep on her back which she normally does not do. Troponin normal 2, white blood cell count 17.2, chest x-ray shows mild cardiomegaly, sternotomy wires, mild interstitial prominence which appears to be chronic. EKG shows sinus tachycardia, minimal ST depressions in the inferior and lateral leads. The patient did have heart catheterization in 2016 with normal coronary arteries. Last EKG did not show significant ST depressions and did have T-wave inversions however from December 30, [address] depressions, T-wave inversions. 06/13 Patient seen and examined. Patient had echo performed yesterday which showed EF 50-55% however additionally mildly elevated RVSP. She states she had workup for elevated RVSP in the past possibly with a right heart catheterization performed at [facility] however this was sometime ago. We discussed outpatient follow-up. PHYSICAL EXAMINATION Vital signs reviewed. CONSTITUTIONAL: No apparent distress, obese, cushingoid features. HEENT: Head is normocephalic. Pupils are equal, round. Sclerae anicteric. Mucous membranes of the mouth are moist. No JVD. No carotid bruit. CHEST EXAMINATION: Lungs are clear to auscultation. No chest wall tenderness is noted on palpation or with deep breathing. HEART EXAMINATION: Regular rate and rhythm. S1, S2 heard. No murmurs, gallops or rub. ABDOMEN: Soft, nontender. Positive bowel sounds. EXTREMITIES: 2+ peripheral pulses, no lower extremity edema and no calf tenderness. NEUROLOGIC EXAMINATION: Patient is awake, alert and oriented x3. ASSESSMENT 1. Preoperative cardiovascular exam 2. Abnormal EKG with ST depressions 3. Status post mechanical fall with right femoral neck fracture 4. History of ASD status post surgical repair at the age of 32 5. Chronic shortness breath, appears pulmonary related 6. History of COPD/asthma 7. Normal coronary arteries by heart catheterization 2016 8. Diabetes mellitus type 2 9. Sleep apnea 10. Hypertension PLAN Patient underwent surgery without incident. Echocardiogram showing possible concern of pulmonary hypertension with questionable workup performed before at [facility]. Discussed outpatient follow-up. May be pulmonary hypertension related to her underlying COPD or related to her prior ASD however workup can be performed as an outpatient. Objective - Vital Signs Vital signs: Vital Signs Temp 99.8 F H 06/13/23 07:19 Pulse 108 H 06/13/23 08:52 Resp 20 06/13/23 07:25 BP 152/74 06/13/23 07:19 Pulse Ox 97 06/13/23 08:42 FiO2 Intake & Output 06/12/23 06/13/23 06/13/23 18:59 06:59 18:59 Intake Total 1251 Output Total 50 900 Balance 1201 -900 Weight 104.326 kg 104.326 kg Intake: IV 1251 Output: Urine 900 Uretheral (Morales) 900 Estimated Blood Loss 50 Other: Voiding Method Bedside Commode Bedside Commode # Voids 4 - Labs CBC & Chem 7: 06/13/23 05:51 06/13/23 05:51 Labs: Abnormal Lab Results - Last 24 Hours (Table) 06/12/23 06/12/23 06/12/23 Range/Units 14:42 18:42 19:55 WBC (3.8-10.6) k/uL RBC (3.80-5.40) m/uL Hgb (11.4-16.0) gm/dL Hct (34.0-46.0) % RDW (11.5-15.5) % Neutrophils # (1.3-7.7) k/uL Lymphocytes # (1.0-4.8) k/uL Carbon Dioxide (22-30) mmol/L BUN (7-17) mg/dL Glucose (74-99) mg/dL POC Glucose (mg/dL) 131 H 161 H (70-110) mg/dL Hemoglobin A1c 6.5 H (<=6.0) % 06/12/23 06/12/23 06/13/23 Range/Units 19:55 21:00 05:43 WBC 10.8 H (3.8-10.6) k/uL RBC 3.51 L (3.80-5.40) m/uL Hgb 9.3 L D (11.4-16.0) gm/dL Hct 29.6 L (34.0-46.0) % RDW 15.8 H (11.5-15.5) % Neutrophils # 9.1 H (1.3-7.7) k/uL Lymphocytes # (1.0-4.8) k/uL Carbon Dioxide (22-30) mmol/L BUN (7-17) mg/dL Glucose (74-99) mg/dL POC Glucose (mg/dL) 171 H 182 H (70-110) mg/dL Hemoglobin A1c (<=6.0) % 06/13/23 06/13/23 06/13/23 Range/Units 05:51 05:51 11:56 WBC 13.0 H (3.8-10.6) k/uL RBC 3.73 L (3.80-5.40) m/uL Hgb 10.0 L (11.4-16.0) gm/dL Hct 31.0 L (34.0-46.0) % RDW 15.8 H (11.5-15.5) % Neutrophils # 11.4 H (1.3-7.7) k/uL Lymphocytes # 0.9 L (1.0-4.8) k/uL Carbon Dioxide 21 L (22-30) mmol/L BUN 20 H (7-17) mg/dL Glucose 184 H (74-99) mg/dL POC Glucose (mg/dL) 240 H (70-110) mg/dL Hemoglobin A1c (<=6.0) %
--- NOTE | 2023-06-13 15:25 | P.PN ---
Subjective Progress Note Date: 06/13/23 Subjective: Patient seen and examined at bedside. No acute events overnight. Sitting in chair area Pertinent positives and negatives as discussed above, a complete review of systems was performed and all other systems are negative. Vitals Signs Reviewed. General: nontoxic, no distres, appears at stated age Derm: warm, dry, dressing clean, dry, intact Head: atraumatic, normocephalic, symmetric Eyes: EOMI, no lid lag, anicteric sclera Mouth: no lip lesion, mucus membranes moist Cardiovascular: S1S2 reg, no murmur Lungs: CTA bilateral, no rhonchi, no rales , no accessory muscle use Abdominal: soft, nontender to palpation, no guarding, no appreciable organomegaly Ext: No atrophy Neuro: CN II-XI grossly intact, no focal neuro deficits Psych: Alert, oriented, appropriate affect Data Reviewed Today: Pertinent Labs: WBC 13, hemoglobin 10, bicarb 21, creatinine 0.81, magnesium 1. 8, blood sugars range between 161-240 Imaging: No new imaging Assessment and Plan: Traumatic right hip femoral neck fracture status post repair Mechanical fall Leukocytosis, anticipated outcome of surgery Mild normocytic anemia, anticipated outcome of surgery -Ortho note reviewed, likely discharge to subacute rehab -Pain control with oral Tylenol as needed, oral Amber as needed, IV Dilaudid as needed, monitor for respiratory depression -Subcu heparin for DVT prophylaxis Pulmonary hypertension -Needs outpatient follow-up -Cardiology note reviewed, no further interventions Type 2 diabetes - sliding scale insulin, monitor for hypoglycemia Hypothyroidism - continue levothyroxine 75 Depression - continue sertraline 100 GERD - pantoprazole 40 Hyperlipidemia - atorvastatin 40 Thank you for allowing us to participate in the care of this pleasant patient. Do not hesitate to contact us with questions. Someone can be reached from the [facility] hospitalist group all hours of the day at [phone] or via perfect serve. Objective - Vital Signs Vital signs: Vital Signs Temp 98.8 F 06/13/23 13:18 Pulse 76 06/13/23 13:18 Resp 20 06/13/23 13:18 BP 160/71 06/13/23 13:18 Pulse Ox 94 L 06/13/23 13:18 FiO2 Intake & Output 06/12/23 06/13/23 06/13/23 18:59 06:59 18:59 Intake Total 1251 Output Total 50 900 Balance 1201 -900 Weight 104.326 kg 104.326 kg Intake: IV 1251 Output: Urine 900 Uretheral (Morales) 900 Estimated Blood Loss 50 Other: Voiding Method Bedside Commode Bedside Commode # Voids 4 - Labs CBC & Chem 7: 06/13/23 05:51 06/13/23 05:51 Labs: Abnormal Lab Results - Last 24 Hours (Table) 06/12/23 06/12/23 06/12/23 Range/Units 18:42 19:55 19:55 WBC 10.8 H (3.8-10.6) k/uL RBC 3.51 L (3.80-5.40) m/uL Hgb 9.3 L D (11.4-16.0) gm/dL Hct 29.6 L (34.0-46.0) % RDW 15.8 H (11.5-15.5) % Neutrophils # 9.1 H (1.3-7.7) k/uL Lymphocytes # (1.0-4.8) k/uL Carbon Dioxide (22-30) mmol/L BUN (7-17) mg/dL Glucose (74-99) mg/dL POC Glucose (mg/dL) 161 H (70-110) mg/dL Hemoglobin A1c 6.5 H (<=6.0) % 06/12/23 06/13/23 06/13/23 Range/Units 21:00 05:43 05:51 WBC 13.0 H (3.8-10.6) k/uL RBC 3.73 L (3.80-5.40) m/uL Hgb 10.0 L (11.4-16.0) gm/dL Hct 31.0 L (34.0-46.0) % RDW 15.8 H (11.5-15.5) % Neutrophils # 11.4 H (1.3-7.7) k/uL Lymphocytes # 0.9 L (1.0-4.8) k/uL Carbon Dioxide (22-30) mmol/L BUN (7-17) mg/dL Glucose (74-99) mg/dL POC Glucose (mg/dL) 171 H 182 H (70-110) mg/dL Hemoglobin A1c (<=6.0) % 06/13/23 06/13/23 Range/Units 05:51 11:56 WBC (3.8-10.6) k/uL RBC (3.80-5.40) m/uL Hgb (11.4-16.0) gm/dL Hct (34.0-46.0) % RDW (11.5-15.5) % Neutrophils # (1.3-7.7) k/uL Lymphocytes # (1.0-4.8) k/uL Carbon Dioxide 21 L (22-30) mmol/L BUN 20 H (7-17) mg/dL Glucose 184 H (74-99) mg/dL POC Glucose (mg/dL) 240 H (70-110) mg/dL Hemoglobin A1c (<=6.0) %
[2023-06-13 16:45] LABS: Glucose,Whole Blood 168 mg/dL (70-110)
[2023-06-13 20:18] LABS: Glucose,Whole Blood 168 mg/dL (70-110)
[2023-06-13] MEDS: clonazePAM 1 MG TAB PO SCH (20:39)
[2023-06-13] MEDS: GABAPENTIN 300 MG CAP PO SCH (20:39)
[2023-06-13] MEDS: ATORVASTATIN 40 MG TAB PO SCH (20:39)
[2023-06-13] MEDS: carBAMazepine 200 MG TAB PO SCH (20:39)
[2023-06-13] MEDS: PANTOPRAZOLE 40 MG TABLET PO SCH (20:39)
[2023-06-13] MEDS: LEVOTHYROXINE 75 MCG TAB PO SCH (20:39)
[2023-06-13] MEDS: SERTRALINE 100 MG TAB PO SCH (20:39)
[2023-06-13] MEDS: HYDROcodone/APAP 5-325MG 1 EACH TAB PO PRN (21:47)
[2023-06-13] MEDS: LATANOPROST 0.005% OPHTH DROPS 2.5 ML BTL BOTH EYES SCH (22:13)
[2023-06-14] MEDS: HYDROcodone/APAP 5-325MG 1 EACH TAB PO PRN ×2 (03:36→07:57)
[2023-06-14 06:05] LABS: Glucose,Whole Blood 165 mg/dL (70-110)
[2023-06-14] MEDS: SYMBICORT 80-4.5 MCG INHALER INHALATION SCH ×2 (07:45→18:08)
[2023-06-14] MEDS: INSULIN ASPART (NovoLOG) 100 UNIT/ML VIAL SQ SCH ×4 (07:56→21:15)
[2023-06-14] MEDS: SENNOSIDES-DOCUSATE SODIUM 1 EACH TAB PO SCH ×2 (07:56→21:15)
[2023-06-14] MEDS: HEPARIN SODIUM,PORCINE 5,000 UNIT/ML 1 ML VIAL SQ SCH ×2 (07:57→16:57)
--- NOTE | 2023-06-14 08:48 | P.PN ---
Subjective Progress Note Date: 06/14/23 Principal diagnosis: Right femoral neck fracture. Status post hemiarthroplasty right hip. Chronic low back pain. This is a 68-year-old female who is status post hemiarthroplasty of the right hip for femoral neck fracture. She is postop day #2. She continues to have some mild right hip pain. She states that her low back and SI joint have been bothering her since her fall. She had been evaluated prior to her fall for possible epidural steroid injections. She has a pain management consult pending on this admission. She reports no nausea, vomiting or diarrhea. Objective - Vital Signs Vital signs: Vital Signs Temp 98.0 F 06/14/23 07:09 Pulse 86 06/14/23 07:09 Resp 18 06/14/23 07:09 BP 131/83 06/14/23 07:09 Pulse Ox 97 06/14/23 07:09 FiO2 Intake & Output 06/13/23 06/14/23 06/14/23 18:59 06:59 18:59 Output Total 3200 Balance -3200 Output: Urine 1600 Straight 800 Post Void Residual 1600 Other: Voiding Method Bedside Commode Bedside Commode # Voids 1 0 - Exam This is a 68-year-old female in no acute distress. She is alert and oriented 3. Exam of the right hip reveals that her dressing is clean, dry and intact. She has full foot and ankle motion without difficulty or pain. Neurovascular status to the right lower extremity is intact. - Labs CBC & Chem 7: 06/13/23 05:51 06/13/23 05:51 Labs: Abnormal Lab Results - Last 24 Hours (Table) 06/13/23 06/13/23 06/13/23 Range/Units 11:56 16:44 20:15 POC Glucose (mg/dL) 240 H 168 H 168 H (70-110) mg/dL 06/14/23 Range/Units 06:03 POC Glucose (mg/dL) 165 H (70-110) mg/dL Assessment and Plan (1) Status post hip hemiarthroplasty Current Visit: Yes Status: Acute Code(s): Z96.649 - PRESENCE OF UNSPECIFIED ARTIFICIAL HIP JOINT SNOMED Code(s): 954353415 (2) Chronic low back pain Current Visit: Yes Status: Acute Code(s): M54.50 - LOW BACK PAIN, UNSPECIFIED; G89.29 - OTHER CHRONIC PAIN SNOMED Code(s): 381516628 (3) Fracture of femoral neck, right Current Visit: Yes Status: Acute Code(s): S72.001A - FRACTURE OF UNSP PART OF NECK OF RIGHT FEMUR, INIT SNOMED Code(s): 1981680 Plan: The clinical findings are discussed with the patient. We will continue with physical therapy. We are planning discharge to inpatient rehab when cleared medically and placement is arranged. We are awaiting evaluation with trina israel for possible epidural steroid injection.
[2023-06-14 10:59] LABS: Basophils # (A) 0.03 X 10*3/uL (0.00-0.10); Basophils % (A) 0.2 %; Eosinophils # (A) 0.31 X 10*3/uL (0.04-0.35); Eosinophils % (A) 2.6 %; HCT 31.8 % (37.2-46.3); HGB 9.4 g/dL (12.0-15.0); Lymphocytes # (A) 1.29 X 10*3/uL (0.90-5.00); Lymphocytes % (A) 10.7 %; MCH 25.8 pg (27.0-32.0); MCHC 29.6 g/dL (32.0-37.0); MCV 87.4 FL (80.0-97.0); Mean Platelet Volume 9.4 FL (9.5-12.2); Monocytes # (A) 0.81 X 10*3/uL (0.20-1.00); Monocytes % (A) 6.7 %; NRBC Per 100 WBC 0 X 10*3/uL (0.00-0.01); Neutrophils # (A) 9.53 X 10*3/uL (1.80-7.70); Neutrophils % (A) 79.1 %; Platelet Count 260 X 10*3/uL (140-440); RBC 3.64 X 10*6/uL (4.10-5.20); RDW 16.4 % (11.5-14.5); WBC 12.06 X 10*3/uL (4.50-10.00)
[2023-06-14 11:11] LABS: Glucose,Whole Blood 121 mg/dL (70-110)
[2023-06-14 11:12] LABS: BUN/Creat Ratio 19.38 Ratio (12.00-20.00); Blood Urea Nitrogen 15.5 mg/dL (9.0-27.0); Chloride 104 mmol/L (96-109); Glucose 153 mg/dL (70-110); Potassium 4.7 mmol/L (3.5-5.5); Sodium 137 mmol/L (135-145)
[2023-06-14 11:13] LABS: Carbon Dioxide 19.2 mmol/L (21.6-31.8)
[2023-06-14] MEDS: LIDOCAINE 4% PATCH TOPICAL SCH (11:32)
--- NOTE | 2023-06-14 12:05 | P.PAINCN ---
History of Present Illness - Reason for Consult Consult date: 06/14/23 - History of Present Illness This is 68 years old female with a history of chronic low back pain, patient had lumbar laminectomy and fusion at L4 5 and L5-S1 done of april , patient did fairly well until recently when she started having some back pain issues, she fell at home and she was admitted to [facility] and found that the patient she had right femoral neck fracture, patient had right hip hemiarthroplasty ( done 06/12 ), patient currently complaining of severe low back pain mainly on the right side with radiation to the right buttock and to the right lower extremity, she has difficulty ambulating secondary to intensity of the pain, patient currently on Hudson 5/325 every 4-6 hours Neurontin 300 mg daily at bedtime and Dilaudid 0.5 mg IV every 3 hours, reported that the current medication is not helping to control her pain, she denies any change in bowel movement or urination she denies any side effects of the medication Past Medical History Past Medical History: COPD, Diabetes Mellitus, Eye Disorder, GERD/Reflux, Hyperlipidemia, Hypertension, Musculoskeletal Disorder, Osteoarthritis (OA), Pneumonia, Sleep Apnea/CPAP/BIPAP Additional Past Medical History / Comment(s): ASD with repair, T wave inversion since ASD repair, bilat glaucoma w/ sx, trigeminal neuralgia-corrected, diverticulitis, hiatal hernia, chronic low back pain, hx anemia when young, bilateral varicosities, sinus problems, sl sleep apnea - no tx History of Any Multi-Drug Resistant Organisms: None Reported Past Surgical History: Heart Catheterization, Hysterectomy, Orthopedic Surgery, Tubal Ligation Additional Past Surgical History / Comment(s): 1995 ASD repair at [place], L/R foot surg-spurs and R great toe joint replaced, R rotator cuff surg, trigeminal neuralgia surgery [facility], back injections, fatty tumors removed x3 from legs, bilateral laser sx twice for glaucoma, Sinus/deviated septum surg, bilat cataracts, Colonoscopy, lumbar infusion Past Anesthesia/Blood Transfusion Reactions: Previous Problems w/ Anesthesia Additional Past Anesthesia/Blood Transfusion Reaction / Comm: Had BANG w/nerve block w/rotator cuff surg. Pt received blood with ASD repair without reaction. Past Psychological History: Depression, Panic Disorder Smoking Status: Never smoker Past Alcohol Use History: Rare Past Drug Use History: None Reported - Past Family History Father Family Medical History: Cancer Additional Family Medical History / Comment(s): Father of throat/lung cancer. Mother Family Medical History: Diabetes Mellitus Additional Family Medical History / Comment(s): Mother had heart problems. She at age 73yrs Brother(s) Family Medical History: Cancer Additional Family Medical History / Comment(s): 3 BROTHERS OF CANCER Medications and Allergies Home Medications Medication Instructions Recorded Confirmed Type Atorvastatin [Lipitor] 40 mg PO HS #30 tab 09/11/16 06/11/23 Rx Albuterol Inhaler [Ventolin Hfa 1 - 2 puff INHALATION RT-Q6H PRN 08/29/18 06/11/23 History Inhaler] Levothyroxine Sodium [Synthroid] 75 mcg PO HS 08/29/18 06/11/23 History Sertraline [Zoloft] 100 mg PO HS 12/29/21 06/11/23 History Budesonide/Formoterol Fumarate 2 puff INHALATION RT-BID 11/05/22 06/11/23 History [Symbicort 80-4.5 Mcg Inhaler] Gabapentin 300 mg PO HS 11/05/22 06/11/23 History Omeprazole [PriLOSEC] 40 mg PO HS 11/05/22 06/11/23 History carBAMazepine 200 mg PO HS 11/05/22 06/11/23 History clonazePAM [KlonoPIN] 1 mg PO DAILY PRN 11/05/22 06/11/23 History clonazePAM [KlonoPIN] 1 mg PO HS 11/05/22 06/11/23 History Albuterol Nebulized [Ventolin 2.5 mg INHALATION RT-Q6H PRN 04/02/23 06/11/23 History Nebulized] Gabapentin 300 mg PO BID PRN 04/02/23 06/11/23 History Celecoxib [CeleBREX] 200 mg PO DIRECTED 06/11/23 06/11/23 History Cyclobenzaprine [Flexeril] 10 mg PO HS 06/11/23 06/11/23 History Latanoprost [Latanoprost 0.005%] 1 drop BOTH EYES HS 06/11/23 06/11/23 History Semaglutide [Ozempic] 2 mg SQ WE 06/11/23 06/11/23 History methylPREDNISolone [Medrol Dose See Taper PO DIRECTED 06/11/23 06/11/23 History Pack] Allergies Allergy/AdvReac Type Severity Reaction Status Date / Time Sulfa (Sulfonamide Allergy Itching Verified 06/11/23 19:54 Antibiotics) nortriptyline [From Pamelor] AdvReac LIGHT Verified 06/11/23 19:54 HEADED Physical Exam Vitals: Vital Signs Temp Pulse Pulse Resp BP Pulse Ox 06/14/23 07:57 86 18 06/14/23 07:09 98.0 F 86 18 131/83 97 06/14/23 04:36 101 H 127/84 06/14/23 01:41 98.8 F 94 170/84 96 06/13/23 20:00 95 19 06/13/23 19:57 99.6 F 99 162/82 96 06/13/23 13:18 98.8 F 76 20 160/71 94 L Intake and Output 06/13/23 06/14/23 06/14/23 22:59 06:59 14:59 Output Total 3200 Balance -3200 Output: Urine 1600 Straight 800 Post Void Residual 1600 Other: Voiding Method Bedside Commode Bedside Commode # Voids 1 0 Physical Examinations : -Constitutiona : Cooperative , not in acute distress . -HEENT : nech : supple , no Lymphadenopathy , normal thyroid size . : eyes : no ptosis , no icterus, no photop hobia . - neurologic : Cranial nerve II to XII intact , no focal neurological deffecit . -psychatric : alert , oriented X 3 , appropriate affect , intact judgment and insight . -Lymphatic : no Lymphadenopathy . - musculoskeltal : Lumber spine moter stegnth lower extremities ,thigh and legs 3-4 /5 Right side , 5/5 Left side deep tendon reflexes : normal Knee Jerk , normal ankle Jerk lumber facet Loading Test =positive Right , positive Left Range of motion of the lumbar spine Flexion 30 degrees, extension 10 degrees strait leg raising test = positive at 45 degree Fabere test= positive Right , and positive LT . Sever tenderness over the Sacroiliac joint on the Right . Gaenslen test= positive right . Seated flexion test= positive right . Sacroiliac compression test= positive right side Results CBC & Chem 7: 06/14/23 05:28 06/14/23 05:28 Labs: Abnormal Lab Results - Last 24 Hours (Table) 06/13/23 06/13/23 06/13/23 Range/Units 11:56 16:44 20:15 WBC (4.50-10.00) X 10*3/uL RBC (4.10-5.20) X 10*6/uL Hgb (12.0-15.0) g/dL Hct (37.2-46.3) % MCH (27.0-32.0) pg MCHC (32.0-37.0) g/dL RDW (11.5-14.5) % MPV (9.5-12.2) FL Immature Gran # (0.00-0.04) X 10*3/uL Neutrophils # (1.80-7.70) X 10*3/uL Carbon Dioxide (21.6-31.8) mmol/L Anion Gap (4.00-12.00) mmol/L Glucose (70-110) mg/dL POC Glucose (mg/dL) 240 H 168 H 168 H (70-110) mg/dL 06/14/23 06/14/23 06/14/23 Range/Units 05:28 05:28 06:03 WBC 12.06 H (4.50-10.00) X 10*3/uL RBC 3.64 L (4.10-5.20) X 10*6/uL Hgb 9.4 L (12.0-15.0) g/dL Hct 31.8 L (37.2-46.3) % MCH 25.8 L (27.0-32.0) pg MCHC 29.6 L (32.0-37.0) g/dL RDW 16.4 H (11.5-14.5) % MPV 9.4 L (9.5-12.2) FL Immature Gran # 0.09 H (0.00-0.04) X 10*3/uL Neutrophils # 9.53 H (1.80-7.70) X 10*3/uL Carbon Dioxide 19.2 L (21.6-31.8) mmol/L Anion Gap 13.80 H (4.00-12.00) mmol/L Glucose 153 H (70-110) mg/dL POC Glucose (mg/dL) 165 H (70-110) mg/dL 06/14/23 Range/Units 11:10 WBC (4.50-10.00) X 10*3/uL RBC (4.10-5.20) X 10*6/uL Hgb (12.0-15.0) g/dL Hct (37.2-46.3) % MCH (27.0-32.0) pg MCHC (32.0-37.0) g/dL RDW (11.5-14.5) % MPV (9.5-12.2) FL Immature Gran # (0.00-0.04) X 10*3/uL Neutrophils # (1.80-7.70) X 10*3/uL Carbon Dioxide (21.6-31.8) mmol/L Anion Gap (4.00-12.00) mmol/L Glucose (70-110) mg/dL POC Glucose (mg/dL) 121 H (70-110) mg/dL Assessment and Plan Plan: Assessment and plan=1-acute on chronic low back pain., Secondary to lumbar degenerative disc disease, patient had previous lumbar laminectomy and fusion done at L4 5 and L5-S1, currently most of the pain is coming from right sacroiliac joint component Patient had right hip hemiarthroplasty secondary to right femoral neck fracture, the biggest option at this point is to increase Hudson to 7.5/325 every 4-6 hours when necessary for pain, start patient on Lidoderm patch 5% 12 hours on 12 hours off, patient can follow-up as an outpatient for evaluation regarding low back pain, currently is not candidate for interventional pain management because of acute phase(right hip hemiarthroplasty) Time with Patient: Less than 30 PQRS Measure Charge Sheet - Pain Location Right Hip Non-Pharmacological Interventions: Darkened Room, Distraction Pharmacological Interventions: PRN Medication PQRS Narrative: Smoking Status Former smoker Blood Pressure [Left Radial 131/83 Artery] Blood Pressure 124/70 Pain Intensity [Right Hip] 0 Pain Intensity 0 Pain Scale Used [Right Hip] FLACC (1-3yrs) Pain Scale Used Numeric (1 - 10) Scale Used Numeric (1 - 10) Home Medications: Ambulatory Orders Atorvastatin [Lipitor] 40 mg PO HS #30 tab 09/11/16 Albuterol Inhaler [Ventolin Hfa Inhaler] 1 - 2 puff INHALATION RT-Q6H PRN 08/29/18 Levothyroxine Sodium [Synthroid] 75 mcg PO HS 08/29/18 Sertraline [Zoloft] 100 mg PO HS 12/29/21 Budesonide/Formoterol Fumarate [Symbicort 80-4.5 Mcg Inhaler] 2 puff INHALATION RT-BID 11/05/22 Gabapentin 300 mg PO HS 11/05/22 Omeprazole [PriLOSEC] 40 mg PO HS 11/05/22 carBAMazepine 200 mg PO HS 11/05/22 clonazePAM [KlonoPIN] 1 mg PO DAILY PRN 11/05/22 clonazePAM [KlonoPIN] 1 mg PO HS 11/05/22 Albuterol Nebulized [Ventolin Nebulized] 2.5 mg INHALATION RT-Q6H PRN 04/02/23 Gabapentin 300 mg PO BID PRN 04/02/23 Celecoxib [CeleBREX] 200 mg PO DIRECTED 06/11/23 Cyclobenzaprine [Flexeril] 10 mg PO HS 06/11/23 Latanoprost [Latanoprost 0.005%] 1 drop BOTH EYES HS 06/11/23 Semaglutide [Ozempic] 2 mg SQ WE 06/11/23 methylPREDNISolone [Medrol Dose Pack] See Taper PO DIRECTED 06/11/23
[2023-06-14] MEDS: HYDROcodone/APAP 7.5-325MG 1 EACH TAB PO PRN ×2 (13:55→21:16)
--- NOTE | 2023-06-14 15:00 | P.PN ---
Subjective Progress Note Date: 06/14/23 Hospital course: Patient is a pleasant 68-year-old female with a past medical history of hypertension, hyperlipidemia, COPD and pulmonary hypertension, atrial septal defect with repair, aid-hscwayy-dqwwjeugr diabetes mellitus, hypothyroidism, depression, and osteoarthritis. She is currently admitted under orthopedic surgery team and is status post right hip hemiarthroplasty secondary to traumatic fall resulting in a displaced femoral neck fracture. We were consulted for medical management throughout patient's hospitalization. Physical exam: Vital signs reviewed and stable. General: Nontoxic, no distress and appears stated age. Derm: Skin warm and dry, normal coloration for ethnicity. Head: Atraumatic, normocephalic and symmetric. Eyes: EOMs intact, no lid lag, and anicteric sclera Mouth: no lip lesions, mucus membranes moist Cardiovascular: regular rate and rhythm with normal S1S2, no murmur, positive posterior tibial pulses bilaterally, and cap refill < 2 seconds. Lungs: Respirations even, regular, and unlabored on room air. Lungs CTA bilaterally, no rhonchi, no rales, no wheezing, and no accessory muscle usage. Abdominal: soft, nontender to palpation, no guarding, no appreciable organomegaly Ext: ROM intact. No gross muscle atrophy, no edema, no contractures Neuro: Speech clear, face symmetrical and CN II-XII grossly intact with no noted focal neuro deficits Psych: Alert and oriented to person, place, time, and situation. Appropriate and pleasant affect. Assessment and Plan of Care: Acute blood loss anemia, secondary to postoperative blood loss and blood loss from traumatic femoral neck fracture. -This is a stable and expected outcome. No need for transfusion or further interventions at this time. No signs of active bleeding. Traumatic right hip femoral neck fracture status post repair Mechanical fall Leukocytosis, anticipated outcome of surgery -Ortho note reviewed, likely discharge to subacute rehab -Pain control with oral Tylenol as needed, oral [place] as needed, IV Dilaudid as needed, monitor for respiratory depression -Subcu heparin for DVT prophylaxis Pulmonary hypertension -Needs outpatient follow-up -Cardiology note reviewed, no further interventions are commended at this time. Type 2 diabetes -Continuation of glycemic protocol with NovoLog sliding scale insulin, monitor for hypoglycemia Hypothyroidism -Continue Levothyroxine 75 mcg daily Depression -Continue sertraline 100 mg nightly. GERD -Continue pantoprazole 40 40 mg nightly. Hyperlipidemia -Continue atorvastatin 40 Data reviewed: Morning labs reviewed showing mild leukocytosis with WBC count of 12.06 and stable microcytic anemia with hemoglobin stable at 9.4 Vital signs reviewed and stable. Blood pressure 131/83, heart rate 86, respiratory rate 18, temp 98.0F, SpO2 of 97% on room air. Thank you for allowing us to participate in the care of this pleasant patient. Do not hesitate to contact us with questions. Someone can be reached from the [facility] hospitalist group all hours of the day at [phone] or via perfect serve. Patient was seen independently by Nurse Pracitioner. This document was prepared using [employer] dictation software. Please allow for errors in histology teacher, while rare they do occur. Objective - Vital Signs Vital signs: Vital Signs Temp 98.0 F 06/14/23 07:09 Pulse 86 06/14/23 07:09 Resp 18 06/14/23 07:09 BP 131/83 06/14/23 07:09 Pulse Ox 97 06/14/23 07:09 FiO2 Intake & Output 06/13/23 06/14/23 06/14/23 18:59 06:59 18:59 Output Total 3200 Balance -3200 Output: Urine 1600 Straight 800 Post Void Residual 1600 Other: Voiding Method Bedside Commode Bedside Commode # Voids 1 0 - Labs CBC & Chem 7: 06/14/23 05:28 06/14/23 05:28 Labs: Abnormal Lab Results - Last 24 Hours (Table) 06/13/23 06/13/23 06/13/23 Range/Units 11:56 16:44 20:15 POC Glucose (mg/dL) 240 H 168 H 168 H (70-110) mg/dL 06/14/23 Range/Units 06:03 POC Glucose (mg/dL) 165 H (70-110) mg/dL
[2023-06-14 16:22] LABS: Glucose,Whole Blood 188 mg/dL (70-110)
[2023-06-14 18:45] LABS: Basophils % (A) 0 %; Eosinophils # (A) 0.3 k/uL (0-0.7); Eosinophils % (A) 3 %; HCT 27.3 % (34.0-46.0); HGB 8.8 gm/dL (11.4-16.0); Hypochromasia Slight; Lymphocytes # (A) 1.3 k/uL (1.0-4.8); Lymphocytes % (A) 12 %; MCHC 32.4 g/dL (31.0-37.0); MCV 83.3 fL (80.0-100.0); Mean Platelet Volume 7.5; Monocytes # (A) 0.5 k/uL (0-1.0); Monocytes % (A) 5 %; Neutrophils # (A) 8.2 k/uL (1.3-7.7); Neutrophils % (A) 79 %; Platelet Count 253 k/uL (150-450); RBC 3.27 m/uL (3.80-5.40); RDW 15.8 % (11.5-15.5); WBC 10.5 k/uL (3.8-10.6)
[2023-06-14 20:28] LABS: Glucose,Whole Blood 159 mg/dL (70-110)
[2023-06-14] MEDS: GABAPENTIN 300 MG CAP PO SCH (21:14)
[2023-06-14] MEDS: LEVOTHYROXINE 75 MCG TAB PO SCH (21:14)
[2023-06-14] MEDS: ATORVASTATIN 40 MG TAB PO SCH (21:14)
[2023-06-14] MEDS: SERTRALINE 100 MG TAB PO SCH (21:14)
[2023-06-14] MEDS: PANTOPRAZOLE 40 MG TABLET PO SCH (21:15)
[2023-06-14] MEDS: clonazePAM 1 MG TAB PO SCH (21:15)
[2023-06-14] MEDS: carBAMazepine 200 MG TAB PO SCH (21:15)
[2023-06-14] MEDS: SODIUM CHLORIDE 0.9% 1,000 ML IV SCH ×2 (21:17→21:18)
[2023-06-14] MEDS: LATANOPROST 0.005% OPHTH DROPS 2.5 ML BTL BOTH EYES SCH (21:17)
[2023-06-15] MEDS: HEPARIN SODIUM,PORCINE 5,000 UNIT/ML 1 ML VIAL SQ SCH ×3 (00:37→17:12)
[2023-06-15 05:43] LABS: Glucose,Whole Blood 123 mg/dL (70-110)
[2023-06-15] MEDS: INSULIN ASPART (NovoLOG) 100 UNIT/ML VIAL SQ SCH ×3 (05:44→17:13)
[2023-06-15] MEDS: SODIUM CHLORIDE 0.9% 1,000 ML IV SCH (05:59)
[2023-06-15] MEDS: HYDROcodone/APAP 7.5-325MG 1 EACH TAB PO PRN ×2 (06:50→13:50)
[2023-06-15 07:24] VITALS: RESP 22
[2023-06-15] MEDS: SYMBICORT 80-4.5 MCG INHALER INHALATION SCH (07:58)
[2023-06-15] MEDS: SENNOSIDES-DOCUSATE SODIUM 1 EACH TAB PO SCH (07:59)
[2023-06-15] MEDS: LIDOCAINE 4% PATCH TOPICAL SCH (07:59)
--- NOTE | 2023-06-15 08:30 | P.DS ---
Providers Date of admission: 06/11/23 19:28 Expected date of discharge: 06/15/23 Attending physician: Fletcher Mcneal Consults: 06/11/23 19:26 Consult Physician Urgent Consulting Provider: Yaquelin Motley Consult Reason/Comments: medical Do you want consulting provider notified?: Yes Primary care physician: Tex Clement - Discharge Diagnosis(es) (1) Status post hip hemiarthroplasty Current Visit: Yes Status: Acute (2) Chronic low back pain Current Visit: Yes Status: Acute (3) Fracture of femoral neck, right Current Visit: Yes Status: Acute Hospital Course: This is a 68-year-old female who presented on 06/11/2023 after falling and sustaining injury to the right hip. On exam and x-ray in the emergency department she was found to have a hip fracture. The pt is admitted to our service for surgical intervention and care. The patient is taken to surgery for hemiarthroplasty of the right hip. The procedure is performed without complication or sequelae. The patient is doing well postoperatively. Vital signs are stable on postop day #3. She is having some difficulty with low back pain which is chronic for her. She was seen by pain management who has increased her [place] dose. We will hold off on any interventions at this time. There are no new complaints or concerns. The patient is discharged to inpatient rehab pending medical clearance today. Please refer to the [facility] rec for accurate list of medications. Patient Condition at Discharge: Stable Plan - Discharge Summary Discharge Rx Participant: Yes New Discharge Prescriptions: New Aspirin [Adult Low Dose Aspirin EC] 81 mg PO BID #1 tab HYDROcodone/APAP 7.5-325MG [[place] 7.5-325] 1 - 2 tab PO Q6HR PRN #32 tab PRN Reason: Pain Sennosides-Docusate Sodium [Senokot-S] 1 tab PO BID #60 tablet No Action Atorvastatin [Lipitor] 40 mg PO HS #30 tab Albuterol Inhaler [Ventolin Hfa Inhaler] 1 - 2 puff INHALATION RT-Q6H PRN PRN Reason: Shortness Of Breath Levothyroxine Sodium [Synthroid] 75 mcg PO HS carBAMazepine 200 mg PO HS clonazePAM [KlonoPIN] 1 mg PO HS Albuterol Nebulized [Ventolin Nebulized] 2.5 mg INHALATION RT-Q6H PRN PRN Reason: Shortness Of Breath Gabapentin 300 mg PO BID PRN PRN Reason: Pain Latanoprost [Latanoprost 0.005%] 1 drop BOTH EYES HS Celecoxib [CeleBREX] 200 mg PO DIRECTED Sertraline [Zoloft] 100 mg PO HS Gabapentin 300 mg PO HS Budesonide/Formoterol Fumarate [Symbicort 80-4.5 Mcg Inhaler] 2 puff INHALATION RT-BID clonazePAM [KlonoPIN] 1 mg PO DAILY PRN PRN Reason: Anxiety Omeprazole [PriLOSEC] 40 mg PO HS Semaglutide [Ozempic] 2 mg SQ WE Cyclobenzaprine [Flexeril] 10 mg PO HS methylPREDNISolone [Medrol Dose Pack] See Taper PO DIRECTED Discharge Medication List Atorvastatin [Lipitor] 40 mg PO HS #30 tab 09/11/16 [Rx] Albuterol Inhaler [Ventolin Hfa Inhaler] 1 - 2 puff INHALATION RT-Q6H PRN 08/29/18 [History] Levothyroxine Sodium [Synthroid] 75 mcg PO HS 08/29/18 [History] Sertraline [Zoloft] 100 mg PO HS 12/29/21 [History] Budesonide/Formoterol Fumarate [Symbicort 80-4.5 Mcg Inhaler] 2 puff INHALATION RT-BID 11/05/22 [History] Gabapentin 300 mg PO HS 11/05/22 [History] Omeprazole [PriLOSEC] 40 mg PO HS 11/05/22 [History] carBAMazepine 200 mg PO HS 11/05/22 [History] clonazePAM [KlonoPIN] 1 mg PO DAILY PRN 11/05/22 [History] clonazePAM [KlonoPIN] 1 mg PO HS 11/05/22 [History] Albuterol Nebulized [Ventolin Nebulized] 2.5 mg INHALATION RT-Q6H PRN 04/02/23 [History] Gabapentin 300 mg PO BID PRN 04/02/23 [History] Celecoxib [CeleBREX] 200 mg PO DIRECTED 06/11/23 [History] Cyclobenzaprine [Flexeril] 10 mg PO HS 06/11/23 [History] Latanoprost [Latanoprost 0.005%] 1 drop BOTH EYES HS 06/11/23 [History] Semaglutide [Ozempic] 2 mg SQ WE 06/11/23 [History] methylPREDNISolone [Medrol Dose Pack] See Taper PO DIRECTED 06/11/23 [History] Aspirin [Adult Low Dose Aspirin EC] 81 mg PO BID #1 tab 06/15/23 [Rx] HYDROcodone/APAP 7.5-325MG [[place] 7.5-325] 1 - 2 tab PO Q6HR PRN #32 tab 06/15/23 [Rx] Sennosides-Docusate Sodium [Senokot-S] 1 tab PO BID #60 tablet 06/15/23 [Rx] Follow up Appointment(s)/Referral(s): Fletcher Mcneal DO [Doctor of Osteopathic Medicine] - 07/03/23 1:00 pm Tex Clement MD [Primary Care Provider] - 1-2 days Activity/Diet/Wound Care/Special Instructions: Keep site clean. May shower with waterproof Tegaderm intact. Do not soak in a tub. After 72 hours postoperatively, patient May remove dressing and then may shower with area uncovered. Leave glue intact and allow it to fray off on its own. May ambulate as tolerated. Avoid heavy or rigorous activity. No repetitive bending twisting or lifting. No overhead work. May weight-bear as tolerated bilateral lower extremities Right lower extremity hip dislocation precautions Patient requires a bedside commode because she is room bound due to a right hip fracture. Discharge Disposition: TRANSFER TO SNF/ECF
[2023-06-15 11:16] LABS: Glucose,Whole Blood 146 mg/dL (70-110)
[2023-06-15 14:00] VITALS: BP 156/83; PULSE 80; TEMP 97.9
--- NOTE | 2023-06-15 14:48 | P.PN ---
Subjective Progress Note Date: 06/15/23 Hospital course: Patient is a pleasant 68-year-old female with a past medical history of hypertension, hyperlipidemia, COPD and pulmonary hypertension, atrial septal defect with repair, nab-gjlxuxz-jpejfqaiy diabetes mellitus, hypothyroidism, depression, and osteoarthritis. She is currently admitted under orthopedic surgery team and is status post right hip hemiarthroplasty secondary to traumatic fall resulting in a displaced femoral neck fracture. We were consulted for medical management throughout patient's hospitalization. Physical exam: Patient seen and fully evaluated at bedside this morning. She is postoperative day 3 and appears to be doing well. [facility]. Medically, patient is stable for discharge to rehab at this time Vital signs reviewed and stable. General: Nontoxic, no distress and appears stated age. Derm: Skin warm and dry, normal coloration for ethnicity. Head: Atraumatic, normocephalic and symmetric. Eyes: EOMs intact, no lid lag, and anicteric sclera Mouth: no lip lesions, mucus membranes moist Cardiovascular: regular rate and rhythm with normal S1S2, no murmur, positive posterior tibial pulses bilaterally, and cap refill < 2 seconds. Lungs: Respirations even, regular, and unlabored on room air. Lungs CTA bilaterally, no rhonchi, no rales, no wheezing, and no accessory muscle usage. Abdominal: soft, nontender to palpation, no guarding, no appreciable organomegaly Ext: ROM intact. No gross muscle atrophy, no edema, no contractures Neuro: Speech clear, face symmetrical and CN II-XII grossly intact with no noted focal neuro deficits Psych: Alert and oriented to person, place, time, and situation. Appropriate and pleasant affect. Assessment and Plan of Care: Acute blood loss anemia, secondary to postoperative blood loss and blood loss from traumatic femoral neck fracture. -This is a stable and expected outcome. No need for transfusion or further interventions at this time. No signs of active bleeding. Hemoglobin is stable at 8.8. Traumatic right hip femoral neck fracture status post repair Mechanical fall Leukocytosis, anticipated outcome of surgery -Ortho note reviewed, likely discharge to subacute rehab -Pain control with oral Tylenol as needed, oral [place] as needed, IV Dilaudid as needed, monitor for respiratory depression -Subcu heparin for DVT prophylaxis Pulmonary hypertension -Needs outpatient follow-up -Cardiology note reviewed, no further interventions are commended at this time. Type 2 diabetes -Continuation of glycemic protocol with NovoLog sliding scale insulin, monitor for hypoglycemia Hypothyroidism -Continue Levothyroxine 75 mcg daily Depression -Continue sertraline 100 mg nightly. GERD -Continue pantoprazole 40 40 mg nightly. Hyperlipidemia -Continue atorvastatin 40 Data reviewed: Morning labs reviewed showing stable microcytic anemia with hemoglobin stable at 8.8 and resolution of previously noted leukocytosis with WBC count now 10.5. Vital signs reviewed and stable. Blood pressure 138/68, heart rate 101, respiratory rate 22, temp 97.6F, SpO2 of 100% on 2 L. Thank you for allowing us to participate in the care of this pleasant patient. Do not hesitate to contact us with questions. Someone can be reached from the [facility] hospitalist group all hours of the day at [phone] or via Boomr. Patient was seen independently by Nurse Pracitioner. This document was prepared using [employer] dictation software. Please allow for errors in stamp classifier, while rare they do occur. Antonio Calix MAIL READER rendered care for this patient independently, reviewed the findings and plan as documented in the note above. I did not physically speak with or examine the patient on this date. Objective - Vital Signs Vital signs: Vital Signs Temp 97.6 F 06/15/23 07:16 Pulse 101 H 06/15/23 07:16 Resp 22 06/15/23 07:16 BP 138/68 06/15/23 07:16 Pulse Ox 100 06/15/23 07:16 FiO2 Intake & Output 06/14/23 06/15/23 06/15/23 18:59 06:59 18:59 Other: Voiding Method Bedside Commode Toilet # Voids 1 2 - Labs CBC & Chem 7: 06/14/23 17:51 06/14/23 05:28 Labs: Abnormal Lab Results - Last 24 Hours (Table) 06/14/23 06/14/23 06/14/23 Range/Units 05:28 05:28 11:10 WBC 12.06 H (4.50-10.00) X 10*3/uL RBC 3.64 L (4.10-5.20) X 10*6/uL Hgb 9.4 L (12.0-15.0) g/dL Hct 31.8 L (37.2-46.3) % MCH 25.8 L (27.0-32.0) pg MCHC 29.6 L (32.0-37.0) g/dL RDW 16.4 H (11.5-14.5) % MPV 9.4 L (9.5-12.2) FL Immature Gran # 0.09 H (0.00-0.04) X 10*3/uL Neutrophils # 9.53 H (1.80-7.70) X 10*3/uL Carbon Dioxide 19.2 L (21.6-31.8) mmol/L Anion Gap 13.80 H (4.00-12.00) mmol/L Glucose 153 H (70-110) mg/dL POC Glucose (mg/dL) 121 H (70-110) mg/dL 06/14/23 06/14/23 06/14/23 Range/Units 16:18 17:51 20:27 WBC (4.50-10.00) X 10*3/uL RBC 3.27 L (4.10-5.20) X 10*6/uL Hgb 8.8 L (12.0-15.0) g/dL Hct 27.3 L (37.2-46.3) % MCH (27.0-32.0) pg MCHC (32.0-37.0) g/dL RDW 15.8 H (11.5-14.5) % MPV (9.5-12.2) FL Immature Gran # (0.00-0.04) X 10*3/uL Neutrophils # 8.2 H (1.80-7.70) X 10*3/uL Carbon Dioxide (21.6-31.8) mmol/L Anion Gap (4.00-12.00) mmol/L Glucose (70-110) mg/dL POC Glucose (mg/dL) 188 H 159 H (70-110) mg/dL 06/15/23 Range/Units 05:42 WBC (4.50-10.00) X 10*3/uL RBC (4.10-5.20) X 10*6/uL Hgb (12.0-15.0) g/dL Hct (37.2-46.3) % MCH (27.0-32.0) pg MCHC (32.0-37.0) g/dL RDW (11.5-14.5) % MPV (9.5-12.2) FL Immature Gran # (0.00-0.04) X 10*3/uL Neutrophils # (1.80-7.70) X 10*3/uL Carbon Dioxide (21.6-31.8) mmol/L Anion Gap (4.00-12.00) mmol/L Glucose (70-110) mg/dL POC Glucose (mg/dL) 123 H (70-110) mg/dL
== END 2023-06-15 18:00 | DRG 522 ==
LOC: EC 18:10 → 4SSUR 19:28
PROVIDERS: ADMIT Orthopaedic Surgery Orthopaedic Surgery of the Spine; ATTEND Orthopaedic Surgery Orthopaedic Surgery of the Spine
PROC: 0SRR019 Replacement of Right Hip Joint, Femoral Surface with Metal Synthetic Substitute, Cemented, Open Approach (ICD-10-PCS; principal; 2023-06-12 13:15)
DX: S72.041A Displaced fracture of base of neck of right femur, initial encounter for closed fracture (principal); Z68.41 Body mass index [BMI] 40.0-44.9, adult; D62 Acute posthemorrhagic anemia; K44.9 Diaphragmatic hernia without obstruction or gangrene; I27.20 Pulmonary hypertension, unspecified; E66.9 Obesity, unspecified; R53.81 Other malaise; J44.9 Chronic obstructive pulmonary disease, unspecified; M19.90 Unspecified osteoarthritis, unspecified site; E11.9 Type 2 diabetes mellitus without complications; W18.11XA Fall from or off toilet without subsequent striking against object, initial encounter; K21.9 Gastro-esophageal reflux disease without esophagitis; K57.90 Diverticulosis of intestine, part unspecified, without perforation or abscess without bleeding; E78.5 Hyperlipidemia, unspecified; M51.16 Intervertebral disc disorders with radiculopathy, lumbar region; I11.9 Hypertensive heart disease without heart failure; G89.29 Other chronic pain; G47.33 Obstructive sleep apnea (adult) (pediatric); F41.0 Panic disorder [episodic paroxysmal anxiety]; F32.A Depression, unspecified; E03.9 Hypothyroidism, unspecified; Z88.2 Allergy status to sulfonamides; Z87.01 Personal history of pneumonia (recurrent); Z98.1 Arthrodesis status; Z79.899 Other long term (current) drug therapy; Z79.890 Hormone replacement therapy; Z79.51 Long term (current) use of inhaled steroids; Z88.5 Allergy status to narcotic agent; Z79.52 Long term (current) use of systemic steroids
CPT/HCPCS: 71045; 73501; 73502; 80048; 80053; 83036; 83735; 83880; 84484; 85025; 85610; 85730; 86850; 86900; 86901; 88305; 88311; 93005; 93306; 94640; 94760; 96374; 96375; 96376; 99285

== ENCOUNTER 2024-08-24 12:36 | Inpatient (IN) | payer MEDICARE, OTHER ==
[2024-08-24 13:40] LABS: Basophils % (A) 0 %; Eosinophils # (A) 0.3 k/uL (0-0.7); Eosinophils % (A) 4 %; HCT 35.8 % (34.0-46.0); HGB 10.9 gm/dL (11.4-16.0); Hypochromasia Moderate; Lymphocytes # (A) 1.4 k/uL (1.0-4.8); Lymphocytes % (A) 16 %; MCH 24.7 pg (25.0-35.0); MCHC 30.6 g/dL (31.0-37.0); MCV 80.8 fL (80.0-100.0); Mean Platelet Volume 6.6; Monocytes # (A) 0.4 k/uL (0-1.0); Monocytes % (A) 5 %; Neutrophils # (A) 6.2 k/uL (1.3-7.7); Neutrophils % (A) 74 %; Platelet Count 318 k/uL (150-450); RBC 4.44 m/uL (3.80-5.40); RDW 15.3 % (11.5-15.5); WBC 8.4 k/uL (3.8-10.6)
--- NOTE | 2024-08-24 13:44 | XR ---
Two-view chest. CLINICAL INDICATION: Female, 69 years old with history of difficulty breathing, Cough. COMPARISON: 04/02/2023 TECHNIQUE: PA and lateral views chest obtained FINDINGS: There is been interval development of partially consolidative and interstitial opacities in the mid t o lower lung zones bilaterally. There is mild cardiomegaly but the pulmonary vasculature does not appear congested. There is been [place] or CABG surgery. There is no pleural effusion or pneumothorax. The osseous structures are intact. IMPRESSION: Acute cardiopulmonary disease involving both lungs suspicious for bilateral pneumonia and short-term follow-up is recommended. [facility], Workstation: JOSE RAMON, 08/24/2024 1:42 PM
[2024-08-24 13:49] LABS: ALT 17 U/L (4-34); AST 24 U/L (14-36); African American GFR (CKD) 62 (>60 ml/min/1.73 sqM); Albumin 3.5 g/dL (3.5-5.0); Alkaline Phosphatase 86 U/L (38-126); Anion Gap 8 mmol/L; Blood Urea Nitrogen 15 mg/dL (7-17); Calcium 9.5 mg/dL (8.4-10.2); Carbon Dioxide 25 mmol/L (22-30); Chloride 106 mmol/L (98-107); Glucose 145 mg/dL (74-99); Magnesium 1.9 mg/dL (1.6-2.3); Non-African American GFR(CKD) 54 (>60 ml/min/1.73 sqM); Potassium 4.5 mmol/L (3.5-5.1); Sodium 139 mmol/L (137-145); Total Bilirubin 0.5 mg/dL (0.2-1.3); Total Protein 6.2 g/dL (6.3-8.2)
[2024-08-24 14:14] LABS: Influenza A Not Detected (Not Detectd); Influenza B Not Detected (Not Detectd); RSV Not Detected (Not Detectd)
[2024-08-24] MEDS: methylPREDNISolone SOD SUCCI 125 MG/2 ML VIAL IV STA (14:36)
[2024-08-24] MEDS: MAGNESIUM SULFATE-D5W PMX 1 GM in DEXTROSE/WATER 1 100ML.BAG IVPB STA (14:37)
[2024-08-24] MEDS: LACTATED RINGERS 1,000 ML IV ONE (14:39)
[2024-08-24] MEDS: IPRATROPIUM-ALBUTEROL 3 ML NEB INHALATION STA (14:52)
[2024-08-24] MEDS ORDERED: NALOXONE 0.4 MG/ML 1 ML VIAL IV PRN (14:57)
[2024-08-24] MEDS ORDERED: PNEUMONIA PROTOCOL UTILIZED 1 EACH MISC PO PRN (15:00)
--- NOTE | 2024-08-24 15:01 | ED ---
General Adult HPI - General Chief complaint: Shortness of Breath Stated complaint: BANG Time Seen by Provider: 08/24/24 13:01 Source: patient, RN notes reviewed, old records reviewed Mode of arrival: EMS Limitations: no limitations - History of Present Illness Initial comments: Patient is a 69-year-old female presents emergency department complaining of cough, congestion, shortness of breath. Has a history of chronic hypoxic respiratory failure secondary to COPD, diabetes, hyperlipidemia, hypertension. He has a history of sleep apnea as well. States that she has been having 4 to 5 days of productive cough of greenish-yellow sputum with worsening shortness of breath and wheezing. Denies any chest pain but endorses general chest tight ness. Denies orthopnea. Denies PND. Denies lower extremity edema. Denies abdominal pain, nausea, vomiting, diarrhea. Patient does have a sick contact with a family member who had pneumonia. Presents for further evaluation at this time. Is chronically on 2 L nasal cannula at home for chronic hypoxic respiratory failure. - Related Data Home Medications Medication Instructions Recorded Confirmed Albuterol Inhaler [Ventolin Hfa 1 - 2 puff INHALATION RT-Q6H PRN 08/29/18 06/11/23 Inhaler] Levothyroxine Sodium [Synthroid] 75 mcg PO HS 08/29/18 06/11/23 Sertraline [Zoloft] 100 mg PO HS 12/29/21 06/11/23 Budesonide/Formoterol Fumarate 2 puff INHALATION RT-BID 11/05/22 06/11/23 [Symbicort 80-4.5 Mcg Inhaler] Omeprazole [PriLOSEC] 40 mg PO HS 11/05/22 06/11/23 carBAMazepine 200 mg PO HS 11/05/22 06/11/23 Albuterol Nebulized [Ventolin 2.5 mg INHALATION RT-Q6H PRN 04/02/23 06/11/23 Nebulized] Celecoxib [CeleBREX] 200 mg PO DIRECTED 06/11/23 06/11/23 Cyclobenzaprine [Flexeril] 10 mg PO HS 06/11/23 06/11/23 Latanoprost [Latanoprost 0.005%] 1 drop BOTH EYES HS 06/11/23 06/11/23 Semaglutide [Ozempic] 2 mg SQ WE 06/11/23 06/11/23 Previous Rx's Medication Instructions Recorded Atorvastatin [Lipitor] 40 mg PO HS #30 tab 09/11/16 Aspirin [Adult Low Dose Aspirin EC] 81 mg PO BID #1 tab 06/15/23 Benzocaine/Menthol Lozeng [Cepacol 1 each MUCOUS MEM Q4HR PRN lozenge 06/15/23 lozenge] Gabapentin 300 mg PO BID PRN #4 06/15/23 Gabapentin 300 mg PO HS #3 cap 06/15/23 HYDROcodone/APAP 7.5-325MG [[place] 1 - 2 tab PO Q6HR PRN #32 tab 06/15/23 7.5-325] Lidocaine 4% Patch 1 patch TOPICAL DAILY patch 06/15/23 Sennosides-Docusate Sodium 1 tab PO BID #60 tablet 06/15/23 [Senokot-S] clonazePAM [KlonoPIN] 1 mg PO DAILY PRN #3 tab 06/15/23 clonazePAM [KlonoPIN] 1 mg PO HS #3 tab 06/15/23 Allergies Allergy/AdvReac Type Severity Reaction Status Date / Time Sulfa (Sulfonamide Allergy Itching Verified 06/11/23 19:54 Antibiotics) Review of Systems ROS Statement: Those systems with pertinent positive or pertinent negative responses have been documented in the HPI. Review of Systems: CONST: Denies fever EYES: Denies blurry vision ENT: Endorses nasal congestion C/V: Denies Chest pain RESP: Endorses shortness of breath, cough GI: Denies abdominal pain : Denies dysuria SKIN: Denies rash. MSK: Denies joint pain. NEURO: Denies headache ROS Other: All systems not noted in ROS Statement are negative. Past Medical History Past Medical History: COPD, Diabetes Mellitus, Eye Disorder, GERD/Reflux, Hyperlipidemia, Hypertension, Musculoskeletal Disorder, Osteoarthritis (OA), Pneumonia, Sleep Apnea/CPAP/BIPAP Additional Past Medical History / Comment(s): ASD with repair, T wave inversion since ASD repair, bilat glaucoma w/ sx, trigeminal neuralgia-corrected, diverticulitis, hiatal hernia, chronic low back pain, hx anemia when young, bilateral varicosities, sinus problems, sl sleep apnea - no tx History of Any Multi-Drug Resistant Organisms: None Reported Past Surgical History: Heart Catheterization, Hysterectomy, Orthopedic Surgery, Tubal Ligation Additional Past Surgical History / Comment(s): 1995 ASD repair at [facility], L/R foot surg-spurs and R great toe joint replaced, R rotator cuff surg, trigeminal neuralgia surgery HFH, back injections, fatty tumors removed x3 from legs, bilateral laser sx twice for glaucoma, Sinus/deviated septum surg, bilat cataracts, Colonoscopy, lumbar infusion Past Anesthesia/Blood Transfusion Reactions: Previous Problems w/ Anesthesia Additional Past Anesthesia/Blood Transfusion Reaction / Comment(s): Had BANG w/nerve block w/rotator cuff surg. Pt received blood with ASD repair without reaction. Past Psychological History: Depression, Panic Disorder Smoking Status: Never smoker Past Alcohol Use History: Rare Past Drug Use History: None Reported - Past Family History Father Family Medical History: Cancer Additional Family Medical History / Comment(s): Father of throat/lung cancer. Mother Family Medical History: Diabetes Mellitus Additional Family Medical History / Comment(s): Mother had heart problems. She at age 73yrs Brother(s) Family Medical History: Cancer Additional Family Medical History / Comment(s): 3 BROTHERS OF CANCER General Exam - General Exam Comments Initial Comments: General: Appears in no acute distress. HEAD: Normal with no signs of head trauma. EYES: PERRLA, EOMI, conjunctiva normal, no discharge. ENT: Hearing grossly intact, normal oropharynx. RESPIRATORY: Bilateral end expiratory wheezing with decreased breath sounds bilaterally. No significant increased work of breathing. Saturating 92% on baseline 2 L nasal cannula. Patient does drop down to 80%'s when ambulating. C/V: Regular rate and rhythm. S1 and S2 auscultated, no peripheral pitting edema, peripheral pulses 2+ and intact throughout ABD: Abd is soft, nontender, nondistended EXT: Normal range of motion, no obvious deformity SKIN: No rashes or lesions observed on exposed skin. NEURO: Alert and oriented x 4. Limitations: no limitations Course Vital Signs 08/24/24 08/24/24 08/24/24 12:38 13:09 14:52 Temperature 97.4 F L Pulse Rate 89 88 88 Respiratory 18 18 Rate Blood Pressure 146/54 140/79 O2 Sat by Pulse 92 L 94 L Oximetry 08/24/24 15:01 Temperature Pulse Rate 87 Respiratory Rate Blood Pressure O2 Sat by Pulse Oximetry Medical Decision Making - Medical Decision Making Was pt. sent in by a medical professional or institution (, [facility], DISPATCH MACHINE [employer]NER, urgent care, hospital, or [facility]...) When possible be specific @ -No Did you speak to anyone other than the patient for history (EMS, parent, family, police, friend...)? What history was obtained from this source @ -No Did you review nursing and triage notes (agree or disagree)? Why? @ -I reviewed and agree with nursing and triage notes Were old charts reviewed (outside hosp., previous admission, EMS record, old EKG, old radiological studies, urgent care reports/EKG's, [facility] records)? Report findings @ -No old charts were reviewed Differential Diagnosis (chest pain, altered mental status, abdominal pain women, abdominal pain men, vaginal bleeding, weakness, fever, dyspnea, syncope, headache, dizziness, GI bleed, back pain, seizure, CVA, palpatations, mental health, musculoskeletal)? @ -Differential Dyspnea: Coronary syndrome, arrhythmia, tamponade, asthma, COPD, pulmonary embolism, pneumonia, pneumothorax, pulmonary effusion, anaphylaxis, diabetic ketoacidosis, flailed chest, pulmonary contusion, diaphragmatic rupture, anemia, neuromuscular, this is not meant to be an all-inclusive list. EKG interpreted by me (3pts min.). @ -As above X-rays interpreted by me (1pt min.). @ -Chest x-ray shows bilateral pneumonia CT interpreted by me (1pt min.). @ -None done U/S interpreted by me (1pt. min.). @ -None done What testing was considered but not performed or refused? (CT, X-rays, U/S, labs)? Why? @ -None What meds were considered but not given or refused? Why? @ -None Did you discuss the management of the patient with other professionals (professionals i.e. MONTRELL Jennings, DISPATCH MACHINE RUNNER, lab, RT, psych nurse, protective services social worker, police radio dispatcher, teacher, employee service officer, case packer)? Give summary @ -Discussed with [facility] who accepted the admission. Was smoking cessation discussed for >3mins.? @ -No Was critical care preformed (if so, how long)? @ -Yes, 33 minutes. Were there social determinants of health that impacted care today? How? (Homelessness, low income, unemployed, alcoholism, drug addiction, transportation, low edu. Level, literacy, decrease access to med. care, senior living, re hab)? @ -No Was there de-escalation of care discussed even if they declined (Discuss DNR or withdrawal of care, Hospice)? DNR status @ -No What co-morbidities impacted this encounter? (DM, HTN, Smoking, COPD, CAD, Cancer, CVA, ARF, Chemo, Hep., AIDS, mental health diagnosis, sleep apnea, morbid obesity)? @ -COPD, chronic hypoxic respiratory failure Was patient admitted / discharged? Hospital course, mention meds given and route, prescriptions, significant lab abnormalities, going to OR and other pertinent info. @ -Based on the patient's presentation and physical exam, presents emergency de partment complaining of worsening productive cough and shortness of breath. Has chronic hypoxic respiratory failure on nasal cannula oxygen at home. Vital signs are stable on baseline but with ambulation, patient does have hypoxia into the 80% on 2 L. Presents for further evaluation. Will obtain infectious labs. She will be given IV steroids, fluids, as well as breathing treatments. Patient was in agreement this plan. EKG shows no signs of acute ischemia. Chest x-ray shows bilateral pneumonia. Laboratory studies are unremarkable. This includes negative viral swabs. On reevaluation, I discussed results with patient. Due to her worsening hypoxia on exertion, patient will be admitted to the hospital on IV steroids, antibiotics open will cover for pneumonia with IV Rocephin and azithromycin. She was in agreement this plan. Will continue with breathing treatments. Pulmonology consulted. I spoke with the admitting provider, [facility] Alvarez [facility] accepted the admission. Undiagnosed new problem with uncertain prognosis? @ -No Drug Therapy requiring intensive monitoring for toxicity (Heparin, Nitro, Insulin, Cardizem)? @ -No Were any procedures done? @ -No Diagnosis/symptom? @ -pneumonia, COPD with acute on chronic hypoxic respiratory failure Acute, or Chronic, or Acute on Chronic? @ -Acute Uncomplicated (without systemic symptoms) or Complicated (systemic symptoms)? @ -Complicated Side effects of treatment? @ -No Exacerbation, Progression, or Severe Exacerbation? @ -No Poses a threat to life or bodily function? How? (Chest pain, [place], [place], pneumonia, PE, COPD, DKA, ARF, appy, cholecystitis, CVA, Diverticulitis, Homicidal, Suicidal, threat to staff... and all critical care pts) @ -Potentially, yes - Lab Data Result diagrams: 08/24/24 13:20 08/24/24 13:20 Lab Results 08/24/24 08/24/24 08/24/24 Range/Units 13:20 13:20 13:20 WBC 8.4 (3.8-10.6) k/uL RBC 4.44 (3.80-5.40) m/uL Hgb 10.9 L (11.4-16.0) gm/dL Hct 35.8 (34.0-46.0) % MCV 80.8 (80.0-100.0) fL MCH 24.7 L (25.0-35.0) pg MCHC 30.6 L (31.0-37.0) g/dL RDW 15.3 (11.5-15.5) % Plt Count 318 (150-450) k/uL MPV 6.6 Neutrophils % 74 % Lymphocytes % 16 % Monocytes % 5 % Eosinophils % 4 % Basophils % 0 % Neutrophils # 6.2 (1.3-7.7) k/uL Lymphocytes # 1.4 (1.0-4.8) k/uL Monocytes # 0.4 (0-1.0) k/uL Eosinophils # 0.3 (0-0.7) k/uL Basophils # 0.0 (0-0.2) k/uL Hypochromasia Moderate Sodium 139 (137-145) mmol/L Potassium 4.5 (3.5-5.1) mmol/L Chloride 106 (98-107) mmol/L Carbon Dioxide 25 (22-30) mmol/L Anion Gap 8 mmol/L BUN 15 (7-17) mg/dL Creatinine 1.07 H (0.52-1.04) mg/dL Est GFR (CKD-EPI)AfAm 62 (>60 ml/min/1.73 sqM) Est GFR (CKD-EPI)NonAf 54 (>60 ml/min/1.73 sqM) Glucose 145 H (74-99) mg/dL Plasma Lactic Acid Jerry 2.0 (0.7-2.0) mmol/L Calcium 9.5 (8.4-10.2) mg/dL Magnesium 1.9 (1.6-2.3) mg/dL Total Bilirubin 0.5 (0.2-1.3) mg/dL AST 24 (14-36) U/L ALT 17 (4-34) U/L Alkaline Phosphatase 86 (38-126) U/L Total Protein 6.2 L (6.3-8.2) g/dL Albumin 3.5 (3.5-5.0) g/dL Influenza Type A (PCR) (Not Detectd) Influenza Type B (PCR) (Not Detectd) RSV (PCR) (Not Detectd) SARS-CoV-2 (PCR) (Not Detectd) 08/24/24 Range/Units 13:20 WBC (3.8-10.6) k/uL RBC (3.80-5.40) m/uL Hgb (11.4-16.0) gm/dL Hct (34.0-46.0) % MCV (80.0-100.0) fL MCH (25.0-35.0) pg MCHC (31.0-37.0) g/dL RDW (11.5-15.5) % Plt Count (150-450) k/uL MPV Neutrophils % % Lymphocytes % % Monocytes % % Eosinophils % % Basophils % % Neutrophils # (1.3-7.7) k/uL Lymphocytes # (1.0-4.8) k/uL Monocytes # (0-1.0) k/uL Eosinophils # (0-0.7) k/uL Basophils # (0-0.2) k/uL Hypochromasia Sodium (137-145) mmol/L Potassium (3.5-5.1) mmol/L Chloride (98-107) mmol/L Carbon Dioxide (22-30) mmol/L Anion Gap mmol/L BUN (7-17) mg/dL Creatinine (0.52-1.04) mg/dL Est GFR (CKD-EPI)AfAm (>60 ml/min/1.73 sqM) Est GFR (CKD-EPI)NonAf (>60 ml/min/1.73 sqM) Glucose (74-99) mg/dL Plasma Lactic Acid Jerry (0.7-2.0) mmol/L Calcium (8.4-10.2) mg/dL Magnesium (1.6-2.3) mg/dL Total Bilirubin (0.2-1.3) mg/dL AST (14-36) U/L ALT (4-34) U/L Alkaline Phosphatase (38-126) U/L Total Protein (6.3-8.2) g/dL Albumin (3.5-5.0) g/dL Influenza Type A (PCR) Not Detected (Not Detectd) Influenza Type B (PCR) Not Detected (Not Detectd) RSV (PCR) Not Detected (Not Detectd) SARS-CoV-2 (PCR) Not Detected (Not Detectd) - EKG Data -: EKG Interpreted by Me EKG Comments: 12-lead Electrocardiogram Interpretation Note EKG was reviewed and interpreted by myself. 12-lead ECG performed at 1308 is interpreted by me as revealing normal sinus rhythm at a rate of 87 beats per minute. [place] is normal. CO interval is 186 ms, QRS duration is 97 ms, QTc is 393 ms.. There were no ST or T wave abnormalities to suggest myocardial ischemia or injury. R wave progression across the precordium was satisfactory. By my interpretation this EKG is non-diagnostic for acute ischemia. Critical Care Time Critical Care Time: Yes Total Critical Care Time: 33 Disposition Clinical Impression: Pneumonia, Acute on chronic hypoxic respiratory failure, COPD (chronic obstructive pulmonary disease) Disposition: ADMITTED IP TO THIS HOSP Condition: Stable Referrals: Julio César Hayden MD [Primary Care Provider] - 1-2 days Time of Disposition: 15:00
[2024-08-24 15:18] LABS: Appearance,Urine Cloudy (Clear); Bacteria,Urine Rare /hpf; Bilirubin,Urine Negative (Negative); Blood,Urine Trace (Negative); Color,Urine Light Yellow; Glucose,Urine (UA) Negative (Negative); Ketones,Urine Negative (Negative); Leukocyte Esterase,Urine Large (Negative); Mucus,Urine Rare /hpf; Nitrite,Urine Negative (Negative); PH, Urine 5.5 (5.0-8.0); Protein,Urine Trace (Negative); RBC,Urine 27 /hpf (0-5); Squamous Epithelial Cell,Urine 20 /hpf (0-4); Urobilinogen,Urine <2.0 mg/dL (<2.0); WBC,Urine 29 /hpf (0-5)
[2024-08-24] MEDS: IPRATROPIUM-ALBUTEROL 3 ML NEB INHALATION SCH (16:24)
[2024-08-24 16:29] LABS: Glucose,Whole Blood 151 mg/dL (70-110)
[2024-08-24] MEDS: SODIUM CHLORIDE 0.9% 1,000 ML IV SCH (16:40)
[2024-08-24] MEDS ORDERED: IPRATROPIUM-ALBUTEROL 3 ML NEB INHALATION PRN (17:05)
--- NOTE | 2024-08-24 17:18 | P.HPIM ---
History of Present Illness H&P Date: 08/24/24 Patient is a 69-year-old female with a PMH of COPD (on oxygen nasal cannula as needed at home), type II DM, hypertension, hyperlipidemia who presents to the emergency room with complaints of cough, chills, and exertional dyspnea. Patient reports that her symptoms started 5 days ago where she began experiencing an increase in her cough productive of yellow-green phlegm along with exertional dyspnea with SpO2 down to 80% with ambulation as checked by the patient. She also reports long bouts of coughing along with chills and bodyaches. She denied experiencing abdominal pain, nausea, vomiting, diarrhea, or urinary complaints. Chest x-ray in the emergency room revealed findings concerning for bilateral pneumonia with EKG showing sinus rhythm with sinus arrhythmia at 87 bpm with diffuse T wave flattening with QTc 393 ms as reviewed by me. Laboratory evaluation was remarkable for hemoglobin 10.9 (at baseline), sodium 139, potassium 4.5, BUN 15, creatinine 1.07, glucose 145, total protein 6.2, with an indeterminate UA with respiratory viral panel negative. The patient's SpO2 was 92% on 4 L nasal cannula oxygen upon arrival. ED documentation reviewed and case discussed with ED provider. Review of systems: Pertinent positives and negatives as discussed in HPI, a complete review of systems was performed and all other systems are negative. Physical examination: Vital signs reviewed General: non toxic, no distress, appears at stated age, obese Derm: no unusual rashes/lesions, warm Head: atraumatic, normocephalic, symmetric Eyes: EOMI, no lid lag, anicteric sclera, pupils equal round reactive to light ENT: Nose and ears atraumatic Neck: No cervical lymphadenopathy, trachea midline, supple Mouth: no lip lesion, mucus membranes moist Cardiovascular: S1S2 reg, no murmur, positive dorsalis pedis pulse bilateral, no edema Lungs: Bilateral coarse breath sounds with somewhat poor air entry, no accessory muscle use Abdominal: soft, nontender to palpation, no guarding Ext: muscle strength 5 out of 5 in all 4 extremities grossly, no gross muscle atrophy, no contractures, Neuro: CN II-XI grossly intact, no gross focal neuro deficits Psych: Alert, oriented, appropriate affect Assessment: Acute hypoxic respiratory failure in setting of bilateral community-acquired pneumonia Acute COPD exacerbation Chronic conditions: Hypertension, hyperlipidemia, type II DM Imaging: Chest x-ray in the emergency room revealed findings concerning for bilateral pneumonia with EKG showing sinus rhythm with sinus arrhythmia at 87 bpm with diffuse T wave flattening with QTc 393 ms as reviewed by me. Data Review: Laboratory evaluation was remarkable for hemoglobin 10.9 (at baseline), sodium 139, potassium 4.5, BUN 15, creatinine 1.07, glucose 145, total protein 6.2, with an indeterminate UA with respiratory viral panel negative. The patient's SpO2 was 92% on 4 L nasal cannula oxygen upon arrival. Plan: Continue ceftriaxone 2 g daily along with azithromycin 500 mg p.o. daily Continue with DuoNebs [id number] and as needed Continue with Solu-Medrol 40 mg every 12 hourly Pulmonary consulted Antitussive's ordered Continue IV fluids normal saline 100 mL/h Follow-up Legionella and sputum cultures Continue supplemental oxygen Insulin sliding scale with blood glucose monitoring Resume home medications once reconciled DVT prophylaxis: Lovenox subcu The patient is admitted with an anticipated greater than 2 midnight stay for evaluation of Pneumonia CODE STATUS: Full Code Discussed with: Patient Anticipated discharge place: Home Past Medical History Past Medical History: COPD, Diabetes Mellitus, Eye Disorder, GERD/Reflux, H yperlipidemia, Hypertension, Musculoskeletal Disorder, Osteoarthritis (OA), Pneumonia, Sleep Apnea/CPAP/BIPAP Additional Past Medical History / Comment(s): ASD with repair, T wave inversion since ASD repair, bilat glaucoma w/ sx, trigeminal neuralgia-corrected, diverticulitis, hiatal hernia, chronic low back pain, hx anemia when young, bilateral varicosities, sinus problems, sl sleep apnea - no tx History of Any Multi-Drug Resistant Organisms: None Reported Past Surgical History: Heart Catheterization, Hysterectomy, Orthopedic Surgery, Tubal Ligation Additional Past Surgical History / Comment(s): 1995 ASD repair at [facility] [facility], L/R foot surg-spurs and R great toe joint replaced, R rotator cuff surg, trigeminal neuralgia surgery HFH, back injections, fatty tumors removed x3 from legs, bilateral laser sx twice for glaucoma, Sinus/deviated septum surg, bilat cataracts, Colonoscopy, lumbar infusion Past Anesthesia/Blood Transfusion Reactions: Previous Problems w/ Anesthesia Additional Past Anesthesia/Blood Transfusion Reaction / Comment(s): Had BANG w/nerve block w/rotator cuff surg. Pt received blood with ASD repair without reaction. Past Psychological History: Depression, Panic Disorder Additional Psychological History / Comment(s): . Smoking Status: Never smoker Past Alcohol Use History: Rare Additional Past Alcohol Use History / Comment(s): Pt smoked from [id number]. Past Drug Use History: None Reported Additional Drug Use History / Comment(s): CBD gummies for back pain - Past Family History Father Family Medical History: Cancer Additional Family Medical History / Comment(s): Father of throat/lung cancer. Mother Family Medical History: Diabetes Mellitus Additional Family Medical History / Comment(s): Mother had heart problems. She at age 73yrs Brother(s) Family Medical History: Cancer Additional Family Medical History / Comment(s): 3 BROTHERS OF CANCER Medications and Allergies Home Medications Medication Instructions Recorded Confirmed Type Albuterol Inhaler [Ventolin Hfa 2 puff INHALATION RT-Q4H PRN 08/29/18 08/24/24 History Inhaler] Levothyroxine Sodium [Synthroid] 75 mcg PO HS 08/29/18 08/24/24 History Sertraline [Zoloft] 100 mg PO HS 12/29/21 08/24/24 History Omeprazole [PriLOSEC] 40 mg PO HS 11/05/22 08/24/24 History Latanoprost [Latanoprost 0.005%] 1 drop BOTH EYES HS 06/11/23 08/24/24 History Semaglutide [Ozempic] 2 mg SQ WE 06/11/23 08/24/24 History clonazePAM [KlonoPIN] 1 mg PO DAILY PRN #3 tab 06/15/23 08/24/24 Rx clonazePAM [KlonoPIN] 1 mg PO HS #3 tab 06/15/23 08/24/24 Rx Betamethasone Dipropionate 1 applic NASAL BID 08/24/24 08/24/24 History [Betamethasone Diprop Augm Gel 0.05%] Fluticasone Propion/Salmeterol 1 puff INHALATION RT-BID PRN 08/24/24 08/24/24 History [Fluticasone-Salmeterol 500-50] [address] Nasal Scalf 2 - 3 spr EA NOSTRIL Q4H PRN 08/24/24 08/24/24 History Gabapentin 300 mg PO DAILY PRN 08/24/24 08/24/24 History Gabapentin 600 mg PO HS 08/24/24 08/24/24 History Allergies Allergy/AdvReac Type Severity Reaction Status Date / Time Sulfa (Sulfonamide Allergy Itching Verified 08/24/24 15:58 Antibiotics) Physical Exam Vitals: Vital Signs Temp Pulse Pulse Resp BP BP Pulse Ox 08/24/24 16:32 97.7 F 90 20 164/85 94 L 08/24/24 15:45 88 20 132/79 96 08/24/24 15:01 87 08/24/24 14:52 88 08/24/24 13:09 88 18 140/79 94 L 08/24/24 12:38 97.4 F L 89 18 146/54 92 L Intake and Output 08/24/24 08/24/24 08/24/24 06:59 14:59 22:59 Other: Weight 99.79 kg 99.79 kg Results CBC & Chem 7: 08/24/24 13:20 08/24/24 13:20 Labs: Abnormal Lab Results - Last 24 Hours (Table) 08/24/24 08/24/24 08/24/24 Range/Units 13:20 13:20 14:50 Hgb 10.9 L (11.4-16.0) gm/dL MCH 24.7 L (25.0-35.0) pg MCHC 30.6 L (31.0-37.0) g/dL Creatinine 1.07 H (0.52-1.04) mg/dL Glucose 145 H (74-99) mg/dL POC Glucose (mg/dL) (70-110) mg/dL Total Protein 6.2 L (6.3-8.2) g/dL Urine Appearance Cloudy H (Clear) Urine Protein Trace H (Negative) Urine Blood Trace H (Negative) Ur Leukocyte Esterase Large H (Negative) Urine RBC 27 H (0-5) /hpf Urine WBC 29 H (0-5) /hpf Ur Squamous Epith Cells 20 H (0-4) /hpf Urine Bacteria Rare H (None) /hpf Urine Mucus Rare H (None) /hpf 08/24/24 Range/Units 16:27 Hgb (11.4-16.0) gm/dL MCH (25.0-35.0) pg MCHC (31.0-37.0) g/dL Creatinine (0.52-1.04) mg/dL Glucose (74-99) mg/dL POC Glucose (mg/dL) 151 H (70-110) mg/dL Total Protein (6.3-8.2) g/dL Urine Appearance (Clear) Urine Protein (Negative) Urine Blood (Negative) Ur Leukocyte Esterase (Negative) Urine RBC (0-5) /hpf Urine WBC (0-5) /hpf Ur Squamous Epith Cells (0-4) /hpf Urine Bacteria (None) /hpf Urine Mucus (None) /hpf Thrombosis Risk Factor Assmnt - Choose All That Apply Each Factor Represents 1 point: Obesity (BMI >25) Each Risk Factor Represents 2 Points: Age 61-74 years Thrombosis Risk Factor Assessment Total Risk Factor Score: 3 Thrombosis Risk Factor Assessment Level: Moderate Risk
[2024-08-24] MEDS: INSULIN LISPRO (HumaLOG) 100 UNIT/ML 10 mL VL SQ SCH (17:58)
[2024-08-24 20:05] LABS: Glucose,Whole Blood 290 mg/dL (70-110)
[2024-08-24] MEDS: methylPREDNISolone SOD SUCCI 40 MG/ML 1 ML VIAL IV SCH (21:06)
[2024-08-24] MEDS: AZITHROMYCIN 500 MG in SODIUM CHLORIDE 0.9% 250 ML IVPB STA (21:25)
[2024-08-25 06:20] LABS: Glucose,Whole Blood 215 mg/dL (70-110)
[2024-08-25] MEDS: LEVOTHYROXINE 75 MCG TAB PO SCH (06:22)
[2024-08-25] MEDS: GABAPENTIN 300 MG CAP PO PRN (06:22)
[2024-08-25] MEDS: PANTOPRAZOLE 40 MG TABLET PO SCH (06:22)
[2024-08-25] MEDS: BENZOCAINE/MENTHOL LOZENG 1 EACH LOZENGE MUCOUS MEM PRN (06:22)
[2024-08-25] MEDS: clonazePAM 1 MG TAB PO PRN (06:22)
--- NOTE | 2024-08-25 06:40 | P.PN ---
Subjective Progress Note Date: 08/25/24 69-year-old female with a PMH of COPD (on oxygen nasal cannula as needed at home), type II DM, hypertension, hyperlipidemia who presents to the emergency room with complaints of cough, chills, and exertional dyspnea. Patient reports that her symptoms started 5 days ago where she began experiencing an increase in her cough productive of yellow-green phlegm along with exertional dyspnea with SpO2 down to 80% with ambulation as checked by the patient. Chest x-ray in the emergency room revealed findings concerning for bilateral pneumonia with EKG showing sinus rhythm with sinus arrhythmia at 87 bpm with diffuse T wave flattening with QTc 393 ms as reviewed by me. Laboratory evaluation was remarkable for hemoglobin 10.9 (at baseline), sodium 139, potassium 4.5, BUN 15, creatinine 1.07, glucose 145, total protein 6.2, with an indeterminate UA with respiratory viral panel negative. The patient's SpO2 was 92% on 4 L nasal cannula oxygen upon arrival. Started on bronchodilators, SoluMedrol and Rocephin/Azithromycin and admittted for further workup and management. 08/25 Patient was seen and examined. Reports coughing fits. Slowly improving. 96% on 2L NC. CBC, CMP, CXR pending this morning. Vitals: BP 120/73, HR 88, RR 17, T 98.1F, 96% on 2L NC. General: non toxic, moderate distress, appears at stated age Derm: warm, dry Head: atraumatic, normocephalic, symmetric Mouth: no lip lesion, mucus membranes moist Cardiovascular: S1S2 reg, no murmur Lungs: Rhonchi bilaterally, no rales , no accessory muscle use Ext: no gross muscle atrophy, no edema, no contractures Neuro: no focal neuro deficits Psych: Alert and oriented. Based on my assessment of this patient, this patient meets a high complexity level of care. Acute hypoxic respiratory failure secondary to PNA + COPD exacerbation: DuoNeb Q4H scheduled and QID PRN for SOB. Rocephin 2g IV QD, Azithromycin 500 mg IV QD. SoluMedrol 40 mg IV BID. Add Mucinex 1200 mg PO BID. Telemetry monitoring. Sputum Cx, Legionella, Procal pending. Pulmonary consulted. RYDER on CKD stage II: Decreased IVF from NS at 100 to 50 cc/hr. Abnormal UA: Covered with Rocephin. Asymptomatic. Monitor. Anxiety: Klonopin 1 mg PO QHS + 1 mg PO QD PRN. Neuropathy: Gabapentin 300 mg PO QD and 600 mg PO QHS. Glaucoma: Latanoprost eye drops. Depression: Sertraline 100 mg PO QHS. GERD: Omeprazole 40 mg PO QHS. CODE STATUS: FULL CODE. DVT Prophylaxis: Lovenox SQ GI Prophylaxis: Omeprazole PO Designated medical POA if patient is not able to make medical decisions for themselves: I have reviewed the following contact center consultant notes: I have reviewed the results of the following tests: I have ordered the following tests: CBC, CMP, CXR pending this morning. I have discussed the care of this patient with the following independent historian: BRUCE. I have independently interpreted the following test below: I have discussed the management of this patient with the following physician: Objective - Vital Signs Vital signs: Vital Signs Temp 98.1 F 08/25/24 00:25 Pulse 90 08/25/24 00:51 Resp 17 08/25/24 00:25 BP 120/73 08/25/24 00:25 Pulse Ox 96 08/25/24 00:25 FiO2 Intake & Output 08/24/24 08/24/24 08/25/24 06:59 18:59 06:59 Weight 99.79 kg Other: Voiding Method Toilet - Labs CBC & Chem 7: 08/24/24 13:20 08/24/24 13:20 Labs: Abnormal Lab Results - Last 24 Hours (Table) 08/24/24 08/24/24 08/24/24 Range/Units 13:20 13:20 14:50 Hgb 10.9 L (11.4-16.0) gm/dL MCH 24.7 L (25.0-35.0) pg MCHC 30.6 L (31.0-37.0) g/dL Creatinine 1.07 H (0.52-1.04) mg/dL Glucose 145 H (74-99) mg/dL POC Glucose (mg/dL) (70-110) mg/dL Total Protein 6.2 L (6.3-8.2) g/dL Urine Appearance Cloudy H (Clear) Urine Protein Trace H (Negative) Urine Blood Trace H (Negative) Ur Leukocyte Esterase Large H (Negative) Urine RBC 27 H (0-5) /hpf Urine WBC 29 H (0-5) /hpf Ur Squamous Epith Cells 20 H (0-4) /hpf Urine Bacteria Rare H (None) /hpf Urine Mucus Rare H (None) /hpf 08/24/24 08/24/24 08/25/24 Range/Units 16:27 20:04 06:18 Hgb (11.4-16.0) gm/dL MCH (25.0-35.0) pg MCHC (31.0-37.0) g/dL Creatinine (0.52-1.04) mg/dL Glucose (74-99) mg/dL POC Glucose (mg/dL) 151 H 290 H 215 H (70-110) mg/dL Total Protein (6.3-8.2) g/dL Urine Appearance (Clear) Urine Protein (Negative) Urine Blood (Negative) Ur Leukocyte Esterase (Negative) Urine RBC (0-5) /hpf Urine WBC (0-5) /hpf Ur Squamous Epith Cells (0-4) /hpf Urine Bacteria (None) /hpf Urine Mucus (None) /hpf
--- NOTE | 2024-08-25 06:40 | XR ---
EXAMINATION TYPE: XR chest 2V DATE OF EXAM: 08/25/2024 CLINICAL INDICATION: Female, 69 years old with history of pneumonia, TECHNIQUE: Frontal and lateral views of the chest are obtained. COMPARISON: Chest x-ray from one day earlier and older studies FINDINGS: Overlying sternal wires are again seen. There is persistent bilateral mid to lower lung in creased opacities. Mild cardiomegaly redemonstrated. Scoliosis is redemonstrated. IMPRESSION: Persistent bilateral mid to lower lung acute infiltrates and/or atelectasis. [facility], , 08/25/2024 6:37 AM
[2024-08-25] MEDS: SYMBICORT 160-4.5 MCG INHALER INHALATION SCH (07:38)
[2024-08-25 08:18] LABS: BUN/Creat Ratio 14.82 Ratio (12.00-20.00); Blood Urea Nitrogen 16.3 mg/dL (9.0-27.0); Chloride 105 mmol/L (96-109); Glucose 271 mg/dL (70-110); Potassium 4.7 mmol/L (3.5-5.5); Sodium 139 mmol/L (135-145)
[2024-08-25 08:19] LABS: ALT 17 U/L (8-44); AST 20 U/L (13-35); Albumin 3.7 g/dL (3.8-4.9); Albumin/Globulin Ratio 1.61 Ratio (1.60-3.17); Alkaline Phosphatase 85 U/L (41-126); Calcium 9.1 mg/dL (8.7-10.3); Carbon Dioxide 19.2 mmol/L (21.6-31.8); Globulin 2.3 g/dL (1.6-3.3); Total Bilirubin <0.2 mg/dL (0.3-1.2)
[2024-08-25] MEDS: ENOXAPARIN 40 MG/0.4 ML SYRINGE SQ SCH (08:44)
[2024-08-25] MEDS: guaiFENesin 600 MG TABLET.ER PO SCH (08:44)
[2024-08-25 09:01] LABS: Basophils # (A) 0.01 X 10*3/uL (0.00-0.10); Basophils % (A) 0.1 %; Eosinophils # (A) 0 X 10*3/uL (0.04-0.35); Eosinophils % (A) 0 %; HCT 33.5 % (37.2-46.3); HGB 9.9 g/dL (12.0-15.0); Lymphocytes # (A) 0.52 X 10*3/uL (0.90-5.00); Lymphocytes % (A) 7.5 %; MCH 24.6 pg (27.0-32.0); MCHC 29.6 g/dL (32.0-37.0); MCV 83.1 FL (80.0-97.0); Mean Platelet Volume 9.7 FL (9.5-12.2); Monocytes # (A) 0.13 X 10*3/uL (0.20-1.00); Monocytes % (A) 1.9 %; NRBC Per 100 WBC 0 X 10*3/uL (0.00-0.01); Neutrophils % (A) 89.8 %; Platelet Count 332 X 10*3/uL (140-440); RBC 4.03 X 10*6/uL (4.10-5.20); RDW 15.8 % (11.5-14.5); WBC 6.91 X 10*3/uL (4.50-10.00)
[2024-08-25] MEDS: AZITHROMYCIN 500 MG TAB PO SCH (09:27)
[2024-08-25 11:21] LABS: Glucose,Whole Blood 240 mg/dL (70-110)
[2024-08-25 16:28] LABS: Glucose,Whole Blood 176 mg/dL (70-110)
[2024-08-25] MEDS ORDERED: RX INFO: IV CONTRAST WAS GIVEN 1 EACH MISC MISCELLANE PRN (16:49)
--- NOTE | 2024-08-25 16:52 | P.CNPUL ---
History of Present Illness Consult date: 08/25/24 Reason for consult: COPD History of present illness: This is a procedure this is a 69-year-old morbidly obese female patient with a body mass index of 39 and known history of COPD. The patient presented to the emergency department having worsening shortness of breath. He does have home O2 and she has been using her oxygen on a regular basis. She became progressive more short of breath and this was concerning for her and she was also having increased cough along with worsening shortness of breath and some occasional chills. She was producing some yellowish to greenish sputum and upon arrival she was hypoxic with a pulse ox in the 80% on room air oxygen. Based on that, the patient was hospitalized. Further workup was done in Emergency Department. Chest x-ray shows bilateral perihilar pulm infiltrates/pneumonia. EKG was normal sinus. Her white cell count was at 6.9 with a hemoglobin 9.9 and a platelet count of 332. BUN was 16 with a creatinine of 1.1. Electrolytes showed a sodium level of 139, serum bicarb was 19. LFTs are normal. Procalcitonin level is at 0.07. I reviewed the chest x-ray and clearly there is persistent bilateral mid and lower lobe pulmonary infiltrates along with some atelectatic changes. For now, the patient is on a combination of Rocephin and Zithromax. She was started on IV Solu-Medrol 40 mg every 12 hours. She is also on DuoNeb nebulized treatments [id number]. No chest pain. No swelling in lower extremities. She is currently on 2 L of oxygen by nasal cannula with a pulse ox of 91%. Comorbidities include diabetes mellitus, hypothyroidism, hyperlipidemia, hypertension, glaucoma, migraines, history of diverticulosis, degenerative lumbar disc disease and previous history of ASD for which the patient had undergone a surgical correction. She has limited smoking history. Review of Systems Constitutional: Reports daytime sleepiness, Reports fatigue, Reports weight gain Eyes: denies as per HPI, denies blurred vision, denies bulging eye, denies decreased vision, denies diplopia, denies discharge, denies dry eye, denies irritation, denies itching, denies pain, denies photophobia, denies loss of peripheral vision, denies loss of vision, denies tunnel vision/blind spots Ears: deny: decreased hearing, ear discharge, earache, tinnitus Ears, nose, mouth and throat: Reports as per HPI Breasts: absent: as per HPI, change in shape, gynecomastia, masses, nipple discharge, pain, skin changes, swelling Cardiovascular: Reports decreased exercise tolerance Respiratory: Reports congestion, Reports cough, Reports dyspnea, Reports home oxygen, Reports sleep apnea, Reports snoring, Reports wheezing Gastrointestinal: Reports as per HPI Genitourinary: Reports as per HPI Menstruation: Reports as per HPI Musculoskeletal: Reports as per HPI Musculoskeletal: absent: ankle pain, ankle stiffness, ankle swelling, as per HPI, elbow pain, elbow stiffness, elbow swelling, foot pain, foot stiffness, foot swelling, hand pain, hand stiffness, hand swelling, hip pain, hip stiffness, hip swelling, knee pain, knee stiffness, knee swelling, shoulder pain, shoulder stiffness, shoulder swelling, wrist pain, wrist stiffness, wrist swelling Integumentary: Reports as per HPI Neurological: Reports as per HPI Psychiatric: Reports as per HPI Endocrine: Reports as per HPI Hematologic/Lymphatic: Reports as per HPI Allergic/Immunologic: Reports as per HPI Past Medical History Past Medical History: COPD, Diabetes Mellitus, Eye Disorder, GERD/Reflux, Hyperlipidemia, Hypertension, Musculoskeletal Disorder, Osteoarthritis (OA), Pneumonia, Sleep Apnea/CPAP/BIPAP Additional Past Medical History / Comment(s): ASD with repair, T wave inversion since ASD repair, bilat glaucoma w/ sx, trigeminal neuralgia-corrected, diverticulitis, hiatal hernia, chronic low back pain, hx anemia when young, bilateral varicosities, sinus problems, sl sleep apnea - no tx History of Any Multi-Drug Resistant Organisms: None Reported Past Surgical History: Heart Catheterization, Hysterectomy, Orthopedic Surgery, Tubal Ligation Additional Past Surgical History / Comment(s): 1995 ASD repair at [place], L/R foot surg-spurs and R great toe joint replaced, R rotator cuff surg, trigeminal neuralgia surgery HFH, back injections, fatty tumors removed x3 from legs, bilateral laser sx twice for glaucoma, Sinus/deviated septum surg, bilat cataracts, Colonoscopy, lumbar infusion Past Anesthesia/Blood Transfusion Reactions: Previous Problems w/ Anesthesia Additional Past Anesthesia/Blood Transfusion Reaction / Comment(s): Had BANG w/nerve block w/rotator cuff surg. Pt received blood with ASD repair without reaction. Past Psychological History: Depression, Panic Disorder Additional Psychological History / Comment(s): . Smoking Status: Never smoker Past Alcohol Use History: Rare Additional Past Alcohol Use History / Comment(s): Pt smoked from [id number]. Past Drug Use History: None Reported Additional Drug Use History / Comment(s): CBD gummies for back pain - Past Family History Father Family Medical History: Cancer Additional Family Medical History / Comment(s): Father of throat/lung cance r. Mother Family Medical History: Diabetes Mellitus Additional Family Medical History / Comment(s): Mother had heart problems. She at age 73yrs Brother(s) Family Medical History: Cancer Additional Family Medical History / Comment(s): 3 BROTHERS OF CANCER Medications and Allergies Home Medications Medication Instructions Recorded Confirmed Type Albuterol Inhaler [Ventolin Hfa 2 puff INHALATION RT-Q4H PRN 08/29/18 08/24/24 History Inhaler] Levothyroxine Sodium [Synthroid] 75 mcg PO HS 08/29/18 08/24/24 History Sertraline [Zoloft] 100 mg PO HS 12/29/21 08/24/24 History Omeprazole [PriLOSEC] 40 mg PO HS 11/05/22 08/24/24 History Latanoprost [Latanoprost 0.005%] 1 drop BOTH EYES HS 06/11/23 08/24/24 History Semaglutide [Ozempic] 2 mg SQ WE 06/11/23 08/24/24 History clonazePAM [KlonoPIN] 1 mg PO DAILY PRN #3 tab 06/15/23 08/24/24 Rx clonazePAM [KlonoPIN] 1 mg PO HS #3 tab 06/15/23 08/24/24 Rx Betamethasone Dipropionate 1 applic NASAL BID 08/24/24 08/24/24 History [Betamethasone Diprop Augm Gel 0.05%] Fluticasone Propion/Salmeterol 1 puff INHALATION RT-BID PRN 08/24/24 08/24/24 History [Fluticasone-Salmeterol 500-50] [place] Nasal [place] 2 - 3 spr EA NOSTRIL Q4H PRN 08/24/24 08/24/24 History Gabapentin 300 mg PO DAILY PRN 08/24/24 08/24/24 History Gabapentin 600 mg PO HS 08/24/24 08/24/24 History Allergies Allergy/AdvReac Type Severity Reaction Status Date / Time Sulfa (Sulfonamide Allergy Itching Verified 08/24/24 15:58 Antibiotics) Physical Exam Vitals: Vital Signs Temp Pulse Pulse Resp BP BP Pulse Ox 08/25/24 11:24 84 08/25/24 11:13 80 08/25/24 10:12 18 08/25/24 07:49 89 08/25/24 07:42 92 L 08/25/24 07:39 84 08/25/24 07:28 98.5 F 79 18 146/77 98 08/25/24 00:51 90 08/25/24 00:39 87 08/25/24 00:25 98.1 F 88 17 120/73 96 08/24/24 21:35 88 08/24/24 21:25 90 08/24/24 18:55 98.8 F 92 18 93 L 08/24/24 16:32 97.7 F 90 20 164/85 94 L 08/24/24 15:45 88 20 132/79 96 08/24/24 15:01 87 08/24/24 14:52 88 Intake and Output 08/24/24 08/25/24 08/25/24 22:59 06:59 14:59 Intake Total 540 200 Balance 540 200 Intake: Oral 540 200 Other: Voiding Method Toilet Toilet # Voids 2 2 Weight 99.79 kg The patient appeared well nourished and normally developed. Vital signs as documented. Patient is currently on 2 L of oxygen by nasal cannula. Body mass index is 39 Head exam is unremarkable. No scleral icterus or corneal arcus noted. Neck is without jugular venous distension, thyromegaly, or carotid bruits. Carotid upstrokes are brisk bilaterally. Lungs are showing diminished breath sounds bilateral lung with bibasilar crackle s Cardiac exam reveals the PMI to be normally sized and situated. Rhythm is regular. First and second heart sounds normal. No murmurs, rubs or gallops. Abdominal exam reveals normal bowel sounds, no masses, no organomegaly and no aortic enlargement. Extremities are nonedematous and both femoral and pedal pulses are normal. Examination of the skin revealed no evidence of significant rashes, suspicious appearing nevi or other concerning lesions. Neurologically, the patient is awake and alert and the patient does not have any focal neurological deficit. Cranial nerves are essentially intact. Results - Laboratory Findings CBC and BMP: 08/25/24 03:28 08/25/24 03:28 ABG WBC 6.91 X 10*3/uL (4.50-10.00) 08/25/24 03:28 RBC 4.03 X 10*6/uL (4.10-5.20) L 08/25/24 03:28 Hgb 9.9 g/dL (12.0-15.0) L 08/25/24 03:28 Hct 33.5 % (37.2-46.3) L 08/25/24 03:28 MCV 83.1 FL (80.0-97.0) 08/25/24 03: MCH 24.6 pg (27.0-32.0) L 08/25/24 03:28 MCHC 29.6 g/dL (32.0-37.0) L 08/25/24 03:28 RDW 15.8 % (11.5-14.5) H 08/25/24 03:28 Plt Count 332 X 10*3/uL (140-440) 08/25/24 03: MPV 9.7 FL (9.5-12.2) 08/25/24 03:28 Immature Gran % (Auto) 0.70 % 08/25/24 03:28 Absolute Nucleated RBC 0 % 08/25/24 03:28 Neutrophils % 89.8 % 08/25/24 03:28 Lymphocytes % 7.5 % 08/25/24 03:28 Monocytes % 1.9 % 08/25/24 03:28 Eosinophils % 0 % 08/25/24 03:28 Basophils % 0.1 % 08/25/24 03:28 Immature Gran # 0.05 X 10*3/uL (0.00-0.04) H 08/25/24 03:28 Neutrophils # 6.20 X 10*3/uL (1.80-7.70) 08/25/24 03:28 Lymphocytes # 0.52 X 10*3/uL (0.90-5.00) L 08/25/24 03:28 Monocytes # 0.13 X 10*3/uL (0.20-1.00) L 08/25/24 03:28 Eosinophils # 0 X 10*3/uL (0.04-0.35) L 08/25/24 03:28 Basophils # 0.01 X 10*3/uL (0.00-0.10) 08/25/24 03:28 NRBC/100 WBC Diff 0 X 10*3/uL (0.00-0.01) 08/25/24 03:28 Hypochromasia Moderate 08/24/24 13:20 Sodium 139 mmol/L (135-145) 08/25/24 03:28 Potassium 4.7 mmol/L (3.5-5.5) 08/25/24 03:28 Chloride 105 mmol/L (96-109) 08/25/24 03:28 Carbon Dioxide 19.2 mmol/L (21.6-31.8) L 08/25/24 03:28 Anion Gap 14.80 mmol/L (4.00-12.00) H 08/25/24 03:28 BUN 16.3 mg/dL (9.0-27.0) 08/25/24 03:28 Creatinine 1.1 mg/dL (0.6-1.5) 08/25/24 03:28 Est GFR (CKD-EPI) 55 (>=60) L 08/25/24 03:28 Est GFR (CKD-EPI)AfAm 62 (>60 ml/min/1.73 sqM) 08/24/24 13:20 Est GFR (CKD-EPI)NonAf 54 (>60 ml/min/1.73 sqM) 08/24/24 13:20 BUN/Creatinine Ratio 14.82 Ratio (12.00-20.00) 08/25/24 03:28 Glucose 271 mg/dL (70-110) H 08/25/24 03:28 POC Glucose (mg/dL) 240 mg/dL (70-110) H 08/25/24 11:20 POC Glu Consumer Marketing Analyst ID Jennifer Gonzalez 08/25/24 11:20 Plasma Lactic Acid Jerry 2.0 mmol/L (0.7-2.0) 08/24/24 13:20 Calcium 9.1 mg/dL (8.7-10.3) 08/25/24 03:28 Magnesium 1.9 mg/dL (1.6-2.3) 08/24/24 13:20 Total Bilirubin <0.2 mg/dL (0.3-1.2) L 08/25/24 03:28 AST 20 U/L (13-35) 08/25/24 03:28 ALT 17 U/L (8-44) 08/25/24 03:28 Alkaline Phosphatase 85 U/L (41-126) 08/25/24 03:28 Total Protein 6.0 g/dL (6.2-8.2) L 08/25/24 03:28 Albumin 3.7 g/dL (3.8-4.9) L 08/25/24 03:28 Globulin 2.3 g/dL (1.6-3.3) 08/25/24 03:28 Albumin/Globulin Ratio 1.61 Ratio (1.60-3.17) 08/25/24 03:28 Procalcitonin 0.07 ng/mL (0.02-0.50) 08/25/24 03:28 Urine Color Light Yellow 08/24/24 14:50 Urine Appearance Cloudy (Clear) H 08/24/24 14:50 Urine pH 5.5 (5.0-8.0) 08/24/24 14:50 Ur Specific [place] 1.020 (1.001-1.035) 08/24/24 14:50 Urine Protein Trace (Negative) H 08/24/24 14:50 Urine Glucose (UA) Negative (Negative) 08/24/24 14:50 Urine Ketones Negative (Negative) 08/24/24 14:50 Urine Blood Trace (Negative) H 08/24/24 14:50 Urine Nitrite Negative (Negative) 08/24/24 14:50 Urine Bilirubin Negative (Negative) 08/24/24 14:50 Urine Urobilinogen <2.0 mg/dL (<2.0) 08/24/24 14:50 Ur Leukocyte Esterase Large (Negative) H 08/24/24 14:50 Urine RBC 27 /hpf (0-5) H 08/24/24 14:50 Urine WBC 29 /hpf (0-5) H 08/24/24 14:50 Ur Squamous Epith Cells 20 /hpf (0-4) H 08/24/24 14:50 Urine Bacteria Rare /hpf (None) H 08/24/24 14:50 Urine Mucus Rare /hpf (None) H 08/24/24 14:50 Influenza Type A (PCR) Not Detected (Not Detectd) 08/24/24 13:20 Influenza Type B (PCR) Not Detected (Not Detectd) 08/24/24 13:20 Urine Legionella Ag Negative (Negative) 08/24/24 15:00 RSV (PCR) Not Detected (Not Detectd) 08/24/24 13:20 SARS-CoV-2 (PCR) Not Detected (Not Detectd) 08/24/24 13:20 Abnormal lab findings: Abnormal Labs 08/24/24 08/24/24 08/24/24 13:20 13:20 14:50 RBC Hgb 10.9 L Hct MCH 24.7 L MCHC 30.6 L RDW Immature Gran # Lymphocytes # Monocytes # Eosinophils # Carbon Dioxide Anion Gap Creatinine 1.07 H Est GFR (CKD-EPI) Glucose 145 H POC Glucose (mg/dL) Total Bilirubin Total Protein 6.2 L Albumin Urine Appearance Cloudy H Urine Protein Trace H Urine Blood Trace H Ur Leukocyte Esterase Large H Urine RBC 27 H Urine WBC 29 H Ur Squamous Epith Cells 20 H Urine Bacteria Rare H Urine Mucus Rare H 08/24/24 08/24/24 08/25/24 16:27 20:04 03:28 RBC 4.03 L Hgb 9.9 L Hct 33.5 L MCH 24.6 L MCHC 29.6 L RDW 15.8 H Immature Gran # 0.05 H Lymphocytes # 0.52 L Monocytes # 0.13 L Eosinophils # 0 L Carbon Dioxide Anion Gap Creatinine Est GFR (CKD-EPI) Glucose POC Glucose (mg/dL) 151 H 290 H Total Bilirubin Total Protein Albumin Urine Appearance Urine Protein Urine Blood Ur Leukocyte Esterase Urine RBC Urine WBC Ur Squamous Epith Cells Urine Bacteria Urine Mucus 08/25/24 08/25/24 08/25/24 03:28 06:18 11:20 RBC Hgb Hct MCH MCHC RDW Immature Gran # Lymphocytes # Monocytes # Eosinophils # Carbon Dioxide 19.2 L Anion Gap 14.80 H Creatinine Est GFR (CKD-EPI) 55 L Glucose 271 H POC Glucose (mg/dL) 215 H 240 H Total Bilirubin <0.2 L Total Protein 6.0 L Albumin 3.7 L Urine Appearance Urine Protein Urine Blood Ur Leukocyte Esterase Urine RBC Urine WBC Ur Squamous Epith Cells Urine Bacteria Urine Mucus - Diagnostic Findings Chest x-ray: image reviewed Assessment and Plan Plan: Acute hypoxic respiratory failure with presence of bilateral pneumonia in the mid and lower lung chaudhry in the perihilar area. Procalcitonin level has been nonelevated. The viral screen was negative. Legionella urine antigen was negative. The white cell count is at 6.5. This needs to be further investigated. CAT scan of the chest is recommended. Morbid obesity with a BMI of 39. COPD with limited smoking history. Her pulmonary function test showed only mild obstructive airway limitation. Based on the previous PFT that was done in our office, FEV1 was in order of 77% of predicted and the diffusion capacity was 65% of predicted and this is based on a PFT that was done on 10/25/2022. The patient has been maintained on Advair and outpatient basis. Hypertension Hyperlipidemia Glaucoma History of trigeminal neuralgia History of diverticulosis/diverticulitis with a hiatal hernia Chronic back pain Chronic varicosities lower extremities Obstructive sleep apnea, currently not receiving any treatment. History of ASD the patient has undergone surgical repair. Chronic anemia, normocytic Plan Agree on the current treatment Continue antibiotics with Rocephin and Zithromax Continue bronchodilators Continue IV Solu-Medrol Titrate oxygen flow to maintain saturation above 90%, currently on 2 L Proceed with a CAT scan of the chest with contrast Time with Patient: Greater than 30
--- NOTE | 2024-08-25 18:25 | CT ---
EXAMINATION TYPE: CT chest w con CT DLP: 782 mGycm, Automated exposure control for dose reduction was used. DATE OF EXAM: 08/25/2024 5:38 PM COMPARISON: Chest radiograph 08/25/2024, CTA chest 12/29/2021 CLINICAL INDICATION:Female, 69 years old with history of Dyspnea; PHH, SOB TECHNIQUE: Multiple axial images were obtained through the chest following the administration of 100 cc of Isovue 300. . Coronal and sagittal reformats reviewed. FINDINGS: LUNGS/ PLEURA: Diffuse patchy groundglass opacities throughout the lungs. No pleural effusion or pneu mothorax. AIRWAY: Patent and unremarkable.. HEART: Cardiomegaly is demonstrated.No pericardial effusion. No significant coronary artery calcifica tions. MEDIASTINUM: No gross evidence of adenopathy. VASCULATURE: No aortic aneurysm. The main pulmonary artery is dilated measuring up to 3.6 cm. This c an be seen with pulmonary arterial hypertension. MUSCULOSKELETAL: No acute osseous abnormalities. Sternotomy wires. Multilevel degenerative disc disea se. Multilevel benign vertebral hemangiomas. Dextrocurvature of the thoracic spine. SOFT TISSUES/LYMPH NODES: Unremarkable. LOWER NECK: No significant findings. UPPER ABDOMEN: Gallbladder is surgically absent. Right renal upper pole partial visualized 4.9 cm cys t. IMPRESSION: Diffuse patchy groundglass opacities throughout the lungs most consistent with an atypical pneumonia. [facility], , 08/25/2024 6:23 PM
[2024-08-25 20:38] LABS: Glucose,Whole Blood 140 mg/dL (70-110)
[2024-08-25] MEDS: LATANOPROST 0.005% OPHTH DROPS 2.5 ML BTL BOTH EYES SCH (21:38)
[2024-08-25] MEDS: GABAPENTIN 300 MG CAP PO SCH (21:39)
[2024-08-25] MEDS: clonazePAM 1 MG TAB PO SCH (21:39)
[2024-08-25] MEDS: SERTRALINE 100 MG TAB PO SCH (21:39)
[2024-08-26 06:24] LABS: Glucose,Whole Blood 255 mg/dL (70-110)
[2024-08-26 09:13] LABS: Basophils % (A) 0 %; Eosinophils # (A) 0.1 k/uL (0-0.7); Eosinophils % (A) 0 %; HCT 37.5 % (34.0-46.0); HGB 11.2 gm/dL (11.4-16.0); Hypochromasia Marked; Lymphocytes # (A) 2.1 k/uL (1.0-4.8); Lymphocytes % (A) 14 %; MCH 24.5 pg (25.0-35.0); MCHC 29.8 g/dL (31.0-37.0); Mean Platelet Volume 6.7; Monocytes # (A) 0.7 k/uL (0-1.0); Monocytes % (A) 5 %; Neutrophils # (A) 12.2 k/uL (1.3-7.7); Neutrophils % (A) 80 %; Platelet Count 433 k/uL (150-450); RBC 4.58 m/uL (3.80-5.40); RDW 15.6 % (11.5-15.5); WBC 15.2 k/uL (3.8-10.6)
[2024-08-26 09:24] LABS: African American GFR (CKD) 74 (>60 ml/min/1.73 sqM); Anion Gap 14 mmol/L; Blood Urea Nitrogen 16 mg/dL (7-17); Calcium 9.7 mg/dL (8.4-10.2); Carbon Dioxide 19 mmol/L (22-30); Chloride 107 mmol/L (98-107); Glucose 187 mg/dL (74-99); Non-African American GFR(CKD) 64 (>60 ml/min/1.73 sqM); Sodium 140 mmol/L (137-145)
[2024-08-26 09:30] LABS: Potassium 4.9 mmol/L (3.5-5.1)
[2024-08-26 09:51] LABS: Glucose,Whole Blood 198 mg/dL (70-110)
--- NOTE | 2024-08-26 13:06 | P.PN ---
Subjective Progress Note Date: 08/26/24 Hospital Course: 69-year-old female with a PMH of COPD (on oxygen nasal cannula as needed at [facility]), type II DM, hypertension, hyperlipidemia who presents to the emergency room with complaints of cough, chills, and exertional dyspnea. Patient reports that her symptoms started 5 days ago where she began experiencing an increase in her cough productive of yellow-green phlegm along with exertional dyspnea with SpO2 down to 80% with ambulation as checked by the patient. Chest x-ray in the emerg ency room revealed findings concerning for bilateral pneumonia with EKG showing sinus rhythm with sinus arrhythmia at 87 bpm with diffuse T wave flattening with QTc 393 ms as reviewed by me. Laboratory evaluation was remarkable for hemoglobin 10.9 (at baseline), sodium 139, potassium 4.5, BUN 15, creatinine 1.07, glucose 145, total protein 6.2, with an indeterminate UA with respiratory viral panel negative. The patient's SpO2 was 92% on 4 L nasal cannula oxygen upon arrival. She was admitted for further management of acute on chronic hypoxic respiratory failure secondary to bilateral atypical pneumonia, pulmonology consulted, patient was continued on azithromycin and ceftriaxone, IV Solu-Medrol, bronchodilators, CTA chest done and showed no PE, revealed bilateral diffuse patchy groundglass opacities. 08/26 patient went to [facility] with heart rate of 140s, she used the bathroom without her oxygen and it started. Her BP remained stable, she flipped back to sinus rythm. Pertinent Imaging: CTA chest as above Subjective: Complains of ongoing shortness of breath, dizziness while standing up Pertinent positives and negatives as discussed above, a complete review of systems was performed and all other systems are negative. Vitals Signs Reviewed. General: [nontoxic], [no distress], [appears at stated age] Derm: [warm], [dry] Head: [atraumatic], [normocephalic], [symmetric] Eyes: [EOMI], [no lid lag], [anicteric sclera] Mouth: [no lip lesion], [mucus membranes moist] Cardiovascular: [S1S2 reg], [no murmur] Lungs: Bibasilar rhonchi, no wheezes, [no accessory muscle use] Abdominal: [soft], [ nontender to palpation], [no guarding], [no appreciable organomegaly] Ext: [no gross muscle atrophy], [no edema], [no contractures] Neuro: [ CN II-XI grossly intact], [no focal neuro deficits] Psych: [Alert], [oriented], [appropriate affect] Data Reviewed Today: Pertinent Labs: WBC 15.2, hemoglobin 11.2, platelet count 433, sodium, potassium normal, bicarb 19, creatinine 0.93, glucose 187. Assessment and Plan: Acute on chronic hypoxic respiratory failure secondary to bilateral community- acquired atypical pneumonia COPD exacerbation -Ceftriaxone IV 2 g daily, completed azithromycin -Continue IV Solu-Medrol 40 mg twice daily -Continue with DuoNebs as needed, Symbicort twice daily episode of SVT, currently in sinus. -continue telemetry RYDER on CKD stage II, resolved: d/c IVF. Abnormal UA: Covered with Rocephin. Asymptomatic. Monitor. Anxiety: Klonopin 1 mg PO QHS + 1 mg PO QD PRN. Neuropathy: Gabapentin 300 mg PO QD and 600 mg PO QHS. Glaucoma: Latanoprost eye drops. Depression: Sertraline 100 mg PO QHS. GERD: Omeprazole 40 mg PO QHS. DVT ppx: Lovenox Code status: Full code Anticipated discharge place: Home Anticipated discharge time: 24 to 48 hours Objective - Vital Signs Vital signs: Vital Signs Temp 98.0 F 08/26/24 07:10 Pulse 92 08/26/24 11:44 Resp 20 08/26/24 10:58 BP 149/93 08/26/24 09:54 Pulse Ox 98 08/26/24 11:37 FiO2 Intake & Output 08/25/24 08/26/24 08/26/24 18:59 06:59 18:59 Intake Total 200 360 250 Balance 200 360 250 Intake: Oral 200 360 250 Other: Voiding Method Toilet Toilet Toilet # Voids 1 2 2 - Labs CBC & Chem 7: 08/26/24 08:57 08/26/24 08:57 Labs: Abnormal Lab Results - Last 24 Hours (Table) 08/25/24 08/25/24 08/26/24 Range/Units 16:27 20:36 06:23 WBC (3.8-10.6) k/uL Hgb (11.4-16.0) gm/dL MCH (25.0-35.0) pg MCHC (31.0-37.0) g/dL RDW (11.5-15.5) % Neutrophils # (1.3-7.7) k/uL Carbon Dioxide (22-30) mmol/L Glucose (74-99) mg/dL POC Glucose (mg/dL) 176 H 140 H 255 H (70-110) mg/dL 08/26/24 08/26/24 08/26/24 Range/Units 08:57 08:57 09:50 WBC 15.2 H (3.8-10.6) k/uL Hgb 11.2 L (11.4-16.0) gm/dL MCH 24.5 L (25.0-35.0) pg MCHC 29.8 L (31.0-37.0) g/dL RDW 15.6 H (11.5-15.5) % Neutrophils # 12.2 H (1.3-7.7) k/uL Carbon Dioxide 19 L (22-30) mmol/L Glucose 187 H (74-99) mg/dL POC Glucose (mg/dL) 198 H (70-110) mg/dL Microbiology - Last 24 Hours (Table) 08/25/24 03:28 Blood Culture Gram Stain - Preliminary Blood Blood Culture - Preliminary Molecular ID 08/24/24 23:15 Gram Stain - Final Sputum Sputum Culture - Final
[2024-08-26] MEDS: METOPROLOL TARTRATE 12.5 MG TAB PO SCH (13:08)
[2024-08-26 16:52] LABS: Glucose,Whole Blood 200 mg/dL (70-110)
--- NOTE | 2024-08-26 18:09 | P.PN ---
Subjective Progress Note Date: 08/26/24 This is a procedure this is a 69-year-old morbidly obese female patient with a body mass index of 39 and known history of COPD. The patient presented to the emergency department having worsening shortness of breath. He does have home O2 and she has been using her oxygen on a regular basis. She became progressive more short of breath and this was concerning for her and she was also having increased cough along with worsening shortness of breath and some occasional chills. She was producing some yellowish to greenish sputum and upon arrival she was hypoxic with a pulse ox in the 80% on room air oxygen. Based on that, the patient was hospitalized. Further workup was done in Emergency Department. Chest x-ray shows bilateral perihilar pulm infiltrates/pneumonia. EKG was normal sinus. Her white cell count was at 6.9 with a hemoglobin 9.9 and a platelet count of 332. BUN was 16 with a creatinine of 1.1. Electrolytes showed a sodium level of 139, serum bicarb was 19. LFTs are normal. P rocalcitonin level is at 0.07. I reviewed the chest x-ray and clearly there is persistent bilateral mid and lower lobe pulmonary infiltrates along with some atelectatic changes. For now, the patient is on a combination of Rocephin and Zithromax. She was started on IV Solu-Medrol 40 mg every 12 hours. She is also on DuoNeb nebulized treatments [id number]. No chest pain. No swelling in lower extremities. She is currently on 2 L of oxygen by nasal cannula with a pulse ox of 91%. Comorbidities include diabetes mellitus, hypothyroidism, hyperlipidemia, hypertension, glaucoma, migraines, history of diverticulosis, degenerative lumbar disc disease and previous history of ASD for which the patient had undergone a surgical correction. She has limited smoking history. On 08/26/2024, the patient is feeling slightly improved compared to yesterday. She is currently being treated for a history of exacerbation. She is morbidly obese with a BMI of 39. She remains on Rocephin and Zithromax. She is on DuoNeb updrafts.She is on bronchodilators. She is also on IV Solu-Medrol. She is receiving a dose of 40 mg IV every 12 hours. Hemoglobin is at 11, white cell count of 15, platelet count is at 433, BUN 16 with a creatinine of 0.9 and sodium levels at 140. The CAT scan of the chest was performed yesterday and it showed diffuse patchy groundglass pulmonary infiltrates consistent with atypical pneumonia. The patient's viral serology was negative. Blood culture is showing gram-positive cocci and clusters. Procalcitonin level is at 0.07. Objective - Vital Signs Vital signs: Vital Signs Temp 98.4 F 08/26/24 14:00 Pulse 94 08/26/24 14:52 Resp 18 08/26/24 14:00 BP 134/71 08/26/24 14:00 Pulse Ox 98 08/26/24 14:00 FiO2 Intake & Output 08/25/24 08/26/24 08/26/24 18:59 06:59 18:59 Intake Total 200 360 750 Balance 200 360 750 Intake: Oral 200 360 750 Other: Voiding Method Toilet Toilet Toilet # Voids 1 2 2 - Exam The patient appeared well nourished and normally developed. Vital signs as documented. Patient is currently on 2 L of oxygen by nasal cannula. Body mass index is 39 Head exam is unremarkable. No scleral icterus or corneal arcus noted. Neck is without jugular venous distension, thyromegaly, or carotid bruits. Carotid upstrokes are brisk bilaterally. Lungs are showing diminished breath sounds bilateral lung with bibasilar crackles Cardiac exam reveals the PMI to be normally sized and situated. Rhythm is regular. First and second heart sounds normal. No murmurs, rubs or gallops. Abdominal exam reveals normal bowel sounds, no masses, no organomegaly and no aortic enlargement. Extremities are nonedematous and both femoral and pedal pulses are normal. Examination of the skin revealed no evidence of significant rashes, suspicious appearing nevi or other concerning lesions. Neurologically, the patient is awake and alert and the patient does not have any focal neurological deficit. Cranial nerves are essentially intact. - Labs CBC & Chem 7: 08/26/24 08:57 08/26/24 08:57 Labs: Abnormal Lab Results - Last 24 Hours (Table) 08/25/24 08/26/24 08/26/24 Range/Units 20:36 06:23 08:57 WBC 15.2 H (3.8-10.6) k/uL Hgb 11.2 L (11.4-16.0) gm/dL MCH 24.5 L (25.0-35.0) pg MCHC 29.8 L (31.0-37.0) g/dL RDW 15.6 H (11.5-15.5) % Neutrophils # 12.2 H (1.3-7.7) k/uL Carbon Dioxide (22-30) mmol/L Glucose (74-99) mg/dL POC Glucose (mg/dL) 140 H 255 H (70-110) mg/dL 08/26/24 08/26/24 08/26/24 Range/Units 08:57 09:50 16:50 WBC (3.8-10.6) k/uL Hgb (11.4-16.0) gm/dL MCH (25.0-35.0) pg MCHC (31.0-37.0) g/dL RDW (11.5-15.5) % Neutrophils # (1.3-7.7) k/uL Carbon Dioxide 19 L (22-30) mmol/L Glucose 187 H (74-99) mg/dL POC Glucose (mg/dL) 198 H 200 H (70-110) mg/dL Microbiology - Last 24 Hours (Table) 08/25/24 03:28 Blood Culture Gram Stain - Preliminary Blood Blood Culture - Preliminary Molecular ID Assessment and Plan Plan: Acute hypoxic respiratory failure with presence of bilateral pneumonia in the mid and lower lung chaudhry in the perihilar area. Procalcitonin level has been nonelevated. The viral screen was negative. Legionella urine antigen was negative. The white cell count is at 6.5. CAT scan of the chest showed diffuse groundglass bilateral pulmonary filtrates. Rule out atypical pneumonia. Rule out interstitial edema. Gram-positive cocci in the blood, likely contaminant, awaiting further cultures and sensitivities Morbid obesity with a BMI of 39. COPD with limited smoking history. Her pulmonary function test showed only mild obstructive airway limitation. Based on the previous PFT that was done in our office, FEV1 was in order of 77% of predicted and the diffusion capacity was 65% of predicted and this is based on a PFT that was done on 10/25/2022. The patient has been maintained on Advair and outpatient basis. Hypertension Hyperlipidemia Glaucoma History of trigeminal neuralgia History of diverticulosis/diverticulitis with a hiatal hernia Chronic back pain Chronic varicosities lower extremities Obstructive sleep apnea, currently not receiving any treatment. History of ASD the patient has undergone surgical repair. Chronic anemia, normocytic Plan Clinically somewhat improved compared to yesterday Check proBNP level Start the patient on Lasix 20 mg IV every 12 hours Continue antibiotics with Rocephin and Zithromax Continue bronchodilators Continue IV Solu-Medrol Titrate oxygen flow to maintain saturation above 90%, currently on 2 L CAT scan of the chest was reviewed. Will follow-up on the blood cultures. Time with Patient: Greater than 30
[2024-08-26 20:18] LABS: Glucose,Whole Blood 151 mg/dL (70-110)
[2024-08-26] MEDS: FUROSEMIDE 10 MG/ML 2 ML VIAL IV SCH (21:40)
[2024-08-27 06:11] LABS: Glucose,Whole Blood 174 mg/dL (70-110)
[2024-08-27 08:40] LABS: BUN/Creat Ratio 14.83 Ratio (12.00-20.00); Blood Urea Nitrogen 17.8 mg/dL (9.0-27.0); Calcium 9.7 mg/dL (8.7-10.3); Carbon Dioxide 26.4 mmol/L (21.6-31.8); Chloride 103 mmol/L (96-109); Glucose 213 mg/dL (70-110); Sodium 140 mmol/L (135-145)
[2024-08-27 09:02] LABS: Basophils # (A) 0.03 X 10*3/uL (0.00-0.10); Basophils % (A) 0.3 %; Eosinophils # (A) 0.01 X 10*3/uL (0.04-0.35); Eosinophils % (A) 0.1 %; HGB 10.1 g/dL (12.0-15.0); Lymphocytes # (A) 0.92 X 10*3/uL (0.90-5.00); Lymphocytes % (A) 8.1 %; MCH 23.9 pg (27.0-32.0); MCHC 29.7 g/dL (32.0-37.0); MCV 80.4 FL (80.0-97.0); Mean Platelet Volume 9.4 FL (9.5-12.2); Monocytes # (A) 0.29 X 10*3/uL (0.20-1.00); Monocytes % (A) 2.6 %; NRBC Per 100 WBC 0 X 10*3/uL (0.00-0.01); Neutrophils # (A) 9.96 X 10*3/uL (1.80-7.70); Neutrophils % (A) 88.1 %; Platelet Count 407 X 10*3/uL (140-440); RBC 4.23 X 10*6/uL (4.10-5.20); RDW 16.2 % (11.5-14.5)
[2024-08-27 11:18] LABS: Glucose,Whole Blood 179 mg/dL (70-110)
--- NOTE | 2024-08-27 14:17 | P.PN ---
Subjective Progress Note Date: 08/27/24 Hospital Course: 69-year-old female with a PMH of COPD (on oxygen nasal cannula as needed at [facility]), type II DM, hypertension, hyperlipidemia who presents to the emergency room with complaints of cough, chills, and exertional dyspnea. Patient reports that her symptoms started 5 days ago where she began experiencing an increase in her cough productive of yellow-green phlegm along with exertional dyspnea with SpO2 down to 80% with ambulation as checked by the patient. Chest x-ray in the emerg ency room revealed findings concerning for bilateral pneumonia with EKG showing sinus rhythm with sinus arrhythmia at 87 bpm with diffuse T wave flattening with QTc 393 ms as reviewed by me. Laboratory evaluation was remarkable for hemoglobin 10.9 (at baseline), sodium 139, potassium 4.5, BUN 15, creatinine 1.07, glucose 145, total protein 6.2, with an indeterminate UA with respiratory viral panel negative. The patient's SpO2 was 92% on 4 L nasal cannula oxygen upon arrival. She was admitted for further management of acute on chronic hypoxic respiratory failure secondary to bilateral atypical pneumonia, pulmonology consulted, patient was continued on azithromycin and ceftriaxone, IV Solu-Medrol, bronchodilators, CTA chest done and showed no PE, revealed bilateral diffuse patchy groundglass opacities. 08/26 patient went to [email or web address] with heart rate of 140s, she used the bathroom without her oxygen and it started. Her BP remained stable, she flipped back to sinus rythm. 08/27: No significant changes, still gets short of breath with minimal exertion, no other complaints. BNP came back elevated 3130, was started on Lasix 20 IV twice daily by pulmonology, ordered TTE. Patient is on 3Lnasal cannula Subjective: Complains of ongoing shortness of breath Pertinent positives and negatives as discussed above, a complete review of systems was performed and all other systems are negative. Vitals Signs Reviewed. General: [nontoxic], [no distress], [appears at stated age] Derm: [warm], [dry] Head: [atraumatic], [normocephalic], [symmetric] Eyes: [EOMI], [no lid lag], [anicteric sclera] Mouth: [no lip lesion], [mucus membranes moist] Cardiovascular: [S1S2 reg], [no murmur] Lungs: Bibasilar rhonchi, no wheezes, [no accessory muscle use] Abdominal: [soft], [ nontender to palpation], [no guarding], [no appreciable organomegaly] Ext: [no gross muscle atrophy], [no edema], [no contractures] Neuro: [ CN II-XI grossly intact], [no focal neuro deficits] Psych: [Alert], [oriented], [appropriate affect] Data Reviewed Today: Pertinent Labs: WBC 29-11.3, hemoglobin 10.1, platelet count normal, sodium, potassium, creatinine, bicarb normal, glucose 179 Assessment and Plan: Acute on chronic hypoxic respiratory failure secondary to bilateral community- acquired atypical pneumonia Possible CHF exacerbation given elevated BNP Blood cultures positive for Staph epidermidis, COPD exacerbation -Ceftriaxone IV 2 g daily, completed azithromycin -Continue IV Solu-Medrol 40 mg twice daily -Continue with DuoNebs as needed, Symbicort twice daily -Continue Lasix 20 IV twice daily, TTE ordered and pending -Extensively discussed lifestyle modification after discharge, patient was encouraged to exercise, stay active and keep working on weight loss, it was mentioned by her significant other that she is very sedentary, not always compliant with her home oxygen episode of SVT, currently in sinus. -continue telemetry RYDER on CKD stage II, resolved: d/c IVF. Abnormal UA: Covered with Rocephin. Asymptomatic. Monitor. Anxiety: Klonopin 1 mg PO QHS + 1 mg PO QD PRN. Neuropathy: Gabapentin 300 mg PO QD and 600 mg PO QHS. Glaucoma: Latanoprost eye drops. Depression: Sertraline 100 mg PO QHS. GERD: Omeprazole 40 mg PO QHS. DVT ppx: Lovenox Code status: Full code Anticipated discharge place: Home Anticipated discharge time: 24 to 48 hours Objective - Vital Signs Vital signs: Vital Signs Temp 97.8 F 08/27/24 07:26 Pulse 76 08/27/24 12:46 Resp 18 08/27/24 07:26 BP 136/81 08/27/24 07:26 Pulse Ox 93 L 08/27/24 09:18 FiO2 Intake & Output 08/26/24 08/27/24 08/27/24 18:59 06:59 18:59 Intake Total 750 360 Balance 750 360 Intake: Oral 750 360 Other: Voiding Method Toilet Toilet # Voids 3 3 - Labs CBC & Chem 7: 08/27/24 02:48 08/27/24 02:48 Labs: Abnormal Lab Results - Last 24 Hours (Table) 08/26/24 08/26/24 08/27/24 Range/Units 16:50 20:16 02:48 WBC 11.30 H (4.50-10.00) X 10*3/uL Hgb 10.1 L (12.0-15.0) g/dL Hct 34.0 L (37.2-46.3) % MCH 23.9 L (27.0-32.0) pg MCHC 29.7 L (32.0-37.0) g/dL RDW 16.2 H (11.5-14.5) % MPV 9.4 L (9.5-12.2) FL Immature Gran # 0.09 H (0.00-0.04) X 10*3/uL Neutrophils # 9.96 H (1.80-7.70) X 10*3/uL Eosinophils # 0.01 L (0.04-0.35) X 10*3/uL Est GFR (CKD-EPI) (>=60) Glucose (70-110) mg/dL POC Glucose (mg/dL) 200 H 151 H (70-110) mg/dL 08/27/24 08/27/24 08/27/24 Range/Units 02:48 06:10 11:16 WBC (4.50-10.00) X 10*3/uL Hgb (12.0-15.0) g/dL Hct (37.2-46.3) % MCH (27.0-32.0) pg MCHC (32.0-37.0) g/dL RDW (11.5-14.5) % MPV (9.5-12.2) FL Immature Gran # (0.00-0.04) X 10*3/uL Neutrophils # (1.80-7.70) X 10*3/uL Eosinophils # (0.04-0.35) X 10*3/uL Est GFR (CKD-EPI) 49 L (>=60) Glucose 213 H (70-110) mg/dL POC Glucose (mg/dL) 174 H 179 H (70-110) mg/dL Microbiology - Last 24 Hours (Table) 08/26/24 09:00 Gram Stain - Preliminary Sputum Sputum Culture - Preliminary 08/25/24 03:28 Blood Culture Gram Stain - Preliminary Blood Blood Culture - Preliminary Staphylococcus epidermidis Molecular ID
[2024-08-27 16:17] LABS: Glucose,Whole Blood 222 mg/dL (70-110)
--- NOTE | 2024-08-27 19:40 | P.PN ---
Subjective Progress Note Date: 08/27/24 This is a procedure this is a 69-year-old morbidly obese female patient with a body mass index of 39 and known history of COPD. The patient presented to the emergency department having worsening shortness of breath. He does have home O2 and she has been using her oxygen on a regular basis. She became progressive more short of breath and this was concerning for her and she was also having increased cough along with worsening shortness of breath and some occasional chills. She was producing some yellowish to greenish sputum and upon arrival she was hypoxic with a pulse ox in the 80% on room air oxygen. Based on that, the patient was hospitalized. Further workup was done in Emergency Department. Chest x-ray shows bilateral perihilar pulm infiltrates/pneumonia. EKG was normal sinus. Her white cell count was at 6.9 with a hemoglobin 9.9 and a platelet count of 332. BUN was 16 with a creatinine of 1.1. Electrolytes showed a sodium level of 139, serum bicarb was 19. LFTs are normal. P rocalcitonin level is at 0.07. I reviewed the chest x-ray and clearly there is persistent bilateral mid and lower lobe pulmonary infiltrates along with some atelectatic changes. For now, the patient is on a combination of Rocephin and Zithromax. She was started on IV Solu-Medrol 40 mg every 12 hours. She is also on DuoNeb nebulized treatments [id number]. No chest pain. No swelling in lower extremities. She is currently on 2 L of oxygen by nasal cannula with a pulse ox of 91%. Comorbidities include diabetes mellitus, hypothyroidism, hyperlipidemia, hypertension, glaucoma, migraines, history of diverticulosis, degenerative lumbar disc disease and previous history of ASD for which the patient had undergone a surgical correction. She has limited smoking history. On 08/26/2024, the patient is feeling slightly improved compared to yesterday. She is currently being treated for a history of exacerbation. She is morbidly obese with a BMI of 39. She remains on Rocephin and Zithromax. She is on DuoNeb updrafts.She is on bronchodilators. She is also on IV Solu-Medrol. She is receiving a dose of 40 mg IV every 12 hours. Hemoglobin is at 11, white cell count of 15, platelet count is at 433, BUN 16 with a creatinine of 0.9 and sodium levels at 140. The CAT scan of the chest was performed yesterday and it showed diffuse patchy groundglass pulmonary infiltrates consistent with atypical pneumonia. The patient's viral serology was negative. Blood culture is showing gram-positive cocci and clusters. Procalcitonin level is at 0.07. On today's evaluation of 08/27/2024, the patient is being seen for a follow-up. The patient is feeling well. No specific complaints. The blood cultures was obtained earlier turned out to be positive for Staph epidermidis, likely a col onizer. Meanwhile, the patient remains on DuoNeb nebulized treatments [id number], Symbicort, IV Solu-Medrol and she is also being diuresed with Lasix 20 mg IV every 12 hours. She reports adequate urination and the patient seems to be in negative fluid balance. The white cell count is 11 with a hemoglobin 10.1 and platelet count of 487. Rest of the electrolytes are all stable. BUN 17 with a creatinine of 1.2. Calcium level is at 9.7. On a separate note, the patient had a round of SVT and currently she is back into normal sinus rhythm. Echocardiogram was ordered and is pending for now. CT of the chest that was done on 08/25/2024 showed diffuse patchy groundglass pulm infiltrates in both lungs and the viral screen was negative. There could be potentially a component of CHF. proBNP level checked and the level was 3130. The patient remains on diuretics. Objective - Vital Signs Vital signs: Vital Signs Temp 97.8 F 08/27/24 07:26 Pulse 80 08/27/24 09:27 Resp 18 08/27/24 07:26 BP 136/81 08/27/24 07:26 Pulse Ox 93 L 08/27/24 09:18 FiO2 Intake & Output 08/26/24 08/27/24 08/27/24 18:59 06:59 18:59 Intake Total 750 360 Balance 750 360 Intake: Oral 750 360 Other: Voiding Method Toilet Toilet # Voids 3 3 - Exam The patient appeared well nourished and normally developed. Vital signs as documented. Patient is currently on 2 L of oxygen by nasal cannula. Body mass index is 39 Head exam is unremarkable. No scleral icterus or corneal arcus noted. Neck is without jugular venous distension, thyromegaly, or carotid bruits. Carotid upstrokes are brisk bilaterally. Lungs are showing diminished breath sounds bilateral lung with bibasilar crackles Cardiac exam reveals the PMI to be normally sized and situated. Rhythm is regular. First and second heart sounds normal. No murmurs, rubs or gallops. Abdominal exam reveals normal bowel sounds, no masses, no organomegaly and no aortic enlargement. Extremities are nonedematous and both femoral and pedal pulses are normal. Examination of the skin revealed no evidence of significant rashes, suspicious appearing nevi or other concerning lesions. Neurologically, the patient is awake and alert and the patient does not have any focal neurological deficit. Cranial nerves are essentially intact. - Labs CBC & Chem 7: 08/27/24 02:48 08/27/24 02:48 Labs: Abnormal Lab Results - Last 24 Hours (Table) 08/26/24 08/26/24 08/27/24 Range/Units 16:50 20:16 02:48 WBC 11.30 H (4.50-10.00) X 10*3/uL Hgb 10.1 L (12.0-15.0) g/dL Hct 34.0 L (37.2-46.3) % MCH 23.9 L (27.0-32.0) pg MCHC 29.7 L (32.0-37.0) g/dL RDW 16.2 H (11.5-14.5) % MPV 9.4 L (9.5-12.2) FL Immature Gran # 0.09 H (0.00-0.04) X 10*3/uL Neutrophils # 9.96 H (1.80-7.70) X 10*3/uL Eosinophils # 0.01 L (0.04-0.35) X 10*3/uL Est GFR (CKD-EPI) (>=60) Glucose (70-110) mg/dL POC Glucose (mg/dL) 200 H 151 H (70-110) mg/dL 08/27/24 08/27/24 08/27/24 Range/Units 02:48 06:10 11:16 WBC (4.50-10.00) X 10*3/uL Hgb (12.0-15.0) g/dL Hct (37.2-46.3) % MCH (27.0-32.0) pg MCHC (32.0-37.0) g/dL RDW (11.5-14.5) % MPV (9.5-12.2) FL Immature Gran # (0.00-0.04) X 10*3/uL Neutrophils # (1.80-7.70) X 10*3/uL Eosinophils # (0.04-0.35) X 10*3/uL Est GFR (CKD-EPI) 49 L (>=60) Glucose 213 H (70-110) mg/dL POC Glucose (mg/dL) 174 H 179 H (70-110) mg/dL Microbiology - Last 24 Hours (Table) 08/25/24 03:28 Blood Culture Gram Stain - Preliminary Blood Blood Culture - Preliminary Staphylococcus epidermidis Molecular ID 08/26/24 09:00 Gram Stain - Preliminary Sputum Assessment and Plan Plan: Acute hypoxic respiratory failure with presence of bilateral pneumonia in the mid and lower lung chaudhry in the perihilar area. Procalcitonin level has been n onelevated. The viral screen was negative. Legionella urine antigen was negative. The white cell count is at 6.5. CAT scan of the chest showed diffuse groundglass bilateral pulmonary filtrates. Rule out atypical pneumonia. Rule out interstitial edema. proBNP level was elevated above 3000. Echocardiogram is still pending. Meanwhile, the patient is responding nicely to diuretics with IV Lasix. Gram-positive cocci in the blood, likely contaminant, final culture was positive for Staph epidermidis Morbid obesity with a BMI of 39. COPD with limited smoking history. Her pulmonary function test showed only mild obstructive airway limitation. Based on the previous PFT that was done in our office, FEV1 was in order of 77% of predicted and the diffusion capacity was 65% of predicted and this is based on a PFT that was done on 10/25/2022. The patient has been maintained on Advair and outpatient basis. Hypertension Hyperlipidemia Glaucoma History of trigeminal neuralgia History of diverticulosis/diverticulitis with a hiatal hernia Chronic back pain Chronic varicosities lower extremities Obstructive sleep apnea, currently not receiving any treatment. History of ASD the patient has undergone surgical repair. Chronic anemia, normocytic Plan Clinically somewhat improved compared to yesterday Check proBNP level was elevated Continue Lasix 20 mg IV every 12 hours Obtain echocardiogram to assess LV function Continue antibiotics with Rocephin Continue bronchodilators Continue IV Solu-Medrol, will transition the patient to prednisone burst taper as of tomorrow Titrate oxygen flow to maintain saturation above 90%, currently on 2 L CAT scan of the chest was reviewed. Will follow-up Time with Patient: Greater than 30
[2024-08-27 20:21] LABS: Glucose,Whole Blood 101 mg/dL (70-110)
[2024-08-28 06:08] LABS: Glucose,Whole Blood 189 mg/dL (70-110)
[2024-08-28 08:46] LABS: BUN/Creat Ratio 19.69 Ratio (12.00-20.00); Blood Urea Nitrogen 25.6 mg/dL (9.0-27.0); Calcium 9.8 mg/dL (8.7-10.3); Carbon Dioxide 25.6 mmol/L (21.6-31.8); Chloride 99 mmol/L (96-109); Glucose 179 mg/dL (70-110); Potassium 5.1 mmol/L (3.5-5.5); Sodium 137 mmol/L (135-145)
[2024-08-28 09:16] LABS: Basophils # (A) 0.02 X 10*3/uL (0.00-0.10); Basophils % (A) 0.2 %; Eosinophils # (A) 0 X 10*3/uL (0.04-0.35); Eosinophils % (A) 0 %; HCT 36.2 % (37.2-46.3); Lymphocytes # (A) 1.54 X 10*3/uL (0.90-5.00); Lymphocytes % (A) 14.4 %; MCH 24.7 pg (27.0-32.0); MCHC 30.4 g/dL (32.0-37.0); MCV 81.2 FL (80.0-97.0); Mean Platelet Volume 9.1 FL (9.5-12.2); Monocytes # (A) 0.52 X 10*3/uL (0.20-1.00); Monocytes % (A) 4.9 %; NRBC Per 100 WBC 0 X 10*3/uL (0.00-0.01); Neutrophils # (A) 8.46 X 10*3/uL (1.80-7.70); Neutrophils % (A) 79.2 %; Platelet Count 397 X 10*3/uL (140-440); RBC 4.46 X 10*6/uL (4.10-5.20); WBC 10.68 X 10*3/uL (4.50-10.00)
[2024-08-28 11:47] LABS: Glucose,Whole Blood 129 mg/dL (70-110)
[2024-08-28 16:34] LABS: Glucose,Whole Blood 189 mg/dL (70-110)
--- NOTE | 2024-08-28 17:58 | CA ---
Transthoracic Echo Report Name: Becky Mcleod Age: 69 Gender: F : 1955 Exam Date: 08/28/2024 13:52 Exam Location: [facility] Ht (in): 63 Wt (lb): 220 Ordering Physician: Jaimie Coronel MD Attending/Referring Phys: Lamination Assembler Alyson Jeffries RDCS Procedure CPT: Indications: hypoxia, elevated bnp Cardiac Hx: Technical Quality: Contrast 1: Total Dose (mL): Contrast 2: Total Dose (mL): MEASUREMENTS (Male / Female) Normal Values 2D ECHO LV Diastolic Diameter PLAX 4.5 cm 4.2 - 5.9 / 3.9 - 5.3 cm LV Systolic Diameter PLAX 3.3 cm IVS Diastolic Thickness 0.9 cm 0.6 - 1.0 / 0.6 - 0.9 cm LVPW Diastolic Thickness 1.0 cm 0.6 - 1.0 / 0.6 - 0.9 cm LV Relative Wall Thickness 0.4 RV Internal Dim ED PLAX 5.2 cm LVOT Diameter 2.1 cm Aortic Root Diameter 2.7 cm LA Systolic Diameter LX 2.4 cm 3.0 - 4.0 / 2.7 - 3.8 cm LV Diastolic Volume MOD 4C 101.1 cm??? LV Systolic Volume MOD 4C 49.3 cm??? LV Ejection Fraction MOD 4C 51.3 % LV Cardiac Index MOD 4C 1969.3 cm???/min???m??? LV Diastolic Length 4C 7.9 cm LV Systolic Length 4C 6.5 cm LV Diastolic Volume MOD 2C 87.4 cm??? LV Systolic Volume MOD 2C 43.5 cm??? LV Ejection Fraction MOD 2C 50.2 % LV Cardiac Index MOD 2C 1668.9 cm???/min???m??? LV Diastolic Length 2C 7.5 cm LV Systolic Length 2C 6.5 cm DOPPLER AV Peak Velocity 119.9 cm/s AV Peak Gradient 5.8 mmHg AV Mean Velocity 87.4 cm/s AV Mean Gradient 3.5 mmHg AV Velocity Time Integral 17.2 cm Mitral E Point Velocity 37.8 cm/s Mitral A Point Velocity 72.9 cm/s Mitral E to A Ratio 0.5 MV Deceleration Time 242.9 ms MV E' Velocity 4.1 cm/s Mitral E to MV E' Ratio 9.3 TR Peak Velocity 292.4 cm/s TR Peak Gradient 34.2 mmHg Right Atrial Pressure 5.0 mmHg Pulmonary Artery Systolic Pressu 39.2 mmHg Right Ventricular Systolic Press 39.2 mmHg FINDINGS Left Ventricle Left ventricular ejection fraction is estimated at 55-60 %. Normal left ventricular systolic function with no obvious regional wall motion abnormalities. Left ventricular cavity size normal. Right Ventricle Moderate right ventricular dilatation. Mild pulmonary hypertension. Right Atrium Moderate right atrial dilatation. Left Atrium Normal left atrial size. Mitral Valve Mild mitral annular calcification. No mitral stenosis. Mild mitral regurgitation. Calcified leaflets Aortic Valve Trileaflet aortic valve. Thickened aortic valve without stenosis. No aortic stenosis. No aortic regurgitation. Tricuspid Valve Structurally normal tricuspid valve. No tricuspid stenosis. Moderate tricuspid regurgitation. Pulmonic Valve Structurally normal pulmonic valve. No pulmonic stenosis. Trace pulmonic regurgitation. Pericardium No pericardial effusion. Aorta Normal size aortic root. CONCLUSIONS 1. Normal left ventricular size and systolic function 2. Mild mitral regurgitation 3. Moderate tricuspid regurgitation and mild pulmonary hypertension Previewed by: Dr. Jenni Michaud MD (Electronically Signed) Final Date: 28 August 2024 17:57
[2024-08-28 20:42] LABS: Glucose,Whole Blood 141 mg/dL (70-110)
--- NOTE | 2024-08-28 22:40 | P.PN ---
Subjective Progress Note Date: 08/28/24 This is a procedure this is a 69-year-old morbidly obese female patient with a body mass index of 39 and known history of COPD. The patient presented to the emergency department having worsening shortness of breath. He does have home O2 and she has been using her oxygen on a regular basis. She became progressive more short of breath and this was concerning for her and she was also having increased cough along with worsening shortness of breath and some occasional chills. She was producing some yellowish to greenish sputum and upon arrival she was hypoxic with a pulse ox in the 80% on room air oxygen. Based on that, the patient was hospitalized. Further workup was done in Emergency Department. Chest x-ray shows bilateral perihilar pulm infiltrates/pneumonia. EKG was normal sinus. Her white cell count was at 6.9 with a hemoglobin 9.9 and a platelet count of 332. BUN was 16 with a creatinine of 1.1. Electrolytes showed a sodium level of 139, serum bicarb was 19. LFTs are normal. P rocalcitonin level is at 0.07. I reviewed the chest x-ray and clearly there is persistent bilateral mid and lower lobe pulmonary infiltrates along with some atelectatic changes. For now, the patient is on a combination of Rocephin and Zithromax. She was started on IV Solu-Medrol 40 mg every 12 hours. She is also on DuoNeb nebulized treatments [id number]. No chest pain. No swelling in lower extremities. She is currently on 2 L of oxygen by nasal cannula with a pulse ox of 91%. Comorbidities include diabetes mellitus, hypothyroidism, hyperlipidemia, hypertension, glaucoma, migraines, history of diverticulosis, degenerative lumbar disc disease and previous history of ASD for which the patient had undergone a surgical correction. She has limited smoking history. On 08/26/2024, the patient is feeling slightly improved compared to yesterday. She is currently being treated for a history of exacerbation. She is morbidly obese with a BMI of 39. She remains on Rocephin and Zithromax. She is on DuoNeb updrafts.She is on bronchodilators. She is also on IV Solu-Medrol. She is receiving a dose of 40 mg IV every 12 hours. Hemoglobin is at 11, white cell count of 15, platelet count is at 433, BUN 16 with a creatinine of 0.9 and sodium levels at 140. The CAT scan of the chest was performed yesterday and it showed diffuse patchy groundglass pulmonary infiltrates consistent with atypical pneumonia. The patient's viral serology was negative. Blood culture is showing gram-positive cocci and clusters. Procalcitonin level is at 0.07. On today's evaluation of 08/27/2024, the patient is being seen for a follow-up. The patient is feeling well. No specific complaints. The blood cultures was obtained earlier turned out to be positive for Staph epidermidis, likely a col onizer. Meanwhile, the patient remains on DuoNeb nebulized treatments [id number], Symbicort, IV Solu-Medrol and she is also being diuresed with Lasix 20 mg IV every 12 hours. She reports adequate urination and the patient seems to be in negative fluid balance. The white cell count is 11 with a hemoglobin 10.1 and platelet count of 487. Rest of the electrolytes are all stable. BUN 17 with a creatinine of 1.2. Calcium level is at 9.7. On a separate note, the patient had a round of SVT and currently she is back into normal sinus rhythm. Echocardiogram was ordered and is pending for now. CT of the chest that was done on 08/25/2024 showed diffuse patchy groundglass pulm infiltrates in both lungs and the viral screen was negative. There could be potentially a component of CHF. proBNP level checked and the level was 3130. The patient remains on diuretics. 08/28/2024, the patient is being seen for a follow-up. Patient is calm and comfortable. Doing well. Still on bronchodilators and IV Solu-Medrol. Still being diuresed with IV Lasix. Fluid balance has been essentially negative and the patient has no new complaints. Hemoglobin is 11.0, white cell count is at 10 and a platelet count is at 397. Electrolytes are all stable. BUN is 25 with a creatinine 1.3. The patient also had an echo today that showed a left ventricular ejection fraction that was essentially within normal limits with an EF of around 55 to 60%. Moderate RV dilatation, mild pulm hypertension with a PA pressure estimated to be 39. Mild mitral regurgitation is also noted. The patient otherwise denies having any specific complaints. Objective - Vital Signs Vital signs: Vital Signs Temp 98.0 F 03/13/25 07:17 Pulse 80 08/28/24 09:29 Resp 16 08/28/24 08:00 BP 118/67 08/28/24 07:17 Pulse Ox 97 08/28/24 07:17 FiO2 Intake & Output 08/27/24 08/28/24 08/28/24 18:59 06:59 18:59 Intake Total 360 Balance 360 Intake: Oral 360 Other: # Voids 2 2 - Exam The patient appeared well nourished and normally developed. Vital signs as documented. Patient is currently on 2 L of oxygen by nasal cannula. Body mass index is 39 Head exam is unremarkable. No scleral icterus or corneal arcus noted. Neck is without jugular venous distension, thyromegaly, or carotid bruits. Carotid upstrokes are brisk bilaterally. Lungs are showing diminished breath sounds bilateral lung with bibasilar crackles Cardiac exam reveals the PMI to be normally sized and situated. Rhythm is regular. First and second heart sounds normal. No murmurs, rubs or gallops. Abdominal exam reveals normal bowel sounds, no masses, no organomegaly and no aortic enlargement. Extremities are nonedematous and both femoral and pedal pulses are normal. Examination of the skin revealed no evidence of significant rashes, suspicious appearing nevi or other concerning lesions. Neurologically, the patient is awake and alert and the patient does not have any focal neurological deficit. Cranial nerves are essentially intact. - Labs CBC & Chem 7: 08/28/24 04:56 08/28/24 04:56 Labs: Abnormal Lab Results - Last 24 Hours (Table) 08/27/24 08/28/24 08/28/24 Range/Units 16:16 04:56 04:56 WBC 10.68 H (4.50-10.00) X 10*3/uL Hgb 11.0 L (12.0-15.0) g/dL Hct 36.2 L (37.2-46.3) % MCH 24.7 L (27.0-32.0) pg MCHC 30.4 L (32.0-37.0) g/dL RDW 16.0 H (11.5-14.5) % MPV 9.1 L (9.5-12.2) FL Immature Gran # 0.14 H (0.00-0.04) X 10*3/uL Neutrophils # 8.46 H (1.80-7.70) X 10*3/uL Eosinophils # 0 L (0.04-0.35) X 10*3/uL Anion Gap 12.40 H (4.00-12.00) mmol/L Est GFR (CKD-EPI) 45 L (>=60) Glucose 179 H (70-110) mg/dL POC Glucose (mg/dL) 222 H (70-110) mg/dL 08/28/24 Range/Units 06:07 WBC (4.50-10.00) X 10*3/uL Hgb (12.0-15.0) g/dL Hct (37.2-46.3) % MCH (27.0-32.0) pg MCHC (32.0-37.0) g/dL RDW (11.5-14.5) % MPV (9.5-12.2) FL Immature Gran # (0.00-0.04) X 10*3/uL Neutrophils # (1.80-7.70) X 10*3/uL Eosinophils # (0.04-0.35) X 10*3/uL Anion Gap (4.00-12.00) mmol/L Est GFR (CKD-EPI) (>=60) Glucose (70-110) mg/dL POC Glucose (mg/dL) 189 H (70-110) mg/dL Microbiology - Last 24 Hours (Table) 08/25/24 03:28 Blood Culture Gram Stain - Final Blood Blood Culture - Final Staphylococcus epidermidis Molecular ID 08/26/24 09:00 Gram Stain - Final Sputum Sputum Culture - Final Assessment and Plan Plan: Acute hypoxic respiratory failure with presence of bilateral pneumonia in the mid and lower lung chaudhry in the perihilar area. Procalcitonin level has been nonelevated. The viral screen was negative. Legionella urine antigen was negative. The white cell count is at 6.5. CAT scan of the chest showed diffuse groundglass bilateral pulmonary filtrates. Rule out atypical pneumonia. Rule out interstitial edema. proBNP level was elevated above 3000. Echocardiogram showed normal LV function with mild degree of pulm hypertension. No significant valvular abnormalities. The patient remains on IV Lasix. Gram-positive cocci in the blood, likely contaminant, final culture was positive for Staph epidermidis Morbid obesity with a BMI of 39. COPD with limited smoking history. Her pulmonary function test showed only mild obstructive airway limitation. Based on the previous PFT that was done in our office, FEV1 was in order of 77% of predicted and the diffusion capacity was 65% of predicted and this is based on a PFT that was done on 10/25/2022. The patient has been maintained on Advair and outpatient basis. Hypertension Hyperlipidemia Glaucoma History of trigeminal neuralgia History of diverticulosis/diverticulitis with a hiatal hernia Chronic back pain Chronic varicosities lower extremities Obstructive sleep apnea, currently not receiving any treatment. History of ASD the patient has undergone surgical repair. Chronic anemia, normocytic Plan Clinically somewhat improved compared to yesterday Check proBNP level was elevated Continue Lasix and switch the patient to Lasix 40 mg p.o. daily Obtain echocardiogram to assess LV function Continue antibiotics with Rocephin Continue bronchodilators Start the patient on a prednisone burst taper as of tomorrow Titrate oxygen flow to maintain saturation above 90%, currently on 2 L CAT scan of the chest was reviewed. Will follow-up
[2024-08-29 06:24] LABS: Glucose,Whole Blood 212 mg/dL (70-110)
[2024-08-29] MEDS: predniSONE 20 MG TAB PO SCH (08:19)
[2024-08-29] MEDS: FUROSEMIDE 40 MG TAB PO SCH (08:19)
[2024-08-29 08:28] LABS: BUN/Creat Ratio 25.57 Ratio (12.00-20.00); Blood Urea Nitrogen 35.8 mg/dL (9.0-27.0); Calcium 9.5 mg/dL (8.7-10.3); Carbon Dioxide 26.3 mmol/L (21.6-31.8); Chloride 97 mmol/L (96-109); Glucose 222 mg/dL (70-110); Potassium 4.7 mmol/L (3.5-5.5); Sodium 137 mmol/L (135-145)
[2024-08-29 09:12] LABS: Basophils # (A) 0.04 X 10*3/uL (0.00-0.10); Basophils % (A) 0.4 %; Eosinophils # (A) 0.01 X 10*3/uL (0.04-0.35); Eosinophils % (A) 0.1 %; HGB 11.2 g/dL (12.0-15.0); Lymphocytes # (A) 1.56 X 10*3/uL (0.90-5.00); Lymphocytes % (A) 15.2 %; MCH 24.4 pg (27.0-32.0); MCHC 31.1 g/dL (32.0-37.0); MCV 78.4 FL (80.0-97.0); Monocytes # (A) 0.53 X 10*3/uL (0.20-1.00); Monocytes % (A) 5.2 %; NRBC Per 100 WBC 0 X 10*3/uL (0.00-0.01); Neutrophils # (A) 7.97 X 10*3/uL (1.80-7.70); Neutrophils % (A) 77.4 %; Platelet Count 424 X 10*3/uL (140-440); RBC 4.59 X 10*6/uL (4.10-5.20); WBC 10.29 X 10*3/uL (4.50-10.00)
[2024-08-29 09:19] VITALS: BP 127/77; RESP 17; TEMP 97.6
--- NOTE | 2024-08-29 09:57 | P.PN ---
Subjective Progress Note Date: 08/28/24 Hospital Course: 69-year-old female with a PMH of COPD (on oxygen nasal cannula as needed at [facility]), type II DM, hypertension, hyperlipidemia who presents to the emergency room with complaints of cough, chills, and exertional dyspnea. Patient reports that her symptoms started 5 days ago where she began experiencing an increase in her cough productive of yellow-green phlegm along with exertional dyspnea with SpO2 down to 80% with ambulation as checked by the patient. Chest x-ray in the emerg ency room revealed findings concerning for bilateral pneumonia with EKG showing sinus rhythm with sinus arrhythmia at 87 bpm with diffuse T wave flattening with QTc 393 ms as reviewed by me. Laboratory evaluation was remarkable for hemoglobin 10.9 (at baseline), sodium 139, potassium 4.5, BUN 15, creatinine 1.07, glucose 145, total protein 6.2, with an indeterminate UA with respiratory viral panel negative. The patient's SpO2 was 92% on 4 L nasal cannula oxygen upon arrival. She was admitted for further management of acute on chronic hypoxic respiratory failure secondary to bilateral atypical pneumonia, pulmonology consulted, patient was continued on azithromycin and ceftriaxone, IV Solu-Medrol, bronchodilators, CTA chest done and showed no PE, revealed bilateral diffuse patchy groundglass opacities. 08/26 patient went to [facility] with heart rate of 140s, she used the bathroom without her oxygen and it started. Her BP remained stable, she flipped back to sinus rythm. 08/27: No significant changes, still gets short of breath with minimal exertion, no other complaints. BNP came back elevated 3130, was started on Lasix 20 IV twice daily by pulmonology, ordered TTE. Patient is on 3Lnasal cannula 08/28: Continues to have cough and shortness of breath, mild improvement, TTE showed normal EF with mild pulmonary hypertension. Patient was transitioned to oral Lasix 40 daily and prednisone 40 daily starting 08/29 with possible discharge 08/29 Subjective: Complains of ongoing shortness of breath Pertinent positives and negatives as discussed above, a complete review of systems was performed and all other systems are negative. Vitals Signs Reviewed. General: [nontoxic], [no distress], [appears at stated age] Derm: [warm], [dry] Head: [atraumatic], [normocephalic], [symmetric] Eyes: [EOMI], [no lid lag], [anicteric sclera] Mouth: [no lip lesion], [mucus membranes moist] Cardiovascular: [S1S2 reg], [no murmur] Lungs: Bibasilar rhonchi, no wheezes, [no accessory muscle use] Abdominal: [soft], [ nontender to palpation], [no guarding], [no appreciable organomegaly] Ext: [no gross muscle atrophy], [no edema], [no contractures] Neuro: [ CN II-XI grossly intact], [no focal neuro deficits] Psych: [Alert], [oriented], [appropriate affect] Data Reviewed Today: Pertinent Labs: WBC 10.6, hemoglobin 11.0, platelet count normal, sodium potassium, bicarb, creatinine normal, glucose 140 Assessment and Plan: Acute on chronic hypoxic respiratory failure secondary to bilateral community- acquired atypical pneumonia Possible CHF exacerbation given elevated BNP Blood cultures positive for Staph epidermidis, COPD exacerbation -Ceftriaxone IV 2 g daily, completed azithromycin -Prednisone 40 daily, Lasix 40 daily starting 08/29 -Continue with DuoNebs as needed, Symbicort twice daily -TTE as above, -Extensively discussed lifestyle modification after discharge, patient was enc ouraged to exercise, stay active and keep working on weight loss, it was mentioned by her significant other that she is very sedentary, not always compliant with her home oxygen episode of SVT, currently in sinus. -continue telemetry RYDER on CKD stage II, resolved: d/c IVF. Abnormal UA: Covered with Rocephin. Asymptomatic. Monitor. Anxiety: Klonopin 1 mg PO QHS + 1 mg PO QD PRN. Neuropathy: Gabapentin 300 mg PO QD and 600 mg PO QHS. Glaucoma: Latanoprost eye drops. Depression: Sertraline 100 mg PO QHS. GERD: Omeprazole 40 mg PO QHS. DVT ppx: Lovenox Code status: Full code Anticipated discharge place: Home Anticipated discharge time: 24 to 48 hours Objective - Vital Signs Vital signs: Vital Signs Temp 97.6 F 08/29/24 08:00 Pulse 88 08/29/24 09:56 Resp 17 08/29/24 08:00 BP 127/77 08/29/24 08:00 Pulse Ox 94 L 08/29/24 08:00 FiO2 Intake & Output 08/28/24 08/29/24 08/29/24 18:59 06:59 18:59 Intake Total 50 1080 Balance 50 1080 Intake: Intake, IV Titration 50 Amount cefTRIAXone 2 gm In 50 Sodium Chloride 0.9% 50 ml @ 100 mls/hr IVPB Q24HR [facility] Rx#:[id number] Oral 1080 Other: Voiding Method Toilet # Voids 5 2 - Labs CBC & Chem 7: 08/29/24 05:44 08/29/24 05:44 Labs: Abnormal Lab Results - Last 24 Hours (Table) 08/28/24 08/28/24 08/28/24 Range/Units 11:46 16:32 20:41 WBC (4.50-10.00) X 10*3/uL Hgb (12.0-15.0) g/dL Hct (37.2-46.3) % MCV (80.0-97.0) FL MCH (27.0-32.0) pg MCHC (32.0-37.0) g/dL RDW (11.5-14.5) % MPV (9.5-12.2) FL Immature Gran # (0.00-0.04) X 10*3/uL Neutrophils # (1.80-7.70) X 10*3/uL Eosinophils # (0.04-0.35) X 10*3/uL Anion Gap (4.00-12.00) mmol/L BUN (9.0-27.0) mg/dL Est GFR (CKD-EPI) (>=60) BUN/Creatinine Ratio (12.00-20.00) Ratio Glucose (70-110) mg/dL POC Glucose (mg/dL) 129 H 189 H 141 H (70-110) mg/dL 08/29/24 08/29/24 08/29/24 Range/Units 05:44 05:44 06:23 WBC 10.29 H (4.50-10.00) X 10*3/uL Hgb 11.2 L (12.0-15.0) g/dL Hct 36.0 L (37.2-46.3) % MCV 78.4 L (80.0-97.0) FL MCH 24.4 L (27.0-32.0) pg MCHC 31.1 L (32.0-37.0) g/dL RDW 16.0 H (11.5-14.5) % MPV 9.0 L (9.5-12.2) FL Immature Gran # 0.18 H (0.00-0.04) X 10*3/uL Neutrophils # 7.97 H (1.80-7.70) X 10*3/uL Eosinophils # 0.01 L (0.04-0.35) X 10*3/uL Anion Gap 13.70 H (4.00-12.00) mmol/L BUN 35.8 H (9.0-27.0) mg/dL Est GFR (CKD-EPI) 41 L (>=60) BUN/Creatinine Ratio 25.57 H (12.00-20.00) Ratio Glucose 222 H (70-110) mg/dL POC Glucose (mg/dL) 212 H (70-110) mg/dL Microbiology - Last 24 Hours (Table) 08/25/24 03:28 Blood Culture Gram Stain - Final Blood Blood Culture - Final Staphylococcus epidermidis Molecular ID 08/26/24 09:00 Gram Stain - Final Sputum Sputum Culture - Final
[2024-08-29 11:47] LABS: Glucose,Whole Blood 135 mg/dL (70-110)
[2024-08-29 12:43] VITALS: BMI 38.9
--- NOTE | 2024-08-29 12:55 | P.DS ---
Providers Date of admission: 08/24/24 15:00 Attending physician: Rodriguez Zayas MD Consults: 08/24/24 14:57 Consult Physician Routine Consulting Provider: Alex Phillips Consult Reason/Comments: copd, pneumonia, acute on chronic hypoxic resp failure Do you want consulting provider notified?: Yes Primary care physician: Julio César Sellers [facility] Course: Discharge Diagnosis: Acute on chronic hypoxic respiratory failure secondary to bilateral community- acquired atypical pneumonia HFpEF exacerbation, mild, resolved Mild pulmonary hypertension Blood cultures positive for Staph epidermidis COPD exacerbation Obesity BMI 39 RYDER on CKD stage II, resolved Anxiety Neuropathy Glaucoma Depression GERD Hospital Course: 69-year-old female with a PMH of COPD (on oxygen nasal cannula as needed at home), type II DM, hypertension, hyperlipidemia who presents to the emergency room with complaints of cough, chills, and exertional dyspnea. Patient reports that her symptoms started 5 days ago where she began experiencing an increase in her cough productive of yellow-green phlegm along with exertional dyspnea with SpO2 down to 80% with ambulation as checked by the patient. Chest x-ray in the e mergency room revealed findings concerning for bilateral pneumonia with EKG showing sinus rhythm with sinus arrhythmia at 87 bpm with diffuse T wave flattening with QTc 393 ms as reviewed by me. Laboratory evaluation was remarkable for hemoglobin 10.9 (at baseline), sodium 139, potassium 4.5, BUN 15, creatinine 1.07, glucose 145, total protein 6.2, with an indeterminate UA with respiratory viral panel negative. The patient's SpO2 was 92% on 4 L nasal cannula oxygen upon arrival. She was admitted for further management of acute on chronic hypoxic respiratory failure secondary to bilateral atypical pneumonia, pulmonology consulted, patient was continued on azithromycin and ceftriaxone, IV Solu-Medrol, bronchodilators, CTA chest done and showed no PE, revealed bilateral diffuse patchy groundglass opacities. 08/26 patient went to [facility] with heart rate of 140s, she used the bathroom without her oxygen and it started. Her BP remained stable, she flipped back to sinus rythm. 08/27: No significant changes, still gets short of breath with minimal exertion, no other complaints. BNP came back elevated 3130, was started on Lasix 20 IV twice daily by pulmonology, ordered TTE. Patient is on 3Lnasal cannula 08/28: Continues to have cough and shortness of breath, mild improvement, TTE showed normal EF with mild pulmonary hypertension. Patient was transitioned to oral Lasix 40 daily and prednisone 40 daily starting 08/29 08/29 patient is feeling significantly better cough is improved, she is on 3 L nasal cannula, will be discharged home with follow-up with pulmonology, cardiology, primary care physician. She was provided with scripts for Lasix 40 daily, metoprolol 12.5 twice daily, she completed 5 days treatment for pneumonia. Vital signs reviewed and stable. General: Nontoxic, no distress, appears at stated age, obese Derm: Warm, dry Head: Atraumatic, normocephalic, symmetric Eyes: EOMI, no lid lag, anicteric sclera Mouth: No lip lesion, mucus membranes moist Cardiovascular: S1S2 reg, no murmur Lungs: lower lobes rales improved, no wheezing, no accessory muscle use Abdominal: Soft, nontender to palpation, no guarding, no appreciable organomegaly Ext: No gross muscle atrophy, no edema, no contractures Neuro: CN II-XI grossly intact, no focal neuro deficits Psych: Alert, oriented, appropriate affect A total of 45minutes of time were spent preparing this complex discharge summary. Patient Condition at Discharge: Stable Plan - Discharge Summary Discharge Rx Participant: No New Discharge Prescriptions: New Furosemide [Lasix] 40 mg PO DAILY #30 tab Metoprolol Tartrate [Lopressor] 12.5 mg PO BID #60 tab predniSONE See Taper PO DIRECTED #30 tab Continue Albuterol Inhaler [Ventolin Hfa Inhaler] 2 puff INHALATION RT-Q4H PRN PRN Reason: Shortness Of Breath Levothyroxine Sodium [Synthroid] 75 mcg PO HS Latanoprost [Latanoprost 0.005%] 1 drop BOTH EYES HS clonazePAM [KlonoPIN] 1 mg PO HS #3 tab clonazePAM [KlonoPIN] 1 mg PO DAILY PRN #3 tab PRN Reason: Anxiety Gabapentin 300 mg PO DAILY PRN PRN Reason: Pain Gabapentin 600 mg PO HS Sertraline [Zoloft] 100 mg PO HS Omeprazole [PriLOSEC] 40 mg PO HS Semaglutide [Ozempic] 2 mg SQ WE Betamethasone Dipropionate [Betamethasone Diprop Augm Gel 0.05%] 1 applic NASAL BID Fluticasone Propion/Salmeterol [Fluticasone-Salmeterol 500-50] 1 puff INHALATION RT-BID PRN PRN Reason: Shortness Of Breath [address] Nasal [place] 2 - 3 spr EA NOSTRIL Q4H PRN PRN Reason: Congestion Discharge Medication List Albuterol Inhaler [Ventolin Hfa Inhaler] 2 puff INHALATION RT-Q4H PRN 08/29/18 [History] Levothyroxine Sodium [Synthroid] 75 mcg PO HS 08/29/18 [History] Sertraline [Zoloft] 100 mg PO HS 12/29/21 [History] Omeprazole [PriLOSEC] 40 mg PO HS 11/05/22 [History] Latanoprost [Latanoprost 0.005%] 1 drop BOTH EYES HS 06/11/23 [History] Semaglutide [Ozempic] 2 mg SQ WE 06/11/23 [History] clonazePAM [KlonoPIN] 1 mg PO DAILY PRN #3 tab 06/15/23 [Rx] clonazePAM [KlonoPIN] 1 mg PO HS #3 tab 06/15/23 [Rx] Betamethasone Dipropionate [Betamethasone Diprop Augm Gel 0.05%] 1 applic NASAL BID 08/24/24 [History] Fluticasone Propion/Salmeterol [Fluticasone-Salmeterol 500-50] 1 puff INHALATION RT-BID PRN 08/24/24 [History] [address] Nasal [place] 2 - 3 spr EA NOSTRIL Q4H PRN 08/24/24 [History] Gabapentin 300 mg PO DAILY PRN 08/24/24 [History] Gabapentin 600 mg PO HS 08/24/24 [History] Furosemide [Lasix] 40 mg PO DAILY #30 tab 08/29/24 [Rx] Metoprolol Tartrate [Lopressor] 12.5 mg PO BID #60 tab 08/29/24 [Rx] predniSONE See Taper PO DIRECTED #30 tab 08/29/24 [Rx] Follow up Appointment(s)/Referral(s): Alexander Cooper DO [STAFF PHYSICIAN] - 1 Week Julio César Hayden MD [Primary Care Provider] - 1-2 days Alex Barros MD [STAFF PHYSICIAN] - 1 Week Activity/Diet/Wound Care/Special Instructions: Please, follow-up with your primary care physician, 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 Work on weight loss Discharge Disposition: HOME SELF-CARE
[2024-08-29 13:14] VITALS: PULSE 84
--- NOTE | 2024-08-29 17:48 | P.PN ---
Subjective Progress Note Date: 08/29/24 This is a procedure this is a 69-year-old morbidly obese female patient with a body mass index of 39 and known history of COPD. The patient presented to the emergency department having worsening shortness of breath. He does have home O2 and she has been using her oxygen on a regular basis. She became progressive more short of breath and this was concerning for her and she was also having increased cough along with worsening shortness of breath and some occasional chills. She was producing some yellowish to greenish sputum and upon arrival she was hypoxic with a pulse ox in the 80% on room air oxygen. Based on that, the patient was hospitalized. Further workup was done in Emergency Department. Chest x-ray shows bilateral perihilar pulm infiltrates/pneumonia. EKG was normal sinus. Her white cell count was at 6.9 with a hemoglobin 9.9 and a platelet count of 332. BUN was 16 with a creatinine of 1.1. Electrolytes showed a sodium level of 139, serum bicarb was 19. LFTs are normal. P rocalcitonin level is at 0.07. I reviewed the chest x-ray and clearly there is persistent bilateral mid and lower lobe pulmonary infiltrates along with some atelectatic changes. For now, the patient is on a combination of Rocephin and Zithromax. She was started on IV Solu-Medrol 40 mg every 12 hours. She is also on DuoNeb nebulized treatments [id number]. No chest pain. No swelling in lower extremities. She is currently on 2 L of oxygen by nasal cannula with a pulse ox of 91%. Comorbidities include diabetes mellitus, hypothyroidism, hyperlipidemia, hypertension, glaucoma, migraines, history of diverticulosis, degenerative lumbar disc disease and previous history of ASD for which the patient had undergone a surgical correction. She has limited smoking history. On 08/26/2024, the patient is feeling slightly improved compared to yesterday. She is currently being treated for a history of exacerbation. She is morbidly obese with a BMI of 39. She remains on Rocephin and Zithromax. She is on DuoNeb updrafts.She is on bronchodilators. She is also on IV Solu-Medrol. She is receiving a dose of 40 mg IV every 12 hours. Hemoglobin is at 11, white cell count of 15, platelet count is at 433, BUN 16 with a creatinine of 0.9 and sodium levels at 140. The CAT scan of the chest was performed yesterday and it showed diffuse patchy groundglass pulmonary infiltrates consistent with atypical pneumonia. The patient's viral serology was negative. Blood culture is showing gram-positive cocci and clusters. Procalcitonin level is at 0.07. On today's evaluation of 08/27/2024, the patient is being seen for a follow-up. The patient is feeling well. No specific complaints. The blood cultures was obtained earlier turned out to be positive for Staph epidermidis, likely a col onizer. Meanwhile, the patient remains on DuoNeb nebulized treatments [id number], Symbicort, IV Solu-Medrol and she is also being diuresed with Lasix 20 mg IV every 12 hours. She reports adequate urination and the patient seems to be in negative fluid balance. The white cell count is 11 with a hemoglobin 10.1 and platelet count of 487. Rest of the electrolytes are all stable. BUN 17 with a creatinine of 1.2. Calcium level is at 9.7. On a separate note, the patient had a round of SVT and currently she is back into normal sinus rhythm. Echocardiogram was ordered and is pending for now. CT of the chest that was done on 08/25/2024 showed diffuse patchy groundglass pulm infiltrates in both lungs and the viral screen was negative. There could be potentially a component of CHF. proBNP level checked and the level was 3130. The patient remains on diuretics. 08/28/2024, the patient is being seen for a follow-up. Patient is calm and comfortable. Doing well. Still on bronchodilators and IV Solu-Medrol. Still being diuresed with IV Lasix. Fluid balance has been essentially negative and the patient has no new complaints. Hemoglobin is 11.0, white cell count is at 10 and a platelet count is at 397. Electrolytes are all stable. BUN is 25 with a creatinine 1.3. The patient also had an echo today that showed a left ventricular ejection fraction that was essentially within normal limits with an EF of around 55 to 60%. Moderate RV dilatation, mild pulm hypertension with a PA pressure estimated to be 39. Mild mitral regurgitation is also noted. The patient otherwise denies having any specific complaints. On 08/29/2024, the patient has no specific complaints. Doing well. No cough sputum production chest tightness or wheezing. The patient is to be discharged home today and prednisone burst taper and Lasix. She also has DuoNeb of chest. She has home O2. The white cell count of 10 hemoglobin 11.2 and a platelet count of 424. BUN 35 creatinine of 1.5. No altered mentation. No other new complaints otherwise for now. Objective - Vital Signs Vital signs: Vital Signs Temp 97.6 F 08/29/24 08:00 Pulse 84 08/29/24 13:21 Resp 17 08/29/24 08:00 BP 127/77 08/29/24 08:00 Pulse Ox 94 L 08/29/24 08:00 FiO2 Intake & Output 08/28/24 08/29/24 08/29/24 18:59 06:59 18:59 Intake Total 50 1080 Balance 50 1080 Weight 99.79 kg Intake: Intake, IV Titration 50 Amount cefTRIAXone 2 gm In 50 Sodium Chloride 0.9% 50 ml @ 100 mls/hr IVPB Q24HR [facility] Rx#:[id number] Oral 1080 Other: Voiding Method Toilet # Voids 5 2 - Exam The patient appeared well nourished and normally developed. Vital signs as documented. Patient is currently on 2 L of oxygen by nasal cannula. Body mass index is 39 Head exam is unremarkable. No scleral icterus or corneal arcus noted. Neck is without jugular venous distension, thyromegaly, or carotid bruits. Carotid upstrokes are brisk bilaterally. Lungs are showing diminished breath sounds bilateral lung with bibasilar c rackles Cardiac exam reveals the PMI to be normally sized and situated. Rhythm is regular. First and second heart sounds normal. No murmurs, rubs or gallops. Abdominal exam reveals normal bowel sounds, no masses, no organomegaly and no aortic enlargement. Extremities are nonedematous and both femoral and pedal pulses are normal. Examination of the skin revealed no evidence of significant rashes, suspicious appearing nevi or other concerning lesions. Neurologically, the patient is awake and alert and the patient does not have any focal neurological deficit. Cranial nerves are essentially intact. - Labs CBC & Chem 7: 08/29/24 05:44 08/29/24 05:44 Labs: Abnormal Lab Results - Last 24 Hours (Table) 08/28/24 08/28/24 08/29/24 Range/Units 16:32 20:41 05:44 WBC 10.29 H (4.50-10.00) X 10*3/uL Hgb 11.2 L (12.0-15.0) g/dL Hct 36.0 L (37.2-46.3) % MCV 78.4 L (80.0-97.0) FL MCH 24.4 L (27.0-32.0) pg MCHC 31.1 L (32.0-37.0) g/dL RDW 16.0 H (11.5-14.5) % MPV 9.0 L (9.5-12.2) FL Immature Gran # 0.18 H (0.00-0.04) X 10*3/uL Neutrophils # 7.97 H (1.80-7.70) X 10*3/uL Eosinophils # 0.01 L (0.04-0.35) X 10*3/uL Anion Gap (4.00-12.00) mmol/L BUN (9.0-27.0) mg/dL Est GFR (CKD-EPI) (>=60) BUN/Creatinine Ratio (12.00-20.00) Ratio Glucose (70-110) mg/dL POC Glucose (mg/dL) 189 H 141 H (70-110) mg/dL 08/29/24 08/29/24 08/29/24 Range/Units 05:44 06:23 11:45 WBC (4.50-10.00) X 10*3/uL Hgb (12.0-15.0) g/dL Hct (37.2-46.3) % MCV (80.0-97.0) FL MCH (27.0-32.0) pg MCHC (32.0-37.0) g/dL RDW (11.5-14.5) % MPV (9.5-12.2) FL Immature Gran # (0.00-0.04) X 10*3/uL Neutrophils # (1.80-7.70) X 10*3/uL Eosinophils # (0.04-0.35) X 10*3/uL Anion Gap 13.70 H (4.00-12.00) mmol/L BUN 35.8 H (9.0-27.0) mg/dL Est GFR (CKD-EPI) 41 L (>=60) BUN/Creatinine Ratio 25.57 H (12.00-20.00) Ratio Glucose 222 H (70-110) mg/dL POC Glucose (mg/dL) 212 H 135 H (70-110) mg/dL Microbiology - Last 24 Hours (Table) 08/25/24 03:28 Blood Culture Gram Stain - Final Blood Blood Culture - Final Staphylococcus epidermidis Molecular ID 08/26/24 09:00 Gram Stain - Final Sputum Sputum Culture - Final Assessment and Plan Plan: Acute hypoxic respiratory failure with presence of bilateral pneumonia in the mid and lower lung chaudhry in the perihilar area. Procalcitonin level has been nonelevated. The viral screen was negative. Legionella urine antigen was negative. The white cell count is at 6.5. CAT scan of the chest showed diffuse groundglass bilateral pulmonary filtrates. Rule out atypical pneumonia. Rule out interstitial edema. proBNP level was elevated above 3000. Echocardiogram showed normal LV function with mild degree of pulm hypertension. No significant valvular abnormalities. The patient remains on IV Lasix. Gram-positive cocci in the blood, likely contaminant, final culture was positive for Staph epidermidis Morbid obesity with a BMI of 39. COPD with limited smoking history. Her pulmonary function test showed only mild obstructive airway limitation. Based on the previous PFT that was done in our office, FEV1 was in order of 77% of predicted and the diffusion capacity was 65% of predicted and this is based on a PFT that was done on 10/25/2022. The patient has been maintained on Advair and outpatient basis. Hypertension Hyperlipidemia Glaucoma History of trigeminal neuralgia History of diverticulosis/diverticulitis with a hiatal hernia Chronic back pain Chronic varicosities lower extremities Obstructive sleep apnea, currently not receiving any treatment. History of ASD the patient has undergone surgical repair. Chronic anemia, normocytic Plan Clinically stable the patient is going to be discharged home tomorrow Continue lasix 40 mg p.o. daily Normal LV function on echocardiogram Continue bronchodilators prednisone burst taper to be completed on outpatient basis Titrate oxygen flow to maintain saturation above 90%, currently on 2 L CAT scan of the chest was reviewed. Will follow-up outpatient
== END 2024-08-29 14:14 | disposition home or self-care (01) | DRG 193 ==
LOC: EC 12:36 → 4SSUR 15:00
PROVIDERS: ADMIT Family Medicine; ATTEND Family Medicine
DX: J18.9 Pneumonia, unspecified organism (principal); I50.33 Acute on chronic diastolic (congestive) heart failure; J96.21 Acute and chronic respiratory failure with hypoxia; I27.22 Pulmonary hypertension due to left heart disease; I13.0 Hypertensive heart and chronic kidney disease with heart failure and stage 1 through stage 4 chronic kidney disease, or unspecified chronic kidney disease; J44.0 Chronic obstructive pulmonary disease with (acute) lower respiratory infection; E11.40 Type 2 diabetes mellitus with diabetic neuropathy, unspecified; Z68.39 Body mass index [BMI] 39.0-39.9, adult; E03.9 Hypothyroidism, unspecified; F32.A Depression, unspecified; I34.0 Nonrheumatic mitral (valve) insufficiency; J44.1 Chronic obstructive pulmonary disease with (acute) exacerbation; I47.10 Supraventricular tachycardia, unspecified; N17.9 Acute kidney failure, unspecified; E66.01 Morbid (severe) obesity due to excess calories; E11.22 Type 2 diabetes mellitus with diabetic chronic kidney disease; K21.9 Gastro-esophageal reflux disease without esophagitis; H40.9 Unspecified glaucoma; N18.2 Chronic kidney disease, stage 2 (mild); F41.9 Anxiety disorder, unspecified; E78.5 Hyperlipidemia, unspecified; Z99.81 Dependence on supplemental oxygen; Z79.890 Hormone replacement therapy; Z79.51 Long term (current) use of inhaled steroids; Z79.899 Other long term (current) drug therapy; Z79.82 Long term (current) use of aspirin; Z87.891 Personal history of nicotine dependence; Z79.85 Long-term (current) use of injectable non-insulin antidiabetic drugs
CPT/HCPCS: 36415; 71046; 71260; 80048; 80053; 81001; 83605; 83735; 83880; 84145; 85025; 87040; 87070; 87077; 87186; 87205; 87449; 87636; 93005; 93306; 94640; 94760; 96365; 96375; 99291

== ENCOUNTER → 2024-10-10 | Outpatient (CLI) | payer MEDICARE, OTHER ==
[2024-10-10 16:10] LABS: African American GFR (CKD) 61 (>60 ml/min/1.73 sqM); Blood Urea Nitrogen 19 mg/dL (7-17); Non-African American GFR(CKD) 53 (>60 ml/min/1.73 sqM)
--- NOTE | 2024-10-10 16:44 | CT ---
EXAMINATION TYPE: CT chest w con DATE OF EXAM: 10/10/2024 COMPARISON: 08/25/2024 HISTORY: pneumonia, SOB CT DLP: 622 mGycm. Automated Exposure Control for Dose Reduction was Utilized. TECHNIQUE: CT scan of the thorax is performed following with IV Contrast, patient injected with 80 m l mL of Isovue 300. MIP Images are created on CT scanner and reviewed. 3D reconstructed images are c reated on an independent workstation and reviewed. FINDINGS: LUNGS: Previously noted groundglass infiltrates scattered throughout both lung chaudhry have resolved. There is evidence of subpleural fibrosis seen bilaterally greatest at the lung bases. No focal consol idation. No pulmonary nodule or mass. MEDIASTINUM: There are no greater than 1 cm hilar or mediastinal lymph nodes. No pericardial effusi on is seen. Pulmonary arteries are mildly prominent which may reflect mild pulmonary arterial hypert ension. OTHER: No additional significant abnormality is seen. IMPRESSION: 1. Subpleural fibrosis. Resolution of previously noted groundglass infiltrates. [facility], , 10/10/2024 4:41 PM
== END | disposition home or self-care (01) ==
LOC: RADCTMAIN 15:21
PROVIDERS: ATTEND Internal Medicine
DX: R91.8 Other nonspecific abnormal finding of lung field (principal); J84.10 Pulmonary fibrosis, unspecified
CPT/HCPCS: 82565; 84520; 71260; 36415; Q9967

== ENCOUNTER → 2024-10-15 | Day surgery (SDC) | payer MEDICARE, OTHER ==
[~2024-10-15] MED LIST changes: -ACETAMINOPHEN TAB 500 MG TAB PO PRN; -GABAPENTIN 300 MG CAP PO PRN; +LACTATED RINGERS 1,000 ML IV SCH; +LIDOCAINE 1% INJ 10MG/ML (20 ML MDV) ONE; -ONDANSETRON 4 MG/2 ML VIAL IVP PRN; +PROPOFOL 10 MG/ML 20 ML VIAL IV ONE; -TRANEXAMIC ACID IN NACL,ISO-OS 1,000 MG in SALINE 1 100ML.BAG IVPB PRN
[2024-10-15 11:44] VITALS: TEMP 97
[2024-10-15] MEDS: IV FLUID CONTINUATION 1,000 ML IV ONE (11:44)
[2024-10-15 11:50] LABS: Glucose,Whole Blood 91 mg/dL (70-110)
[2024-10-15] MEDS: LACTATED RINGERS 1,000 ML IV SCH (11:54)
[2024-10-15] MEDS: IPRATROPIUM-ALBUTEROL 3 ML NEB INHALATION STA ×2 (11:55→13:26)
[2024-10-15] MEDS: LIDOCAINE 2% GLYDO JELLY 6 ML APPL MUCOUS MEM ONE ×2 (12:25→12:39)
[2024-10-15] MEDS: LIDOCAINE 2% INJ 20 MG/ML INTRATRACH ONE ×2 (12:26→12:40)
[2024-10-15] MEDS: LIDOCAINE 2% GLYDO JELLY 6 ML APPL MISCELLANE ONE (12:39)
[2024-10-15 13:37] VITALS: RESP 16
[2024-10-15 13:49] VITALS: BP 130/72; PULSE 90
--- NOTE | 2024-10-15 19:58 | PCN ---
PROCEDURE NOTE PROCEDURE: Bronchoscopy and bronchoalveolar lavage of the left lower lobe. PREOPERATIVE DIAGNOSIS: Chronic cough, postinfectious cough. POSTOPERATIVE DIAGNOSES: 1. Chronic cough, postinfectious cough. 2. Tracheobronchomalacia. ANESTHESIA USED: IV conscious sedation. PROCEDURE IN DETAIL: The patient was brought into the bronchoscopy suite, placed in supine position, placed on a Ventimask and a bite block was applied. Then, we monitored O2 saturation continuously. Blood pressure was intermittently monitored, cardiac rhythm was continuously monitored. After adequate IV conscious sedation, the bronchoscope was advanced through the bite block down to the area of the vocal cords. Lidocaine applied over the vocal cords, and the vocal cords were noted to be patent. Bronchoscope was advanced further down. Thorough examination was done of the trachea, twyla, right upper lobe, right middle lobe, right lower lobe, left upper lobe lingula, and left lower lobe. There was no evidence of any purulent secretions throughout the whole bronchial tree. There was no evidence of any endobronchial tumors, however, there was clearly evidence of tracheobronchomalacia. Lavage of the left lower lobe was performed because mostly that is one of the site pneumonia was, to begin with initially on her last evaluation in the office. Lavage from the left lower lobe was performed, fluid was sent for different diagnostic studies, procedure was well tolerated, no complications. The patient will be discharged home today and she will follow up on outpatient basis. MMODL / IJN: [id number] /
[2024-10-16 14:09] LABS: Appearance,BF Hazy; Color,BF Colorless
[2024-10-16 14:10] LABS: RBC, Body Fluid 41 /uL
[2024-10-16 14:11] LABS: Nucleated Cells, Body Fluid 24 /uL
[2024-10-16 14:15] LABS: Mononuclear WBC,Body Fluid 47 %; Polynuclear WBC,Body Fluid 53 %; Total Cells Counted,Body Fluid 100
== END | disposition home or self-care (01) ==
LOC: ORWHC2ENDO 11:16
PROVIDERS: ATTEND Internal Medicine
DX: J44.89 Other specified chronic obstructive pulmonary disease (principal); J30.2 Other seasonal allergic rhinitis; I10 Essential (primary) hypertension; E78.5 Hyperlipidemia, unspecified; E11.9 Type 2 diabetes mellitus without complications; E07.9 Disorder of thyroid, unspecified; E66.01 Morbid (severe) obesity due to excess calories; E03.9 Hypothyroidism, unspecified; E24.9 Cushing's syndrome, unspecified; B94.8 Sequelae of other specified infectious and parasitic diseases; K21.9 Gastro-esophageal reflux disease without esophagitis; Z87.74 Personal history of (corrected) congenital malformations of heart and circulatory system; Z68.39 Body mass index [BMI] 39.0-39.9, adult; Z88.2 Allergy status to sulfonamides; Z79.51 Long term (current) use of inhaled steroids; Z79.02 Long term (current) use of antithrombotics/antiplatelets; Z79.890 Hormone replacement therapy; Z79.899 Other long term (current) drug therapy
CPT/HCPCS: 87798 ×3; 87496; 87498; 87529; 88108; 88305; 89050; 87502; 87634; 87070; 87205; 87116; 87102; 87206; 87635; 31624; J2003 ×2; J2704

== ENCOUNTER → 2025-01-13 | Outpatient (CLI) | payer MEDICARE, OTHER ==
--- NOTE | 2025-01-13 12:43 | CT ---
EXAMINATION TYPE: CT brain wo con DATE OF EXAM: 01/13/2025 COMPARISON: 04/20/2015 CLINICAL INDICATION: Female, 69 years old with history of H92.01 OTALGIA, RIGHT EAR; PHH, otalgia of rt ear. CT DLP: 1207 mGycm Automated exposure control for dose reduction was used. FINDINGS: Exam limited by artifact. Postsurgical change involving the right occiput and nasal bones. There is no evidence of midline shif t or mass effect no acute intracranial hemorrhage. Hyperostosis of the calvarium. Orbits are symmetri c. Mild changes of chronic sinusitis. Craniocervical junction maintained. Sella turcica has a normal appearance. IMPRESSION: DEGENERATIVE AND POSTSURGICAL CHANGES NO ACUTE INTRACRANIAL HEMORRHAGE OR MASS EFFECT.. [facility], , 01/13/2025 12:41 PM
== END | disposition home or self-care (01) ==
LOC: RADCTMAIN 12:05
PROVIDERS: ATTEND Family Medicine
DX: H92.01 Otalgia, right ear (principal); G93.89 Other specified disorders of brain
CPT/HCPCS: 70450